=== PATIENT | male | born 1940 | race Caucasian/White ===

== ENCOUNTER 2016-06-20 12:03 | Inpatient (IN) | payer OTHER, MEDICARE ==
[~2016-06-20] VITALS: Ht 165.1 cm; Wt 58.1 kg
[~2016-06-20 12:03] MED LIST: ALBUTEROL0.09 MG/A1 INH; ALBUTEROL0.09 MG/A2 INH; AMOXIL500 MG PO; ATORVASTATIN CA40 M1 PO; ATORVASTATIN CA40 MG PO; AUGMENTIN 875875 MG PO; CIPRO500 M1 PO; CIPROFLOXACIN500 M2 PO; COUMADIN4 M1 PO; COUMADIN5 M2 PO; CYCLOBENZAPRINE10 M1 PO; DUONEB 3 MG/3 ML3 ML INH/SOL; FUROSEMIDE20 MG PO; LASIX20 M1 PO; LASIX20 MG PO; LASIX40 MG PO; LOPRESSOR 25MG25 MG PO; LOPRESSOR 6.26.25 MG PO; MASON NATURAL325 MG PO; METOPROLOL TART25 M1 PO; NAPROXEN375 M2 PO; NOVAPLUS V0.09 MG/Ac INH; OMEPRAZOLE40 MG PO; OXYCODONE HCL5 M2 PO; OXYCODONE5 M1 PO; PERCOCET 325 MG1 TA2 PO; PERCOCET 325 MG1 TAB PO; PERCOCET 5-3251 EACH PO; PLAVIX 75MG TAB75 MG PO; POTASSIUM CL 225 MEQ PO; PREDNISONE 20MG20 MG PO; PREDNISONE10 M2 PO; PREDNISONE10 MG PO; Robitussin PO; SPIRIVA1 PUF INH; SYMBICORT 160/41 PUF INH; TYLENOL EXTRA500 M2 PO; TYLENOL WITH C1 EACH PO; TYLENOL XSTR500 MG PO; XARELTO15 M1 PO
[2016-06-20 13:08] LABS: ABSOLUTE BASOPHIL COUNT 0.1 /CUMM (0.0-0.2); ABSOLUTE EOSINOPHIL COUNT 0.1 /CUMM (0.0-0.7); ABSOLUTE GRANULOCYTE CT 4.6 /CUMM (1.4-6.5); ABSOLUTE LYMPH COUNT 1.1 /CUMM (1.2-3.4); ABSOLUTE MONOCYTE COUNT 0.6 /CUMM (0.10-0.60); BASOPHIL % 0.8 % (0.0-2.0); EOSINOPHIL % 1.4 % (0-5); GRANULOCYTE % 71.2 % (42.2-75.2); HEMATOCRIT 40.6 % (42-52); MEAN CORPUSCULAR HGB 28.8 PG (27.0-31.0); MEAN CORPUSCULAR VOLUME 89.9 FL (80.0-94.0); MEAN PLATELET VOLUME 8.3 FL (7.4-10.4); PLATELET COUNT 154 /CUMM (130-400); RBC DISTRIBUTION WIDTH 15.1 % (11.5-14.5); RED BLOOD CELL CT 4.52 /CUMM (4.70-6.10); WHITE BLOOD CELL COUNT 6.5 /CUMM (4.8-10.8)
--- NOTE | 2016-06-20 13:23 | ED GENERAL ADULT ---
History of Present Illness General Chief Complaint: General Adult Stated Complaint: DIZZINESS, COLD SWEATS, INCREASED WEAKNESS Source: patient Exam Limitations: no limitations Vital Signs & Intake/Output Vital Signs & Intake/Output Vital Signs Date Time Temp Pulse Resp B/P Pulse O2 O2 Flow FiO2 Ox Delivery Rate 06/20 1951 97.5 94 20 130/80 97 Room Air 06/20 1931 97.6 70 20 126/72 97 Room Air 06/20 1843 97 06/20 1711 97.6 72 20 137/92 95 Room Air 06/20 1433 98.9 90 20 131/88 92 Room Air 06/20 1306 98.0 85 26 131/78 92 Room Air 06/20 1236 Room Air 06/20 1210 96.8 94 24 147/92 90 Room Air Reconcile Medications Atorvastatin Calcium 40 MG TABLET 40 MG PO 1700 HEART Furosemide (Lasix) 20 MG TABLET 1 TAB PO BID swollen legs Metoprolol Tartrate 25 MG TABLET 0.5 TAB PO BID HYPERTENSION Oxycodone HCl/Acetaminophen (Percocet 5-325 MG Tablet) 5 MG-325 MG TABLET 1 TAB PO BID PRN PAIN TEN...[id number] Pot Chloride/Pot Bicarb/Cit AC (Potassium Cl 25 Meq Tab Eff) 25 MEQ TABLET.EFF 1 TAB PO QDAY WHILE TAKING FUROSEMIDE Warfarin Sodium (Coumadin) 4 MG TABLET 1 TAB PO DAILY BLOOD CLOTS Triage Note: PT TO ED C/O HOT AND COLD SWEATS. C/O "LEGS GIVING OUT" X 1 WEEK. C/O INCREASED WEAKNESS. Triage Nurses Notes Reviewed? yes Onset: Abrupt Duration: week(s): (1), constant, continues in ED Timing: recent history Injury Environment: home Severity: moderate, severe No Modifying Factors: none HPI: 76-year-old male comes into emergency room for further evaluation of multiple complaints. Patient reports that he's been very fatigued and tired. Patient complains of bilateral lower leg pain and swelling in his legs. Patient reports that he ambulates 5-10 feet and has pain and has to stop. Patient denies any chest pain or shortness of breath. Patient has been coughing frequently with some upper respiratory symptoms. Some nasal congestion. Denies any vomiting. Denies any other associated symptoms. (MAURIZIO MARIANO,CHRISTINE) Allergies Coded Allergies: oxycodone (Intermediate, RASH 06/20/16) aspirin (ANAPHYLAXIS 04/30/16) (NEDRA WYATT DO) Past History Travel History Traveled to [place] past 21 day No Medical History Any Pertinent Medical History? 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 MOTHER (DM). Hx Contributory? No (CHRISTINE MCNEAL) Review of Systems Review of Systems Constitutional: Reports: see HPI. EENTM: Reports: see HPI. Respiratory: Reports: see HPI. Cardiovascular: Reports: no symptoms. GI: Reports: no symptoms. Genitourinary: Reports: no symptoms. Musculoskeletal: Reports: see HPI. Skin: Reports: see HPI. Neurological/Psychological: Reports: no symptoms. Hematologic/Endocrine: Reports: no symptoms. Immunologic/Allergic: Reports: no symptoms. All Other Systems: Reviewed and Negative (CHRISTINE MCNEAL) Physical Exam Physical Exam General Appearance: well developed/nourished, alert, awake, mild distress Head: atraumatic Eyes: Bilateral: normal appearance, PERRL, EOMI. Ears, Nose, Throat: normal pharynx, normal ENT inspection Neck: normal inspection, supple Respiratory: no respiratory distress, decreased breath sounds Cardiovascular: regular rate/rhythm Gastrointestinal: soft Extremities: pedal edema (2+) Neurologic/Psych: awake, alert, oriented x 3, normal gait, normal mood/affect Skin: intact, normal color Core Measures ACS in differential dx? No CVA/TIA Diagnosis: No Severe Sepsis Present: No Septic Shock Present: No (CHRISTINE MCNEAL) Progress Differential Diagnoses I considered the following diagnoses in my evaluation of the patient: DVT, peripheral vascular disease, congestive heart failure, COPD, pneumonia, sepsis, UTI, Plan of Care: Orders Procedure Date/time Status Consistent Carbohydrate 3 06/21 B Active TROPONIN LEVEL 06/21 0100 Active EKG 06/21 0100 Active Vital Signs 06/20 194 Active Teach/Educate 06/20 1944 Active Nutritional Intake, Monitor 06/20 1944 Active Isolation 06/20 194 Active Intake & Output 06/20 194 Active Patient Care Conference 06/20 194 Active Activity/Ambulation 06/20 194 Active TROPONIN LEVEL 06/20 1900 Complete EKG 06/20 190 Active Straight Cath 06/20 1855 Active RAPID VIRAL INFLUENZA A 06/20 1706 Complete BLOOD CULTURE 06/20 1706 Active TRC EVALUATION (GEN) 06/20 1620 Active OXYGEN SETUP (GEN) 06/20 1620 Active Pathway - chart 06/20 1620 Active House Staff 06/20 1620 Active Admit to inpatient 06/20 1620 Active Patient Data 06/20 1620 Active Code Status 06/20 1620 Complete Code Status 06/20 1620 Active Patient Data 06/20 1603 Active Add-on Test (ER Only) 06/20 1356 Active PROTHROMBIN TIME 06/20 1259 Complete B-TYPE NATRIURETIC PEP (BNP) 06/20 1259 Complete URINALYSIS 06/20 1229 Complete TROPONIN LEVEL 06/20 1229 Complete COMPREHENSIVE METABOLIC PANEL 06/20 1229 Complete CBC WITHOUT DIFFERENTIAL 06/20 1229 Complete EKG 06/20 1229 Active VTE Mechanical Prophylaxis 06/20 UNK Active Vital Signs 06/20 UNK Active MISTAKE 06/20 UNK Active Telemetry/Drag Sawyer 06/20 UNK Active Intake & Output 06/20 UNK Active Hemoccult 06/20 UNK Active ECHOCARDIOGRAM 06/20 UNK Active Current Medications Sig/Nelly Start time Last Medication Dose Stop Time Status Admin Atorvastatin Calcium 40 MG 1700 06/21 1700 AC (Lipitor) Methylprednisolone 20 MG Q8 06/21 0600 AC (Solumedrol) Enoxaparin Sodium 60 MG BID 06/20 2200 AC (Lovenox) Furosemide 20 MG BID 06/20 2200 AC (Lasix) Metoprolol Tartrate 12.5 MG BID 06/20 2200 AC (Lopressor) Metoclopramide HCl 5 MG AC & AT BEDTIME PRN 06/20 1999 CAN (Reglan) Guaifenesin 10 ML Q6P PRN 06/20 1944 AC (Robitussin) Sodium Chloride 2 SPRAY Q4P PRN 06/20 1944 AC (Nasal) Laboratory Tests 06/20/16 1850: Troponin I 0.02 06/20/16 1403: Urine Color YEL, Urine Clarity HAZY H, Urine pH 6.0, Ur Specific [place] >= 1.030, Urine Protein 100 H, Urine Ketones NEG, Urine Nitrite NEG, Urine Bilirubin NEG, Urine Urobilinogen 0.2, Ur Leukocyte Esterase NEG, Ur Microscopic SEDIMENT EXAMINED, Urine RBC 1-3, Urine WBC 15-25 H, Ur Epithelial Cells FEW, Hyaline Casts 1-3 H, Urine Mucus FEW, Urine Hemoglobin NEG, Urine Glucose NEG 06/20/16 1259: Anion Gap 9, Estimated GFR 59 L, BUN/Creatinine Ratio 22.5, Glucose 201 H, Calcium 9.0, Total Bilirubin 0.7, AST 21, ALT 24, Alkaline Phosphatase 93, Troponin I 0.02, Fem-Y-Wzdaizdzlqm Pept 48075 H, Total Protein 6.5, Albumin 3.7 , Globulin 2.8, Albumin/Globulin Ratio 1.3, PT 14.1 H, INR 1.35 H, CBC w Diff NO MAN DIFF REQ, RBC 4.52 L, MCV 89.9, MCH 28.8, RDW 15.1 H, MPV 8.3, Gran % 71.2, Lymphocytes % 17.4 L, Monocytes % 9.2, Eosinophils % 1.4, Basophils % 0.8 , Absolute Granulocytes 4.6, Absolute Lymphocytes 1.1 L, Absolute Monocytes 0.6 , Absolute Eosinophils 0.1, Absolute Basophils 0.1, PUBS MCHC 32.0 L 06/20/16 1235: Ssu-F-Twxefwozbsl Pept Cancelled Microbiology 06/20 190 BLOOD: Blood Culture - RECD 06/20 1849 BLOOD: Blood Culture - RECD Diagnostic Imaging: Viewed by Me: Radiology Read, Ultrasound. Discussed w/RAD: Radiology Read, Ultrasound. Radiology Impression: SERVICE DATE: 06/20/16 EXAM TYPE: RAD - XRY-CHEST XRAY, PA AND LATERAL EXAMINATION: XR CHEST CLINICAL INFORMATION: Hypoxia. COMPARISON: CXR from 05/08/2016. Chest CT from 04/30/[address] from . TECHNIQUE: PA and lateral views of the chest were obtained. FINDINGS: Cardiomegaly without acute pulmonary edema. Small pleural effusions, similar in size compared to 05/18/2016, with minimal bibasilar atelectasis. There is no acute pulmonary consolidation. Again noted is the large cardiac silhouette, atherosclerotic aorta, and saccular aneurysms of the aortic arch and proximal descending aorta. No acute skeletal findings; there is mild dextrocurvature of the degenerated lower thoracic spine and levocurvature of the degenerated lumbar spine. IMPRESSION: 1. Cardiomegaly without pulmonary edema. 2. No acute findings in the lung bases compared to the abdomen CT of 05/18/2016. Persistent small pleural effusions with bibasilar atelectasis. 3. Saccular aneurysms of the thoracic aorta. DICTATED BY: BILLY COLBERT MD , SERVICE DATE: 06/20/16 EXAM TYPE: US - US-EXT BILAT VENOUS DOPPLER EXAMINATION: US TRIPLEX LOWER EXTREMITY, BILATERAL CLINICAL INFORMATION: Bilateral lower extremity pain and swelling. COMPARISON: Triplex ultrasound of the bilateral lower extremity veins 05/01/2016. TECHNIQUE: Color-flow triplex imaging with spectral analysis and compression Doppler were performed on the bilateral lower extremities. FINDINGS: Respiratory variation, normal compression and augmented flow are noted throughout the bilateral lower extremities. The visualized common femoral veins, femoral veins, profunda femoral veins, popliteal veins and mid calf peroneal and posterior tibial venous segments demonstrate no evidence of deep venous thrombosis. There are no Arvizu's cysts. IMPRESSION: Normal triplex scan without evidence of deep venous thrombosis involving the bilateral lower extremities. DICTATED BY: JOHANA MERCADO MDENNA Initial ED EKG: normal intervals, normal p-waves, normal QRS complex, normal sinus rhythm, rate (75) Prior EKG: unchanged (CHRISTINE MCNEAL) Departure Departure Condition: Stable Clinical Impression Primary Impression: Acute CHF (congestive heart failure) Secondary Impressions: COPD exacerbation, Hypoxia Referrals: IRENE PAGAN MD (PCP/Family) Referred to [facility] as new patient No Departure Forms: Customer Survey General Discharge Information (CHRISTINE MCNEAL) Departure Disposition: STILL A PATIENT Admission Note Spoke With: ERVIN BOSTON MD Documentation of Exam: Documentation of any treatments & extenuating circumstances including Concerns Regarding Discharge (functional status, medication knowledge or non-compliance, living conditions, etc.) that warrant an admission rather than observation: [ Patient needs admission for telemetry monitoring, serial troponins, nebulizer treatments every 4 hours, IV Lasix, consider cardiology consultation] PA/ORNAMENTAL IRONWORKER Co-Sign Statement Statement: ED Attending supervision documentation- [X] I saw and evaluated the patient. I have also reviewed all the pertinent lab results and diagnostic results. I agree with the findings and the plan of care as documented in the PA's/ORNAMENTAL IRONWORKER's documentation. [] I have reviewed the ED Record and agree with the PA's/ORNAMENTAL IRONWORKER's documentation. [] Additions or exceptions (if any) to the PAs/ORNAMENTAL IRONWORKER's note and plan are summarized below: [] (NEDRA WYATT DO) Critical Care Note Critical Care Note Critical Care Time: 30-74 min (NEDRA WYATT DO)
--- NOTE | 2016-06-20 13:28 | RADIOLOGY REPORT ---
EXAMINATION: XR CHEST CLINICAL INFORMATION: Hypoxia. COMPARISON: CXR from 05/08/2016. Chest CT from 04/30/[address] from 05/18/2016. TECHNIQUE: PA and lateral views of the chest were obtained. FINDINGS: Cardiomegaly without acute pulmonary edema. Small pleural effusions, similar in size compared to 05/18/2016, with minimal bibasilar atelectasis. There is no acute pulmonary consolidation. Again noted is the large cardiac silhouette, atherosclerotic aorta, and saccular aneurysms of the aortic arch and proximal descending aorta. No acute skeletal findings; there is mild dextrocurvature of the degenerated lower thoracic spine and levocurvature of the degenerated lumbar spine. IMPRESSION: 1. Cardiomegaly without pulmonary edema. 2. No acute findings in the lung bases compared to the abdomen CT of 05/18/2016. Persistent small pleural effusions with bibasilar atelectasis. 3. Saccular aneurysms of the thoracic aorta.
[2016-06-20 14:08] LABS: PT 14.1 SEC (9.4-12.5)
--- NOTE | 2016-06-20 15:05 | ULTRASOUND REPORT ---
EXAMINATION: US TRIPLEX LOWER EXTREMITY, BILATERAL CLINICAL INFORMATION: Bilateral lower extremity pain and swelling. COMPARISON: Triplex ultrasound of the bilateral lower extremity veins 05/01/2016. TECHNIQUE: Color-flow triplex imaging with spectral analysis and compression Doppler were performed on the bilateral lower extremities. FINDINGS: Respiratory variation, normal compression and augmented flow are noted throughout the bilateral lower extremities. The visualized common femoral veins, femoral veins, profunda femoral veins, popliteal veins and mid calf peroneal and posterior tibial venous segments demonstrate no evidence of deep venous thrombosis. There are no Arvizu's cysts. IMPRESSION: Normal triplex scan without evidence of deep venous thrombosis involving the bilateral lower extremities.
--- NOTE | 2016-06-20 16:17 | History & Physical ---
SERA GUERRERO 06/20/16 1617: General Information and HPI MD Statement: I have seen and personally examined JESÚS FERNANDES and documented this H&P. The patient is a 76 year old M who presented with a patient stated chief complaint of []. Source of Information: patient, old records Exam Limitations: no limitations History of Present Illness: Chief complaint: Exertional shortness of breath and nasal congestion for the past 3 days. This is a 76-year-old active smoker gentleman with past medical history significant for HfRef (echocardiogram 11/03/2015:EF 25% with stage III diastolic dysfunction [id number] MR, trace AR, jiic-jr-onirvouc TR, mild PA ), PVD, COPD not on home oxygen, CAD status post stenting, descending thoracic aortic aneurysm-stable, pulmonary embolism which failed treatment with Xarelto(the patient was maintained on warfarin since his last admission on 04/30/2016) who presents to the hospital with worsening shortness of breath and nasal congestion for the past 3 days. According to the patient, he has been experiencing URI like symptoms and weakness for the past 3 days, has mild sore throat along cough (with clear sputum). He is also experiencing exertional shortness of breath and mentions that he can only walk for approximately 10 feet before getting short of breath. He denies orthopnea. He reports chest discomfort after each cough however denies chest pain and palpitations. Per patient, he did not notice any worsening of lower extremity edema recently and in fact he reports his lower extremity edema to be better than his baseline today. The patient has not received flu vaccine this year because per patient, he did not like how he felt last time he received the vaccine. The patient denies history of sick contact, recent travel, illicit drug use, EtOH use. The patient reports that he has reduced smoking significantly and smokes 1 pack per week. Allergies/Medications Allergies: Coded Allergies: oxycodone (Intermediate, RASH 06/20/16) aspirin (ANAPHYLAXIS 04/30/16) Home Med list Atorvastatin Calcium 40 MG TABLET 40 MG PO 1700 HEART Furosemide (Lasix) 20 MG TABLET 1 TAB PO BID swollen legs Metoprolol Tartrate 25 MG TABLET 0.5 TAB PO BID HYPERTENSION Oxycodone HCl/Acetaminophen (Percocet 5-325 MG Tablet) 5 MG-325 MG TABLET 1 TAB PO BID PRN PAIN TEN...[id number] Pot Chloride/Pot Bicarb/Cit AC (Potassium Cl 25 Meq Tab Eff) 25 MEQ TABLET.EFF 1 TAB PO QDAY WHILE TAKING FUROSEMIDE Warfarin Sodium (Coumadin) 4 MG TABLET 1 TAB PO DAILY BLOOD CLOTS Past History Travel History Traveled to [place] past 21 day No Medical History Neurological: NONE EENT: DEVIATED SEPTUM Cardiovascular: CAD (NSTEMI s/p PCI of the LCX/OM), CHF (peripheral vascular disease), HYPERLIPIDEMIA CT X 1 YEAR AGO THORACIC AORTA PSEUDO- ANEURYSM Respiratory: COPD Gastrointestinal: GI BLEED Hepatic: NONE Renal: nephrolithiasis, BPH s/p right ESWL Musculoskeletal: leg pain Psychiatric: NONE Endocrine: diabetes Blood Disorders: NONE Cancer(s): NONE 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 MOTHER (DM). Psychosocial History Services at Home: None ETOH Use: denies use Illicit Drug Use: denies illicit drug use Review of Systems Review of Systems Constitutional: Reports: weakness. Denies: chills, diaphoresis, fever, malaise, unexplained weight loss. EENTM: Reports: nasal congestion, throat pain. Denies: blurred vision, double vision, visual changes, eye pain, eye drainage, eye tearing, icterus, ear discharge, ear pain, ear redness, hearing changes, epistaxis, nasal pain, throat swelling, mouth pain, tooth pain. Cardiovascular: Denies: chest pain, edema, orthopena, palpitations, peripheral edema, syncope. Respiratory: Reports: cough, short of breath. Denies: hemoptysis, orthopnea, sputum production, stridor, wheezing. GI: Denies: abdominal pain, bloating, constipation, diarrhea, distention, bowel incontinence, melena, nausea, bloody stool, changes in stool, vomiting, steatorrhea. Genitourinary: Denies: discharge, dysuria, frequency, hematuria, hesitation, nocturia, pain, urgency. Musculoskeletal: Denies: back pain, gout, joint pain, joint swelling, muscle pain, muscle stiffness, neck pain. Skin: Denies: cysts, change in skin color, change in hair/nails, dryness, erythema, jaundice, lesions, lymphangitis, lumps, moles, rash. Neurological/Psychological: Denies: anxiety, ataxia, cognitive dysfunction, confusion, depressed, dementia, emotional problems, headache, numbness, paresthesia, pre-existing deficit, petit mal seizures, tingling, tremors, tonic-clonic seizures, unable to move lower ext , unable to move upper ext, weakness. Hematologic/Endocrine: Denies: bruising, bleeding, polyuria, polydipsia. Immunologic/Allergic: Denies: splenectomy, HIV/AIDS, lymphadenopathy. All Other Systems: Reviewed and Negative Exam & Diagnostic Data Last 24 Hrs of Vital Signs/I&O Vital Signs Date Time Temp Pulse Resp B/P Pulse O2 O2 Flow FiO2 Ox Delivery Rate 06/20 1951 97.5 94 20 130/80 97 Room Air 06/20 1932 97.6 70 20 126/72 97 Room Air 06/20 1843 97 06/20 1711 97.6 72 20 137/92 95 Room Air 06/20 1433 98.9 90 20 131/88 92 Room Air 06/20 1306 98.0 85 26 131/78 92 Room Air 06/20 1236 Room Air 06/20 1210 96.8 94 24 147/92 90 Room Air Intake & Output 06/20 1600 06/20 0800 06/20 0000 Intake Total 0 Output Total Balance 0 Intake, Oral 0 Patient 126 lb Weight Physical Exam General Appearance Alert, Oriented X3, Cooperative, No Acute Distress Skin No Rashes, No Breakdown, No Significant Lesion HEENT Atraumatic, PERRLA, EOMI, Mucous Membr. moist/pink Neck Supple, No JVD, No thryomegaly, +2 Carotid Pulse wo Bruit, No LAD Lymphatic Axillary nl, Cervical nl Cardiovascular Regular Rate, Normal S1, Normal S2, No Murmurs Lungs expiratory wheezes, no crackles or sign of congestion Abdomen Normal Bowel Sounds, Soft, No Tenderness, No Hepatospenomegaly, No Masses Neurological Normal Speech, Strength at 5/5 X4 Ext, Normal Tone, Sensation Intact, Cranial Nerves 3-12 NL, Reflexes 2+ Extremities No Clubbing, No Cyanosis, bilateral lower extremity +1 edema Vascular Pulses Symmetrical Last 24 Hrs of Labs/Tr: Laboratory Tests 06/20/16 1850: Troponin I 0.02 06/20/16 1403: Urine Color YEL, Urine Clarity HAZY H, Urine pH 6.0, Ur Specific [place] >= 1.030, Urine Protein 100 H, Urine Ketones NEG, Urine Nitrite NEG, Urine Bilirubin NEG, Urine Urobilinogen 0.2, Ur Leukocyte Esterase NEG, Ur Microscopic SEDIMENT EXAMINED, Urine RBC 1-3, Urine WBC 15-25 H, Ur Epithelial Cells FEW, Hyaline Casts 1-3 H, Urine Mucus FEW, Urine Hemoglobin NEG, Urine Glucose NEG 06/20/16 1259: Anion Gap 9, Estimated GFR 59 L, BUN/Creatinine Ratio 22.5, Glucose 201 H, Calcium 9.0, Total Bilirubin 0.7, AST 21, ALT 24, Alkaline Phosphatase 93, Troponin I 0.02, Mnj-D-Sfnuwzbkokb Pept 89536 H, Total Protein 6.5, Albumin 3.7 , Globulin 2.8, Albumin/Globulin Ratio 1.3, PT 14.1 H, INR 1.35 H, CBC w Diff NO MAN DIFF REQ, RBC 4.52 L, MCV 89.9, MCH 28.8, RDW 15.1 H, MPV 8.3, Gran % 71.2, Lymphocytes % 17.4 L, Monocytes % 9.2, Eosinophils % 1.4, Basophils % 0.8 , Absolute Granulocytes 4.6, Absolute Lymphocytes 1.1 L, Absolute Monocytes 0.6 , Absolute Eosinophils 0.1, Absolute Basophils 0.1, PUBS MCHC 32.0 L 06/20/16 1235: Rbb-V-Packmlegedq Pept Cancelled Microbiology 06/20 1900 BLOOD: Blood Culture - RECD 06/20 1850 BLOOD: Blood Culture - RECD Diagnostic Data EKG Results Sinus rhythm, rate 75, QTC 470, right axis deviation, no significant ST-T wave changes. CXR Results 1. Cardiomegaly without pulmonary edema. 2. No acute findings in the lung bases compared to the abdomen CT of 05/18/2016. Persistent small pleural effusions with bibasilar atelectasis. 3. Saccular aneurysms of the thoracic aorta. Other Results Lower extremity venous Doppler study:Normal triplex scan without evidence of deep venous thrombosis involving the bilateral lower extremities. Assessment/Plan Assessment: 76-year-old gentleman with past medical history of HfRef, COPD, pulmonary embolism on warfarin presents today with worsening of exertional shortness of breath and URI symptoms for 3 days; clinical symptoms and physical exam not compatible with acute heart failure even though proBNP is elevated. There is no sign of pulmonary edema on chest x-ray. Problem list/plan #Shortness of breath, cough, chest discomfort * Patient reports history of URI for the past 3 days, clinically not seem to be in heart failure; most likely COPD exacerbation * His symptoms improved after receiving 125 mg of IV methylprednisolone and TRC treatment in the ED. * secured entrance monitor * Vital signs per protocol * Strict I's and O's * Will rule out ACS with serial troponin and EKG * Echocardiogram * Blood cultures and sputum culture * Will check flu swab * Will start the patient on IV azithromycin 500 mg daily, IV methylprednisolone 20 q 8 * Will add PPI for GI protection while on steroids * TRC/nebs as needed * Oxygen supplementation * Saline irrigation for nasal congestion * Guaifenesin for expectorant #Pulmonary embolism on warfarin: * The patient had subtherapeutic INR of 135 on admission, he reports that he has been taking his warfarin on time every day * Will start the patient on subcutaneous Lovenox 60 mg twice a day, will administer 5 mg by mouth warfarin; will continue Lovenox onto the INR is within therapeutic range. * Will not obtain CTA at this point given results of this test will not change our management. * Will closely monitor H&H * Stool was negative for Hemoccult #HfRef: * Continue with metoprolol 12.5 by mouth twice a day * Continue with atorvastatin 40 mg by mouth daily * At this point we were not able to find any contraindication for Miguel inhibitors , will ask cardiology tomorrow if we can start him on miguel inhibitors given his reduced ejection fraction * Echocardiogram and rule out ACS as above #Lower extremity edema: * The patient has not noticed any worsening in his lower extremity edema recently; reports that it has been improving * No calf tenderness * Venous Doppler of lower extremities was negative for any DVT * The patient received 40 mg IV furosemide 1 in the ED * Will continue his home medication of by mouth furosemide 20 mg twice a day #Elevated blood glucose level: * The patient has blood glucose level of 201 on admission, he denies any polyuria, polydipsia, polyphagia however mentions that he has been diagnosed recently with prediabetes * Will check hemoglobin A1c * Diabetic/cardiac diet #History of Abdominal aortic aneurysm * Per our electronic data, the patient was found to have abdominal aortic aneurysm in October 2015, he was told that surgery is too risky for him and he was instructed to do annual follow-up and blood pressure control. #DVT prophylaxis: * SC Lovenox and warfarin #CODE STATUS: * Full code As Ranked By This Provider Problem List: 1. Borderline diabetes mellitus 2. Peripheral arterial disease 3. DVT prophylaxis 4. COPD (chronic obstructive pulmonary disease) 5. Bronchitis Core Measures/Miscellaneous Acute Coronary Syndrome ACS Diagnosis: No Cerebrovascular Accident CVA/TIA Diagnosis: No Congestive Heart Failure CHF Diagnosis: No Venous Thromboembolism VTE Risk Factors: Age > 40, Smoking VTE Prophylaxis Ordered Inpt: Pharm- Warfarin No Mech VTE prophylaxis d/t: No contraindications No VTE Pharm Prophylaxis d/t: No contraindications VTE Diagnosis: No VTE Type: NONE VTE Confirmed by (Test): NONE Severe Sepsis Severe Sepsis Present: No Septic Shock Septic Shock Present: No Miscellaneous Documentation Attending Case Discussed With: ERVIN BOSTON MD Primary Care Physician: IRENE PAGAN MD Patient sees these Specialists Cardiology Level of Patient Care: Telemetry ERVIN BOSTON MD 06/20/16 1715: Attending MD Review Statement Attending Statement Attending MD Statement: examined this patient, discuss w/resident/PA/CRYSTAL INSPECTOR, agreed w/resident/PA/CRYSTAL INSPECTOR, reviewed EMR data (avail), reviewed images Attending Assessment/Plan: 76 year old male with COPD (still smoking), PVD, PE (failed Xarelto) and on Coumadin, systolic heart failure with EF of 35 % here with acute COPD exacerbation. Pt's syx started with URI like syx and now has cough and sob. Although BNP is elevated, clinically pt does not appear to be in heart failure and his edema, he says is better than before. Will treat with IV steroids and PO abx for a COPD exacerbation. Check flu swab. Given sub therapeutic INR and large PE (05/04), will start lovenox 1mh/kg sq bid and dose PO Coumadin till inr is therapeutic . Cont statin and beta bautista and speak to Cardio about ?miguel inhibitor given systolic heart failure.
--- NOTE | 2016-06-20 17:17 | Admission Certification ---
Admission Certification Certification Statement - As attending physician, I certify that at the time of - admission, based on clinical presentation, severity of - symptoms, need for further diagnostic testing and - therapeutic interventions, and risk of adverse outcomes - without in-hospital treatment, in my clinical assessment, - this patient requires an acute hospital stay for a minimum - of two nights or longer. I have also considered psychsocial - factors such as support system, advanced age, financial - issues, cognitive issues, and failed out-patient treatments, - past re-admission history, safety of patient, and lack of - compliance as applicable. Specific rationale supporting this admission is: acute copd exacerbation, needs IV steroids
[2016-06-20 19:52] VITALS: BP 130/80
[2016-06-20 23:15] VITALS: BP 128/70
--- NOTE | 2016-06-21 07:53 | PN- Housestaff ---
SERA GUERRERO 06/21/16 0753: Subjective Follow-up For: Shortness of breath, cough, chest discomfort Tele-Events Since Last Visit: Sinus rhythm, rate 64-89, episodes of sinus bradycardia rate 48, PVCs. Subjective: Patient seen and examined this morning. He reports interscapular pain, 7/10, nonradiating. His pain improved with Tylenol 3251. Otherwise he feels much better compared to yesterday, his shortness of breath has improved. He also had trouble phonating overnight and required Bryant catheter placement. The patient denies headache, dizziness, lightheadedness, palpitations, chest pain, chest pressure, abdominal pain, urinary symptoms. Vital signs stable. No overnight events reported. Review of Systems Constitutional: Denies: see HPI. Objective Last 24 Hrs of Vital Signs/I&O Vital Signs Date Time Temp Pulse Resp B/P Pulse O2 O2 Flow FiO2 Ox Delivery Rate 06/21 1021 92 Nasal 2.0L Cannula 06/21 0944 81 130/72 06/21 0828 97.6 81 18 130/72 92 Nasal 2.0L Cannula 06/21 0800 92 Nasal 2.0L Cannula 06/20 2315 97.5 88 18 128/70 96 Nasal 2.0L Cannula 06/20 2238 88 128/70 06/20 2219 Nasal 2.0L Cannula 06/20 2200 95 Nasal 2.0L Cannula 06/20 1952 97.5 94 20 130/80 97 Room Air 06/20 1932 97.6 70 20 126/72 97 Room Air 06/20 1843 97 06/20 1711 97.6 72 20 137/92 95 Room Air Intake & Output 06/21 1600 06/21 0800 06/21 0000 Intake Total 1160 480 340 Output Total 450 1600 1500 Balance 710 -1120 -1160 Intake, IV 300 100 Intake, Oral 860 480 240 Number 0 Bowel Movements Output, Urine 450 1600 1500 Patient 127 lb Weight Physical Exam General Appearance: Alert, Oriented X3, Cooperative Skin: No Rashes, No Breakdown, No Significant Lesion HEENT: Atraumatic, PERRLA, EOMI, Mucous Membr. moist/pink Neck: No JVD, No thryomegaly, +2 Carotid Pulse wo Bruit, No LAD Lymphatic: Axillary nl, Cervical nl Cardiovascular: Regular Rate, Normal S1, Normal S2, No Murmurs Lungs: Normal Air Movement, expiratory wheezes, improved compared to exam yesterday. Abdomen: Normal Bowel Sounds, Soft, No Tenderness, No Hepatospenomegaly, No Masses Neurological: Normal Speech, Strength at 5/5 X4 Ext, Normal Tone, Sensation Intact, Cranial Nerves 3-12 NL, Reflexes 2+ Extremities: No Clubbing, No Cyanosis, No Edema, Normal Pulses, No Tenderness/ Swelling Vascular: Normal Pulses, Pulses Symmetrical Current Medications: Current Medications Sig/Nelly Start time Last Medication Dose Route Stop Time Status Admin Acetaminophen 325 MG Q8P PRN 06/20 2100 AC 06/21 PO 0949 Acetylcysteine 3 ML TID 06/20 2200 CAN PO Albuterol Sulfate 3 ML BID 06/21 1000 AC 06/21 INH 1019 Atorvastatin Calcium 40 MG 1700 06/21 1700 AC PO Azithromycin 500 MG DAILY 06/20 1707 AC 06/21 Sodium Chloride 250 ML IV 0947 Enoxaparin Sodium 60 MG BID 06/21 1000 AC 06/21 SC 0947 Enoxaparin Sodium 60 MG BID 06/20 2200 DC 06/20 SC 2239 Furosemide 20 MG BID 06/20 2200 AC 06/21 PO 0943 Furosemide 0 .STK-MED ONE 06/20 1700 DC IV Furosemide 40 MG ONCE ONE 06/20 1530 DC 06/20 IV 06/20 1531 1705 Guaifenesin 600 MG Q12 06/20 2200 CAN PO Guaifenesin 600 MG Q12 06/20 2200 AC 06/21 PO 0944 Guaifenesin 10 ML Q6P PRN 06/20 1945 DC PO Methylprednisolone 20 MG Q8 06/21 0600 AC 06/21 IV 1452 Methylprednisolone 0 .STK-MED ONE 06/20 1700 DC .ROUTE Methylprednisolone 125 MG ONCE ONE 06/20 1530 DC 06/20 IV 06/20 1531 1705 Metoclopramide HCl 5 MG AC & AT BEDTIME PRN 06/20 1999 CAN PO Metoclopramide HCl 10 MG Q6P PRN 06/20 1999 AC 06/20 IM 2006 Metoprolol Tartrate 12.5 MG BID 06/20 2200 AC 06/21 PO 0944 Pantoprazole Sodium 40 MG DAILY 06/20 2059 DC 06/20 IV 2237 Patient Medication 1 ED .STK-MED ONE 06/21 1414 DC Teaching ED 06/21 1415 Sodium Chloride 1,000 ML Q13H 06/21 1515 AC IV 06/22 0414 Sodium Chloride 2 SPRAY Q4P PRN 06/20 1945 AC CLAIRE Warfarin Sodium 7 MG ONE TIME ONE 06/21 1700 AC PO 06/21 1701 Warfarin Sodium 5 MG COUMADIN 1700 ONE 06/20 1700 DC 06/20 PO 06/20 1701 2238 Last 24 Hrs of Lab/Tr Results Last 24 Hrs of Labs/Mics: Laboratory Tests 06/21/16 0640: Anion Gap 13, Estimated GFR 59 L, BUN/Creatinine Ratio 24.2, PT 12.8 H, INR 1.22 H, CBC w Diff NO MAN DIFF REQ, RBC 4.46 L, MCV 89.8, MCH 29.6, RDW 15.5 H, MPV 9.1, Gran % 89.5 H, Lymphocytes % 9.1 L, Monocytes % 1.1 L, Eosinophils % 0.1, Basophils % 0.2, Absolute Granulocytes 4.9, Absolute Lymphocytes 0.5 L, Absolute Monocytes 0.1 L, Absolute Eosinophils 0, Absolute Basophils 0, PUBS MCHC 33.0 06/21/16 0115: Troponin I 0.02 06/20/16 1850: Troponin I 0.02 Microbiology 06/20 2044 LOWER RESP: Respiratory Culture - CAN Cancelled: SPECIMEN NOT RECEIVED IN LABORATORY 06/20 2044 LOWER RESP: Gram Stain - CAN Cancelled: SPECIMEN NOT RECEIVED IN LABORATORY 06/20 1900 BLOOD: Blood Culture - RES 06/20 1849 BLOOD: Blood Culture - RES Assessment/Plan Assessment: Assessment: 76-year-old gentleman with past medical history of HfRef, COPD, pulmonary embolism on warfarin presents today with worsening of exertional shortness of breath and URI symptoms for 3 days; clinical symptoms and physical exam not compatible with acute heart failure even though proBNP is elevated. There is no sign of pulmonary edema on chest x-ray. Problem list/plan #Shortness of breath, cough, chest discomfort; * Improved * artificial inseminator * Vital signs per protocol * Strict I's and O's * ACS was ruled out * Echocardiogram pending * Blood cultures no growth after 1 day * sputum culture pending * Will check flu swab * Will change IV azithromycin 500 mg daily to by mouth * Will change IV methylprednisolone 20 q 8 by mouth * Will add PPI for GI protection while on steroids * TRC/nebs as needed * Oxygen supplementation * Saline irrigation for nasal congestion * Guaifenesin for expectorant #Pulmonary embolism on warfarin: * The patient had subtherapeutic INR of 1.35 on admission, he reports that he has been taking his warfarin on time every day * After receiving 6 mg of warfarin last night, INR further decreased to 1.22 this morning. We'll continue with subcutaneous Lovenox low-dose warfarin 7 mg today. Recheck INR tomorrow * CTA was done today given interscapular pain, which showed no evidence of recurrent pulmonary emboli. However there was evidence of enlarging fusiform aneurysm involving mid descending thoracic aorta. * Will closely monitor H&H #HfRef: * Continue with metoprolol 12.5 by mouth twice a day * Continue with atorvastatin 40 mg by mouth daily * Cardiology consult please will appreciate recommendations * Echocardiogram pending #Lower extremity edema: * The patient has not noticed any worsening in his lower extremity edema recently; reports that it has been improving * No calf tenderness * Venous Doppler of lower extremities was negative for any DVT * The patient received 40 mg IV furosemide 1 in the ED * Will continue his home medication of by mouth furosemide 20 mg twice a day * No lower extremity edema noted today #Elevated blood glucose level: * The patient has blood glucose level of 201 on admission, he denies any polyuria, polydipsia, polyphagia however mentions that he has been diagnosed recently with prediabetes * hemoglobin A1c pending * Diabetic/cardiac diet #History of Abdominal aortic aneurysm * Per our electronic data, the patient was found to have abdominal aortic aneurysm in October 2015, he was told that surgery is too risky for him and he was instructed to do annual follow-up and blood pressure control. * Today's CTA showed evidence of enlarging fusiform aneurysm involving mid descending thoracic aorta. #DVT prophylaxis: * SC Lovenox and warfarin #CODE STATUS: * Full code Problem List: 1. Pulmonary emboli 2. Dyspnea Pain Ratin Pain Location: Interscapular Pain Goal: Remain pain free Pain Plan: PRN Tylenol Tomorrow's Labs & Rationales: BEP to monitor creatinine levels ERVIN BOSTON MD 06/21/16 1021: Attending MD Review Statement Attending Statement Attending MD Statement: examined this patient, discuss w/resident/PA/PRECIPITATION EQUIPMENT TENDER, agreed w/resident/PA/PRECIPITATION EQUIPMENT TENDER, reviewed EMR data (avail), discussed with nursing Attending Assessment/Plan: Patient is complaining of some chest discomfort. He says it's primarily between his shoulder blades. He is a 76-year-old with multiple medical problems including pulmonary embolism with subtherapeutic INR on admission having failed outpatient novel agent in the past, COPD actively smoking (although he has cut down) and a thoracic aneurysm with thrombus documented on his previous CT. Given all of these issues I think we should do a CTA to make sure that the clot burden is not larger or there is no aneurysmal issues. I started him on Lovenox with Coumadin because of the sub therapeutic INR and he's also on IV Solu-Medrol for COPD exacerbation. In addition now is having urinary retention that required a Bryant. In April he had the same issue and was supposed to see Dr. Go as an outpatient for the cystoscopy which he didn't follow-up. Will request urology consult.
[2016-06-21 08:09] LABS: ABSOLUTE BASOPHIL COUNT 0 /CUMM (0.0-0.2); ABSOLUTE EOSINOPHIL COUNT 0 /CUMM (0.0-0.7); ABSOLUTE GRANULOCYTE CT 4.9 /CUMM (1.4-6.5); ABSOLUTE LYMPH COUNT 0.5 /CUMM (1.2-3.4); ABSOLUTE MONOCYTE COUNT 0.1 /CUMM (0.10-0.60); BASOPHIL % 0.2 % (0.0-2.0); EOSINOPHIL % 0.1 % (0-5); GRANULOCYTE % 89.5 % (42.2-75.2); MEAN CORPUSCULAR HGB 29.6 PG (27.0-31.0); MEAN CORPUSCULAR VOLUME 89.8 FL (80.0-94.0); MEAN PLATELET VOLUME 9.1 FL (7.4-10.4); PLATELET COUNT 156 /CUMM (130-400); RBC DISTRIBUTION WIDTH 15.5 % (11.5-14.5); RED BLOOD CELL CT 4.46 /CUMM (4.70-6.10)
[2016-06-21 08:28] VITALS: BP 130/72
[2016-06-21 08:31] LABS: PT 12.8 SEC (9.4-12.5)
[2016-06-21 09:34] LABS: WHITE BLOOD CELL COUNT 5.5 /CUMM (4.8-10.8)
--- NOTE | 2016-06-21 13:50 | Cons- Urology ---
General Information and HPI Consulting Request Date of Consult: 06/21/16 Requested By: ERVIN BOSTON MD Reason for Consult: urinary retention Source of Information: patient Exam Limitations: poor historian History of Present Illness: This is a 76-year-old male with multiple medical problems significant for CHF, AR, PVD, COPD, CAD s/p stent, descending thoracic aortic aneurysm which is stable, pulmonary embolism who presented to the hospital with worsening shortness of breath, nasal congestion and sore throat for the past 3 days. Of note, used to be a daily heavy smoker and now one pack lasts him a week. He admits to noticing a decreased FOS, a need to strain and sensation of incomplete emptying. He was supposed to follow up with Dr. Go as an outpatient when he was discharged from the hospital last time. He did not take the prostate meds he was prescribed bc he stated they were way too expensive ($ 300+). Allergies/Medications Allergies: Coded Allergies: oxycodone (Intermediate, RASH 06/20/16) aspirin (ANAPHYLAXIS 04/30/16) Home Med List: Atorvastatin Calcium 40 MG TABLET 40 MG PO 1700 HEART Furosemide (Lasix) 20 MG TABLET 1 TAB PO BID swollen legs Metoprolol Tartrate 25 MG TABLET 0.5 TAB PO BID HYPERTENSION Oxycodone HCl/Acetaminophen (Percocet 5-325 MG Tablet) 5 MG-325 MG TABLET 1 TAB PO BID PRN PAIN TEN...[id number] Pot Chloride/Pot Bicarb/Cit AC (Potassium Cl 25 Meq Tab Eff) 25 MEQ TABLET.EFF 1 TAB PO QDAY WHILE TAKING FUROSEMIDE Warfarin Sodium (Coumadin) 4 MG TABLET 1 TAB PO DAILY BLOOD CLOTS Current Medications: Current Medications Sig/Nelly Start time Last Medication Dose Route Stop Time Status Admin Acetaminophen 325 MG Q8P PRN 06/20 2100 AC 06/21 PO 0949 Acetylcysteine 3 ML TID 06/20 2200 CAN PO Albuterol Sulfate 3 ML BID 06/21 1000 AC 06/21 INH 1019 Atorvastatin Calcium 40 MG 1700 06/21 1700 AC PO Azithromycin 500 MG DAILY 06/20 1707 AC 06/21 Sodium Chloride 250 ML IV 0947 Enoxaparin Sodium 60 MG BID 06/21 1000 AC 06/21 SC 0947 Enoxaparin Sodium 60 MG BID 06/20 2200 DC 06/20 SC 2239 Furosemide 20 MG BID 06/20 2200 AC 06/21 PO 0943 Furosemide 0 .STK-MED ONE 06/20 1700 DC IV Furosemide 40 MG ONCE ONE 06/20 1530 DC 06/20 IV 06/20 1531 1705 Guaifenesin 600 MG Q12 06/20 2200 CAN PO Guaifenesin 600 MG Q12 06/20 2200 AC 06/21 PO 0944 Guaifenesin 10 ML Q6P PRN 06/20 1945 DC PO Methylprednisolone 20 MG Q8 06/21 0600 AC 06/21 IV 0549 Methylprednisolone 0 .STK-MED ONE 06/20 1700 DC .ROUTE Methylprednisolone 125 MG ONCE ONE 06/20 1530 DC 06/20 IV 06/20 1531 1705 Metoclopramide HCl 5 MG AC & AT BEDTIME PRN 06/20 2000 CAN PO Metoclopramide HCl 10 MG Q6P PRN 06/20 1999 AC 06/20 IM 2006 Metoprolol Tartrate 12.5 MG BID 06/20 2200 AC 06/21 PO 0944 Pantoprazole Sodium 40 MG DAILY 06/20 2059 DC 06/20 IV 2237 Sodium Chloride 2 SPRAY Q4P PRN 06/20 1945 AC CLAIRE Warfarin Sodium 5 MG COUMADIN 1700 ONE 06/20 1700 DC 06/20 PO 06/20 1701 2238 Past History Medical History Blood Transfusion Hx: Yes Neurological: NONE EENT: DEVIATED SEPTUM Cardiovascular: CAD (NSTEMI s/p PCI of the LCX/OM), CHF (peripheral vascular disease), HYPERLIPIDEMIA [place] X 1 YEAR AGO THORACIC AORTA PSEUDO- ANEURYSM Respiratory: COPD Gastrointestinal: GI BLEED Hepatic: NONE Renal: nephrolithiasis, BPH , s/p ESWL Musculoskeletal: leg pain Psychiatric: NONE Endocrine: diabetes Blood Disorders: NONE Cancer(s): NONE 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 MOTHER (DM). Psychosocial History Where Do You Live? 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 Ambulation: independent Employment History Retired? unknown Review of Systems Review of Systems Constitutional: Reports: see HPI. EENTM: Denies: no symptoms. Cardiovascular: Reports: see HPI. Respiratory: Reports: see HPI. GI: Denies: no symptoms. Genitourinary: Reports: frequency, hesitation (need to strain,incomplete empt). Musculoskeletal: Denies: no symptoms. Skin: Denies: no symptoms. Neurological/Psychological: Denies: no symptoms. Hematologic/Endocrine: Denies: no symptoms. Immunologic/Allergic: Denies: no symptoms. Exam & Diagnostic Data Vital Signs and I&O Vital Signs Date Time Temp Pulse Resp B/P Pulse O2 O2 Flow FiO2 Ox Delivery Rate 06/21 1021 92 Nasal 2.0L Cannula 06/21 0944 81 130/72 06/21 0828 97.6 81 18 130/72 92 Nasal 2.0L Cannula 06/21 0800 92 Nasal 2.0L Cannula 06/20 2315 97.5 88 18 128/70 96 Nasal 2.0L Cannula 06/20 2238 88 128/70 06/20 2219 Nasal 2.0L Cannula 06/20 2200 95 Nasal 2.0L Cannula 06/20 1952 97.5 94 20 130/80 97 Room Air 06/20 1932 97.6 70 20 126/72 97 Room Air 06/20 1843 97 / 1711 97.6 72 20 137/92 95 Room Air 06/20 1433 98.9 90 20 131/88 92 Room Air Intake & Output 06/21 1600 06/21 0800 06/21 0000 / 1600 06/20 0800 06/20 0000 Intake Total 480 340 0 Output Total 1600 1500 Balance -1120 -1160 0 Intake, IV 100 Intake, Oral 480 240 0 Number 0 Bowel Movements Output, Urine 1600 1500 Patient 57.606 kg 57.153 kg Weight Physical Exam: pt sitting up in bed, awake and alert, NAD watching TV Physical Exam General Appearance: well developed/nourished, no apparent distress, alert, awake , comfortable Head: atraumatic, normal appearance Eyes: Bilateral: normal appearance. Ears, Nose, Throat: normal ENT inspection Neck: normal inspection Respiratory: normal breath sounds, no respiratory distress Gastrointestinal: soft, non-tender Rectal: deferred Back: normal inspection Extremities: normal inspection, no edema Neurologic/Psych: awake, alert, oriented x 3 Cranial Nerves: normal hearing, normal speech Skin: intact, normal color, warm/dry Reproductive: Normal male genitalia Other Physical Findings: martin in place draining clear yellow urine Last 24 Hours of Labs: Laboratory Tests 06/22 06/22 06/22 0635 0630 0600 Chemistry Sodium (137 - 145 mmol/L) 136 L Potassium (3.5 - 5.1 mmol/L) 4.2 Chloride (98 - 107 mmol/L) 93 L Carbon Dioxide (22 - 30 mmol/L) 30 Anion Gap (5 - 16) 14 BUN (9 - 20 mg/dL) 33 H Creatinine (0.7 - 1.2 mg/dL) 1.0 Estimated GFR (>60 ml/min) > 60 BUN/Creatinine Ratio (7 - 25 %) 33.0 H Hemoglobin A1c Pending Coagulation PT (9.4 - 12.5 SEC) 18.1 H INR (0.90 - 1.17) 1.73 H Hematology CBC w Diff NO MAN DIFF REQ WBC (4.8 - 10.8 /CUMM) 14.1 H RBC (4.70 - 6.10 /CUMM) 4.24 L Hgb (14.0 - 18.0 G/DL) 12.5 L Hct (42 - 52 %) 38.4 L MCV (80.0 - 94.0 FL) 90.5 MCH (27.0 - 31.0 PG) 29.6 RDW (11.5 - 14.5 %) 14.8 H Plt Count (130 - 400 /CUMM) 182 MPV (7.4 - 10.4 FL) 8.7 Gran % (42.2 - 75.2 %) 83.8 H Lymphocytes % (20.5 - 51.1 %) 8.6 L Monocytes % (1.7 - 9.3 %) 7.5 Eosinophils % (0 - 5 %) 0.1 Basophils % (0.0 - 2.0 %) 0 L Absolute Granulocytes (1.4 - 6.5 /CUMM) 11.8 H Absolute Lymphocytes (1.2 - 3.4 /CUMM) 1.2 Absolute Monocytes (0.10 - 0.60 /CUMM) 1.1 H Absolute Eosinophils (0.0 - 0.7 /CUMM) 0 Absolute Basophils (0.0 - 0.2 /CUMM) 0 PUBS MCHC (33.0 - 37.0 G/DL) 32.7 L Imaging Results: renal US with right kidney stone 5mm in size. Bladder mass likely prostate, not commented on CT scan in 05/04. Assessment/Plan Assessment/Plan 76 yo male with a hx of BPH and now with urinary retention. He did not see an Urologist as instructed after his last hospitalization. WNL CR. Renal and bladder US WNL with a likely median prostate lobe. Will likely need cystoscopy and urodynamics as an outpatient. PLease send him out with a martin to leg bag. He will need to follow up for a trial of void. Consult Acknowledgment - Thank you for your consult request.
--- NOTE | 2016-06-21 14:33 | CT SCAN REPORT ---
EXAMINATION: CT ANGIOGRAM OF THE CHEST WITH AND WITHOUT CONTRAST (CT PULMONARY ANGIOGRAM FOR PE) CLINICAL INFORMATION: History of pulmonary embolic disease. Check for status of thrombus lobe. Also evaluate size of the patient's aortic aneurysm. COMPARISON: Multiple prior CTs the chest most recent being performed on 04/30/2016. TECHNIQUE: Prior to contrast administration, noncontrast localization images were obtained. Subsequently, multidetector volumetric imaging was performed from the thoracic inlet to below the diaphragms following the administration of 95 mL Optiray 320 intravenous contrast. No contrast reaction reported Sagittal, coronal, and MIP oblique sagittal reformatted images were obtained on the CT workstation, uploaded to PACS, and reviewed. Total exam dose-length product 266.3 mGy-cm FINDINGS: QUALITY OF STUDY/CONTRAST BOLUS: Satisfactory. PULMONARY ARTERIES: No central or segmental pulmonary emboli. There are some residual webs within the lumen of the left main pulmonary artery. There are some residual subsegmental filling defects in the right pulmonary artery. THORACIC AORTA: The aorta is not opacified due to technique been chosen for optimizing opacification of the pulmonary arteries. The ascending aorta has a maximum diameter of 4.0 cm which is within the normal range for age (top normal for this patient of this age is 4.3 cm). Again noted is the presence of a 2.5 x 2.0 x 2.7 cm saccular aneurysm arising from the left lateral aspect of the proximal descending thoracic aorta. There is a 7.6 x 5.5 x 8.3 cm fusiform aneurysm involving the mid descending thoracic aorta below the level charleen which appears to have increased in size previously measuring 7.0 x 5.0 x 7.7 cm. LUNG: There is centrilobular emphysema. No focal consolidation is identified. There is a stable 4 to 5 mm subpleural nodule in the lateral segment of the right middle lobe. PLEURA: There are bilateral moderate-sized pleural effusions. MEDIASTINUM: There is no evidence of mediastinal or hilar adenopathy. Heart is diffusely enlarged. No evidence of septal bowing or right heart strain. CHEST WALL/AXILLA: No axillary or internal mammary lymphadenopathy. No chest wall masses appreciated. OSSEOUS STRUCTURES: Multilevel degenerative spondylitic changes are present in the spine. No focal osteolytic or osteoblastic changes are appreciated. UPPER ABDOMEN: Unremarkable. There is reflux of contrast into the hepatic veins suggesting elevated right heart pressures. IMPRESSION: 1. No evidence of recurrent pulmonary emboli. 2. No aneurysm of the ascending thoracic aorta. 3. Stable saccular aneurysm involving the left lateral aspect of the proximal descending thoracic aorta. 4. Enlarging fusiform aneurysm involving the mid descending thoracic aorta currently measuring 7.6 AP x 5.5 cm transverse x 8.3 cm craniocaudad.
--- NOTE | 2016-06-21 15:44 | ULTRASOUND REPORT ---
EXAMINATION: US RETROPERITONEAL COMPLETE (RENAL) CLINICAL INFORMATION: Urinary retention. COMPARISON: Multiple priors, most recent CT 05/18/2016 TECHNIQUE: Real-time imaging of the kidneys and bladder. FINDINGS: RIGHT KIDNEY: 10.6 x 4.2 x 4.8 cm (SAG x AP x TRV). The kidney is normal in size, contour, and echogenicity. Renal cortical thickness is normal. There is an approximately 0.6 cm echogenic focus in the mid kidney, suspicious for nephrolithiasis. No hydronephrosis. LEFT KIDNEY: 10.7 x 4.7 x 4.4 cm (SAG x AP x TRV). The kidney is normal in size, contour, and echogenicity. Renal cortical thickness is normal. No calculi or focal parenchymal lesions are seen. No hydronephrosis. BLADDER: There is a heterogeneous, masslike density within the bladder measuring approximately 4.1 x 4.0 x 3.7 cm; no significant internal flow is seen with color Doppler evaluation. Appearance is similar to prior CT of 05/02/2016. A Bryant catheter is present. There is a small amount of urine within the bladder. Bilateral ureteral jets are not visualized. Incidental note is made of ascites. IMPRESSION: 1. Masslike density in the urinary bladder, approximately 4.1 x 4.0 x 3.7 cm, similar in appearance to findings on prior CT 05/02/2016. If not already performed, this may be further assessed with cystoscopy. 2. Bryant catheter in place. Small volume of urine in the bladder. 3. Probable 0.6 cm right renal calculus, without hydronephrosis.
--- NOTE | 2016-06-21 15:51 | Cons- Cardiology ---
General Information and HPI Consulting Request Date of Consult: 06/21/16 Requested By: DARVIN ARECHIGA,ERVIN Barraza History of Present Illness: Bear is a 76 year old male with history of peripheral vascular disease and non -ST elevation DE. He is now status post angioplasty to his left circumflex and obtuse marginal artery. He also carries a history of emphesematous COPD. This patient was discovered to have a thrombosed saccular aneurysm of the descending aorta that is pressing on the left mainstem bronchus. There is also a left subclavian stenosis that reconstitutes. An attempt was made to treat this percutaneously with a stent graft but due to his anatomy it could not be done. This patient presented to the ER for evaluation of fever and chills along with a cough productive of clear sputum. He also has noted leg swelling and some weakness in his legs. He denies shortness of breath, orthopnea, chest discomfort , lightheadedness or palpitations. A purulent urine was noted with bacteria and white blood cells. At his baseline he does have at least moderate bilateral calf discomfort exacerbated by walking. He has previously had hematuria, which subsequently improved. He is followed by Dr. Ahmet Conner. He has also seen Dr. Manzano for his peripheral vascular disease. He is known to have severe aortoiliac disease, with almost complete occlusion of the right common iliac artery, and he is status post right common and external iliac stenting and endarterectomy on the left. To review the patient's past history, this patient presented about a year ago to [facility] with complaints of shortness of breath, decreased urination, and nonexertional, severe throbbing epigastric discomfort radiating to his right arm. He also had intermittent left chest discomfort with eructation. A CT angiogram was done, which ruled him out for PE but did show coronary calcifications, and he did rule in for a non-ST elevation DE by cardiac enzymes on that admission. A cardiac catheterization was therefore performed, which showed a short but patent left vein, luminal irregularities in the LAD up to 30% at the takeoff of the diagonal branch. The left circumflex harbored an 80% mid stenosis at the takeoff of an obtuse marginal, which itself had a 90% mid lesion. The right coronary artery was dominant with a 100% proximal occlusion. The obtuse marginal was stented with a 2.75 x 12 mm VeriFLEX stent, and the AV groove left circumflex received a 3.5 x 8 mm VeriFLEX stent. Cardiac workup also included an echocardiogram showing a moderately decreased EF of 30% with hypokinetic apex in the posterior wall septum. There was moderate left ventricular hypertrophy and restrictive filling pattern. In terms of cardiac valves, the patient had mild to moderate mitral regurgitation and tricuspid regurgitation and trace pulmonic insufficiency. Moderate pulmonary hypertension was also noted. Allergies/Medications Allergies: Coded Allergies: oxycodone (Intermediate, RASH 06/20/16) aspirin (ANAPHYLAXIS 04/30/16) Home Med List: Atorvastatin Calcium 40 MG TABLET 40 MG PO 1700 HEART Furosemide (Lasix) 20 MG TABLET 1 TAB PO BID swollen legs Metoprolol Tartrate 25 MG TABLET 0.5 TAB PO BID HYPERTENSION Oxycodone HCl/Acetaminophen (Percocet 5-325 MG Tablet) 5 MG-325 MG TABLET 1 TAB PO BID PRN PAIN TEN...[id number] Pot Chloride/Pot Bicarb/Cit AC (Potassium Cl 25 Meq Tab Eff) 25 MEQ TABLET.EFF 1 TAB PO QDAY WHILE TAKING FUROSEMIDE Warfarin Sodium (Coumadin) 4 MG TABLET 1 TAB PO DAILY BLOOD CLOTS Review of Systems Review of Systems: A twelve point review of systems is unremarkable. 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 MOTHER (DM). Psychosocial History Where Do You Live? 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 unknown Exam & Diagnostic Data Vital Signs and I&O Vital Signs Date Time Temp Pulse Resp B/P Pulse O2 O2 Flow FiO2 Ox Delivery Rate 06/21 1021 92 Nasal 2.0L Cannula 06/21 0944 81 130/72 06/21 0828 97.6 81 18 130/72 92 Nasal 2.0L Cannula 06/21 0800 92 Nasal 2.0L Cannula 06/20 2315 97.5 88 18 128/70 96 Nasal 2.0L Cannula 06/20 2238 88 128/70 06/20 2219 Nasal 2.0L Cannula 06/20 2200 95 Nasal 2.0L Cannula 06/20 1952 97.5 94 20 130/80 97 Room Air 06/20 1932 97.6 70 20 126/72 97 Room Air 06/20 1843 97 06/20 1711 97.6 72 20 137/92 95 Room Air Intake & Output 06/21 1600 06/21 0800 06/21 0000 06/20 1600 06/20 0800 06/20 0000 Intake Total 1160 480 340 0 Output Total 450 1600 1500 Balance 710 -1120 -1160 0 Intake, IV 300 100 Intake, Oral 860 480 240 0 Number 0 Bowel Movements Output, Urine 450 1600 1500 Patient 127 lb 126 lb Weight Physical Exam: General: WD/ WN male in NAD; alert and oriented x 3 HEENT: NC/ AT, PERRL, EOMI, clear oropharynx Neck: +ve JVD, no carotid bruit Heart: RRR w/o murmur Lungs: clear bilaterally Abdomen: soft, NT, +ve bowel sounds Extremities: no edema Diagnostic Data EKG Results sinus rhythm with LAE Assessment/Plan Assessment/Plan * Although this patient now denies any shortness of breath, this patient did offer a history of this symptom to others and was noted to have leg swelling consistent with right heart failure. I agree with diuresis which has served him well since he is without swelling today. Despite his low EF, this patient was not put on an ACEI due to an increased creatinine and absence of office follow up. It is reasonable and appropriate to add Lisinopril 10mg daily to his afterload reduction which will likley help with his heart failure. His breathing feels comfortable at present although he is known to have both severe COPD and an aneurysm pressing up against his mainstem bronchus. We will obtain an echocardiogram to see if his RV and LV function has improved beyond the severely decreased EF of 25% noted on his last echo. Consult Acknowledgment - Thank you for your consult request.
--- NOTE | 2016-06-21 15:55 | Cons- Pulmonary ---
General Information and HPI Consulting Request Date of Consult: 06/21/16 Requested By: Med team History of Present Illness: This is a 76-year-old active smoker gentleman with past medical history significant for HfRef (echocardiogram 11/03/2015:EF 25% with stage III diastolic dysfunction [id number] MR, trace AR, [id number] TR, mild [place] ), PVD, COPD not on home oxygen, CAD status post stenting, descending thoracic aortic aneurysm-stable, pulmonary embolism which failed treatment with Xarelto(the patient was maintained on warfarin since his last admission on 04/30/2016) who presents to the hospital with worsening shortness of breath and nasal congestion for the past 3 days. According to the patient, he has been experiencing URI like symptoms and weakness for the past 3 days, has mild sore throat along cough (with clear sputum). He is also experiencing exertional shortness of breath and mentions that he can only walk for approximately 10 feet before getting short of breath. He denies orthopnea. He reports chest discomfort after each cough however denies chest pain and palpitations. Per patient, he did not notice any worsening of lower extremity edema recently and in fact he reports his lower extremity edema to be better than his baseline today. The patient has not received flu vaccine this year because per patient, he did not like how he felt last time he received the vaccine. The patient denies history of sick contact, recent travel, illicit drug use, EtOH use. The patient reports that he has reduced smoking significantly and smokes 1 pack per week. Constitutional: Reports: weakness. Denies: chills, diaphoresis, fever, malaise, unexplained weight loss. EENTM: Reports: nasal congestion, throat pain. Denies: blurred vision, double vision, visual changes, eye pain, eye drainage, eye tearing, icterus, ear discharge, ear pain, ear redness, hearing changes, epistaxis, nasal pain, throat swelling, mouth pain, tooth pain. Cardiovascular: Denies: chest pain, edema, orthopena, palpitations, peripheral edema, syncope. Respiratory: Reports: cough, short of breath. Denies: hemoptysis, orthopnea, sputum production, stridor, wheezing. GI: Denies: abdominal pain, bloating, constipation, diarrhea, distention, bowel incontinence, melena, nausea, bloody stool, changes in stool, vomiting, steatorrhea. Genitourinary: Denies: discharge, dysuria, frequency, hematuria, hesitation, nocturia, pain, urgency. Musculoskeletal: Denies: back pain, gout, joint pain, joint swelling, muscle pain, muscle stiffness, neck pain. Skin: Denies: cysts, change in skin color, change in hair/nails, dryness, erythema, jaundice, lesions, lymphangitis, lumps, moles, rash. Neurological/Psychological: Denies: anxiety, ataxia, cognitive dysfunction, confusion, depressed, dementia, emotional problems, headache, numbness, paresthesia, pre-existing deficit, petit mal seizures, tingling, tremors, tonic-clonic seizures, unable to move lower ext , unable to move upper ext, weakness. Hematologic/Endocrine: Denies: bruising, bleeding, polyuria, polydipsia. Immunologic/Allergic: Denies: splenectomy, HIV/AIDS, lymphadenopathy. All Other Systems: Reviewed and Negative Allergies/Medications Allergies: Coded Allergies: oxycodone (Intermediate, RASH 06/20/16) aspirin (ANAPHYLAXIS 04/30/16) Home Med List: Atorvastatin Calcium 40 MG TABLET 40 MG PO 1700 HEART Furosemide (Lasix) 20 MG TABLET 1 TAB PO BID swollen legs Metoprolol Tartrate 25 MG TABLET 0.5 TAB PO BID HYPERTENSION Oxycodone HCl/Acetaminophen (Percocet 5-325 MG Tablet) 5 MG-325 MG TABLET 1 TAB PO BID PRN PAIN TEN...[id number] Pot Chloride/Pot Bicarb/Cit AC (Potassium Cl 25 Meq Tab Eff) 25 MEQ TABLET.EFF 1 TAB PO QDAY WHILE TAKING FUROSEMIDE Warfarin Sodium (Coumadin) 4 MG TABLET 1 TAB PO DAILY BLOOD CLOTS Review of Systems Review of Systems Constitutional: Reports: see HPI. Past History Travel History Traveled to [place] past 21 day No Medical History Blood Transfusion Hx: Yes Neurological: NONE EENT: DEVIATED SEPTUM Cardiovascular: CAD (NSTEMI s/p PCI of the LCX/OM), CHF (peripheral vascular disease), HYPERLIPIDEMIA NC X 1 YEAR AGO THORACIC AORTA PSEUDO- ANEURYSM Respiratory: COPD Gastrointestinal: GI BLEED Hepatic: NONE Renal: nephrolithiasis, BPH s/p ESWL Musculoskeletal: leg pain Psychiatric: NONE Endocrine: diabetes Blood Disorders: NONE Cancer(s): NONE LEAD CASTER/Reproductive: NONE Surgical History Surgical History: hemorrhoid surgery rhinoplasty laser TURP ESWL Family History Relations & Conditions If Any: FATHER (GI CA). MOTHER (DM). Psychosocial History Where Do You Live? Home Services at Home: None Smoking Status: Current Some Day Smoker ETOH Use: denies use Illicit Drug Use: denies illicit drug use Power of Label Drier/HCP? unknown Exam & Diagnostic Data Last 24 Hrs of Vital Signs/I&O Vital Signs Date Time Temp Pulse Resp B/P Pulse O2 O2 Flow FiO2 Ox Delivery Rate 06/21 1021 92 Nasal 2.0L Cannula 06/21 0944 81 130/72 06/21 0828 97.6 81 18 130/72 92 Nasal 2.0L Cannula 06/21 0800 92 Nasal 2.0L Cannula 06/20 2315 97.5 88 18 128/70 96 Nasal 2.0L Cannula 06/20 2238 88 128/70 06/20 2219 Nasal 2.0L Cannula 06/20 2200 95 Nasal 2.0L Cannula 06/20 1952 97.5 94 20 130/80 97 Room Air 06/20 1932 97.6 70 20 126/72 97 Room Air 06/20 1843 97 06/20 1711 97.6 72 20 137/92 95 Room Air Intake & Output 06/21 1600 06/21 0800 06/21 0000 Intake Total 1160 480 340 Output Total 450 1600 1500 Balance 710 -1120 -1160 Intake, IV 300 100 Intake, Oral 860 480 240 Number 0 Bowel Movements Output, Urine 450 1600 1500 Patient 127 lb Weight Last 48 Hrs of Labs/Tr: Laboratory Tests 06/21/16 0640: Anion Gap 13, Estimated GFR 59 L, BUN/Creatinine Ratio 24.2, Glucose Pending, PT 12.8 H, INR 1.22 H, CBC w Diff NO MAN DIFF REQ, RBC 4.46 L, MCV 89.8, MCH 29.6, RDW 15.5 H, MPV 9.1, Gran % 89.5 H, Lymphocytes % 9.1 L, Monocytes % 1.1 L, Eosinophils % 0.1, Basophils % 0.2, Absolute Granulocytes 4.9, Absolute Lymphocytes 0.5 L, Absolute Monocytes 0.1 L, Absolute Eosinophils 0, Absolute Basophils 0, PUBS MCHC 33.0 06/21/16 0115: Troponin I 0.02 06/20/16 1850: Troponin I 0.02 06/20/16 1403: Urine Color YEL, Urine Clarity HAZY H, Urine pH 6.0, Ur Specific Early Branch >= 1.030, Urine Protein 100 H, Urine Ketones NEG, Urine Nitrite NEG, Urine Bilirubin NEG, Urine Urobilinogen 0.2, Ur Leukocyte Esterase NEG, Ur Microscopic SEDIMENT EXAMINED, Urine RBC 1-3, Urine WBC 15-25 H, Ur Epithelial Cells FEW, Hyaline Casts 1-3 H, Urine Mucus FEW, Urine Hemoglobin NEG, Urine Glucose NEG 06/20/16 1259: Hemoglobin A1c Pending 06/20/16 1259: Anion Gap 9, Estimated GFR 59 L, BUN/Creatinine Ratio 22.5, Glucose 201 H, Calcium 9.0, Total Bilirubin 0.7, AST 21, ALT 24, Alkaline Phosphatase 93, Troponin I 0.02, Jxs-I-Pfsfovuwhsz Pept 96427 H, Total Protein 6.5, Albumin 3.7 , Globulin 2.8, Albumin/Globulin Ratio 1.3, Triglycerides 102, Cholesterol 128, LDL Cholesterol, Calc 56 L, HDL Cholesterol 52, Cholesterol/HDL Ratio 2, PT 14.1 H, INR 1.35 H, CBC w Diff NO MAN DIFF REQ, RBC 4.52 L, MCV 89.9, MCH 28.8, RDW 15.1 H, MPV 8.3, Gran % 71.2, Lymphocytes % 17.4 L, Monocytes % 9.2, Eosinophils % 1.4, Basophils % 0.8, Absolute Granulocytes 4.6, Absolute Lymphocytes 1.1 L, Absolute Monocytes 0.6, Absolute Eosinophils 0.1, Absolute Basophils 0.1, PUBS MCHC 32.0 L 06/20/16 1235: Vzc-F-Umuaeyjiotq Pept Cancelled Assessment/Plan Impression/Plan: Physical Exam General Appearance Alert, Oriented X3, Cooperative, No Acute Distress Skin No Rashes, No Breakdown, No Significant Lesion HEENT Atraumatic, PERRLA, EOMI, Mucous Membr. moist/pink Neck Supple, No JVD, No thryomegaly, +2 Carotid Pulse wo Bruit, No LAD Lymphatic Axillary nl, Cervical nl Cardiovascular Regular Rate, Normal S1, Normal S2, No Murmurs Lungs expiratory wheezes, no crackles or sign of congestion Abdomen Normal Bowel Sounds, Soft, No Tenderness, No Hepatospenomegaly, No Masses Neurological Normal Speech, Strength at 5/5 X4 Ext, Normal Tone, Sensation Intact, Cranial Nerves 3-12 NL, Reflexes 2+ Extremities No Clubbing, No Cyanosis, bilateral lower extremity +1 edema Vascular Pulses Symmetrical Sig data CT reviewed 06/21/16 IMPRESSION: 1. No evidence of recurrent pulmonary emboli. 2. No aneurysm of the ascending thoracic aorta. 3. Stable saccular aneurysm involving the left lateral aspect of the proximal descending thoracic aorta. 4. Enlarging fusiform aneurysm involving the mid descending thoracic aorta currently measuring 7.6 AP x 5.5 cm transverse x 8.3 cm craniocaudad. IMPRESSION This is a 76-year-old gentleman with severe COPD, ongoing smoking, systolic heart dysfunction with ejection fraction of 25% with previous PCI and NC in the past, very severe peripheral vascular disease with significant thoracic aneurysm with a large saccular component which has been present for more than few years, medical noncompliance, extremely large prostate rule out prostate cancer in the future, previous history of kidney stone with * Recent PE which is improved radiologically. May have a hidden malignancy ( enlarged prostate, previous hematuria etc) * Severe COPD, Patient is not a regular with his inhaler therapy. No sig copd exacerbation at this time * Previous congestive heart failure with an ejection fraction of 25% witl pulm edema Chronic systolic heart failure * Very large thoracic aneurysm at the saccular component pressing on his esophagus in his left mainstem bronchus which has been stable since early 2013, not a surgical candidate as the prosthesis for his aneurysm repair could not be passed due to severe peripheral vascular disease and his lower extremity, not a candidate for open surgery. Now his aneurysm seems to have increased in size * Ischemic heart disease * Small lung nodules * Enlarged prostate now with sig pvr urology is following and has high wbc and prob uti RECOMMENDATION Cont lovenox and warfarin Pt educated about warfarin clinic Needs atc nebs Po prednisone 40 qd for five days and stop PO azithro for five days NEeds appt with warfarin clinic Vascular surg eval as out pt Urology following Consult Acknowledgment - Thank you for your consult request.
[2016-06-21 16:25] VITALS: BP 120/66
[2016-06-21 22:52] VITALS: BP 122/56
[2016-06-22 08:07] VITALS: BP 118/63
[2016-06-22 08:18] LABS: ABSOLUTE BASOPHIL COUNT 0 /CUMM (0.0-0.2); ABSOLUTE EOSINOPHIL COUNT 0 /CUMM (0.0-0.7); ABSOLUTE GRANULOCYTE CT 11.8 /CUMM (1.4-6.5); ABSOLUTE LYMPH COUNT 1.2 /CUMM (1.2-3.4); ABSOLUTE MONOCYTE COUNT 1.1 /CUMM (0.10-0.60); BASOPHIL % 0 % (0.0-2.0); EOSINOPHIL % 0.1 % (0-5); HEMATOCRIT 38.4 % (42-52); MEAN CORPUSCULAR HGB 29.6 PG (27.0-31.0); MEAN CORPUSCULAR HGB CONC 32.7 G/DL (33.0-37.0); MEAN CORPUSCULAR VOLUME 90.5 FL (80.0-94.0); MEAN PLATELET VOLUME 8.7 FL (7.4-10.4); RBC DISTRIBUTION WIDTH 14.8 % (11.5-14.5); RED BLOOD CELL CT 4.24 /CUMM (4.70-6.10)
[2016-06-22 08:20] LABS: PT 18.1 SEC (9.4-12.5)
--- NOTE | 2016-06-22 08:29 | PN- Housestaff ---
SERA GUERRERO 06/22/16 0829: Subjective Follow-up For: Shortness of breath, cough Chronic PE now with subtherapeutic INR Subjective: Patient seen and examined this morning. He feels better compared to yesterday. Still reports mild sore throat, scratchy throat. Had hematuria overnight, denies any urinary symptoms. Interscapular pain has resolved. Denies headache, nausea, vomiting, chest pain, chest pressure, abdominal pain. Vital signs stable. Review of Systems Constitutional: Denies: see HPI. Objective Last 24 Hrs of Vital Signs/I&O Vital Signs Date Time Temp Pulse Resp B/P Pulse O2 O2 Flow FiO2 Ox Delivery Rate 06/22 1018 93 Nasal 2.0L Cannula 06/22 0913 76 118/63 06/22 0912 76 118/63 06/22 0807 97.6 76 18 118/63 95 Nasal 2.5L Cannula 06/22 0800 95 Nasal 2.0L Cannula 06/22 0000 96 Nasal 2.0L Cannula 06/21 2252 97.7 81 22 122/56 96 Nasal 2.0L Cannula 06/21 2223 Nasal 2.0L Cannula 06/21 2045 81 122/56 06/21 1709 76 120/66 06/21 1708 96 Nasal 2.0L Cannula 06/21 1625 97.6 76 20 120/66 91 Nasal Cannula Intake & Output 06/22 1600 06/22 0800 06/22 0000 Intake Total 950 204 6545 Output Total 560 750 550 Balance 200 30 530 Intake, IV 300 600 Intake, Oral 760 480 480 Number 1 1 Bowel Movements Output, Urine 560 750 550 Physical Exam General Appearance: Alert, Oriented X3, Cooperative, No Acute Distress Skin: No Rashes, No Breakdown, No Significant Lesion HEENT: Atraumatic, PERRLA, EOMI, Mucous Membr. moist/pink, Erythema noted in pharynx. Few whitish lesions noted in Rt palatopharyngeal arch looks more like a analilia infection, no exudate. Neck: Supple, No JVD, No thryomegaly, +2 Carotid Pulse wo Bruit, No LAD Lymphatic: Axillary nl, Cervical nl Cardiovascular: Regular Rate, Normal S1, Normal S2, No Murmurs Lungs: expiratory wheezes Abdomen: Normal Bowel Sounds, Soft, No Tenderness, No Hepatospenomegaly, No Masses Neurological: Normal Gait, Normal Speech, Strength at 5/5 X4 Ext, Normal Tone, Sensation Intact, Cranial Nerves 3-12 NL, Reflexes 2+ Extremities: No Clubbing, No Cyanosis, No Edema, Normal Pulses, No Tenderness/ Swelling Vascular: Pulses Symmetrical Other Physical Findings: Bryant bag contains pink colored urine Current Medications: Current Medications Sig/Nelly Start time Last Medication Dose Route Stop Time Status Admin Acetaminophen 325 MG Q8P PRN 06/20 2100 AC 06/21 PO 0949 Albuterol Sulfate 3 ML BID 06/21 1000 AC 06/22 INH 0928 Atorvastatin Calcium 40 MG 1700 06/21 1700 AC 06/21 PO 1709 Azithromycin 500 MG DAILY 06/22 1000 AC 06/22 PO 0913 Azithromycin 500 MG DAILY 06/20 1707 DC 06/21 Sodium Chloride 250 ML IV 0947 Diphenhydramine HCl 1 KAMI Q6P PRN 06/21 2130 AC TOP Enoxaparin Sodium 60 MG BID 06/21 1000 AC 06/22 SC 0913 Furosemide 20 MG BID 06/20 2200 AC 06/22 PO 0912 Guaifenesin 600 MG Q12 06/20 2200 AC 06/22 PO 0912 Lidocaine 15 ML Q8P PRN 06/22 1345 AC PO Lisinopril 10 MG DAILY 06/21 1630 AC 06/22 PO 0913 Melatonin 5 MG AT BEDTIME 06/21 2245 AC 06/21 PO 2244 Methylprednisolone 20 MG Q8 06/21 0600 DC 06/21 IV 1452 Metoclopramide HCl 10 MG Q6P PRN 06/20 2000 AC 06/20 IM 2006 Metoprolol Tartrate 12.5 MG BID 06/20 2200 AC 06/22 PO 0912 Nystatin 5 ML 4 TIMES/DAY 06/22 1400 AC PO Omeprazole 40 MG DAILY AC 06/21 1531 AC 06/22 PO 0545 Prednisone 40 MG DAILY 06/22 1000 AC 06/22 PO 06/26 1001 0912 Prednisone 30 MG BID 06/21 2200 DC PO Ramelteon 8 MG ONCE ONE 06/22 0115 DC 06/22 PO 06/22 0116 0122 Sodium Chloride 1,000 ML Q13H 06/21 1515 DC 06/21 IV 06/22 0414 1536 Sodium Chloride 2 SPRAY Q4P PRN 06/20 1945 AC CLAIRE Warfarin Sodium 7.5 MG COUMADIN 1700 ONE 06/22 1700 AC PO 06/22 1701 Warfarin Sodium 7 MG ONE TIME ONE 06/21 1700 DC 06/21 PO 06/21 1701 1710 Last 24 Hrs of Lab/Tr Results Last 24 Hrs of Labs/Mics: Laboratory Tests 06/22/16 0635: Anion Gap 14, Estimated GFR > 60, BUN/Creatinine Ratio 33.0 H, CBC w Diff NO MAN DIFF REQ, RBC 4.24 L, MCV 90.5, MCH 29.6, RDW 14.8 H, MPV 8.7, Gran % 83.8 H, Lymphocytes % 8.6 L, Monocytes % 7.5, Eosinophils % 0.1, Basophils % 0 L, Absolute Granulocytes 11.8 H, Absolute Lymphocytes 1.2, Absolute Monocytes 1.1 H, Absolute Eosinophils 0, Absolute Basophils 0, PUBS MCHC 32.7 L 06/22/16 0630: PT 18.1 H, INR 1.73 H 06/22/16 0600: Hemoglobin A1c Pending Microbiology 06/22 1344 URINE ROUT: Urine Culture - ORD Assessment/Plan Assessment: Assessment: 76-year-old gentleman with past medical history of HfRef, COPD, pulmonary embolism on warfarin presents today with worsening of exertional shortness of breath and URI symptoms for 3 days; clinical symptoms and physical exam not compatible with acute heart failure even though proBNP is elevated. There was no sign of pulmonary edema on chest x-ray. Problem list/plan #Shortness of breath, cough, chest discomfort; * Improved * alarm security or surveillance monitor can be discontinued * Vital signs per protocol * Strict I's and O's * ACS was ruled out * Echocardiogram pending * Blood cultures no growth after 1 day * Sputum culture pending * Flu swab was negative * Continue with azithromycin 500 mg daily to by mouth for a total of 5 days * Continue by mouth prednisone for total of 5 days * Will add PPI for GI protection while on steroids * TRC/nebs scheduled * Oxygen supplementation * Saline irrigation for nasal congestion * Guaifenesin for expectorant * Pulmonary service following, will appreciate recommendations * Per pulmonary may require home oxygen #Leukocytosis * WBC 14.1 noted, steroid induced versus URI versus UTI(secondary to Bryant catheter; however UTI less likely given patient's does not have dysuria) * Will check UA and UC * Will repeat labs tomorrow morning #Possible oropharyngeal candidiasis: * Lesions look more like a analilia infection there is no exudate; sore patient is not complaining of severe sore throat which makes diagnosis of strep infection less likely, therefore there is no clinical indication for rapid strep test * Of note, patient is on as azithromycin for bronchitis which would also cover strep. * Topical treatment with nystatin * Topical Lidocaine * Flu swab was negative on admission #Hematuria: * Overnight patient had episodes of hematuria with clots, hematuria has decreased and now urine in Bryant is pink colored. * Hemoglobin dropped from 13.2 on admission to 12.5. * Monitor H&H closely * Urology was notified; patient may require CBI if persistent gross hematuria #Pulmonary embolism on warfarin: * The patient had subtherapeutic INR of 1.35 on admission, he reports that he has been taking his warfarin on time every day * INR 1.73 today; will continue with Lovenox, low-dose warfarin 7.5 mg 1, will recheck INR tomorrow morning * CTA was done today given interscapular pain, which showed no evidence of recurrent pulmonary emboli. However there was evidence of enlarging fusiform aneurysm involving mid descending thoracic aorta. * Will closely monitor H&H * Warfarin clinic to be arranged as outpatient #HfRef: * Continue with metoprolol 12.5 by mouth twice a day * Continue with atorvastatin 40 mg by mouth daily * Cardiology consult was placed will appreciate recommendations * Echocardiogram pending #Diabetes/newly diagnosed: * The patient has blood glucose level of 201 on admission, he denies any polyuria, polydipsia, polyphagia however mentions that he has been diagnosed recently with prediabetes * hemoglobin A1c 7.1 * Diabetic/cardiac diet * Accu-Cheks * Initially we will attempt to control and lifestyle changes, if unsuccessful patient will need medical therapy. * Nutrition consult * Consider endocrinology consult #Lower extremity edema: * The patient has not noticed any worsening in his lower extremity edema recently; reports that it has been improving * No calf tenderness * Venous Doppler of lower extremities was negative for any DVT * The patient received 40 mg IV furosemide 1 in the ED * Will continue his home medication of by mouth furosemide 20 mg twice a day * No lower extremity edema noted today #History of Abdominal aortic aneurysm * Descending thoracic aortic aneurysm has increased in size in the past 6-8 months, now is almost 7 cm in diameter. * Per our electronic data, the patient was found to have abdominal aortic aneurysm in October 2015, he was told that surgery is too risky for him and he was instructed to do annual follow-up and blood pressure control. * Today's CTA showed evidence of enlarging fusiform aneurysm involving mid descending thoracic aorta. * Vascular service was consulted, per their assessment, patient is not a candidate for endovascular repair for now and [facility] * To follow up outpatient with vascular #DVT prophylaxis: * SC Lovenox and warfarin #CODE STATUS: * Full code Problem List: 1. Peripheral arterial disease 2. DVT prophylaxis 3. Urinary retention 4. Bronchitis 5. Dyspnea Pain Ratin Pain Location: NA Pain Goal: Remain pain free Pain Plan: PRN Tylenol Tomorrow's Labs & Rationales: CBC, to monitor H&H. BEP to monitor creatinine and 1.1 INR patient is on warfarin ERVIN BOSTON MD 06/22/16 1047: Attending MD Review Statement Attending Statement Attending MD Statement: examined this patient, discuss w/resident/PA/EMERGENCY TECHNICIAN, agreed w/resident/PA/EMERGENCY TECHNICIAN, reviewed EMR data (avail), discussed with nursing, discussed with case mgmt Attending Assessment/Plan: Events overnight noted. Patient had some hematuria that then became pinkish and is now clear. I spoke to Dr. Soto from urology. Patient didn't follow-up for an outpatient cystoscopy and didn't take any of his BPH meds because he can't afford it. She feels that if he has ongoing bleeding then she can take him to the OR to do a cystoscopy and evaluate this lesion described on the ultrasound. If he does not have bleeding then we have to discharge him with a Bryant with outpatient urological follow-up. He has some residual filling defect of his pulmonary artery that's chronic PE and we are anticoagulating him with a Lovenox bridge for the same. Quick short course of by mouth antibiotics and by mouth steroids per pulmonary. He still smoking and not compliant with his inhalers or oxygen which needs to be the enforced on discharge.
[2016-06-22 09:14] LABS: GRANULOCYTE % 83.8 % (42.2-75.2); PLATELET COUNT 182 /CUMM (130-400); WHITE BLOOD CELL COUNT 14.1 /CUMM (4.8-10.8)
--- NOTE | 2016-06-22 09:42 | PN- Pulmonary ---
Subjective HPI/Critical Care Issues: Much improved Stable Sleeping comfortably Objective Current Medications: Current Medications Sig/Nelly Start time Last Medication Dose Route Stop Time Status Admin Acetaminophen 325 MG Q8P PRN 06/20 2100 AC 06/21 PO 0949 Albuterol Sulfate 3 ML BID 06/21 1000 AC 06/22 INH 0928 Atorvastatin Calcium 40 MG 1700 06/21 1700 AC 06/21 PO 1709 Azithromycin 500 MG DAILY 06/22 1000 AC 06/22 PO 0913 Azithromycin 500 MG DAILY 06/20 1707 DC 06/21 Sodium Chloride 250 ML IV 0947 Diphenhydramine HCl 1 KAMI Q6P PRN 06/21 2130 AC TOP Enoxaparin Sodium 60 MG BID 06/21 1000 AC 06/22 SC 0913 Furosemide 20 MG BID 06/20 2200 AC 06/22 PO 0912 Guaifenesin 600 MG Q12 06/20 2200 AC 06/22 PO 0912 Lisinopril 10 MG DAILY 06/21 1630 AC 06/22 PO 0913 Melatonin 5 MG AT BEDTIME 06/21 2245 AC 06/21 PO 2244 Methylprednisolone 20 MG Q8 06/21 0600 DC 06/21 IV 1452 Metoclopramide HCl 10 MG Q6P PRN 06/20 2000 AC 06/20 IM 2006 Metoprolol Tartrate 12.5 MG BID 06/20 2200 AC 06/22 PO 0912 Omeprazole 40 MG DAILY AC 06/21 1531 AC 06/22 PO 0545 Patient Medication 1 ED .STK-MED ONE 06/21 1414 DC Teaching ED 06/21 1415 Prednisone 40 MG DAILY 06/22 1000 AC 06/22 PO 06/26 1001 0912 Prednisone 30 MG BID 06/21 2200 DC PO Ramelteon 8 MG ONCE ONE 06/22 0115 DC 06/22 PO 06/22 0116 0122 Sodium Chloride 1,000 ML Q13H 06/21 1515 DC 06/21 IV 06/22 0414 1536 Sodium Chloride 2 SPRAY Q4P PRN 06/20 1945 AC CLAIRE Warfarin Sodium 7 MG ONE TIME ONE 06/21 1700 DC 06/21 PO 06/21 1701 1710 Vital Signs & I&O Last 24 Hrs of Vitals and I&O: Vital Signs Date Time Temp Pulse Resp B/P Pulse O2 O2 Flow FiO2 Ox Delivery Rate 06/22 912 76 118/63 01/04 0912 76 118/63 06/22 0807 97.6 76 18 118/63 95 Nasal 2.5L Cannula 06/22 0800 95 Nasal 2.0L Cannula 06/22 0000 96 Nasal 2.0L Cannula 06/21 2252 97.7 81 22 122/56 96 Nasal 2.0L Cannula 06/21 2223 Nasal 2.0L Cannula 06/21 2045 81 122/56 06/21 1709 76 120/66 06/21 1708 96 Nasal 2.0L Cannula 06/21 1625 97.6 76 20 120/66 91 Nasal Cannula 06/21 1021 92 Nasal 2.0L Cannula 06/21 0944 81 130/72 Intake & Output 06/22 1600 06/22 0800 06/22 0000 Intake Total 780 1080 Output Total 750 550 Balance 30 530 Intake, IV 300 600 Intake, Oral 480 480 Number 1 Bowel Movements Output, Urine 750 550 Impression/Plan Impression/Plan Impression/Plan: Physical Exam General Appearance Alert, Oriented X3, Cooperative, No Acute Distress Skin No Rashes, No Breakdown, No Significant Lesion HEENT Atraumatic, PERRLA, EOMI, Mucous Membr. moist/pink Neck Supple, No JVD, No thryomegaly, +2 Carotid Pulse wo Bruit, No LAD Lymphatic Axillary nl, Cervical nl Cardiovascular Regular Rate, Normal S1, Normal S2, No Murmurs Lungs expiratory wheezes, no crackles or sign of congestion Abdomen Normal Bowel Sounds, Soft, No Tenderness, No Hepatospenomegaly, No Masses Neurological Normal Speech, Strength at 5/5 X4 Ext, Normal Tone, Sensation Intact, Cranial Nerves 3-12 NL, Reflexes 2+ Extremities No Clubbing, No Cyanosis, bilateral lower extremity +1 edema Vascular Pulses Symmetrical Sig data CT reviewed 06/21/16 IMPRESSION: 1. No evidence of recurrent pulmonary emboli. 2. No aneurysm of the ascending thoracic aorta. 3. Stable saccular aneurysm involving the left lateral aspect of the proximal descending thoracic aorta. 4. Enlarging fusiform aneurysm involving the mid descending thoracic aorta currently measuring 7.6 AP x 5.5 cm transverse x 8.3 cm craniocaudad. IMPRESSION This is a 76-year-old gentleman with severe COPD, ongoing smoking, systolic heart dysfunction with ejection fraction of 25% with previous PCI and NV in the past, very severe peripheral vascular disease with significant thoracic aneurysm with a large saccular component which has been present for more than few years, medical noncompliance, extremely large prostate rule out prostate cancer in the future, previous history of kidney stone with * Recent PE which is improved radiologically. May have a hidden malignancy ( enlarged prostate, previous hematuria etc) * Severe COPD, Patient is not a regular with his inhaler therapy. No sig copd exacerbation at this time * Previous congestive heart failure with an ejection fraction of 25% witl pulm edema Chronic systolic heart failure * Very large thoracic aneurysm at the saccular component pressing on his esophagus in his left mainstem bronchus which has been stable since early 2013, not a surgical candidate as the prosthesis for his aneurysm repair could not be passed due to severe peripheral vascular disease and his lower extremity, not a candidate for open surgery. Now his aneurysm seems to have increased in size * Ischemic heart disease * Small lung nodules * Enlarged prostate now with sig pvr urology is following and has high wbc and prob uti RECOMMENDATION Cont lovenox and warfarin Pt educated about warfarin clinic Po lasix Needs atc nebs Po prednisone 40 qd for five days and stop PO azithro for five days NEeds appt with warfarin clinic Vascular surg eval as out pt Urology following Will follow as out pt stable for dc Needs to cont oxygen at home
--- NOTE | 2016-06-22 11:01 | Cons- Vascular Surgery ---
General Information and HPI Consulting Request Date of Consult: 06/22/16 Requested By: DARVIN ARECHIGA,ERVIN Barraza Reason for Consult: Thoracic aortic aneurysm Source of Information: patient, old records History of Present Illness: 76-year-old male with thoracic aortic aneurysm. Patient has known descending thoracic aortic aneurysm, was attempted endovascular repair in the past in [place]. However, endovascular repair could not be done. Patient recently admitted for COPD exacerbation. He is also considered not an open surgical candidate. He continues to smoke. Had recent CT scan, showing increasing diameter of descending thoracic aortic aneurysm at 7cm diameter. Currently without pain. Patient's prior CT scan about 6-8 months ago showed a 5-6 cm descending thoracic aortic aneurysm, occlusion of left subclavian artery. Vascular was asked to evaluate patient. Allergies/Medications Allergies: Coded Allergies: oxycodone (Intermediate, RASH 06/20/16) aspirin (ANAPHYLAXIS 04/30/16) Home Med List: Atorvastatin Calcium 40 MG TABLET 40 MG PO 1700 HEART Furosemide (Lasix) 20 MG TABLET 1 TAB PO BID swollen legs Metoprolol Tartrate 25 MG TABLET 0.5 TAB PO BID HYPERTENSION Oxycodone HCl/Acetaminophen (Percocet 5-325 MG Tablet) 5 MG-325 MG TABLET 1 TAB PO BID PRN PAIN TEN...[id number] Pot Chloride/Pot Bicarb/Cit AC (Potassium Cl 25 Meq Tab Eff) 25 MEQ TABLET.EFF 1 TAB PO QDAY WHILE TAKING FUROSEMIDE Warfarin Sodium (Coumadin) 4 MG TABLET 1 TAB PO DAILY BLOOD CLOTS Current Medications: Current Medications Sig/Nelly Start time Last Medication Dose Route Stop Time Status Admin Acetaminophen 325 MG Q8P PRN 06/20 2100 AC 06/21 PO 0949 Albuterol Sulfate 3 ML BID 06/21 1000 AC 06/22 INH 0928 Atorvastatin Calcium 40 MG 1700 06/21 1700 AC 06/21 PO 1709 Azithromycin 500 MG DAILY 06/22 1000 AC 06/22 PO 0913 Azithromycin 500 MG DAILY 06/20 1707 DC 06/21 Sodium Chloride 250 ML IV 0947 Diphenhydramine HCl 1 KAMI Q6P PRN 06/21 2130 AC TOP Enoxaparin Sodium 60 MG BID 06/21 1000 AC 06/22 SC 0913 Furosemide 20 MG BID 06/20 2200 AC 06/22 PO 0912 Guaifenesin 600 MG Q12 06/20 2200 AC 06/22 PO 0912 Lisinopril 10 MG DAILY 06/21 1630 AC 06/22 PO 0913 Melatonin 5 MG AT BEDTIME 06/21 2245 AC 06/21 PO 2244 Methylprednisolone 20 MG Q8 06/21 0600 DC 06/21 IV 1452 Metoclopramide HCl 10 MG Q6P PRN 06/20 2000 AC 06/20 IM 2006 Metoprolol Tartrate 12.5 MG BID 06/20 2200 AC 06/22 PO 0912 Omeprazole 40 MG DAILY AC 06/21 1531 AC 06/22 PO 0545 Patient Medication 1 ED .STK-MED ONE 06/21 1414 DC Teaching ED 06/21 1415 Prednisone 40 MG DAILY 06/22 1000 AC 06/22 PO 06/26 1001 0912 Prednisone 30 MG BID 06/21 2200 DC PO Ramelteon 8 MG ONCE ONE 06/22 0115 DC 06/22 PO 06/22 0116 0122 Sodium Chloride 1,000 ML Q13H 06/21 1515 DC 06/21 IV 06/22 0414 1536 Sodium Chloride 2 SPRAY Q4P PRN 06/20 1945 AC CLAIRE Warfarin Sodium 7 MG ONE TIME ONE 06/21 1700 DC 06/21 PO 06/21 1701 1710 Past History Medical History Blood Transfusion Hx: Yes Neurological: NONE EENT: DEVIATED SEPTUM Cardiovascular: CAD (NSTEMI s/p PCI of the LCX/OM), CHF (peripheral vascular disease), HYPERLIPIDEMIA MO X 1 YEAR AGO THORACIC AORTA PSEUDO- ANEURYSM Respiratory: COPD Gastrointestinal: GI BLEED Hepatic: NONE Renal: nephrolithiasis, BPH s/p ESWL Musculoskeletal: leg pain Psychiatric: NONE Endocrine: diabetes Blood Disorders: NONE Cancer(s): NONE 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 MOTHER (DM). Psychosocial History Where Do You Live? Home Services at Home: None Smoking Status: Current Some Day Smoker ETOH Use: denies use Illicit Drug Use: denies illicit drug use Power of Physician Office Clin Asst/HCP? unknown Employment History Retired? unknown Review of Systems Review of Systems Constitutional: Denies: fever. Respiratory: Reports: short of breath. GI: Denies: constipation. Genitourinary: Denies: hematuria. Exam & Diagnostic Data Vital Signs and I&O Vital Signs Date Time Temp Pulse Resp B/P Pulse O2 O2 Flow FiO2 Ox Delivery Rate 06/22 1018 93 Nasal 2.0L Cannula 06/22 0913 76 118/63 06/22 0912 76 118/63 06/22 0807 97.6 76 18 118/63 95 Nasal 2.5L Cannula 06/22 0800 95 Nasal 2.0L Cannula 06/22 0000 96 Nasal 2.0L Cannula 06/21 2252 97.7 81 22 122/56 96 Nasal 2.0L Cannula 06/21 2223 Nasal 2.0L Cannula 06/21 2045 81 122/56 06/21 1709 76 120/66 06/21 1708 96 Nasal 2.0L Cannula 06/21 1625 97.6 76 20 120/66 91 Nasal Cannula Intake & Output 06/22 1600 06/22 0800 06/22 0000 06/21 1600 06/21 0800 06/21 0000 Intake Total 780 1080 1160 480 340 Output Total 750 331 263 0877 1500 Balance 30 530 710 -1120 -1160 Intake, IV 300 600 300 100 Intake, Oral 480 480 860 480 240 Number 1 0 Bowel Movements Output, Urine 750 677 458 9021 1500 Patient 57.606 kg Weight Physical Exam General Appearance: well developed/nourished, no apparent distress, alert Head: normal appearance Eyes: Bilateral: normal appearance. Respiratory: lungs clear Peripheral Pulses: 2+ radial (R), 0 radial (L), 2+ femoral (R), 2+ femoral (L) Gastrointestinal: soft, non-tender Extremities: normal inspection (right groin longitudinal scar.) Skin: normal color Assessment/Plan Assessment/Plan Descending thoracic aortic aneurysm, almost 7 cm diameter. This has increased in the past 6-8 months. Attempt at endovascular repair years ago in [place] without success. Not an open surgical candidate per pulmonary. CT scan evaluated. Diffuse calcium, no obvious proximal seal zone for endovascular stent graft. Not likely suitable for endovascular repair. Conservative management may be optimal. High risk for surgery and/or endovascular intervention. If patient still chooses attempting repair again, would [facility] Problem List: 1. Aortic aneurysm Consult Acknowledgment - Thank you for your consult request.
--- NOTE | 2016-06-22 11:38 | PN- Urology ---
Subjective Subjective: no complaints. Review of Systems Constitutional: Reports: no symptoms. EENTM: Reports: no symptoms. Cardiovascular: Denies: see HPI. Respiratory: Denies: see HPI. Gastrointestinal: Denies: see HPI. Genitourinary: Denies: see HPI. Musculoskeletal: Denies: no symptoms. Skin: Denies: no symptoms. Neurological/Psychological: Denies: no symptoms. Immunologic/Allergic: Denies: no symptoms. Objective Vital Signs and I&Os Vital Signs Date Time Temp Pulse Resp B/P Pulse O2 O2 Flow FiO2 Ox Delivery Rate 06/22 1018 93 Nasal 2.0L Cannula 06/22 0913 76 118/63 06/22 0912 76 118/63 06/22 0807 97.6 76 18 118/63 95 Nasal 2.5L Cannula 06/22 0800 95 Nasal 2.0L Cannula 06/22 0000 96 Nasal 2.0L Cannula 06/21 2252 97.7 81 22 122/56 96 Nasal 2.0L Cannula 06/21 2223 Nasal 2.0L Cannula 06/21 2045 81 122/56 06/21 1709 76 120/66 06/21 1708 96 Nasal 2.0L Cannula 06/21 1625 97.6 76 20 120/66 91 Nasal Cannula Intake & Output 06/22 1600 06/22 0800 06/22 0000 06/21 1600 06/21 0800 06/21 0000 Intake Total 780 1080 1160 480 340 Output Total 750 371 660 3385 1500 Balance 30 530 710 -1120 -1160 Intake, IV 300 600 300 100 Intake, Oral 480 480 860 480 240 Number 1 0 Bowel Movements Output, Urine 750 010 075 5381 1500 Patient 57.606 kg Weight Physical Exam: Abd soft, ND/NT martin in place with gross hematuria. Physical Exam General Appearance: well developed/nourished, no apparent distress Head: normal appearance Ears, Nose, Throat: normal ENT inspection Respiratory: no respiratory distress Abdomen: soft, non-tender Neurologic/Psychiatric: awake, alert Skin: intact, normal color, warm/dry Reproductive: Normal male genitalia Current Medications: Current Medications Sig/Nelly Start time Last Medication Dose Route Stop Time Status Admin Acetaminophen 325 MG Q8P PRN 06/20 2100 AC 06/21 PO 0949 Albuterol Sulfate 3 ML BID 06/21 1000 AC 06/22 INH 0928 Atorvastatin Calcium 40 MG 1700 06/21 1700 AC 06/21 PO 1709 Azithromycin 500 MG DAILY 06/22 1000 AC 06/22 PO 0913 Azithromycin 500 MG DAILY 06/20 1707 DC 06/21 Sodium Chloride 250 ML IV 0947 Diphenhydramine HCl 1 KAMI Q6P PRN 06/21 2130 AC TOP Enoxaparin Sodium 60 MG BID 06/21 1000 AC 06/22 SC 0913 Furosemide 20 MG BID 06/20 2200 AC 06/22 PO 0912 Guaifenesin 600 MG Q12 06/20 2200 AC 06/22 PO 0912 Lisinopril 10 MG DAILY 06/21 1630 AC 06/22 PO 0913 Melatonin 5 MG AT BEDTIME 06/21 2245 AC 06/21 PO 2244 Methylprednisolone 20 MG Q8 06/21 0600 DC 06/21 IV 1452 Metoclopramide HCl 10 MG Q6P PRN 06/20 2000 AC 06/20 IM 2006 Metoprolol Tartrate 12.5 MG BID 06/20 2200 AC 06/22 PO 0912 Omeprazole 40 MG DAILY AC 06/21 1531 AC 06/22 PO 0545 Patient Medication 1 ED .STK-MED ONE 06/21 1414 DC Teaching ED 06/21 1415 Prednisone 40 MG DAILY 06/22 1000 AC 06/22 PO 06/26 1001 0912 Prednisone 30 MG BID 06/21 2200 DC PO Ramelteon 8 MG ONCE ONE 06/22 0115 DC 06/22 PO 06/22 0116 0122 Sodium Chloride 1,000 ML Q13H 06/21 1515 DC 06/21 IV 06/22 0414 1536 Sodium Chloride 2 SPRAY Q4P PRN 06/20 1945 AC CLAIRE Warfarin Sodium 7 MG ONE TIME ONE 06/21 1700 DC 06/21 PO 06/21 1701 1710 Results Last 48 Hours of Labs: Laboratory Tests 06/22 06/22 06/22 0635 0630 0600 Chemistry Sodium (137 - 145 mmol/L) 136 L Potassium (3.5 - 5.1 mmol/L) 4.2 Chloride (98 - 107 mmol/L) 93 L Carbon Dioxide (22 - 30 mmol/L) 30 Anion Gap (5 - 16) 14 BUN (9 - 20 mg/dL) 33 H Creatinine (0.7 - 1.2 mg/dL) 1.0 Estimated GFR (>60 ml/min) > 60 BUN/Creatinine Ratio (7 - 25 %) 33.0 H Hemoglobin A1c Pending Coagulation PT (9.4 - 12.5 SEC) 18.1 H INR (0.90 - 1.17) 1.73 H Hematology CBC w Diff NO MAN DIFF REQ WBC (4.8 - 10.8 /CUMM) 14.1 H RBC (4.70 - 6.10 /CUMM) 4.24 L Hgb (14.0 - 18.0 G/DL) 12.5 L Hct (42 - 52 %) 38.4 L MCV (80.0 - 94.0 FL) 90.5 MCH (27.0 - 31.0 PG) 29.6 RDW (11.5 - 14.5 %) 14.8 H Plt Count (130 - 400 /CUMM) 182 MPV (7.4 - 10.4 FL) 8.7 Gran % (42.2 - 75.2 %) 83.8 H Lymphocytes % (20.5 - 51.1 %) 8.6 L Monocytes % (1.7 - 9.3 %) 7.5 Eosinophils % (0 - 5 %) 0.1 Basophils % (0.0 - 2.0 %) 0 L Absolute Granulocytes (1.4 - 6.5 /CUMM) 11.8 H Absolute Lymphocytes (1.2 - 3.4 /CUMM) 1.2 Absolute Monocytes (0.10 - 0.60 /CUMM) 1.1 H Absolute Eosinophils (0.0 - 0.7 /CUMM) 0 Absolute Basophils (0.0 - 0.2 /CUMM) 0 PUBS MCHC (33.0 - 37.0 G/DL) 32.7 L 06/21 06/21 06/20 0640 0115 1850 Chemistry Sodium (137 - 145 mmol/L) 137 Potassium (3.5 - 5.1 mmol/L) 4.6 Chloride (98 - 107 mmol/L) 95 L Carbon Dioxide (22 - 30 mmol/L) 29 Anion Gap (5 - 16) 13 BUN (9 - 20 mg/dL) 29 H Creatinine (0.7 - 1.2 mg/dL) 1.2 Estimated GFR (>60 ml/min) 59 L BUN/Creatinine Ratio (7 - 25 %) 24.2 Glucose (65 - 99 mg/dL) 268 H Troponin I (<0.11 ng/ml) 0.02 0.02 Coagulation PT (9.4 - 12.5 SEC) 12.8 H INR (0.90 - 1.17) 1.22 H Hematology CBC w Diff NO MAN DIFF REQ WBC (4.8 - 10.8 /CUMM) 5.5 RBC (4.70 - 6.10 /CUMM) 4.46 L Hgb (14.0 - 18.0 G/DL) 13.2 L Hct (42 - 52 %) 40.0 L MCV (80.0 - 94.0 FL) 89.8 MCH (27.0 - 31.0 PG) 29.6 RDW (11.5 - 14.5 %) 15.5 H Plt Count (130 - 400 /CUMM) 156 MPV (7.4 - 10.4 FL) 9.1 Gran % (42.2 - 75.2 %) 89.5 H Lymphocytes % (20.5 - 51.1 %) 9.1 L Monocytes % (1.7 - 9.3 %) 1.1 L Eosinophils % (0 - 5 %) 0.1 Basophils % (0.0 - 2.0 %) 0.2 Absolute Granulocytes (1.4 - 6.5 /CUMM) 4.9 Absolute Lymphocytes (1.2 - 3.4 /CUMM) 0.5 L Absolute Monocytes (0.10 - 0.60 /CUMM) 0.1 L Absolute Eosinophils (0.0 - 0.7 /CUMM) 0 Absolute Basophils (0.0 - 0.2 /CUMM) 0 PUBS MCHC (33.0 - 37.0 G/DL) 33.0 / 01/ 1403 1259 Chemistry Hemoglobin A1c (<5.7) 7.1 H Urines Urine Color (YEL,AMB,STR) YEL Urine Clarity (CLEAR) HAZY H Urine pH (5.0 - 8.0) 6.0 Ur Specific [place] (1.001 - 1.035) >= 1.030 Urine Protein (NEG,<30 MG/DL) 100 H Urine Ketones (NEG) NEG Urine Nitrite (NEG) NEG Urine Bilirubin (NEG) NEG Urine Urobilinogen (0.1 - 1.0 EU/dl) 0.2 Ur Leukocyte Esterase (NEG) NEG Ur Microscopic SEDIMENT EXAMINED Urine RBC (0 - 5 /HPF) 1-3 Urine WBC (0 - 2 /HPF) 15-25 H Ur Epithelial Cells (NONE,FEW) FEW Hyaline Casts (0/LPF) 1-3 H Urine Mucus (FEW,NONE) FEW Urine Hemoglobin (NEG) NEG Urine Glucose (N MG/DL) NEG 06/20 06/20 1259 1235 Chemistry Sodium (137 - 145 mmol/L) 140 Potassium (3.5 - 5.1 mmol/L) 4.9 Chloride (98 - 107 mmol/L) 101 Carbon Dioxide (22 - 30 mmol/L) 30 Anion Gap (5 - 16) 9 BUN (9 - 20 mg/dL) 27 H Creatinine (0.7 - 1.2 mg/dL) 1.2 Estimated GFR (>60 ml/min) 59 L BUN/Creatinine Ratio (7 - 25 %) 22.5 Glucose (65 - 99 mg/dL) 201 H Calcium (8.4 - 10.2 mg/dL) 9.0 Total Bilirubin (0.2 - 1.3 mg/dL) 0.7 AST (17 - 59 U/L) 21 ALT (21 - 72 U/L) 24 Alkaline Phosphatase (< 127 U/L) 93 Troponin I (<0.11 ng/ml) 0.02 [id number] Pept (<125 pg/mL) 25314 H Cancelled Total Protein (6.3 - 8.2 g/dL) 6.5 Albumin (3.5 - 5.0 g/dL) 3.7 Globulin (1.9 - 4.2 gm/dL) 2.8 Albumin/Globulin Ratio (1.1 - 2.2 %) 1.3 Triglycerides (<150 mg/dL) 102 Cholesterol (< 200 MG/DL) 128 LDL Cholesterol, Calc (65 - 129 mg/dL) 56 L HDL Cholesterol (40 - 60 mg/dL) 52 Cholesterol/HDL Ratio (0.00 - 4.88 %) 2 Coagulation PT (9.4 - 12.5 SEC) 14.1 H INR (0.90 - 1.17) 1.35 H Hematology CBC w Diff NO MAN DIFF REQ WBC (4.8 - 10.8 /CUMM) 6.5 RBC (4.70 - 6.10 /CUMM) 4.52 L Hgb (14.0 - 18.0 G/DL) 13.0 L Hct (42 - 52 %) 40.6 L MCV (80.0 - 94.0 FL) 89.9 MCH (27.0 - 31.0 PG) 28.8 RDW (11.5 - 14.5 %) 15.1 H Plt Count (130 - 400 /CUMM) 154 MPV (7.4 - 10.4 FL) 8.3 Gran % (42.2 - 75.2 %) 71.2 Lymphocytes % (20.5 - 51.1 %) 17.4 L Monocytes % (1.7 - 9.3 %) 9.2 Eosinophils % (0 - 5 %) 1.4 Basophils % (0.0 - 2.0 %) 0.8 Absolute Granulocytes (1.4 - 6.5 /CUMM) 4.6 Absolute Lymphocytes (1.2 - 3.4 /CUMM) 1.1 L Absolute Monocytes (0.10 - 0.60 /CUMM) 0.6 Absolute Eosinophils (0.0 - 0.7 /CUMM) 0.1 Absolute Basophils (0.0 - 0.2 /CUMM) 0.1 PUBS MCHC (33.0 - 37.0 G/DL) 32.0 L Assessment/Plan Assessment/Plan 76 yo male with acute urinary retention now with gross hematuria while on AC. Recommend cystoscopy and possible fulguration or prostate resection given his poor compliance with meds and follow up as an outpatient if he continues to have gross hematuria. May start CBI if continues to have GH. Check H/H. Core Measures/Miscellaneous Venous Thromboembolism VTE Risk Factors: Acute medical illness, Age > 40, Obesity VTE Contraindications: No Contraindications VTE Prophylaxis Ordered Inpt: Pharm- Warfarin VTE Diagnosis: No VTE Type: NONE VTE Confirmed by (Test): NONE Beta Ilir Is Beta Ilir a Home Med? No Antibiotics Is Patient on Antibiotics? No
--- NOTE | 2016-06-22 14:05 | PN- Cardiology ---
Subjective Subjective: * Resting comfortably lying supine without complaints. * undergoing bladder irrigation. * slightly increased size of aorta compared with prior evaluation * increased WBC count on prednisone Objective Vital Signs and I&Os Vital Signs Date Time Temp Pulse Resp B/P Pulse O2 O2 Flow FiO2 Ox Delivery Rate 06/22 1018 93 Nasal 2.0L Cannula 06/22 0913 76 118/63 06/22 0912 76 118/63 06/22 0807 97.6 76 18 118/63 95 Nasal 2.5L Cannula 06/22 0800 95 Nasal 2.0L Cannula 06/22 0000 96 Nasal 2.0L Cannula 06/21 2252 97.7 81 22 122/56 96 Nasal 2.0L Cannula 06/21 2223 Nasal 2.0L Cannula 06/21 2045 81 122/56 06/21 1709 76 120/66 06/21 1708 96 Nasal 2.0L Cannula 06/21 1625 97.6 76 20 120/66 91 Nasal Cannula Intake & Output 06/22 1600 06/22 0800 06/22 0000 06/21 1600 06/21 0800 06/21 0000 Intake Total 780 1080 1160 480 340 Output Total 750 133 509 7378 1500 Balance 30 530 710 -1120 -1160 Intake, IV 300 600 300 100 Intake, Oral 480 480 860 480 240 Number 1 0 Bowel Movements Output, Urine 750 050 384 5662 1500 Patient 127 lb Weight Physical Exam: General: WD/ WN male in NAD; alert and oriented x 3 Neck: +ve JVD, no carotid bruit Heart: RRR w/o murmur Lungs: clear bilaterally Extremities: no edema Assessment/Plan Assessment/Plan * Patient is improved with no shortness of breath or leg swelling. He received lasix for an acute decompensation of right heart failure. Continue current medications without change. Continue telemetry? No
[2016-06-22 17:03] VITALS: BP 110/68
[2016-06-22 22:13] VITALS: BP 130/80
[2016-06-23 06:40] VITALS: BP 114/68
--- NOTE | 2016-06-23 08:02 | Patient Discharge Instructions ---
Discharge Instructions General Discharge Information Special Instructions: 1. Follow up with Dr. Cordova (primary care), Dr. Velásquez (pulmonology), Dr. Ramirez (vascular surgeon), Dr. Soto (urology), Coumadin Clinic, CHF Clinic within a week of discharge. 2. Please have your blood drawn to check INR in 2 days. 3. Please call Dr. Soto' office immediately if you see a lot of blood in your urine or if the martin is not working properly. Diet Continue normal diet: Yes Recommended Diet: Diabetic, Heart Healthy Activity Additional ACTIVITY Info: As tolerated Acute Coronary Syndrome Inclusion Criteria At DC or during hospital stay patient has or had the following: ACS DIAGNOSIS No Discharge Core Measures Meds if any: Prescribed or Continued at Discharge Meds if any: NOT Prescribed or Continued at Discharge Congestive Heart Failure Inclusion Criteria At DC or during hospital stay patient has or had the following: CHF DIAGNOSIS Yes Discharge Core Measures Meds if any: Prescribed or Continued at Discharge EDWARD/ARB for EF <40% Yes Meds if any: NOT Prescribed or Continued at Discharge Cerebrovascular accident Inclusion Criteria At DC or during hospital stay patient has or had the following: CVA/TIA Diagnosis No Discharge Core Measures Meds if any: Prescribed or Continued at Discharge Meds if any: NOT Prescribed or Continued at Discharge Venous thromboembolism Inclusion Criteria VTE Diagnosis No VTE Type NONE VTE Confirmed by (Test) NONE Discharge Core Measures - Per Current guidelines, there needs to be overlap - treatment for the first 5 days of Warfarin therapy. - If discharged on Warfarin prior to 5 days of - overlap therapy, the patient will need to be - assessed for post discharge needs including - *Post discharge parental anticoagulation - *Warfarin and/or parental anticoagulation education - *Follow up date to check INR post discharge At least 5 days overlap therapy as Inpatient No Meds if any: Prescribed or Continued at Discharge Note: Overlap Therapy is Warfarin and Anticoagulant Meds if any: NOT Prescribed or Continued at Discharge
[2016-06-23 08:11] LABS: ABSOLUTE BASOPHIL COUNT 0 /CUMM (0.0-0.2); ABSOLUTE EOSINOPHIL COUNT 0 /CUMM (0.0-0.7); ABSOLUTE GRANULOCYTE CT 7.8 /CUMM (1.4-6.5); ABSOLUTE LYMPH COUNT 1.8 /CUMM (1.2-3.4); ABSOLUTE MONOCYTE COUNT 0.7 /CUMM (0.10-0.60); BASOPHIL % 0.1 % (0.0-2.0); EOSINOPHIL % 0.3 % (0-5); GRANULOCYTE % 75.8 % (42.2-75.2); HEMATOCRIT 35.6 % (42-52); MEAN CORPUSCULAR HGB 29.6 PG (27.0-31.0); MEAN CORPUSCULAR VOLUME 89.8 FL (80.0-94.0); MEAN PLATELET VOLUME 8.3 FL (7.4-10.4); PLATELET COUNT 167 /CUMM (130-400); RED BLOOD CELL CT 3.96 /CUMM (4.70-6.10); WHITE BLOOD CELL COUNT 10.4 /CUMM (4.8-10.8)
[2016-06-23 08:16] LABS: PT 25.4 SEC (9.4-12.5)
[2016-06-23] MEDS ORDERED: PREDNISONE20 M1 PO ×2 (11:07→12:51)
[2016-06-23] MEDS ORDERED: OMEPRAZOLE20 M2 PO (11:10)
[2016-06-23] MEDS ORDERED: LISINOPRIL10 M1 PO (11:10)
--- NOTE | 2016-06-23 12:04 | Discharge Summary ---
Hospital Course Allergies: Coded Allergies: oxycodone (Intermediate, RASH 06/20/16) aspirin (ANAPHYLAXIS 04/30/16) Discharge Instructions Medications at Discharge Discharge Medications: Continue taking these medications: Atorvastatin Calcium (Atorvastatin Calcium) 40 MG TABLET 40 Milligram ORAL 5 PM Qty = 30 Comments: Last Taken: 05/08/16 Time: 4:30PM Warfarin Sodium (Coumadin) 4 MG TABLET 1 Tablet ORAL DAILY Qty = 30 Comments: NOT TAKEN IN HOSPITAL Metoprolol Tartrate (Metoprolol Tartrate) 25 MG TABLET 0.5 Tablet ORAL TWICE DAILY Qty = 60 Furosemide (Lasix) 20 MG TABLET 1 Tablet ORAL TWICE DAILY Qty = 8 Pot Chloride/Pot Bicarb/Cit AC (Potassium Cl 25 Meq Tab Eff) 25 MEQ TABLET.EFF 1 Tablet ORAL QDAY Qty = 4 Oxycodone HCl/Acetaminophen (Percocet 5-325 MG Tablet) 5 MG-325 MG TABLET 1 Tablet ORAL TWICE DAILY as needed for PAIN Qty = 10 Instructions: TEN...[id number] Start taking the following new medications: Prednisone (Prednisone) 20 MG TABLET 20 Milligram ORAL DAILY Days = 5 No Refills Instructions: DATES DOSE 20MG 06/24-06/25 10MG 06/26-06/27 Lisinopril (Lisinopril) 10 MG TABLET 10 Milligram ORAL DAILY Days = 30 No Refills
--- NOTE | 2016-06-23 12:09 | PN- Pulmonary ---
Subjective HPI/Critical Care Issues: Doing better Afebrile Wishes to go home Objective Current Medications: Current Medications Sig/Nelly Start time Last Medication Dose Route Stop Time Status Admin Acetaminophen 325 MG Q8P PRN 06/20 2100 AC 06/21 PO 0949 Albuterol Sulfate 3 ML BID 06/21 1000 AC 06/22 INH 2125 Atorvastatin Calcium 40 MG 1700 06/21 1700 AC 06/22 PO 1649 Azithromycin 500 MG DAILY 06/22 1000 AC 06/23 PO 0814 Diphenhydramine HCl 1 AKMI Q6P PRN 06/21 2130 AC TOP Enoxaparin Sodium 60 MG BID 06/21 1000 AC 06/23 SC 0813 Furosemide 20 MG BID 06/20 2200 AC 06/23 PO 0813 Guaifenesin 600 MG Q12 06/20 2200 AC 06/23 PO 0814 Lidocaine 15 ML Q8P PRN 06/22 1345 AC PO Lisinopril 10 MG DAILY 06/21 1630 AC 06/23 PO 0814 Melatonin 5 MG AT BEDTIME 06/21 2245 AC 06/22 PO 2150 Metoclopramide HCl 10 MG Q6P PRN 06/20 2000 AC 06/20 IM 2006 Metoprolol Tartrate 12.5 MG BID 06/20 2200 AC 06/23 PO 0813 Nystatin 5 ML 4 TIMES/DAY 06/22 1400 AC 06/23 PO 0813 Omeprazole 40 MG DAILY AC 06/21 1531 AC 06/23 PO 0601 Prednisone 40 MG DAILY 06/22 1000 AC 06/23 PO 06/26 1001 0814 Ramelteon 8 MG .STK-MED ONE 06/23 0101 DC PO 06/23 0102 Ramelteon 8 MG ONCE ONE 06/22 2345 DC 06/23 PO 06/22 2346 0105 Sodium Chloride 2 SPRAY Q4P PRN 06/20 1945 AC CLAIRE Warfarin Sodium 5 MG COUMADIN 1700 ONE 06/23 1700 AC PO 06/23 1701 Warfarin Sodium 7.5 MG COUMADIN 1700 ONE 06/22 1700 DC 06/22 PO 06/22 1701 1648 Vital Signs & I&O Last 24 Hrs of Vitals and I&O: Vital Signs Date Time Temp Pulse Resp B/P Pulse O2 O2 Flow FiO2 Ox Delivery Rate 06/23 0814 73 114/68 06/23 0813 73 114/68 06/23 0640 97.6 73 20 114/68 96 Nasal Cannula 06/23 0000 Nasal 2.0L Cannula 06/22 2213 98.2 76 20 130/80 96 Nasal 2.0L Cannula 06/22 2149 62 116/60 06/22 2125 92 Nasal 2.0L Cannula 06/22 1950 91 Nasal 2.0L Cannula 06/22 1703 97.6 73 16 110/68 94 Nasal Cannula Intake & Output 06/23 1600 06/23 0800 06/23 0000 Intake Total 200 200 Output Total 950 500 Balance -750 -300 Intake, Oral 200 200 Number 0 Bowel Movements Output, Urine 950 500 Patient 128 lb Weight Impression/Plan Impression/Plan Impression/Plan: Physical Exam General Appearance Alert, Oriented X3, Cooperative, No Acute Distress Skin No Rashes, No Breakdown, No Significant Lesion HEENT Atraumatic, PERRLA, EOMI, Mucous Membr. moist/pink Neck Supple, No JVD, No thryomegaly, +2 Carotid Pulse wo Bruit, No LAD Lymphatic Axillary nl, Cervical nl Cardiovascular Regular Rate, Normal S1, Normal S2, No Murmurs Lungs expiratory wheezes, no crackles or sign of congestion Abdomen Normal Bowel Sounds, Soft, No Tenderness, No Hepatospenomegaly, No Masses Neurological Normal Speech, Strength at 5/5 X4 Ext, Normal Tone, Sensation Intact, Cranial Nerves 3-12 NL, Reflexes 2+ Extremities No Clubbing, No Cyanosis, bilateral lower extremity +1 edema Vascular Pulses Symmetrical Sig data CT reviewed 06/21/16 IMPRESSION: 1. No evidence of recurrent pulmonary emboli. 2. No aneurysm of the ascending thoracic aorta. 3. Stable saccular aneurysm involving the left lateral aspect of the proximal descending thoracic aorta. 4. Enlarging fusiform aneurysm involving the mid descending thoracic aorta currently measuring 7.6 AP x 5.5 cm transverse x 8.3 cm craniocaudad. IMPRESSION This is a 76-year-old gentleman with severe COPD, ongoing smoking, systolic heart dysfunction with ejection fraction of 25% with previous PCI and NE in the past, very severe peripheral vascular disease with significant thoracic aneurysm with a large saccular component which has been present for more than few years, medical noncompliance, extremely large prostate rule out prostate cancer in the future, previous history of kidney stone with * Recent PE which is improved radiologically. May have a hidden malignancy ( enlarged prostate, previous hematuria etc) * Severe COPD, Patient is not a regular with his inhaler therapy. No sig copd exacerbation at this time * Previous congestive heart failure with an ejection fraction of 25% witl pulm edema Chronic systolic heart failure * Very large thoracic aneurysm at the saccular component pressing on his esophagus in his left mainstem bronchus which has been stable since early 2013, not a surgical candidate as the prosthesis for his aneurysm repair could not be passed due to severe peripheral vascular disease and his lower extremity, not a candidate for open surgery. Now his aneurysm seems to have increased in size * Ischemic heart disease * Small lung nodules * Enlarged prostate now with sig pvr urology is following and has high wbc and prob uti RECOMMENDATION Ok to dc Pt educated about warfarin clinic Po lasix Needs atc nebs Po prednisone 40 qd for five days and stop PO azithro for five days NEeds appt with warfarin clinic Vascular surg eval as out pt Urology following Will follow as out pt stable for dc Needs to cont oxygen at home
--- NOTE | 2016-06-23 12:48 | PN- Housestaff ---
See Addendum Subjective Follow-up For: COPD exacerbation Chronic PE with subtherapeutic INR Subjective: Patient seen and examined at bedside. No events reported overnight. Patient is eating breakfast in bed. Reports feeling well with no acute complaints. Denies any shortness of breath or cough. Patient has been requiring oxygen both at rest and on exertion this admission so far. Patient desatted to 86% on RA with ambulation. Thus patient will require home oxygen to use for activities and shortness of breath upon discharge. Currently denies chest pain, palpitations, headache, nausea, vomiting, abdominal pain. Review of Systems Constitutional: Reports: see HPI. Objective Last 24 Hrs of Vital Signs/I&O Vital Signs Date Time Temp Pulse Resp B/P Pulse O2 O2 Flow FiO2 Ox Delivery Rate 06/23 0814 73 114/68 06/23 0813 73 114/68 06/23 0640 97.6 73 20 114/68 96 Nasal Cannula 06/23 0000 Nasal 2.0L Cannula 06/22 2213 98.2 76 20 130/80 96 Nasal 2.0L Cannula 06/22 2149 62 116/60 06/22 2125 92 Nasal 2.0L Cannula 06/22 1950 91 Nasal 2.0L Cannula 06/22 1703 97.6 73 16 110/68 94 Nasal Cannula 06/22 1018 93 Nasal 2.0L Cannula 06/22 0913 76 118/63 06/22 0912 76 118/63 Intake & Output 06/23 1600 06/23 0800 06/23 0000 Intake Total 200 200 Output Total 950 500 Balance -750 -300 Intake, Oral 200 200 Number 0 Bowel Movements Output, Urine 950 500 Physical Exam General Appearance: Alert, Oriented X3, Cooperative, No Acute Distress Other Physical Findings: Skin: No Rashes, No Breakdown, No Significant Lesion HEENT: Atraumatic, PERRLA, EOMI, Mucous Membr. moist/pink, Erythema noted in pharynx. Few whitish lesions noted in Rt palatopharyngeal arch looks more like a analilia infection, no exudate. Neck: Supple, No JVD, No thryomegaly, +2 Carotid Pulse wo Bruit, No LAD Lymphatic: Axillary nl, Cervical nl Cardiovascular: Regular Rate, Normal S1, Normal S2, No Murmurs Lungs: expiratory wheezes Abdomen: Normal Bowel Sounds, Soft, No Tenderness, No Hepatospenomegaly, No Masses Neurological: Normal Gait, Normal Speech, Strength at 5/5 X4 Ext, Normal Tone, Sensation Intact, Cranial Nerves 3-12 NL, Reflexes 2+ Extremities: No Clubbing, No Cyanosis, No Edema, Normal Pulses, No Tenderness/ Swelling Vascular: Pulses Symmetrical Current Medications: Current Medications Sig/Nelly Start time Last Medication Dose Route Stop Time Status Admin Acetaminophen 325 MG Q8P PRN 06/20 2100 AC 06/21 PO 0949 Albuterol Sulfate 3 ML BID 06/21 1000 AC 06/22 INH 2125 Atorvastatin Calcium 40 MG 1700 06/21 1700 AC 06/22 PO 1649 Azithromycin 500 MG DAILY 06/22 1000 AC 06/23 PO 0814 Diphenhydramine HCl 1 KAMI Q6P PRN 06/21 2130 AC TOP Enoxaparin Sodium 60 MG BID 06/21 1000 AC 06/23 SC 0813 Furosemide 20 MG BID 06/20 2200 AC 06/23 PO 0813 Guaifenesin 600 MG Q12 06/20 2200 AC 06/23 PO 0814 Lidocaine 15 ML Q8P PRN 06/22 1345 AC PO Lisinopril 10 MG DAILY 06/21 1630 AC 06/23 PO 0814 Melatonin 5 MG AT BEDTIME 06/21 2245 AC 06/22 PO 2150 Metoclopramide HCl 10 MG Q6P PRN 06/20 2000 AC 06/20 IM 2006 Metoprolol Tartrate 12.5 MG BID 06/20 2200 AC 06/23 PO 0813 Nystatin 5 ML 4 TIMES/DAY 06/22 1400 AC 06/23 PO 0813 Omeprazole 40 MG DAILY AC 06/21 1531 AC 06/23 PO 0601 Prednisone 40 MG DAILY 06/22 1000 AC 06/23 PO 06/26 1001 0814 Ramelteon 8 MG ONCE ONE 06/22 2345 DC 06/23 PO 06/22 2346 0105 Sodium Chloride 2 SPRAY Q4P PRN 06/20 1945 AC CLAIRE Warfarin Sodium 7.5 MG COUMADIN 1700 ONE 06/22 1700 DC 06/22 PO 06/22 1701 1648 Last 24 Hrs of Lab/Tr Results Last 24 Hrs of Labs/Mics: Laboratory Tests 06/23/16 0634: Anion Gap 11, Estimated GFR > 60, BUN/Creatinine Ratio 33.0 H, Magnesium 1.8, PT 25.4 H, INR 2.44 H, CBC w Diff NO MAN DIFF REQ, RBC 3.96 L, MCV 89.8, MCH 29.6, RDW 15.0 H, MPV 8.3, Gran % 75.8 H, Lymphocytes % 17.0 L, Monocytes % 6.8, Eosinophils % 0.3, Basophils % 0.1, Absolute Granulocytes 7.8 H, Absolute Lymphocytes 1.8, Absolute Monocytes 0.7 H, Absolute Eosinophils 0, Absolute Basophils 0, PUBS MCHC 33.0 06/22/16 1425: Urine Color PINK H, Urine Clarity CLDY H, Urine pH 6.0, Ur Specific [place] 1.025, Urine Protein 100 H, Urine Ketones NEG, Urine Nitrite NEG, Urine Bilirubin NEG, Urine Urobilinogen 0.2, Ur Leukocyte Esterase TRACE H, Ur Microscopic SEDIMENT EXAMINED, Urine RBC >75 H, Urine WBC 5-10 H, Ur Epithelial Cells RARE, Urine Mucus FEW, Urine Hemoglobin LARGE H, Urine Glucose NEG Microbiology 06/22 1425 URINE ROUT: Urine Culture - RECD Assessment/Plan Assessment: 76-year-old gentleman with past medical history of HfRef, COPD, pulmonary embolism on warfarin presented with worsening of exertional dyspnea and URI symptoms for 3 days, most likely 2/2 COPD exacerbation. His clinical symptoms and physical exam not compatible with acute heart failure even though proBNP is elevated. There was no sign of pulmonary edema on chest x-ray. # COPD exacerbation Patient carries a history of emphysematous COPD previously not on home oxygen [employer]. This admission patient has been requiring oxygen both at rest and on exertion. Patient desatted to 86% on RA with ambulation. Thus patient will require home oxygen to use for activities and shortness of breath upon discharge. * Vital signs per protocol * Strict I's and O's * ACS was ruled out * Echocardiogram pending * Blood cultures - NGTD * Sputum culture pending * Flu swab was negative * Cont azithromycin 500mg daily PO for a total of 5 days (day #4) * Continue prednisone 40mg for total of 5 days * Will add PPI for GI protection while on steroids * TRC/nebs scheduled * Oxygen supplementation * Saline irrigation for nasal congestion * Guaifenesin for expectorant * Pulmonary service following, will appreciate recommendations * Per pulmonary may require home oxygen #Leukocytosis - resolved * WBC 14.1 noted on 06/23, most likely steroid induced. URI or UTI unlikely given negative Ucx and no urinary symptoms. * WBC toady 10.4 #Possible oropharyngeal candidiasis: * Lesions look more like a analilia infection there is no exudate; sore patient is not complaining of severe sore throat which makes diagnosis of strep infection less likely, therefore there is no clinical indication for rapid strep test * Of note, patient is on as azithromycin for bronchitis which would also cover strep. * Topical treatment with nystatin * Topical Lidocaine * Flu swab was negative on admission #Hematuria: * Overnight patient had episodes of hematuria with clots, hematuria has decreased and now urine in [place] is pink colored. * Hemoglobin dropped from 13.2 on admission to 12.5. * Monitor H&H closely * Urology was notified; patient may require CBI if persistent gross hematuria #Pulmonary embolism on warfarin: * The patient had subtherapeutic INR of 1.35 on admission, he reports that he has been taking his warfarin on time every day * INR 2.44 today * Discontinue Lovenox * Resume home dosage of warfarin 4mg daily * CTA was done today given interscapular pain, which showed no evidence of recurrent pulmonary emboli. However there was evidence of enlarging fusiform aneurysm involving mid descending thoracic aorta. * Will closely monitor H&H * Warfarin clinic to be arranged as outpatient #HFrEF * Continue with metoprolol 12.5 by mouth twice a day * Continue with atorvastatin 40 mg by mouth daily * Cardiology consult was placed will appreciate recommendations * Echocardiogram pending # Pre-Diabetes - newly diagnosed: * The patient has blood glucose level of 201 on admission, he denies any polyuria, polydipsia, polyphagia however mentions that he has been diagnosed recently with prediabetes * hemoglobin A1c 7.1 * Diabetic/cardiac diet * Accu-Cheks * Initially we will attempt to control and lifestyle changes, if unsuccessful patient will need medical therapy. * Nutrition consult * Consider endocrinology consult #Lower extremity edema - resolved * The patient has not noticed any worsening in his lower extremity edema recently; reports that it has been improving * No calf tenderness * Venous Doppler of lower extremities was negative for any DVT * The patient received 40 mg IV furosemide 1 in the ED * Continue his home medication of by mouth furosemide 20 mg twice a day #History of Abdominal aortic aneurysm * Descending thoracic aortic aneurysm has increased in size in the past 6-8 months, now is almost 7 cm in diameter. * Per our electronic data, the patient was found to have abdominal aortic aneurysm in October 2015, he was told that surgery is too risky for him and he was instructed to do annual follow-up and blood pressure control. * Today's CTA showed evidence of enlarging fusiform aneurysm involving mid descending thoracic aorta. * Vascular service was consulted, per their assessment, patient is not a candidate for endovascular repair for now and [facility] * To follow up outpatient with vascular #DVT prophylaxis: * SC Lovenox and warfarin #CODE STATUS: * Full code Problem List: 1. COPD (chronic obstructive pulmonary disease) 2. DNI (do not intubate) 3. DNR no code (do not resuscitate) 4. HLD (hyperlipidemia) 5. HTN (hypertension) 6. DVT prophylaxis 7. Thoracic aortic aneurysm 8. COPD exacerbation 9. Subtherapeutic anticoagulation Pain Ratin Pain Location: 0 Pain Goal: Remain pain free Pain Plan: Mild pain pathway Tomorrow's Labs & Rationales: CBC to trend WBC given leukocytosis BEP to monitor for electrolyte disturbances
[2016-06-23] MEDS ORDERED: AZITHROMYCIN500 M3 PO (12:51)
[2016-06-23] MEDS ORDERED: NYSTATIN100000 UNI PO (12:54)
[2016-06-23] MEDS ORDERED: GUAIFENESIN ER600 MG PO (12:54)
[2016-06-23] MEDS ORDERED: ALBUTEROL2.5 MG/3 M INH (12:56)
[2016-06-23 15:19] VITALS: BP 110/60
--- NOTE | 2016-06-28 16:30 | Discharge Summary ---
Visit Information Visit Dates Admission Date: 06/20/16 Discharge Date: 06/23/16 Hospital Course Course Attending Physician: TANI CANADA M.D Primary Care Physician: LATASHA ARECHIGA,[facility] Course: This is a 76-year-old active smoker gentleman with past medical history significant for HfRef (echocardiogram 11/03/2015:EF 25% with stage III diastolic dysfunction ihot-gi-cwllsafw MR, trace AR, jfch-he-cnjdhavc TR, mild [place] ), PVD, COPD not on home oxygen, CAD status post stenting, descending thoracic aortic aneurysm-stable, pulmonary embolism which failed treatment with Xarelto(the patient was maintained on warfarin since his last admission on 04/30/2016) who presents to the hospital with worsening shortness of breath and nasal congestion for the past 3 days. According to the patient, he has been experiencing URI like symptoms and weakness for 3 days prior to his admission, had mild sore throat along cough ( with clear sputum). He was also experiencing exertional shortness of breath able to only walk for approximately 10 feet before getting short of breath. He denied orthopnea. He reported chest discomfort after each cough however denied chest pain and palpitations. Per patient, he did not notice any worsening of lower extremity edema recently and in fact he reports his lower extremity edema to be better than his baseline on admission. The patient did not receive flu vaccine this year. He denied history of sick contact, recent travel, illicit drug use, EtOH us Vital signs on admission: Date Time Temp Pulse Resp B/P Pulse O2 O2 Flow FiO2 Ox Delivery Rate 06/20 1951 97.5 94 20 130/80 97 Room Air 06/20 1931 97.6 70 20 126/72 97 Room Air 06/20 1843 97 06/20 1711 97.6 72 20 137/92 95 Room Air 06/20 1433 98.9 90 20 131/88 92 Room Air 06/20 1306 98.0 85 26 131/78 92 Room Air 06/20 1236 Room Air 06/20 1210 96.8 94 24 147/92 90 Room Air Pertinent physical exam at the time of admission:General Appearance Alert, Oriented X3, Cooperative, No Acute Distress Skin No Rashes, No Breakdown, No Significant Lesion HEENT Atraumatic, PERRLA, EOMI, Mucous Membr. moist/pink Neck Supple, No JVD, No thryomegaly, +2 Carotid Pulse wo Bruit, No LAD Lymphatic Axillary nl, Cervical nl Cardiovascular Regular Rate, Normal S1, Normal S2, No Murmurs Lungs expiratory wheezes, no crackles or sign of congestion Abdomen Normal Bowel Sounds, Soft, No Tenderness, No Hepatospenomegaly, No Masses Neurological Normal Speech, Strength at 5/5 X4 Ext, Normal Tone, Sensation Intact, Cranial Nerves 3-12 NL, Reflexes 2+ Extremities No Clubbing, No Cyanosis , bilateral lower extremity +1 edema Vascular Pulses Symmetrical Lab Data on admission: 06/20/16 1850: Troponin I 0.02 06/20/16 1403: Urine Color YEL, Urine Clarity HAZY H, Urine pH 6.0, Ur Specific Den[place] >= 1.030, Urine Protein 100 H, Urine Ketones NEG, Urine Nitrite NEG, Urine Bilirubin NEG, Urine Urobilinogen 0.2, Ur Leukocyte Esterase NEG, Ur Microscopic SEDIMENT EXAMINED, Urine RBC 1-3, Urine WBC 15-25 H, Ur Epithelial Cells FEW, Hyaline Casts 1-3 H, Urine Mucus FEW, Urine Hemoglobin NEG, Urine Glucose NEG 06/20/16 1259: Anion Gap 9, Estimated GFR 59 L, BUN/Creatinine Ratio 22.5, Glucose 201 H, Calcium 9.0, Total Bilirubin 0.7, AST 21, ALT 24, Alkaline Phosphatase 93, Troponin I 0.02, Kpe-K-Zkxlrewvarq Pept 34375 H, Total Protein 6.5, Albumin 3.7 , Globulin 2.8, Albumin/Globulin Ratio 1.3, PT 14.1 H, INR 1.35 H, CBC w Diff NO MAN DIFF REQ, RBC 4.52 L, MCV 89.9, MCH 28.8, RDW 15.1 H, MPV 8.3, Gran % 71.2, Lymphocytes % 17.4 L, Monocytes % 9.2, Eosinophils % 1.4, Basophils % 0.8 , Absolute Granulocytes 4.6, Absolute Lymphocytes 1.1 L, Absolute Monocytes 0.6 , Absolute Eosinophils 0.1, Absolute Basophils 0.1, PUBS MCHC 32.0 L Diagnostic Data EKG Results Sinus rhythm, rate 75, QTC 470, right axis deviation, no significant ST-T wave changes. CXR Results 1. Cardiomegaly without pulmonary edema. 2. No acute findings in the lung bases compared to the abdomen CT of 05/18/2016. Persistent small pleural effusions with bibasilar atelectasis. 3. Saccular aneurysms of the thoracic aorta. Other Results Lower extremity venous Doppler study:Normal triplex scan without evidence of deep venous thrombosis involving the bilateral lower extremities. The following problems were addressed during the coure of his hospital stay: #Shortness of breath, cough, chest discomfort: CTA was negative for any evidence of recurrent pulmonary emboli. 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 This admission, he was initially treated for COPD exacerbation with IV steroids and Azithromycin,which was later on changed to PO per pulmonary. Vital signs, strict I's and O's were monitored closely. ACS was ruled out. Flu swab was negative. Urine culture and Blood cultures remained negative. He received TRC/nebs and Oxygen supplementation. Had WBC 14.1 on 06/23, most likely steroid induced imporved the next day to 10.4. He also received treatment for (Nystatin) oropharyngeal candidiasis. Patient required oxygen both at rest and on exertion. Patient desaturated to 86% on RA with ambulation. Thus patient required home oxygen to use for activities and shortness of breath upon discharge. Smoking cessation counseling provided specially to avoid while on oxygen. Being complaint with medications including inhalers and appointment follow ups were reinforced. #Hematuria: The patient had episodes of hematuria with clots which started on 06/21/16 with mild drop in Hb(13.2 on admission to 12.5) , Martin was placed. Hematuria improved. Urology was consulted who recommended discharged with Martin catheter and outpatient follow-up. #Pulmonary embolism on warfarin: The patient had subtherapeutic INR of 1.35 on admission. He was bridged with Lovenox during his hospital stay. CTA was done today given interscapular pain, which showed no evidence of recurrent pulmonary emboli. However there was evidence of enlarging fusiform aneurysm involving mid descending thoracic aorta. H&H was monitored closely and remained stable throughout the course of his hospital stay. On the day of discharge, INR was within therapeutic range(2.44). Lovenos was discontinued and he was discharged home with home dosage of warfarin 4mg daily. Warfarin clinic was arranged as outpatient # Diabetes - newly diagnosed: The patient has blood glucose level of 201 on admission, he denied any polyuria, polydipsia, polyphagia however mentioned that he was diagnosed recently with prediabetes. hemoglobin A1c 7.1. He was maintained on Diabetic/cardiac diet. Accu-Checks remained between 98-183. Nutrition consult was placed. Initially attempt to control and lifestyle changes, if unsuccessful patient may need medical therapy. #HFrEF Cardiology consult was placed. He was maintained on metoprolol 12.5 by mouth twice a day, atorvastatin 40 mg by mouth daily, furosemide 20 mg by mouth twice a day. Is & Os, daily weights were checked. Remained stable. To follow up as outpatient with CHF clinic. #History of Abdominal aortic aneurysm Descending thoracic aortic aneurysm has increased in size in the past 6-8 months , now is almost 7 cm in diameter. Per our electronic data, the patient was found to have abdominal aortic aneurysm in October 2015, he was told that surgery is too risky for him and he was instructed to do annual follow-up and blood pressure control. This admission CTA showed evidence of enlarging fusiform aneurysm involving mid descending thoracic aorta. Vascular service was consulted, per their assessment, patient is not a candidate for endovascular repair for now and they recommended reevaluation at the [place]. To follow up outpatient with vascular outpatient. #DVT prophylaxis: He received SC Lovenox and PO warfarin. #CODE STATUS: Full code Allergies: Coded Allergies: oxycodone (Intermediate, RASH 06/20/16) aspirin (ANAPHYLAXIS 04/30/16) Significant Procedures: Chest CTA: 06/21/16 FINDINGS: QUALITY OF STUDY/CONTRAST BOLUS: Satisfactory. PULMONARY ARTERIES: No central or segmental pulmonary emboli. There are some residual webs within the lumen of the left main pulmonary artery. There are some residual subsegmental filling defects in the right pulmonary artery. THORACIC AORTA: The aorta is not opacified due to technique been chosen for optimizing opacification of the pulmonary arteries. The ascending aorta has a maximum diameter of 4.0 cm which is within the normal range for age (top normal for this patient of this age is 4.3 cm). Again noted is the presence of a 2.5 x 2.0 x 2.7 cm saccular aneurysm arising from the left lateral aspect of the proximal descending thoracic aorta. There is a 7.6 x 5.5 x 8.3 cm fusiform aneurysm involving the mid descending thoracic aorta below the level charleen which appears to have increased in size previously measuring 7.0 x 5.0 x 7.7 cm. LUNG: There is centrilobular emphysema. No focal consolidation is identified. There is a stable 4 to 5 mm subpleural nodule in the lateral segment of the right middle lobe. PLEURA: There are bilateral moderate-sized pleural effusions. MEDIASTINUM: There is no evidence of mediastinal or hilar adenopathy. Heart is diffusely enlarged. No evidence of septal bowing or right heart strain. CHEST WALL/AXILLA: No axillary or internal mammary lymphadenopathy. No chest wall masses appreciated. OSSEOUS STRUCTURES: Multilevel degenerative spondylitic changes are present in the spine. No focal osteolytic or osteoblastic changes are appreciated. UPPER ABDOMEN: Unremarkable. There is reflux of contrast into the hepatic veins suggesting elevated right heart pressures. IMPRESSION: 1. No evidence of recurrent pulmonary emboli. 2. No aneurysm of the ascending thoracic aorta. 3. Stable saccular aneurysm involving the left lateral aspect of the proximal descending thoracic aorta. 4. Enlarging fusiform aneurysm involving the mid descending thoracic aorta currently measuring 7.6 AP x 5.5 cm transverse x 8.3 cm craniocaudad. Pertinent Lab Results: 06/23/16 0634: Anion Gap 11, Estimated GFR > 60, BUN/Creatinine Ratio 33.0 H, Magnesium 1.8, PT 25.4 H, INR 2.44 H, CBC w Diff NO MAN DIFF REQ, RBC 3.96 L, MCV 89.8, MCH 29.6, RDW 15.0 H, MPV 8.3, Gran % 75.8 H, Lymphocytes % 17.0 L, Monocytes % 6.8, Eosinophils % 0.3, Basophils % 0.1, Absolute Granulocytes 7.8 H, Absolute Lymphocytes 1.8, Absolute Monocytes 0.7 H, Absolute Eosinophils 0, Absolute Basophils 0, PUBS MCHC 33.0 06/22/16 1425: Urine Color PINK H, Urine Clarity CLDY H, Urine pH 6.0, Ur Specific [place] 1.025, Urine Protein 100 H, Urine Ketones NEG, Urine Nitrite NEG, Urine Bilirubin NEG, Urine Urobilinogen 0.2, Ur Leukocyte Esterase TRACE H, Ur Microscopic SEDIMENT EXAMINED, Urine RBC >75 H, Urine WBC 5-10 H, Ur Epithelial Cells RARE, Urine Mucus FEW, Urine Hemoglobin LARGE H, Urine Glucose NEG Disposition Summary Disposition Principal Diagnosis: Dyspnea, Shortness of breath Additional Diagnosis: Pulmonary embolism on warfarin with subtherapeutic INR Discharge Disposition: home health services Discharge Instructions General Discharge Information Code Status: Full Code Patient's Diet: Diabetic/Cardiac Patient's Activity: As tolerated Follow-Up Instructions/Appts: 1. Follow up with Dr. Pagan (primary care), Dr. Velásquez (pulmonology), Dr. Ramirez (vascular surgeon), Dr. Soto (urology), Coumadin Clinic, CHF Clinic within a week of discharge. 2. Please have your blood drawn to check INR in 2 days. 3. Please call Dr. Soto' office immediately if you see a lot of blood in your urine or if the martin is not working properly. Medications at Discharge Discharge Medications: Continue taking these medications: Atorvastatin Calcium (Atorvastatin Calcium) 40 MG TABLET 40 Milligram ORAL 5 PM Qty = 30 Comments: Last Taken: 06/22/16 Time: 4:30PM Warfarin Sodium (Coumadin) 4 MG TABLET 1 Tablet ORAL DAILY Qty = 30 Comments: Last Taken: 06/22/16 Time: 5 PM Metoprolol Tartrate (Metoprolol Tartrate) 25 MG TABLET 0.5 Tablet ORAL TWICE DAILY Qty = 60 Comments: Last Taken: 06/23/16 Time: 9AM Furosemide (Lasix) 20 MG TABLET 1 Tablet ORAL TWICE DAILY Qty = 8 Comments: Last Taken: 06/23/16 Time: 9 AM Pot Chloride/Pot Bicarb/Cit AC (Potassium Cl 25 Meq Tab Eff) 25 MEQ TABLET.EFF 1 Tablet ORAL QDAY Qty = 4 Comments: NOT GIVEN IN HOSPITAL Oxycodone HCl/Acetaminophen (Percocet 5-325 MG Tablet) 5 MG-325 MG TABLET 1 Tablet ORAL TWICE DAILY as needed for PAIN Qty = 10 Instructions: TEN...[id number] Comments: NOT GIVEN IN HOSPITAL Start taking the following new medications: Prednisone (Prednisone) 20 MG TABLET 40 Milligram ORAL DAILY Qty = 1 No Refills Instructions: TO BE TAKEN ON 06/24/16. Comments: Last Taken: 06/23/16 Time: 9 AM Lisinopril (Lisinopril) 10 MG TABLET 10 Milligram ORAL DAILY Days = 30 No Refills Comments: Last Taken: 06/23/16 Time: 9 AM Azithromycin (Azithromycin) 500 MG TABLET 500 Milligram ORAL DAILY Qty = 1 No Refills Instructions: TO BE TAKEN ON 06/24/16 Comments: Last Taken: 06/23/16 Time: 9 AM Nystatin (Nystatin) 100,000 UNIT/ML ORAL.SUSP 5 Milliliters ORAL 4 TIMES A DAY Days = 5 No Refills Comments: Last Taken: 06/23/16 Time: 1 PM Guaifenesin (Guaifenesin ER) 600 MG TAB.ER.12H 600 Milligram ORAL EVERY 12 HOURS Qty = 10 No Refills Comments: Last Taken: 06/23/16 Time: 9 AM Albuterol Sulfate (Albuterol Sulfate) 2.5 MG/3 ML (0.083 %) VIAL.NEB 3 Milliliters Inhale through mouth TWICE DAILY as needed for SHORTNESS OF BREATH Days = 30 No Refills Copies To: ELIZABETH ARECHIGA,GILA; MOHINDER ARECHIGA,[facility] SJono; IQRA ARECHIGA,CARLOS EDUARDO PAGAN MD,DANE RICARDO MD PhD,ALEXA Caro Attending MD Review Statement Documenting Attending: TANI CANADA M.D Other Findings: have reviewed the discharge summary.
== END 2016-06-23 16:42 | disposition home health service (06) | DRG 190 ==
LOC: ERH 12:03 → ERHI 16:20 → 1NO 16:20 → 2NA 16:20 → 1NO 19:33 → 2NA 06-22 19:58
PROVIDERS: Internal Medicine; Physician Assistant Medical; Student in an Organized Health Care Education/Training Program; ADMIT Internal Medicine
DX: J44.1 Chronic obstructive pulmonary disease with (acute) exacerbation (principal); I26.99 Other pulmonary embolism without acute cor pulmonale; I50.22 Chronic systolic (congestive) heart failure; I11.0 Hypertensive heart disease with heart failure; I71.2 Thoracic aortic aneurysm, without rupture; B37.0 Candidal stomatitis; J06.9 Acute upper respiratory infection, unspecified; F17.210 Nicotine dependence, cigarettes, uncomplicated; N40.1 Benign prostatic hyperplasia with lower urinary tract symptoms; R33.8 Other retention of urine; Z79.01 Long term (current) use of anticoagulants; I73.9 Peripheral vascular disease, unspecified; E78.5 Hyperlipidemia, unspecified; I25.10 Atherosclerotic heart disease of native coronary artery without angina pectoris; Z95.5 Presence of coronary angioplasty implant and graft
CPT/HCPCS: 1NP; 2NAP; 36415; 76775; 81001; 82436; 87040; 87070; 87086; 87804; 87804-59; 93005; 93010; 93970; 96374; 97001-GP; 97116-GO; 97161-GP; 97530-GO; J0456; J1650; J1940; J2765; J2920; J2930; J7040; J7512

== ENCOUNTER 2017-09-23 04:23 | Inpatient (IN) | payer OTHER, MEDICARE ==
[~2017-09-23] VITALS: Ht 167.6 cm; Wt 52.6 kg
[~2017-09-23 04:23] MED LIST changes: +ALBUTEROL2.5 MG/3 M INH; +AZITHROMYCIN500 M3 PO; +GUAIFENESIN ER600 MG PO; +LISINOPRIL10 M1 PO; +NYSTATIN100000 UNI PO; +OMEPRAZOLE20 M2 PO; +PREDNISONE20 M1 PO
--- NOTE | 2017-09-23 04:27 | ED DYSPNEA/ASTHMA COMPLAINT ---
History of Present Illness General Chief Complaint: Dyspnea (COPD, CHF, Other) Stated Complaint: SOB Source: patient Exam Limitations: no limitations Vital Signs & Intake/Output Vital Signs & Intake/Output Vital Signs Date Time Temp Pulse Resp B/P B/P Pulse O2 O2 Flow FiO2 Mean Ox Delivery Rate 09/23 0504 103 28 121/78 100 BIPAP 09/23 0548 96 BIPAP 09/23 0515 119 99 09/23 0435 98 Aerosol 8L Mask 09/234 96 10L 09/233 96.2 134 30 116/73 96 Aerosol 10L Mask Allergies Coded Allergies: oxycodone (Intermediate, RASH 06/20/16) aspirin (ANAPHYLAXIS 04/30/16) Reconcile Medications Albuterol Sulfate 2.5 MG/3 ML (0.083 %) VIAL.NEB 3 ML INH BID PRN SHORTNESS OF BREATH Atorvastatin Calcium 40 MG TABLET 40 MG PO 1700 HEART Azithromycin 500 MG TABLET 500 MG PO DAILY COPD/BRONCHITIS TO BE TAKEN ON 06/24/16 Furosemide (Lasix) 20 MG TABLET 1 TAB PO BID swollen legs Guaifenesin (Guaifenesin ER) 600 MG TAB.ER.12H 600 MG PO Q12 COUGH Lisinopril 10 MG TABLET 10 MG PO DAILY HEART Metoprolol Tartrate 25 MG TABLET 0.5 TAB PO BID HYPERTENSION Nystatin 100,000 UNIT/ML ORAL.SUSP 5 ML PO 4 TIMES/DAY ORAL CANDIDIASIS Oxycodone HCl/Acetaminophen (Percocet 5-325 MG Tablet) 5 MG-325 MG TABLET 1 TAB PO BID PRN PAIN TEN...[id number] Pot Chloride/Pot Bicarb/Cit AC (Potassium Cl 25 Meq Tab Eff) 25 MEQ TABLET.EFF 1 TAB PO QDAY WHILE TAKING FUROSEMIDE Prednisone 20 MG TABLET 40 MG PO DAILY COPD TO BE TAKEN ON 06/24/16. Warfarin Sodium (Coumadin) 4 MG TABLET 1 TAB PO DAILY BLOOD CLOTS Triage Note: PER EMS DIFF BREATHING DIFF SPEAKING ONLY 1 WORD SUDDEN ONSET INITIAL SAT 77% DUO AURELIO ENROUTE AND IV 125 MG SOLUMEDROL AND 2 GM MAG IV SATS 97% ON RESP RX REMAINS SOB Triage Nurses Notes Reviewed? yes Onset: Abrupt Duration: hour(s): Timing: recent history Severity: moderate, severe Activities at Onset: sleep Prior Episodes/Possible Cause: occasional episodes Modifying Factors: Improves With: other (BETTER WITH NEB). Associated Symptoms: cough, wheezing HPI: 77 yo gentleman h/o PE and copd, on coumadin, presents with cough, dyspnea, wheeze, sudden onset this morning. 911 called. Medics found him with 02 sat 77% on room air. He was breathless, using accessory muscles of respiration. He was given a duoneb, solumedrol, and magnesium sulfate in the ED. The patient arrives breathless with difficulty speaking. Past History Travel History Traveled to [place] past 21 day No Medical History Any Pertinent Medical History? see below for history Neurological: NONE EENT: DEVIATED SEPTUM Cardiovascular: CAD (NSTEMI s/p PCI of the LCX/OM), CHF (peripheral vascular disease), HYPERLIPIDEMIA SC X 1 YEAR AGO THORACIC AORTA PSEUDO- ANEURYSM Respiratory: COPD Gastrointestinal: GI BLEED Hepatic: NONE Renal: nephrolithiasis, BPH s/p ESWL Musculoskeletal: leg pain Psychiatric: NONE Endocrine: diabetes Blood Disorders: NONE Cancer(s): NONE CREATIVE STRATEGIST/Reproductive: NONE History of MRSA: No History of VRE: No History of CDIFF: No Surgical History Surgical History: hemorrhoid surgery rhinoplasty laser TURP ESWL rhinoplasty Laser TURP Psychosocial History Who do you live with Spouse Services at Home None What is your primary language Uzbek Family History Family History, If Any: FATHER (GI CA). MOTHER (DM). Hx Contributory? No Review of Systems Review of Systems Constitutional: Reports: no symptoms. EENTM: Reports: no symptoms. Respiratory: Reports: no symptoms. Cardiovascular: Reports: no symptoms. GI: Reports: no symptoms. Genitourinary: Reports: no symptoms. Musculoskeletal: Reports: no symptoms. Skin: Reports: no symptoms. Neurological/Psychological: Reports: no symptoms. Hematologic/Endocrine: Reports: no symptoms. Immunologic/Allergic: Reports: no symptoms. All Other Systems: Reviewed and Negative Physical Exam Physical Exam General Appearance: well developed/nourished, moderate distress, severe distress Head: atraumatic, normal appearance Eyes: Bilateral: normal appearance. Ears, Nose, Throat: normal pharynx, normal ENT inspection Neck: normal inspection, supple, full range of motion, JVD Respiratory: wheezing bilaterally with prolonged expiratory phase. Cardiovascular: regular rate/rhythm Gastrointestinal: normal bowel sounds, soft, non-tender, no organomegaly Extremities: normal inspection Neurologic/Psych: no motor/sensory deficits, awake, alert, oriented x 3 Skin: intact, normal color, warm/dry Core Measures ACS in differential dx? No CVA/TIA Diagnosis No Sepsis Present: No Sepsis Focused Exam Completed? No Progress Differential Diagnosis: asthma, CHF, COPD, pneumonia Plan of Care: Orders Procedure Date/time Status BLOOD CULTURE 09/23 499 Active BLOOD CULTURE 09/23 456 Active ARTERIAL BLOOD GAS (GEN) 09/23 429 Active PARTIAL THROMBOPLASTIN TIME 09/23 429 Complete PROTHROMBIN TIME 09/23 429 Complete B-TYPE NATRIURETIC PEP (BNP) 09/23 429 Complete TROPONIN LEVEL 09/23 426 Complete LIPASE 09/23 426 Complete HEPATIC FUNCTION PANEL 09/23 426 Complete D-DIMER 09/23 426 Complete CBC WITHOUT DIFFERENTIAL 09/23 426 Complete BASIC METABOLIC PANEL 09/23 426 Complete AMYLASE 09/23 426 Complete EKG 09/23 426 Active Current Medications Sig/Nelly Start time Last Medication Dose Stop Time Status Admin Heparin Sodium 5,000 UNIT ONCE ONE 09/23 529 UNVr 09/23 (Porcine) 09/23 530 0549 (Heparin Bolus) Heparin Sodium 25,000 UNIT Q24H 09/23 529 UNVr 09/23 (Porcine) 0549 (Heparin) Sodium Chloride 500 ML Magnesium Sulfate 1 GM ONCE ONE 09/23 499 AC 09/23 (Mag Sulfate in D5) 09/23 858 050 Dextrose/Water 100 ML (D5W) Laboratory Tests 09/23/17439: pH 7.28 *L, pCO2 51 H, pO2 146 H, HCO3 23, ABG O2 Sat (Measured) 97.0, P-50 ( Temp Corrected) N, Carboxyhemoglobin 1.2 L, O2 Concentration % 9 LPM, Temperature 98.6, O2 Delivery Method A/M NEB, Phlebotomy Draw Site LEFT RADIAL 09/23/17429: Kkc-A-Hfkpeipvwqw Pept Cancelled, PT Cancelled, INR Cancelled, APTT Cancelled 09/23/17429: Anion Gap 13, Estimated GFR > 60, BUN/Creatinine Ratio 23.3, Glucose 223 H, Calcium 8.9, Total Bilirubin 0.6, Direct Bilirubin 0.5 H, AST 28, ALT 20 L, Alkaline Phosphatase 94, Troponin I 0.03, Fqk-R-Hrhryqvivdn Pept 7240 H, Total Protein 6.7, Albumin 3.7, Amylase 84, Lipase 101, PT 15.1 H, INR 1.38 H, APTT 30, D-Dimer High Sensitivty 1730 H, CBC w Diff NO MAN DIFF REQ, RBC 4.71, MCV 91.1, MCH 29.4, MCHC 32.3 L, RDW 13.5, MPV 7.9, Gran % 59.6, Lymphocytes % 27.1 , Monocytes % 9.2, Eosinophils % 3.7, Basophils % 0.4, Absolute Granulocytes 7.0 H, Absolute Lymphocytes 3.2, Absolute Monocytes 1.1 H, Absolute Eosinophils 0.4, Absolute Basophils 0 Microbiology 09/23 558 BLOOD: Blood Culture - RECD 09/23 529 BLOOD: Blood Culture - RECD Diagnostic Imaging: Viewed by Me: Radiology Read. Discussed w/RAD: Radiology Read. CXR Impression: PATIENT: JOYCELYN FERNANDES PRESENT AGE: 77 PATIENT ACCOUNT NO: [id number] : 41 LOCATION: [facility] ORDERING PHYSICIAN: Houston Torres MD SERVICE DATE: 09/23/17 EXAM TYPE: RAD - XRY- PORTABLE CHEST XRAY EXAMINATION: CHEST 1 VIEW CLINICAL INFORMATION: Dyspnea. COMPARISON: June 20, 2016. TECHNIQUE: An AP view of the chest is provided. FINDINGS: The cardiac silhouette is stable. The mediastinal and hilar contours are unremarkable. There are neither pleural effusions nor pneumothoraces. There is mild thickening to the right minor fissure. There are no consolidations. The osseous structures are unremarkable. IMPRESSION: No consolidations. DICTATED BY: Tim Ivan MD DATE/TIME DICTATED:09/23/17552 MILLING MACHINIST:OUMAR DATE/TIME TRANSCRIBED:09/23/17552 CONFIDENTIAL, DO NOT COPY WITHOUT APPROPRIATE AUTHORIZATION. <Electronically signed in Other Vendor System> SIGNED BY: Tim Ivan MD 09/23/17 0600 Initial ED EKG: sinus tach, no acute changes from prior. Departure Departure Disposition: STILL A PATIENT Condition: Stable Clinical Impression Primary Impression: COPD exacerbation Secondary Impressions: Respiratory acidosis Referrals: Tez Reagan MD (PCP/Family) Departure Forms: Customer Survey General Discharge Information Admission Note Spoke With: Chucky Velásquez MD Documentation of Exam: Documentation of any treatments & extenuating circumstances including Concerns Regarding Discharge (functional status, medication knowledge or non-compliance, living conditions, etc.) that warrant an admission rather than observation: pt with copd, on bipap, with respiratory acidosis, merits icu for continued care. pt presently feeling better. pt with elevated d-dimer, cr 1.7 and pt critically ill, inr <2.0... will place patient on heparin gtt, pending v/q scan... Critical Care Note Critical Care Note Critical Care Time: 30-74 min
[2017-09-23 04:42] LABS: ABSOLUTE BASOPHIL COUNT 0 /CUMM (0.0-0.2); ABSOLUTE EOSINOPHIL COUNT 0.4 /CUMM (0.0-0.7); ABSOLUTE LYMPH COUNT 3.2 /CUMM (1.2-3.4); ABSOLUTE MONOCYTE COUNT 1.1 /CUMM (0.10-0.60); BASOPHIL % 0.4 % (0.0-2.0); EOSINOPHIL % 3.7 % (0-5); GRANULOCYTE % 59.6 % (42.2-75.2); HEMATOCRIT 42.9 % (42-52); MEAN CORPUSCULAR HGB 29.4 PG (27.0-31.0); MEAN CORPUSCULAR HGB CONC 32.3 G/DL (33.0-37.0); MEAN CORPUSCULAR VOLUME 91.1 FL (80.0-94.0); MEAN PLATELET VOLUME 7.9 FL (7.4-10.4); PLATELET COUNT 211 /CUMM (130-400); RBC DISTRIBUTION WIDTH 13.5 % (11.5-14.5); RED BLOOD CELL CT 4.71 /CUMM (4.70-6.10); WHITE BLOOD CELL COUNT 11.7 /CUMM (4.8-10.8)
[2017-09-23 04:52] LABS: PT 15.1 SEC (9.4-12.5); PTT 30 SEC (25-37)
--- NOTE | 2017-09-23 06:00 | RADIOLOGY REPORT ---
EXAMINATION: CHEST 1 VIEW CLINICAL INFORMATION: Dyspnea. COMPARISON: June 20, 2016. TECHNIQUE: An AP view of the chest is provided. FINDINGS: The cardiac silhouette is stable. The mediastinal and hilar contours are unremarkable. There are neither pleural effusions nor pneumothoraces. There is mild thickening to the right minor fissure. There are no consolidations. The osseous structures are unremarkable. IMPRESSION: No consolidations.
--- NOTE | 2017-09-23 06:45 | History & Physical ---
Garrick Holtfabiánmicki 09/23/17 0629: General Information and HPI MD Statement: I have seen and personally examined JOYCELYN CORDERO and documented this H&P. The patient is a 77 year old M who presented with a patient stated chief complaint of acute onset of dyspnea. Source of Information: patient Exam Limitations: unable to give history History of Present Illness: Mr Cordero is a 77-year-old active smoker gentleman with past medical history significant for HFrEF (Echo EF 25% with stage III diastolic dysfunction), PVD, COPD not on home oxygen, CAD status post stenting, descending thoracic aortic aneurysm-stable, pulmonary embolism which failed treatment with Xarelto and currently on warfarin later was brought in with a chief concern of dyspnea, cough and wheezing that started in the am of presentation. Current smoker. He was in his usual state of health until one day ago, and had increasing productive cough in the last few days. He went to bed, and was woken up with acute onset of dyspnea in the middle of the night. He lives alone, and states compliance to his medications. No fever, no s/s of any infection. No recent medication changes, but doesnt recall any new meds. He was found to be in acute distress w/ oxygen saturation around 77% at the time of presentation. No fever, No recent changes in medications. Allergies/Medications Allergies: Coded Allergies: oxycodone (Intermediate, RASH 06/20/16) aspirin (ANAPHYLAXIS 04/30/16) Home Med list Albuterol Sulfate 2.5 MG/3 ML (0.083 %) VIAL.NEB 3 ML INH BID PRN SHORTNESS OF BREATH Atorvastatin Calcium 40 MG TABLET 40 MG PO 1700 HEART Azithromycin 500 MG TABLET 500 MG PO DAILY COPD/BRONCHITIS TO BE TAKEN ON 06/24/16 Furosemide (Lasix) 20 MG TABLET 1 TAB PO BID swollen legs Guaifenesin (Guaifenesin ER) 600 MG TAB.ER.12H 600 MG PO Q12 COUGH Lisinopril 10 MG TABLET 10 MG PO DAILY HEART Metoprolol Tartrate 25 MG TABLET 0.5 TAB PO BID HYPERTENSION Nystatin 100,000 UNIT/ML ORAL.SUSP 5 ML PO 4 TIMES/DAY ORAL CANDIDIASIS Oxycodone HCl/Acetaminophen (Percocet 5-325 MG Tablet) 5 MG-325 MG TABLET 1 TAB PO BID PRN PAIN TEN...[id number] Pot Chloride/Pot Bicarb/Cit AC (Potassium Cl 25 Meq Tab Eff) 25 MEQ TABLET.EFF 1 TAB PO QDAY WHILE TAKING FUROSEMIDE Prednisone 20 MG TABLET 40 MG PO DAILY COPD TO BE TAKEN ON 06/24/16. 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 MOTHER (DM). 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 unknown Functional Ability ADLs Independent: dressing, eating, toileting, bathing. Ambulation: independent Review of Systems Review of Systems Constitutional: Reports: see HPI. Exam & Diagnostic Data Last 24 Hrs of Vital Signs/I&O Vital Signs Date Time Temp Pulse Resp B/P B/P Pulse O2 O2 Flow FiO2 Mean Ox Delivery Rate 09/23 0604 103 28 121/78 100 BIPAP 09/23 0548 96 BIPAP 09/23 0515 119 99 09/23 0435 98 Aerosol 8L Mask 09/23 0434 96 10L 09/23 0433 96.2 134 30 116/73 96 Aerosol 10L Mask Intake & Output 09/23 0800 09/23 0000 09/22 1600 Intake Total 0 Output Total Balance 0 Intake, Oral 0 Patient 116 lb Weight Physical Exam General Appearance No Acute Distress Skin No Rashes (4), No Breakdown Skin Temp/Moisture Exam: Warm/Dry Sepsis Skin Exam (color): Normal for Ethnicity, Cyanotic, Flushed HEENT Atraumatic, PERRLA, EOMI Neck Supple, No JVD, No thryomegaly Lymphatic Cervical nl Cardiovascular Regular Rate, Normal S1, Normal S2 Lungs decreased air entry bilaterally. Abdomen Normal Bowel Sounds, Soft, No Tenderness Neurological Normal Speech, Strength at 5/5 X4 Ext, Normal Tone, Sensation Intact, Reflexes 2+ Assessment/Plan Assessment: Mr Cordero is a 77-year-old active smoker gentleman with past medical history significant for HFrEF (Echo EF 25% with stage III diastolic dysfunction), PVD, COPD not on home oxygen, CAD status post stenting, descending thoracic aortic aneurysm-stable, pulmonary embolism which failed treatment with Xarelto and currently on warfarin later was brought in with a chief concern of dyspnea, cough and wheezing that started in the am of presentation likely secondary to acute exacerbation of COPD. At the time of presentation-vitals temperature 96.2, pulse rate 134, respiration 30, blood pressure 106/76, pulse ox 96% on 10 L. He had placed on BiPAP, for increased work of breathing. Pertinent lab findings-WBC 11.7, hemoglobin 13.8, platelets 211. Sodium 139, potassium 4.4, BUN 21, creatinine 0.9, glucose 233, liver chemistries AST 28, ALT 20, alkaline phosphatase 94. Troponin I he-0.03, proBNP 7240, INR 1.38 (subtherapeutic), d-dimer high at 1730 (likely from Coumadin use) blood gas analysis revealed pH 7.28, PCO2 51, PO2 146 which improved to pH 7.38, PCO2 38, PO2 132, bicarbonate 42, after the use of BiPAP at 40% oxygen, respiratory rate is 24, IPAP of 20, EPAP 0.6. Chest x-ray did not reveal any evidence of consolidation. Etiology in this case for airflow obstruction is likely secondary to emphysema/ chronic bronchitis. Frequent exacerbations are associated w/ greater mortality, faster decline in lung function. Etiology for acute exacerbation is likely viral bronchitis, or atypical bacteria. Differential diagnosis considered at the time of admission-new PE, CHF, pneumonia, restrictive lung disease, acute coronary syndrome. Problem list: #1 acute hypercarbic hypoxic respiratory failure #2 subtherapeutic INR #3 diabetes #4 history of lung nodules #5 acute exacerbation of COPD #6 heart failure with reduced ejection fraction #7 rule out ACS #8 h/o AAA Plan: -Advised the patient to ICU given acute decompensation. -C BC to monitor for infection -Arterial blood gas, after one hour of use of BiPAP. -Check proBNP to differentiate between COPD and CHF -Lower respiratory cultures -CXR to rule out pneumonia, CHF, pneumothorax -supplemental oxygen -Maintain oxygen saturation in between 90 to 92% -monitor for CO2 narcosis, monitor for AMS, clinical tiring -Bronchodilator therapy with albuterol and ipratropium -Start iv predniosne 40 Q8 -Consider broadening the coverage w/ antibiotics, if the pt has fever or increased sputum production or worsening dyspnea -Smoking cessation counseling, vaccination status, avoid triggers. -Continue insulin sliding scale. -Consider CTA to rule out any abdominal aortic aneurysmal rupture. -Continue IV heparin, start Coumadin if no procedures are planned. Housekeeping: #1 DVT prophylaxis-pharmacological #2 CODE STATUS-DNR/DNI. Discussed extensively with the patient, but he is clear about his CODE STATUS. As Ranked By This Provider Problem List: 1. Respiratory acidosis 2. COPD exacerbation 3. Subtherapeutic anticoagulation 4. Thoracic aortic aneurysm Core Measures/Misc (03/05) Acute Coronary Syndrome ACS Diagnosis: No Congestive Heart Failure Congestive Heart Failure Diagnosis No Cerebrovascular Accident CVA/TIA Diagnosis: No VTE (View Protocol) VTE Risk Factors No risk factors No Mechanical VTE Prophylaxis d/t N/A MechProphylax Ordered No VTE Pharm Prophylaxis d/t NA PharmProphylax ordered Sepsis (View protocol) Sepsis Present: No Didier ARECHIGA,[facility] 09/23/17 1034: Attending MD Review Statement Attending Statement Attending MD Statement: examined this patient, discuss w/resident/PA/[facility], agreed w/resident/PA/[facility], discussed with family, reviewed EMR data (avail), discussed with nursing, discussed with case mgmt, reviewed images, amended to note Attending Assessment/Plan: Agree with above see separetly written addendum
[2017-09-23 09:27] VITALS: BP 102/71
--- NOTE | 2017-09-23 10:34 | PN- Att Addend ---
Attending Addendum Attending Brief Note Full ICU note as noted by the resident note Seen and examined independently in the emergency room Full history and physical as per medical liaison's note Patient well known to me with multiple issues as noted below General Appearance Alert, Oriented X3, Cooperative, significantly short of breath, wheezing, rhonchi, was on BiPAP initially when BiPAP was removed he was in obvious respiratory distress Skin No Rashes, No Breakdown, No Significant Lesion HEENT Atraumatic, PERRLA, EOMI, Mucous Membr. moist/pink Neck Supple, No JVD, No thryomegaly, +2 Carotid Pulse wo Bruit, No LAD Lymphatic Axillary nl, Cervical nl Cardiovascular Regular Rate, Normal S1, Normal S2, No Murmurs Lungs expiratory wheezes, crackles Abdomen Normal Bowel Sounds, Soft, No Tenderness, No Hepatospenomegaly, No Masses Neurological Normal Speech, Strength at 5/5 X4 Ext, Normal Tone, Sensation Intact, Cranial Nerves 3-12 NL, Reflexes 2+ Extremities No Clubbing, No Cyanosis, bilateral lower extremity +1 edema Vascular Pulses Symmetrical Sig data CT reviewed 06/21/16 IMPRESSION: 1. No evidence of recurrent pulmonary emboli. 2. No aneurysm of the ascending thoracic aorta. 3. Stable saccular aneurysm involving the left lateral aspect of the proximal descending thoracic aorta. 4. Enlarging fusiform aneurysm involving the mid descending thoracic aorta currently measuring 7.6 AP x 5.5 cm transverse x 8.3 cm craniocaudad. Chest x-ray unremarkable Initial EKG showed sinus tachycardia subsequently patient's heart rate did come down to 90, after his BiPAP was removed he became more tachycardic as well. SIGNIFICANT DATA ABG reviewed initially patient was hypercarbic at 7.28/51/146 subsequently 7.38/ 38/132 on BiPAP Other blood work reviewed as noted above troponin unremarkable creatinine normal ProBNP 7240 White count was slightly elevated 11.7 with no significant left shift INR was low at 1.38. Previously he has had multiple organisms in his urine Remote echocardiogram did show severe ischemic cardiomyopathy. IMPRESSION This is a 76-year-old gentleman with severe COPD, ongoing smoking, systolic heart dysfunction with ejection fraction of 25% with previous PCI and [place] in the past, very severe peripheral vascular disease with significant thoracic aneurysm with a large saccular component which has been present for more than few years, medical noncompliance, extremely large prostate, recurrent UTI, recurrent COPD exacerbation, previous history of kidney stone with * Acute hypoxemic and hypercarbic respiratory failure related to severe COPD exacerbation. Patient at times is medically noncompliant due to financial issues and has been using his inhaler sparingly * Previous congestive heart failure with an ejection fraction of 25% with no pulm edema, patient does have Chronic systolic heart failure * Very large thoracic aneurysm at the saccular component pressing on his esophagus in his left mainstem bronchus which has been stable since early 2013, not a surgical candidate as the prosthesis for his aneurysm repair could not be passed due to severe peripheral vascular disease and his lower extremity, not a candidate for open surgery. Now his aneurysm seems to have increased in size * Ischemic heart disease, low ejection fraction * Previous pulmonary embolism which was radiologically much better, patient is on warfarin but is noncompliant with his medications. Patient may have hidden malignancy as he has had enlarged prostate, hematuria etc. per his wishes has not had any significant workup. * Small lung nodules * Enlarged prostate now with sig pvr urology is following and has high wbc and prob uti RECOMMENDATION Admitted to the ICU Noninvasive ventilation Intravenous Solu-Medrol, nebulizer treatment Sputum culture Intravenous ceftriaxone and azithromycin for now Urine culture and sputum culture and blood culture Intravenous heparin and continue warfarin Rule out for [place] If he continues to be tachycardic and if his blood pressure permits we'll start him on low-dose beta bautista as he has tolerated 12.5 twice a day before. Continue lisinopril Aspirin 81 mg Needs atc nebs Keep sat at 90 percent Prn low dose morphine for dyspnea PO ppi Melatonin at hs if needed DNR and DNI (discussed with the patient and consistant with his prior wishes) Pt cricitally ill tts 40 mins
[2017-09-23 11:00] VITALS: BP 150/82
--- NOTE | 2017-09-23 11:46 | CT SCAN REPORT ---
EXAMINATION: CTA OF THE CHEST, ABDOMEN AND PELVIS CLINICAL INFORMATION: Tachycardia, hypoxia and tachypnea. COPD exacerbation. History of PE. Apparent therapeutic INR. Rule out pulmonary embolism. COMPARISON: Previous chest CTAs most recent June [address] scans most recent April 2016 TECHNIQUE: Axial images through the chest, abdomen and pelvis following oral and 95 mL Optiray 320 intravenous contrast. Sagittal and coronal reconstructions on the technologist workstation were performed. 3-D reconstructions of the chest were also performed. FINDINGS: Chest: There is no evidence of a pulmonary embolism. The exam is not performed for optimal opacification of the thoracic aorta. The ascending thoracic aorta measures 4 cm and is upper normal in size. There are several saccular aneurysms arising from the distal aortic arch/proximal descending thoracic aorta. There is a superior aneurysm measuring 2 cm axial image 134 series 2. There is a larger 2.3 x 2.6 cm saccular aneurysm arising from the lateral aorta axial image 136 series 2. This measured 2.5 x 2.7 cm on previous exam. There is a 2.2 x 2.3 cm saccular aneurysm arising from the medial thoracic aorta axial image 145 series 2. This measured 1.5 x 2 cm on previous exam and may be interval increase in size. There is decreased opacification of the left subclavian artery compared to the adjacent left common carotid artery questionable for evidence of a stenosis or obstruction. There is a large saccular aneurysm of the mid distal descending thoracic aorta. This measures 5.9 x 8.2 cm in AP and transverse dimension axial image 32 series 7 this is slightly increased in size from 5.5 x 7.6 cm June 2016 exam. There is a small focus of enhancement seen either in or adjacent to the aneurysm just posterior to the right mainstem bronchus axial image 242 series 2 of uncertain etiology. There is a area of the ectasia of the distal descending thoracic aorta measures 4 cm axial image 51 series 7. This does not appear appreciably changed in There is evidence of severe emphysema. There is a 4 mm right middle lobe nodule axial image 46 series 7 that is stable. There is minimal scarring or chronic subsegmental atelectasis in the inferior segment of the lingula, for example axial image 47 series 7. These findings are stable. There is evidence of mild airways disease in the right upper lobe. The lungs are otherwise clear. There is no pleural effusion or pleural thickening. Chest wall mass or enlarged axillary lymph nodes are seen. Abdomen and pelvis: There is a 1.7 cm cyst in the lateral segment of the left lobe axial image 16 a. Liver is otherwise unremarkable. The gallbladder is unremarkable. The spleen, pancreas, and adrenal glands are unremarkable. 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 Does not appear appreciably changed. There is calcification in the upper pole of the right kidney. It is uncertain whether this represents vascular calcification or stone. The prostate gland is enlarged and protrudes into the base of the bladder. There is abnormal soft tissue seen in the bladder that is similar to previous exam, presumably related to the prostate gland. This is similar to April 2016 exam. Small and large bowel is unremarkable. No ascites is seen. No adenopathy is seen. The abdominal aorta is normal in caliber. There is a right common iliac stent. No abdominal aortic aneurysm is seen. There are degenerative changes of the spine. No fracture or bone lesion is seen. IMPRESSION: Chest: No evidence of pulmonary embolism. Multiple saccular aneurysms of the descending thoracic aorta. Smaller saccular medial aneurysm of the distal aortic arch or proximal descending thoracic aorta appears slightly increased. Other small saccular aneurysms do not appear appreciably changed. There is decreased enhancement of the left subclavian artery questionable for stenosis or occlusion. The largest saccular aneurysm of the proximal descending thoracic aorta appears increased in size now measuring 5.9 x 8.2 cm. There is also an area of increased enhancement in or adjacent to the periphery/wall of the aneurysm just posterior to the right mainstem bronchus of uncertain etiology. Intraluminal hemorrhage or dissection cannot be excluded. Follow-up dedicated CTA of the chest to better evaluate the thoracic aortic aneurysms should be considered if clinically indicated. Abdomen and pelvis: Liver cyst. 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 There is abnormal soft tissue in the base of the bladder, presumably related to the prostate gland. This is not appear appreciably changed from previous exams. This could be better evaluated with gallbladder ultrasound if clinically indicated.
[2017-09-23 12:10] LABS: PTT 96 SEC (25-37)
[2017-09-23 16:00] VITALS: BP 92/0
[2017-09-23 19:14] LABS: PTT 84 SEC (25-37)
--- NOTE | 2017-09-23 20:35 | Cons- Cardiology ---
General Information and HPI Consulting Request Date of Consult: 09/23/17 Requested By: Didier ARECHIGA,Chucky Elizondo Reason for Consult: Shortness of breath History of Present Illness: The patient is a 77-year-old male with history of chronic systolic heart failure , EF 25%, peripheral sears disease, CAD status post stent, large descending thoracic aortic aneurysm, pulmonary embolism. He presents with complaint of shortness of breath. He has had increased productive cough for the past few days. He awoke during the night with sudden onset of dyspnea. He was found to have decreased oxygen saturation of 77% on presentation. He is on BiPAP and respiratory status is somewhat improved. No palpitations. No syncope. No orthopnea. No diaphoresis. No nausea or vomiting Allergies/Medications Allergies: Coded Allergies: oxycodone (Intermediate, RASH 06/20/16) aspirin (ANAPHYLAXIS 04/30/16) Home Med List: Albuterol Sulfate 2.5 MG/3 ML (0.083 %) VIAL.NEB 3 ML INH BID PRN SHORTNESS OF BREATH Atorvastatin Calcium 40 MG TABLET 40 MG PO 1700 HEART Azithromycin 500 MG TABLET 500 MG PO DAILY COPD/BRONCHITIS TO BE TAKEN ON 06/24/16 Furosemide (Lasix) 20 MG TABLET 1 TAB PO BID swollen legs Guaifenesin (Guaifenesin ER) 600 MG TAB.ER.12H 600 MG PO Q12 COUGH Lisinopril 10 MG TABLET 10 MG PO DAILY HEART Metoprolol Tartrate 25 MG TABLET 0.5 TAB PO BID HYPERTENSION Nystatin 100,000 UNIT/ML ORAL.SUSP 5 ML PO 4 TIMES/DAY ORAL CANDIDIASIS Oxycodone HCl/Acetaminophen (Percocet 5-325 MG Tablet) 5 MG-325 MG TABLET 1 TAB PO BID PRN PAIN TEN...[id number] Pot Chloride/Pot Bicarb/Cit AC (Potassium Cl 25 Meq Tab Eff) 25 MEQ TABLET.EFF 1 TAB PO QDAY WHILE TAKING FUROSEMIDE Prednisone 20 MG TABLET 40 MG PO DAILY COPD TO BE TAKEN ON 06/24/16. Warfarin Sodium (Coumadin) 4 MG TABLET 1 TAB PO DAILY BLOOD CLOTS Current Medications: Current Medications Sig/Nelly Start time Last Medication Dose Route Stop Time Status Admin Albuterol Sulfate 3 ML EVERY 4 HRS/AWAKE 09/23 1200 AC 09/23 INH 2021 Albuterol Sulfate 3 ML ONCE ONE 09/23 0445 DC 09/23 INH 04/07 0446 0435 Albuterol Sulfate 3 ML ONCE ONE 09/23 0445 DC 09/23 INH 09/23 0446 0435 Albuterol Sulfate 3 ML ONCE ONE 09/23 0445 DC 09/23 INH 09/23 0446 0435 Albuterol Sulfate 3 ML ONCE ONE 09/23 0445 DC 09/23 INH 09/23 0446 0435 Albuterol Sulfate 3 ML ONCE ONE 09/23 0445 DC 09/23 INH 09/23 0446 0435 Albuterol Sulfate 3 ML ONCE ONE 09/23 0445 DC 09/23 INH 09/23 0446 0435 Azithromycin 500 MG DAILY 09/23 1000 AC Dextrose/Water 250 ML IV Azithromycin 500 MG ONCE ONE 09/23 0500 DC 09/23 Dextrose/Water 250 ML IV 09/23 0559 0603 Ceftriaxone Sodium 1,000 MG DAILY@0600 09/24 0600 AC IV Ceftriaxone Sodium 0 .STK-MED ONE 09/23 0512 DC .ROUTE Ceftriaxone Sodium 1,000 MG ONCE ONE 09/23 0500 DC 09/23 IV 09/23 0501 0603 Heparin Sodium 0 .STK-MED ONE 09/23 0543 DC (Porcine) .ROUTE Heparin Sodium 5,000 UNIT ONCE ONE 09/23 0530 DC 09/23 (Porcine) IV 09/23 0531 0549 Heparin Sodium 25,000 UNIT Q24H 09/23 0530 AC 09/23 (Porcine) IV 0549 Sodium Chloride 500 ML Insulin Aspart 0 TIDAC 09/23 1700 AC SC Insulin Human Regular 0 Q6 09/23 1200 DC 09/23 SC 1206 Ipratropium [place] 2.5 ML EVERY 4 HRS/AWAKE 09/23 1200 AC 09/23 INH 2022 Ipratropium [place] 2.5 ML ONCE ONE 09/23 0445 DC 09/23 INH 09/23 0446 0435 Magnesium Sulfate 1 GM ONCE ONE 09/23 0500 DC 09/23 Dextrose/Water 100 ML IV 09/23 0859 0504 Melatonin 5 MG AT BEDTIME 09/23 2200 AC PO Methylprednisolone 40 MG Q8 09/23 1400 AC 09/23 IV 1405 Methylprednisolone 125 MG ONCE ONE 09/23 1030 DC 09/23 IV 09/23 1031 1033 Morphine Sulfate 2 MG Q6P PRN 09/23 2359 AC IV Morphine Sulfate 2 MG Q6P PRN 09/23 1815 CAN IV Morphine Sulfate 2 MG Q6P PRN 09/23 1800 DC 09/23 IV 1756 Morphine Sulfate 2 MG ONCE ONE 09/23 1115 DC 09/23 IV 09/23 1116 1109 Morphine Sulfate 0 .STK-MED ONE 09/23 0956 DC .ROUTE Morphine Sulfate 2 MG ONCE ONE 09/23 0945 DC 09/23 IV 09/23 0946 0951 Omeprazole 40 MG DAILY AC 09/24 0700 AC PO Pantoprazole Sodium 40 MG DAILY 09/23 1000 DC 09/23 IV 0955 Pantoprazole Sodium 0 .STK-MED ONE 09/23 0959 DC IV Sodium Chloride 1,000 ML BOLUS ONE 09/23 0930 DC 09/23 IV 09/23 1029 0944 Warfarin Sodium 7.5 MG COUMADIN 1700 ONE 09/23 1700 DC 09/23 PO 09/23 1702014 Past History Travel History Traveled to [place] past 21 day No Medical History Blood Transfusion Hx: No Neurological: NONE EENT: DEVIATED SEPTUM Cardiovascular: CAD (NSTEMI s/p PCI of the LCX/OM), CHF (peripheral vascular disease), HYPERLIPIDEMIA OR X 1 YEAR AGO THORACIC AORTA PSEUDO- ANEURYSM Respiratory: COPD, pulmonary embolism Gastrointestinal: GI BLEED Hepatic: NONE Renal: nephrolithiasis, BPH s/p ESWL Musculoskeletal: leg pain Psychiatric: NONE Endocrine: diabetes Blood Disorders: NONE Cancer(s): NONE INVESTIGATIVE AGENT/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 MOTHER (DM). Psychosocial History Where Do You Live? Home Services at Home: None Smoking Status: Current Everyday Smoker Power of Float Phlebotomist/HCP? unknown Functional Ability ADLs Independent: dressing, eating, toileting, bathing. Ambulation: independent Exam & Diagnostic Data Vital Signs and I&O Vital Signs Date Time Temp Pulse Resp B/P B/P Pulse O2 O2 Flow FiO2 Mean Ox Delivery Rate 09/23 2022 113 94 09/23 2000 90 BIPAP 40% 09/23 1706 95 BIPAP 40% 09/23 1610 100 95 09/23 1600 98 BIPAP 40% 09/23 1600 97.6 74 21 92/0 98 BIPAP 40% 09/23 1350 97 96 09/23 1218 100 BIPAP 40% 09/23 1100 98.4 116 30 150/82 100 BIPAP 40% 09/23 1052 95 09/23 0944 96 Aerosol 8L Mask 09/23 0930 BIPAP 40% 09/23 0927 127 36 102/71 09/23 0926 127 36 102/71 97 BIPAP 40% 09/23 0810 96 97 09/23 0743 100 BIPAP 40% 09/23 0710 96.8 100 24 106/52 100 BIPAP 40% 09/23 0643 28 100 BIPAP 09/23 0604 103 28 121/78 100 BIPAP 09/23 0548 96 BIPAP 09/23 0515 119 99 09/23 0435 98 Aerosol 8L Mask 09/23 0434 96 10L 09/23 0433 96.2 134 30 116/73 96 Aerosol 10L Mask Intake & Output 09/23 1600 09/23 0800 09/23 0000 09/22 1600 09/22 0800 09/22 0000 Intake Total 1709 0 Output Total 250 Balance 1459 0 Intake, IV 1169 Intake, Oral 540 0 Output, Urine 250 Patient 117 lb 116 lb Weight Weight Bed scale Measurement Method Labs/Tr Results: Laboratory Tests 09/23 09/23 09/23 09/23 09/23 1830 1254 1125 0815 0440 Blood Gas pH (7.35 - 7.45 PH) 7.38 7.28 *L pCO2 (35 - 45 TORR) 38 51 H pO2 (80 - 100 TORR) 132 H 146 H HCO3 (21 - 28 MEQ/L) 22 23 ABG O2 Sat (Measured) (>96.0 %) 97.0 97.0 P-50 (Temp Corrected) N Carboxyhemoglobin (1.5 - 5.0 %) 1.5 1.2 L O2 Concentration % 40% 9 LPM Temperature (97.0 - 100.0 FARH) 98.6 Respiration Rate (BPM) 24 O2 Delivery Method V60 A/M NEB Vent Mode ST Expiratory Pressure (CM H2O P) 6 Inspiratory Pressure (CM H2O P) 20 Chemistry Troponin I (<0.11 ng/ml) 0.04 0.03 Coagulation APTT (25 - 37 SEC) 84 H 96 H Miscellaneous Phlebotomy Draw Site LEFT RADIAL LEFT RADIAL 09/23 09/23 0430 0430 Chemistry Sodium (137 - 145 mmol/L) 139 Potassium (3.5 - 5.1 mmol/L) 4.4 Chloride (98 - 107 mmol/L) 103 Carbon Dioxide (22 - 30 mmol/L) 24 Anion Gap (5 - 16) 13 BUN (9 - 20 mg/dL) 21 H Creatinine (0.7 - 1.2 mg/dL) 0.9 Estimated GFR (>60 ml/min) > 60 BUN/Creatinine Ratio (7 - 25 %) 23.3 Glucose (65 - 99 mg/dL) 223 H Calcium (8.4 - 10.2 mg/dL) 8.9 Total Bilirubin (0.2 - 1.3 mg/dL) 0.6 Direct Bilirubin (< 0.4 mg/dL) 0.5 H AST (17 - 59 U/L) 28 ALT (21 - 72 U/L) 20 L Alkaline Phosphatase (< 127 U/L) 94 Troponin I (<0.11 ng/ml) 0.03 Akh-Z-Lyflavnclju Pept (<125 pg/mL) Cancelled 7240 H Total Protein (6.3 - 8.2 g/dL) 6.7 Albumin (3.5 - 5.0 g/dL) 3.7 Amylase (30 - 110 U/L) 84 Lipase (23 - 300 U/L) 101 Coagulation PT (9.4 - 12.5 SEC) Cancelled 15.1 H INR (0.90 - 1.17) Cancelled 1.38 H APTT (25 - 37 SEC) Cancelled 30 D-Dimer High Sensitivty (0 - 243 ng/ml) 1730 H Hematology CBC w Diff NO MAN DIFF REQ WBC (4.8 - 10.8 /CUMM) 11.7 H RBC (4.70 - 6.10 /CUMM) 4.71 Hgb (14.0 - 18.0 G/DL) 13.8 L Hct (42 - 52 %) 42.9 MCV (80.0 - 94.0 FL) 91.1 MCH (27.0 - 31.0 PG) 29.4 MCHC (33.0 - 37.0 G/DL) 32.3 L RDW (11.5 - 14.5 %) 13.5 Plt Count (130 - 400 /CUMM) 211 MPV (7.4 - 10.4 FL) 7.9 Gran % (42.2 - 75.2 %) 59.6 Lymphocytes % (20.5 - 51.1 %) 27.1 Monocytes % (1.7 - 9.3 %) 9.2 Eosinophils % (0 - 5 %) 3.7 Basophils % (0.0 - 2.0 %) 0.4 Absolute Granulocytes (1.4 - 6.5 /CUMM) 7.0 H Absolute Lymphocytes (1.2 - 3.4 /CUMM) 3.2 Absolute Monocytes (0.10 - 0.60 /CUMM) 1.1 H Absolute Eosinophils (0.0 - 0.7 /CUMM) 0.4 Absolute Basophils (0.0 - 0.2 /CUMM) 0 Diagnostic Data EKG Results EKG tracing is independently reviewed, and reveals sinus tachycardia 123, left atrial normality, borderline right axis deviation, nonspecific T-wave abnormality. CXR Results The cardiac silhouette is stable. The mediastinal and hilar contours are unremarkable. There are neither pleural effusions nor pneumothoraces. There is mild thickening to the right minor fissure. There are no consolidations. The osseous structures are unremarkable. CT scan of chest abdomen and pelvis: Chest: No evidence of pulmonary embolism. Multiple saccular aneurysms of the descending thoracic aorta. Smaller saccular medial aneurysm of the distal aortic arch or proximal descending thoracic aorta appears slightly increased. Other small saccular aneurysms do not appear appreciably changed. There is decreased enhancement of the left subclavian artery questionable for stenosis or occlusion. The largest saccular aneurysm of the proximal descending thoracic aorta appears increased in size now measuring 5.9 x 8.2 cm. There is also an area of increased enhancement in or adjacent to the periphery/wall of the aneurysm just posterior to the right mainstem bronchus of uncertain etiology. Intraluminal hemorrhage or dissection cannot be excluded. Follow-up dedicated CTA of the chest to better evaluate the thoracic aortic aneurysms should be considered if clinically indicated. Abdomen and pelvis: Liver cyst. 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 There is abnormal soft tissue in the base of the bladder, presumably related to the prostate gland. This is not appear appreciably changed from previous exams. This could be better evaluated with gallbladder ultrasound if clinically indicated. Echocardiogram 11/04/15: Normal size left ventricle. Mild concentric left ventricular hypertrophy. Moderately to severely reduced global left ventricular systolic function. Moderately to severely abnormal left ventricular ejection fraction estimated at 25%. Restrictive filling pattern of the left ventricle for age (stage 3 diastolic dysfunction). Moderate right ventricular dilatation. Moderate atrial dilatation. Mild to moderate mitral regurgitation. Trace aortic regurgitation. Mild to moderate tricuspid regurgitation. Right ventricular systolic pressure estimated to be within the normal range at 30 mmHg. Mild pulmonic regurgitation. Small pericardial effusion. Mildly dilated proximal ascending aorta (tube). Mildly dilated IVC. Possible small vegetation on the aortic valve. Correlate with clinical data. Assessment/Plan Assessment/Plan The patient is a 77-year-old male with history of severe COPD, chronic systolic dysfunction with LVEF 25%, CAD with history of OR and PCI in the past. He is noted to have a significant thoracic aortic aneurysm with large saccular component. He is noncompliant with medications. He is admitted with acute COPD exacerbation. He has chronic systolic heart failure which appears to be stable with no evidence of acute exacerbation. He is not a candidate for repair of his thoracic aortic aneurysm, which appears to have increased in size compared to the prior CT scan. Recommendations: * Treatment of COPD exacerbation as per pulmonary * Continue lisinopril * Continue aspirin * Agree with low-dose beta-bautista metoprolol 12.5 mg p.o. twice daily for treatment of aortic aneurysm * Echocardiogram Consult Acknowledgment - Thank you for your consult request.
[2017-09-24] VITALS: BP 91/71
[2017-09-24 04:49] LABS: ABSOLUTE BASOPHIL COUNT 0 /CUMM (0.0-0.2); ABSOLUTE EOSINOPHIL COUNT 0 /CUMM (0.0-0.7); ABSOLUTE GRANULOCYTE CT 10.1 /CUMM (1.4-6.5); ABSOLUTE LYMPH COUNT 0.8 /CUMM (1.2-3.4); ABSOLUTE MONOCYTE COUNT 0.4 /CUMM (0.10-0.60); BASOPHIL % 0 % (0.0-2.0); EOSINOPHIL % 0 % (0-5); MEAN CORPUSCULAR HGB 29.2 PG (27.0-31.0); MEAN CORPUSCULAR HGB CONC 32.1 G/DL (33.0-37.0); MEAN PLATELET VOLUME 8.5 FL (7.4-10.4); PLATELET COUNT 175 /CUMM (130-400); RBC DISTRIBUTION WIDTH 13.7 % (11.5-14.5); RED BLOOD CELL CT 4.01 /CUMM (4.70-6.10)
[2017-09-24 04:56] LABS: GRANULOCYTE % 89.8 % (42.2-75.2); HEMATOCRIT 36.4 % (42-52)
[2017-09-24 04:59] LABS: PT 13.8 SEC (9.4-12.5); PTT 72 SEC (25-37)
[2017-09-24 05:17] LABS: WHITE BLOOD CELL COUNT 11.3 /CUMM (4.8-10.8)
[2017-09-24 08:00] VITALS: BP 88/0
--- NOTE | 2017-09-24 08:36 | Cons- CRCU ---
General Information and HPI Consulting Request Date of Consult: 09/24/17 Requested By: Primary Team Reason for Consult: Critically Ill Source of Information: patient, family, old records Exam Limitations: no limitations History of Present Illness: Mr Cordero is a 77-year-old active smoker gentleman with past medical history significant for HFrEF (Echo EF 25% with stage III diastolic dysfunction), PVD, COPD (not on home oxygen), CAD status post stenting, descending thoracic aortic aneurysm-stable, pulmonary embolism which failed treatment with Xarelto and currently on warfarin who was brought in with a chief concern of dyspnea, cough and wheezing that started in the morning of presentation. Patient states that he was recently exposed to an ill contact, his boss who was diagnosed with pneumonia over the last few days. He has an extensive smoking history of over 55 years and states that although he still smoking he has reduced his smoking considerably to approximately 5 cigarettes per day. He states that after experiecing an increase of coughing, he subsequently work up in the middle of the night complaning of dyspnea. He denied any fever, chills, nausea or vomiting. He was admitted to the [facility] for closer management and follow up. During the time of our clinical interaction, he stated that he was feeling better. He reports that he used BiPAP overnight. He did also endorse some calf pain to the nurse this morning. Allergies/Medications Allergies: Coded Allergies: oxycodone (Intermediate, RASH 06/20/16) aspirin (ANAPHYLAXIS 04/30/16) Home Med List: Albuterol Sulfate 2.5 MG/3 ML (0.083 %) VIAL.NEB 3 ML INH BID PRN SHORTNESS OF BREATH Atorvastatin Calcium 40 MG TABLET 40 MG PO 1700 HEART Azithromycin 500 MG TABLET 500 MG PO DAILY COPD/BRONCHITIS TO BE TAKEN ON 06/24/16 Furosemide (Lasix) 20 MG TABLET 1 TAB PO BID swollen legs Guaifenesin (Guaifenesin ER) 600 MG TAB.ER.12H 600 MG PO Q12 COUGH Lisinopril 10 MG TABLET 10 MG PO DAILY HEART Metoprolol Tartrate 25 MG TABLET 0.5 TAB PO BID HYPERTENSION Nystatin 100,000 UNIT/ML ORAL.SUSP 5 ML PO 4 TIMES/DAY ORAL CANDIDIASIS Oxycodone HCl/Acetaminophen (Percocet 5-325 MG Tablet) 5 MG-325 MG TABLET 1 TAB PO BID PRN PAIN TEN...[id number] Pot Chloride/Pot Bicarb/Cit AC (Potassium Cl 25 Meq Tab Eff) 25 MEQ TABLET.EFF 1 TAB PO QDAY WHILE TAKING FUROSEMIDE Prednisone 20 MG TABLET 40 MG PO DAILY COPD TO BE TAKEN ON 06/24/16. Warfarin Sodium (Coumadin) 4 MG TABLET 1 TAB PO DAILY BLOOD CLOTS Current Medications: Current Medications Sig/Nelly Start time Last Medication Dose Route Stop Time Status Admin Albuterol Sulfate 3 ML EVERY 4 HRS/AWAKE 09/23 1200 AC 09/24 INH 0818 Azithromycin 500 MG DAILY 09/23 1000 AC Dextrose/Water 250 ML IV Ceftriaxone Sodium 1,000 MG DAILY@0600 09/24 0600 AC 09/24 IV 0643 Diphenhydramine HCl 25 MG ONCE ONE 09/24 0045 DC 09/24 PO 09/24 0046 0148 Heparin Sodium 25,000 UNIT Q24H 09/23 0530 AC 09/23 (Porcine) IV 0549 Sodium Chloride 500 ML Insulin Aspart 0 TIDAC 09/23 1700 AC SC Insulin Human Regular 0 Q6 09/23 1200 DC 09/23 SC 1206 Ipratropium [place] 2.5 ML EVERY 4 HRS/AWAKE 09/23 1200 AC 09/24 INH 0819 Melatonin 3 MG ONCE ONE 09/24 0415 DC 09/24 PO 09/24 0416 0425 Melatonin 5 MG AT BEDTIME 09/23 2200 AC 09/23 PO 2233 Methylprednisolone 40 MG Q8 09/23 1400 AC 09/24 IV 0640 Methylprednisolone 125 MG ONCE ONE 09/23 1030 DC 09/23 IV 09/23 1031 1033 Morphine Sulfate 2 MG Q6P PRN 09/23 2359 AC 09/24 IV 0857 Morphine Sulfate 2 MG Q6P PRN 09/23 1815 CAN IV Morphine Sulfate 2 MG Q6P PRN 09/23 1800 DC 09/23 IV 1756 Morphine Sulfate 2 MG ONCE ONE 09/23 1115 DC 09/23 IV 09/23 1116 1109 Morphine Sulfate 0 .STK-MED ONE 09/23 0956 DC .ROUTE Morphine Sulfate 2 MG ONCE ONE 09/23 0945 DC 09/23 IV 09/23 0946 0951 Omeprazole 40 MG DAILY AC 09/24 0700 AC 09/24 PO 0644 Pantoprazole Sodium 40 MG DAILY 09/23 1000 DC 09/23 IV 0955 Pantoprazole Sodium 0 .STK-MED ONE 09/23 0959 DC IV Sodium Chloride 1,000 ML BOLUS ONE 09/23 0930 DC 09/23 IV 09/23 1029 0944 Warfarin Sodium 7.5 MG COUMADIN 1700 ONE 09/23 1700 DC 09/23 PO 09/23 1702014 Review of Systems Review of Systems Constitutional: Reports: see HPI. Past History Travel History Traveled to [place] past 21 day No Medical History Blood Transfusion Hx: No Neurological: NONE EENT: DEVIATED SEPTUM Cardiovascular: CAD (NSTEMI s/p PCI of the LCX/OM), CHF (peripheral vascular disease), HYPERLIPIDEMIA [place] X 1 YEAR AGO THORACIC AORTA PSEUDO- ANEURYSM Respiratory: COPD, pulmonary embolism Gastrointestinal: GI BLEED Hepatic: NONE Renal: nephrolithiasis, BPH s/p ESWL Musculoskeletal: leg pain Psychiatric: NONE Endocrine: diabetes Blood Disorders: NONE Cancer(s): NONE VP STRATEGY/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 MOTHER (DM). Psychosocial History Where Do You Live? Home Services at Home: None Smoking Status: Current Everyday Smoker Power of Qa Tester/HCP? unknown Functional Ability ADLs Independent: dressing, eating, toileting, bathing. Ambulation: independent Employment History Employment: Employed Exam & Diagnostic Data Last 24 Hrs of Vital Signs/I&O Output: 780 Input:2637 Vital Signs Date Time Temp Pulse Resp B/P B/P Pulse O2 O2 Flow FiO2 Mean Ox Delivery Rate 09/24 0915 134 92 09/24 0828 95 Nasal 4.0L Cannula 09/24 0400 97 Nasal 6.0L Cannula 09/24 0102 104 98 09/24 0000 95 BIPAP 40% 09/24 0000 98.8 105 30 91/71 95 BIPAP 40% 09/23 2023 113 94 09/23 2000 90 BIPAP 40% 09/23 1706 95 BIPAP 40% 09/23 1610 100 95 09/23 1600 98 BIPAP 40% 09/23 1600 97.6 74 21 92/0 98 BIPAP 40% 09/23 1350 97 96 09/23 1218 100 BIPAP 40% 09/23 1100 98.4 116 30 150/82 100 BIPAP 40% 09/23 1052 95 09/23 0944 96 Aerosol 8L Mask Intake & Output 09/24 1600 09/24 0800 09/24 0000 Intake Total 493 435 Output Total 300 200 Balance 193 235 Intake, IV 133 135 Intake, Oral 360 300 Number 0 0 Bowel Movements Output, Urine 300 200 Physical Exam General Appearance: well developed/nourished, no apparent distress, alert Head: atraumatic, normal appearance, active bleeding Ears, Nose, Throat: normal ENT inspection Respiratory: crackles, rhonchi, wheezing Cardiovascular: regular rate/rhythm Gastrointestinal: normal bowel sounds, soft, non-tender Back: normal inspection Extremities: normal capillary refill, no edema Last 48 Hrs of Labs/Tr: Laboratory Tests 09/24/17 0415: Anion Gap 13, Estimated GFR > 60, Glucose 196 H, Calcium 8.9, Phosphorus 4.2, Magnesium 1.9, Total Bilirubin 0.5, AST 29, ALT 36, Troponin I 0.04, Albumin 3.7 , PT 13.8 H, INR 1.26 H, APTT 72 H, CBC w Diff NO MAN DIFF REQ, RBC 4.01 L, MCV 91.0, MCH 29.2, MCHC 32.1 L, RDW 13.7, MPV 8.5, Gran % 89.8 H, Lymphocytes % 7.1 L, Monocytes % 3.1, Eosinophils % 0, Basophils % 0, Absolute Granulocytes 10.1 H, Absolute Lymphocytes 0.8 L, Absolute Monocytes 0.4, Absolute Eosinophils 0, Absolute Basophils 0 09/23/17 1830: Troponin I 0.04, APTT 84 H 09/23/17 1254: Troponin I 0.03 09/23/17 1125: APTT 96 H 09/23/17 0815: pH 7.38, pCO2 38, pO2 132 H, HCO3 22, ABG O2 Sat (Measured) 97.0, Carboxyhemoglobin 1.5, O2 Concentration % 40%, Respiration Rate 24, O2 Delivery Method V60, Vent Mode ST, Expiratory Pressure 6, Inspiratory Pressure 20, Phlebotomy Draw Site LEFT RADIAL 09/23/17 0440: pH 7.28 *L, pCO2 51 H, pO2 146 H, HCO3 23, ABG O2 Sat (Measured) 97.0, P-50 ( Temp Corrected) N, Carboxyhemoglobin 1.2 L, O2 Concentration % 9 LPM, Temperature 98.6, O2 Delivery Method A/M NEB, Phlebotomy Draw Site LEFT RADIAL 09/23/17 0430: [id number]-Hhhakqhqmwb Pept Cancelled, PT Cancelled, INR Cancelled, APTT Cancelled 09/23/17 0430: Anion Gap 13, Estimated GFR > 60, BUN/Creatinine Ratio 23.3, Glucose 223 H, Calcium 8.9, Total Bilirubin 0.6, Direct Bilirubin 0.5 H, AST 28, ALT 20 L, Alkaline Phosphatase 94, Troponin I 0.03, Sxx-S-Shnquitxmqo Pept 7240 H, Total Protein 6.7, Albumin 3.7, Amylase 84, Lipase 101, PT 15.1 H, INR 1.38 H, APTT 30, D-Dimer High Sensitivty 1730 H, CBC w Diff NO MAN DIFF REQ, RBC 4.71, MCV 91.1, MCH 29.4, MCHC 32.3 L, RDW 13.5, MPV 7.9, Gran % 59.6, Lymphocytes % 27.1 , Monocytes % 9.2, Eosinophils % 3.7, Basophils % 0.4, Absolute Granulocytes 7.0 H, Absolute Lymphocytes 3.2, Absolute Monocytes 1.1 H, Absolute Eosinophils 0.4, Absolute Basophils 0 Microbiology 09/23 1145 URINE ROUT: Legionella Antigen - COMP 09/23 1145 URINE ROUT: Streptococcus pneumoniae Antigen (M - COMP 09/23 1115 GI: Surveillance Culture - COMP 09/23 1055 UPPER RESP: Surveillance Culture - COMP Assessment/Plan [facility] Impression/Plan: Gil is a 77-year-old active smoker gentleman with past medical history significant for HFrEF (Echo EF 25% with stage III diastolic dysfunction), PVD, COPD not on home oxygen, CAD status post stenting, descending thoracic aortic aneurysm-stable, pulmonary embolism which failed treatment with Xarelto and currently on warfarin later was brought in with a chief concern of dyspnea, cough and wheezing that started in the am of presentation likely secondary to acute exacerbation of COPD. At the time of presentation-vitals temperature 96.2, pulse rate 134, respiration 30, blood pressure 106/76, pulse ox 96% on 10 L. He had placed on BiPAP, for increased work of breathing. Pertinent lab findings-WBC 11.7, hemoglobin 13.8, platelets 211. Sodium 139, potassium 4.4, BUN 21, creatinine 0.9, glucose 233, liver chemistries AST 28, ALT 20, alkaline phosphatase 94. Troponin I he-0.03, proBNP 7240, INR 1.38 (subtherapeutic), d-dimer high at 1730 (likely from Coumadin use) blood gas analysis revealed pH 7.28, PCO2 51, PO2 146 which improved to pH 7.38, PCO2 38, PO2 132, bicarbonate 42, after the use of BiPAP at 40% oxygen, respiratory rate is 24, IPAP of 20, EPAP 0.6. Chest x-ray did not reveal any evidence of consolidation. Etiology in this case for airflow obstruction is likely secondary to emphysema/ chronic bronchitis. Frequent exacerbations are associated w/ greater mortality, faster decline in lung function. Etiology for acute exacerbation is likely viral bronchitis, or atypical bacteria. D Problem list: #1 acute hypercarbic hypoxic respiratory failure #2 subtherapeutic INR #3 diabetes #4 history of lung nodules #5 acute exacerbation of COPD #6 heart failure with reduced ejection fraction #7 rule out ACS #8 Plan: -Continue patient in ICU given acute decompensation. -C BC to monitor for infection -Follow Lower respiratory cultures -CXR to rule out pneumonia, CHF, pneumothorax -supplemental oxygen -Maintain oxygen saturation in between 90 to 92% -monitor for CO2 narcosis, monitor for AMS, clinical tiring -Bronchodilator therapy with albuterol and ipratropium -Start iv predniosne 40 Q8--> Transition to PO Prednisone -Consider broadening the coverage w/ antibiotics, if the pt has fever or increased sputum production or worsening dyspnea -Once BP improves, may consider Metoprolol 12.5 BID -Smoking cessation counseling, vaccination status, avoid triggers. -Continue insulin sliding scale. -Consider CTA to rule out any abdominal aortic aneurysmal rupture. -Arterial Doppler to rule out any arterial insuffieiceny. Placed a consult with Vascular Service. -Coumadin Dosed 7.5 mg. Monitor INR in am. -Continue IV heparin, start Coumadin if no procedures are planned. Housekeeping: #1 DVT prophylaxis-pharmacological #2 CODE STATUS-DNR/DNI. Discussed extensively with the patient, but he is clear about his CODE STATUS. Consult Acknowledgment - Thank you for your consult request.
--- NOTE | 2017-09-24 11:37 | PN- CRCU ---
Subjective HPI/Critical Care Issues: Doing ok On bipap COmplains of pain in the leg both sides in the calf muscles Wheezing has improved Objective Current Medications: Current Medications Sig/Nelly Start time Last Medication Dose Route Stop Time Status Admin Albuterol Sulfate 3 ML EVERY 4 HRS/AWAKE 09/23 1200 AC 09/24 INH 0818 Azithromycin 500 MG DAILY 09/23 1000 AC 09/24 Dextrose/Water 250 ML IV 1037 Ceftriaxone Sodium 1,000 MG DAILY@0600 09/24 0600 AC 09/24 IV 0643 Diphenhydramine HCl 25 MG ONCE ONE 09/24 0045 DC 09/24 PO 09/24 0046 0148 Heparin Sodium 25,000 UNIT Q24H 09/23 0530 AC 09/24 (Porcine) IV 1037 Sodium Chloride 500 ML Insulin Aspart 0 TIDAC 09/23 1700 AC SC Insulin Human Regular 0 Q6 09/23 1200 DC 09/23 SC 1206 Ipratropium [place] 2.5 ML EVERY 4 HRS/AWAKE 09/23 1200 AC 09/24 INH 0819 Melatonin 3 MG ONCE ONE 09/24 0415 DC 09/24 PO 09/24 0416 0425 Melatonin 5 MG AT BEDTIME 09/23 2200 AC 09/23 PO 2233 Methylprednisolone 40 MG Q8 09/23 1400 AC 09/24 IV 0640 Morphine Sulfate 2 MG Q6P PRN 09/23 2359 AC 09/24 IV 0857 Morphine Sulfate 2 MG Q6P PRN 09/23 1815 CAN IV Morphine Sulfate 2 MG Q6P PRN 09/23 1800 DC 09/23 IV 1756 Omeprazole 40 MG DAILY AC 09/24 0700 AC 09/24 PO 0644 Pantoprazole Sodium 40 MG DAILY 09/23 1000 DC 09/23 IV 0955 Warfarin Sodium 7.5 MG COUMADIN 1700 ONE 09/23 1700 DC 04 PO 09/23 1701 2014 Vital Signs & I&O Last 24 Hrs of Vitals and I&O: Vital Signs Date Time Temp Pulse Resp B/P B/P Pulse O2 O2 Flow FiO2 Mean Ox Delivery Rate 09/24 0815 134 92 09/24 0828 95 Nasal 4.0L Cannula 09/24 08 98.0 112 22 88/0 97 Nasal 4.0L Cannula 09/24 08 97 Nasal 4.0L Cannula 09/24 0400 97 Nasal 6.0L Cannula 09/24 0102 104 98 09/24 0000 95 BIPAP 40% 09/24 0000 98.8 105 30 91/71 95 BIPAP 40% 09/233 113 94 09/24 1999 90 BIPAP 40% 09/23 1706 95 BIPAP 40% 09/23 1610 100 95 09/23 1600 98 BIPAP 40% 09/23 1600 97.6 74 21 92/0 98 BIPAP 40% 09/23 1350 97 96 09/23 1218 100 BIPAP 40% Intake & Output 09/24 0800 09/24 0000 Intake Total 493 435 Output Total 300 200 Balance 193 235 Intake, IV 133 135 Intake, Oral 360 300 Number 0 0 Bowel Movements Output, Urine 300 200 Laboratory Tests 09/24 09/23 09/23 09/23 0415 1830 1254 1125 Chemistry Sodium (137 - 145 mmol/L) 137 Potassium (3.5 - 5.1 mmol/L) 4.6 Chloride (98 - 107 mmol/L) 102 Carbon Dioxide (22 - 30 mmol/L) 22 Anion Gap (5 - 16) 13 BUN (9 - 20 mg/dL) 29 H Creatinine (0.7 - 1.2 mg/dL) 1.0 Estimated GFR (>60 ml/min) > 60 Glucose (65 - 99 mg/dL) 196 H Calcium (8.4 - 10.2 mg/dL) 8.9 Phosphorus (2.5 - 4.5 mg/dL) 4.2 Magnesium (1.6 - 2.3 mg/dL) 1.9 Total Bilirubin (0.2 - 1.3 mg/dL) 0.5 AST (17 - 59 U/L) 29 ALT (21 - 72 U/L) 36 Troponin I (<0.11 ng/ml) 0.04 0.04 0.03 Albumin (3.5 - 5.0 g/dL) 3.7 Coagulation PT (9.4 - 12.5 SEC) 13.8 H INR (0.90 - 1.17) 1.26 H APTT (25 - 37 SEC) 72 H 84 H 96 H Hematology CBC w Diff NO MAN DIFF REQ WBC (4.8 - 10.8 /CUMM) 11.3 H RBC (4.70 - 6.10 /CUMM) 4.01 L Hgb (14.0 - 18.0 G/DL) 11.7 L Hct (42 - 52 %) 36.4 L MCV (80.0 - 94.0 FL) 91.0 MCH (27.0 - 31.0 PG) 29.2 MCHC (33.0 - 37.0 G/DL) 32.1 L RDW (11.5 - 14.5 %) 13.7 Plt Count (130 - 400 /CUMM) 175 MPV (7.4 - 10.4 FL) 8.5 Gran % (42.2 - 75.2 %) 89.8 H Lymphocytes % (20.5 - 51.1 %) 7.1 L Monocytes % (1.7 - 9.3 %) 3.1 Eosinophils % (0 - 5 %) 0 Basophils % (0.0 - 2.0 %) 0 Absolute Granulocytes (1.4 - 6.5 /CUMM) 10.1 H Absolute Lymphocytes (1.2 - 3.4 /CUMM) 0.8 L Absolute Monocytes (0.10 - 0.60 /CUMM) 0.4 Absolute Eosinophils (0.0 - 0.7 /CUMM) 0 Absolute Basophils (0.0 - 0.2 /CUMM) 0 09/23 09/23 09/23 0815 0440 0430 Blood Gas pH (7.35 - 7.45 PH) 7.38 7.28 *L pCO2 (35 - 45 TORR) 38 51 H pO2 (80 - 100 TORR) 132 H 146 H HCO3 (21 - 28 MEQ/L) 22 23 ABG O2 Sat (Measured) (>96.0 %) 97.0 97.0 P-50 (Temp Corrected) N Carboxyhemoglobin (1.5 - 5.0 %) 1.5 1.2 L O2 Concentration % 40% 9 LPM Temperature (97.0 - 100.0 FARH) 98.6 Respiration Rate (BPM) 24 O2 Delivery Method V60 A/M NEB Vent Mode ST Expiratory Pressure (CM H2O P) 6 Inspiratory Pressure (CM H2O P) 20 Chemistry Tql-[id number]-Dibydwfrsmt Pept Cancelled Coagulation PT Cancelled INR Cancelled APTT Cancelled Miscellaneous Phlebotomy Draw Site LEFT RADIAL LEFT RADIAL 09/23 0430 Chemistry Sodium (137 - 145 mmol/L) 139 Potassium (3.5 - 5.1 mmol/L) 4.4 Chloride (98 - 107 mmol/L) 103 Carbon Dioxide (22 - 30 mmol/L) 24 Anion Gap (5 - 16) 13 BUN (9 - 20 mg/dL) 21 H Creatinine (0.7 - 1.2 mg/dL) 0.9 Estimated GFR (>60 ml/min) > 60 BUN/Creatinine Ratio (7 - 25 %) 23.3 Glucose (65 - 99 mg/dL) 223 H Calcium (8.4 - 10.2 mg/dL) 8.9 Total Bilirubin (0.2 - 1.3 mg/dL) 0.6 Direct Bilirubin (< 0.4 mg/dL) 0.5 H AST (17 - 59 U/L) 28 ALT (21 - 72 U/L) 20 L Alkaline Phosphatase (< 127 U/L) 94 Troponin I (<0.11 ng/ml) 0.03 Ndj-[id number]-Lepnyrvhabf Pept (<125 pg/mL) 7240 H Total Protein (6.3 - 8.2 g/dL) 6.7 Albumin (3.5 - 5.0 g/dL) 3.7 Amylase (30 - 110 U/L) 84 Lipase (23 - 300 U/L) 101 Coagulation PT (9.4 - 12.5 SEC) 15.1 H INR (0.90 - 1.17) 1.38 H APTT (25 - 37 SEC) 30 D-Dimer High Sensitivty (0 - 243 ng/ml) 1730 H Hematology CBC w Diff NO MAN DIFF REQ WBC (4.8 - 10.8 /CUMM) 11.7 H RBC (4.70 - 6.10 /CUMM) 4.71 Hgb (14.0 - 18.0 G/DL) 13.8 L Hct (42 - 52 %) 42.9 MCV (80.0 - 94.0 FL) 91.1 MCH (27.0 - 31.0 PG) 29.4 MCHC (33.0 - 37.0 G/DL) 32.3 L RDW (11.5 - 14.5 %) 13.5 Plt Count (130 - 400 /CUMM) 211 MPV (7.4 - 10.4 FL) 7.9 Gran % (42.2 - 75.2 %) 59.6 Lymphocytes % (20.5 - 51.1 %) 27.1 Monocytes % (1.7 - 9.3 %) 9.2 Eosinophils % (0 - 5 %) 3.7 Basophils % (0.0 - 2.0 %) 0.4 Absolute Granulocytes (1.4 - 6.5 /CUMM) 7.0 H Absolute Lymphocytes (1.2 - 3.4 /CUMM) 3.2 Absolute Monocytes (0.10 - 0.60 /CUMM) 1.1 H Absolute Eosinophils (0.0 - 0.7 /CUMM) 0.4 Absolute Basophils (0.0 - 0.2 /CUMM) 0 Microbiology Date/Time Procedure - Status Source Growth 09/23 1145 Legionella Antigen - COMP URINE ROUT 09/23 1145 Streptococcus pneumoniae Antigen (M - COMP URINE ROUT 09/23 1115 Surveillance Culture - COMP GI 09/23 1055 Surveillance Culture - COMP UPPER RESP 09/23 0641 Respiratory Culture - COLB LOWER RESP 09/23 0641 Gram Stain - COLB LOWER RESP 09/23 0559 Blood Culture - RECD BLOOD 09/23 0530 Blood Culture - RECD BLOOD Impression/Plan Impression/Plan Impression/Plan: General Appearance Alert, Oriented X3, Cooperative, significantly short of breath, wheezing, rhonchi, was on BiPAP initially when BiPAP was removed he was in obvious respiratory distress Skin No Rashes, No Breakdown, No Significant Lesion HEENT Atraumatic, PERRLA, EOMI, Mucous Membr. moist/pink Neck Supple, No JVD, No thryomegaly, +2 Carotid Pulse wo Bruit, No LAD Lymphatic Axillary nl, Cervical nl Cardiovascular Regular Rate, Normal S1, Normal S2, No Murmurs Lungs expiratory wheezes, crackles Abdomen Normal Bowel Sounds, Soft, No Tenderness, No Hepatospenomegaly, No Masses Neurological Normal Speech, Strength at 5/5 X4 Ext, Normal Tone, Sensation Intact, Cranial Nerves 3-12 NL, Reflexes 2+ Extremities No Clubbing, No Cyanosis, bilateral lower extremity +1 edema Vascular Pulses Symmetrical This is a 76-year-old gentleman with severe COPD, ongoing smoking, systolic heart dysfunction with ejection fraction of 25% with previous PCI and [place] in the past, very severe peripheral vascular disease with significant thoracic aneurysm with a large saccular component which has been present for more than few years, medical noncompliance, extremely large prostate, recurrent UTI, recurrent COPD exacerbation, previous history of kidney stone with * Resolving Acute hypoxemic and hypercarbic respiratory failure related to severe COPD exacerbation. Patient is medically noncompliant due to financial issues and has been using his inhaler sparingly * Previous congestive heart failure with an ejection fraction of 25% with no pulm edema, patient does have Chronic systolic heart failure * Very large thoracic aneurysm at the saccular component pressing on his esophagus in his left mainstem bronchus which has been stable since early 2013, not a surgical candidate as the prosthesis for his aneurysm repair could not be passed due to severe peripheral vascular disease and his lower extremity, not a candidate for open surgery. Now his aneurysm seems to have increased in size. Pt does have pain in his limbs both sides * Ischemic heart disease, low ejection fraction * Previous pulmonary embolism which was radiologically much better, patient is on warfarin but is noncompliant with his medications. Patient may have hidden malignancy as he has had enlarged prostate, hematuria etc. per his wishes has not had any significant workup. * Small lung nodules * Enlarged prostate now with sig pvr urology is following and has high wbc and prob uti RECOMMENDATION Noninvasive ventilation prn Intravenous Solu-Medrol, nebulizer treatment, change to po prednisone in am 60 mg Sputum culture if any Intravenous ceftriaxone and azithromycin for now Urine culture and sputum culture and blood culture Intravenous heparin and continue warfarin Ask vascular to see him in am Arterial doppler study of both lower limbs Start metoprolol 12.5 mg bid if bp permits Aspirin 81 mg Needs atc nebs Keep sat at 90 percent Prn low dose morphine for dyspnea PO ppi Melatonin at hs if needed DNR and DNI (discussed with the patient and consistant with his prior wishes) Pt cricitally ill tts 37mins
[2017-09-24 12:00] VITALS: BP 82/0
--- NOTE | 2017-09-24 14:54 | ULTRASOUND REPORT ---
EXAMINATION: US LOWER EXTREMITY ARTERIAL DOPPLER, bilateral lower extremities CLINICAL INFORMATION: Pain. History of vasculopathy. COMPARISON: None TECHNIQUE: Grayscale, color and spectral Doppler imaging was obtained of the deep arteries of the bilateral lower extremities. To portable nature of today's study mildly limits evaluation. FINDINGS: Scattered atherosclerotic disease throughout the deep arteries of the bilateral lower extremities. The right common femoral artery is patent, however, no flow is appreciated within the proximal or midportion of the right femoral artery suggesting occlusion. There is reconstitution of a stenotic distal right femoral artery. The right popliteal artery, anterior and posterior tibial arteries and dorsal pedis artery are patent but demonstrate decreased velocities and monophasic waveforms. The right profundus femoris artery demonstrates severe stenosis. The left common femoral artery is patent and demonstrates normal triphasic waveforms. The left femoral artery is patent without focal hemodynamically significant stenosis. The left popliteal artery, anterior and posterior tibial arteries and dorsal pedis artery are patent but demonstrate dampened waveforms and decreased velocities. IMPRESSION: 1. 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 Three-vessel runoff of the right calf is present but diminutive. 2. No hemodynamically significant stenosis appreciated within the deep arterial system of the left lower extremity. Three-vessel runoff of the left calf is present but diminutive.
--- NOTE | 2017-09-24 15:00 | PN- Cardiology ---
Subjective Subjective: Shortness of breath is slightly better. No chest pain. No palpitations. No diaphoresis. No nausea or vomiting Objective Vital Signs and I&Os Vital Signs Date Time Temp Pulse Resp B/P B/P Pulse O2 O2 Flow FiO2 Mean Ox Delivery Rate 09/24 1410 104 99 09/24 1200 96 Nasal 6.0L Cannula 09/24 1200 97.6 105 19 82/0 99 Nasal 6.0L Cannula 09/24 1146 88 Nasal 5.0L Cannula 09/24 0915 134 92 09/24 0828 95 Nasal 4.0L Cannula 09/24 08 98.0 112 22 88/0 97 Nasal 4.0L Cannula 09/24 08 97 Nasal 4.0L Cannula 09/24 0400 97 Nasal 6.0L Cannula 09/24 0102 104 98 09/24 0000 95 BIPAP 40% 09/24 0000 98.8 105 30 91/71 95 BIPAP 40% 09/23 2023 113 94 09/23 2000 90 BIPAP 40% 09/23 1706 95 BIPAP 40% 09/23 1610 100 95 09/23 1600 98 BIPAP 40% 09/23 1600 97.6 74 21 92/0 98 BIPAP 40% Intake & Output 09/24 1600 09/24 0809/24 0000 09/23 1600 09/23 0809/23 0000 Intake Total 853.6 568 949 6516 0 Output Total 150 300 200 250 Balance 703.6 382 145 0130 0 Intake, IV 493.6 100 169 2595 Intake, Oral 360 360 300 540 0 Number 0 0 Bowel Movements Output, Urine 150 300 200 250 Patient 117 lb 116 lb Weight Weight Bed scale Measurement Method Physical Exam: Gen: NAD HEENT: normal Lungs: Bilateral rhonchi, increased respiratory effort, on BiPAP Heart: RRR, S1, S2, no murmurs Abdomen: Soft, nontender, no masses Extremities: 1+ edema Neuro: Alert and oriented x 3, cranial nerves intact Current Medications: Current Medications Sig/Nelly Start time Last Medication Dose Route Stop Time Status Admin Acetaminophen 1,000 MG ONCE ONE 09/24 1300 DC 09/24 IV 09/24 1301 1259 Albuterol Sulfate 3 ML EVERY 4 HRS/AWAKE 09/23 1200 AC 09/24 INH 1143 Azithromycin 500 MG DAILY 09/23 1000 AC 09/24 Dextrose/Water 250 ML IV 1037 Ceftriaxone Sodium 1,000 MG DAILY@0600 09/24 0600 AC 09/24 IV 0643 Diphenhydramine HCl 25 MG ONCE ONE 09/24 0045 DC 09/24 PO 09/24 0046 0148 Heparin Sodium 25,000 UNIT Q24H 09/23 0530 AC 09/24 (Porcine) IV 1037 Sodium Chloride 500 ML Insulin Aspart 0 TIDAC 09/23 1700 AC 09/24 SC 1220 Insulin Human Regular 0 Q6 09/23 1200 DC 09/23 SC 1206 Ipratropium [place] 2.5 ML EVERY 4 HRS/AWAKE 09/23 1200 AC 09/24 INH 1143 Melatonin 3 MG ONCE ONE 09/24 0415 DC 09/24 PO 09/24 0416 0425 Melatonin 5 MG AT BEDTIME 09/23 2200 AC 09/23 PO 2233 Methylprednisolone 125 MG .STK-MED ONE 09/24 0633 DC IM 09/24 0634 Methylprednisolone 40 MG Q8 09/23 1400 DC 09/24 IV 0640 Morphine Sulfate 2 MG Q6P PRN 09/23 2359 AC 09/24 IV 0857 Morphine Sulfate 2 MG Q6P PRN 09/23 1815 CAN IV Morphine Sulfate 2 MG Q6P PRN 09/23 1800 DC 09/23 IV 1756 Omeprazole 40 MG DAILY AC 09/24 0700 AC 09/24 PO 0644 Prednisone 60 MG DAILY 09/24 1215 AC 09/24 PO 1318 Warfarin Sodium 7.5 MG COUMADIN 1700 ONE 09/24 1700 AC PO 09/24 1701 Warfarin Sodium 7.5 MG COUMADIN 1700 ONE 09/23 1700 DC 09/23 PO 09/23 1701 2014 Results Last 48 Hrs of Labs/Mics: Laboratory Tests 09/24/17 0415: Anion Gap 13, Estimated GFR > 60, Glucose 196 H, Calcium 8.9, Phosphorus 4.2, Magnesium 1.9, Total Bilirubin 0.5, AST 29, ALT 36, Troponin I 0.04, Albumin 3.7 , PT 13.8 H, INR 1.26 H, APTT 72 H, CBC w Diff NO MAN DIFF REQ, RBC 4.01 L, MCV 91.0, MCH 29.2, MCHC 32.1 L, RDW 13.7, MPV 8.5, Gran % 89.8 H, Lymphocytes % 7.1 L, Monocytes % 3.1, Eosinophils % 0, Basophils % 0, Absolute Granulocytes 10.1 H, Absolute Lymphocytes 0.8 L, Absolute Monocytes 0.4, Absolute Eosinophils 0, Absolute Basophils 0 09/23/17 1830: Troponin I 0.04, APTT 84 H 09/23/17 1254: Troponin I 0.03 09/23/17 1125: APTT 96 H 09/23/17 0815: pH 7.38, pCO2 38, pO2 132 H, HCO3 22, ABG O2 Sat (Measured) 97.0, Carboxyhemoglobin 1.5, O2 Concentration % 40%, Respiration Rate 24, O2 Delivery Method V60, Vent Mode ST, Expiratory Pressure 6, Inspiratory Pressure 20, Phlebotomy Draw Site LEFT RADIAL 09/23/17 0440: pH 7.28 *L, pCO2 51 H, pO2 146 H, HCO3 23, ABG O2 Sat (Measured) 97.0, P-50 ( Temp Corrected) N, Carboxyhemoglobin 1.2 L, O2 Concentration % 9 LPM, Temperature 98.6, O2 Delivery Method A/M NEB, Phlebotomy Draw Site LEFT RADIAL 09/23/17 0430: Elb-A-Sduaqvduptj Pept Cancelled, PT Cancelled, INR Cancelled, APTT Cancelled 09/23/17 0430: Anion Gap 13, Estimated GFR > 60, BUN/Creatinine Ratio 23.3, Glucose 223 H, Calcium 8.9, Total Bilirubin 0.6, Direct Bilirubin 0.5 H, AST 28, ALT 20 L, Alkaline Phosphatase 94, Troponin I 0.03, Eqt-P-Samggrlorev Pept 7240 H, Total Protein 6.7, Albumin 3.7, Amylase 84, Lipase 101, PT 15.1 H, INR 1.38 H, APTT 30, D-Dimer High Sensitivty 1730 H, CBC w Diff NO MAN DIFF REQ, RBC 4.71, MCV 91.1, MCH 29.4, MCHC 32.3 L, RDW 13.5, MPV 7.9, Gran % 59.6, Lymphocytes % 27.1 , Monocytes % 9.2, Eosinophils % 3.7, Basophils % 0.4, Absolute Granulocytes 7.0 H, Absolute Lymphocytes 3.2, Absolute Monocytes 1.1 H, Absolute Eosinophils 0.4, Absolute Basophils 0 Microbiology 09/23 114 URINE ROUT: Legionella Antigen - COMP 04/07 1145 URINE ROUT: Streptococcus pneumoniae Antigen (M - COMP 09/23 1115 GI: Surveillance Culture - COMP 09/23 1055 UPPER RESP: Surveillance Culture - COMP Assessment/Plan Assessment/Plan Assessment: 1. Acute COPD exacerbate 2. Chronic systolic heart failure 3. CAD 4. Thoracic aortic aneurysm with saccular component, increasing in size Plan: * Dose warfarin for INR 2-3 * IV heparin will INR some therapy * Start metoprolol 12.5 mg p.o. twice daily if blood pressure is adequate * Treatment of COPD exacerbation as per pulmonal * Continue aspirin Continue telemetry? Yes
[2017-09-24 16:00] VITALS: BP 80/0
[2017-09-24 17:10] LABS: PTT 58 SEC (25-37)
[2017-09-25] VITALS: BP 86/0
[2017-09-25 00:20] LABS: PTT 95 SEC (25-37)
--- NOTE | 2017-09-25 06:59 | PN- Resident CRCU ---
Subjective HPI/CRCU Issues: I followed up and examined the patient today. He is sitting at the bedside with BiPAP on, able to speak in full sentences, mentions he is still not better yet. 24 Hour Events: Patient was wheezing, having shortness of breath, and received IV steroids later in the evening, despite getting IV/oral steroids yesterday. Objective Vital Signs & I&O Last 8 Hrs of Vitals and I&O: Intake & Output 09/25 1600 Intake Total 905 Output Total 225 Balance 680 Intake, IV 365 Intake, Oral 540 Output, Urine 225 Patient 55.055 kg Weight Weight Bed scale Measurement Method Exam General Appearance: well developed/nourished, no apparent distress, alert, awake , anxious, moderate distress (on BiPAP) Other Physical Findings: Head: atraumatic, normal appearance, active bleeding Respiratory: crackles, rhonchi, wheezing b/l Cardiovascular: regular rate/rhythm Gastrointestinal: normal bowel sounds, soft, non-tender Back: normal inspection Extremities: normal capillary refill, no edema Current Medications: Current Medications Sig/Nelly Start time Last Medication Dose Route Stop Time Status Admin Albuterol Sulfate 3 ML EVERY 4 HRS/AWAKE 09/23 1200 AC 09/25 INH 1605 Aspirin 81 MG DAILY 09/25 1000 CAN PO Azithromycin 500 MG DAILY 09/23 1000 DC 09/25 Dextrose/Water 250 ML IV 0838 Ceftriaxone Sodium 1,000 MG DAILY@0600 09/24 0600 AC 09/25 IV 0621 Diphenhydramine HCl 25 MG ONCE ONE 09/25 0145 DC 09/25 PO 09/25 0146 0158 Heparin Sodium 2,100 UNIT ONCE ONE 09/24 1815 DC 09/24 (Porcine) IV 09/24 1816 1745 Heparin Sodium 5,000 UNIT .STK-MED ONE 09/24 1741 DC (Porcine) IV 09/24 1742 Heparin Sodium 25,000 UNIT Q24H 09/23 0530 DC 09/24 (Porcine) IV 1037 Sodium Chloride 500 ML Insulin Aspart 0 TIDAC 09/23 1700 AC 09/25 SC 1631 Ipratropium [place] 2.5 ML EVERY 4 HRS/AWAKE 09/23 1200 AC 09/25 INH 1605 Melatonin 5 MG AT BEDTIME 09/23 2200 AC 09/24 PO 2213 Methylprednisolone 40 MG DAILY 09/25 1000 DC 09/25 IV 0838 Methylprednisolone 20 MG ONCE ONE 09/25 1000 DC 09/25 IV 09/25 1001 1024 Methylprednisolone 60 MG DAILY 09/25 1000 AC IV Methylprednisolone 40 MG ONCE ONE 09/24 1715 DC 09/24 IV 09/24 1716 1708 Morphine Sulfate 2 MG Q6P PRN 09/23 2359 AC 09/25 IV 0838 Omeprazole 40 MG DAILY AC 09/24 0700 AC 09/25 PO 0632 Prednisone 60 MG DAILY 09/24 1215 DC 09/24 PO 1318 Warfarin Sodium 7.5 MG COUMADIN 1700 ONE 09/24 1700 DC 09/24 PO 09/24 1701 1648 Impression/Plan Impression/Problem List Impression: 77-year-old active smoker gentleman with past medical history significant for HFrEF (Echo EF 25% with stage III diastolic dysfunction), PVD, COPD not on home oxygen, CAD status post stenting, descending thoracic aortic aneurysm-stable, pulmonary embolism which failed treatment with Xarelto and currently on warfarin later was brought in with a chief concern of dyspnea, cough and wheezing. He is currently in the ICU for the management of following issues: #Acute hypoxic hypercarbic respiratory failure, 2/2 COPD exacerbation The patient received IV antibiotics, IV steroids, oxygen via BiPAP, TRC/nebs, which is now tapered to IV CTX only, no Azithromycin, and hopefully the patient will be on by mouth steroid from tomorrow onwards as tapering has proven challenging on him, will continue oxygen, BiPAP as needed, TRC/nebs. Following Pulm. #Diabetes mellitus Will continue diabetic diet, insulin on a sliding scale, regular accuchecks #Subtherapeutic INR, 2/2 non-compliance, now high Patient's INR today was 3.01, an increase with the warfarin 7.5 mg given yesterday. So we will not dose Coumadin today, will wait for INR tomorrow and dose accordingly. #Peripheral vascular disease Patient has faint pulse with chronic right femoral artery blockages with collaterals, no significant ischemia. Vascular surgery consult. Will follow recommendations. #Large saccular aneurysm of his thoracic aorta pressing on his esophagus and his left mainstem bronchus, growing in size gradually. Patient and vascular surgeon aware, consulted vasc surgery. #H/o HTN Will start Metoprolol 12.5 mg BID if BP allows. Has not been the case so far. #Will continue his home meds otherwise. #Patient is allergic (anaphylaxis) to ASA, thus will not prescribe that. #Diet: Diabetic diet #DVT ppx: ALPS/ Warfarin (currently supratherapeutic INR) #Code status: DNR/DNI Problem List: 1. Acute respiratory failure with hypoxia and hypercarbia Pain Ratin Pain Location: back Tomorrow's Labs & Rationales: CBC, ICU bundle, INR Plan DVT/Prophylaxis: supratherapeutic INR
[2017-09-25 07:51] LABS: ABSOLUTE BASOPHIL COUNT 0 /CUMM (0.0-0.2); ABSOLUTE EOSINOPHIL COUNT 0 /CUMM (0.0-0.7); ABSOLUTE GRANULOCYTE CT 12.2 /CUMM (1.4-6.5); ABSOLUTE LYMPH COUNT 0.8 /CUMM (1.2-3.4); ABSOLUTE MONOCYTE COUNT 0.6 /CUMM (0.10-0.60); BASOPHIL % 0 % (0.0-2.0); EOSINOPHIL % 0.2 % (0-5); GRANULOCYTE % 89.8 % (42.2-75.2); HEMATOCRIT 35.5 % (42-52); MEAN CORPUSCULAR HGB 29.3 PG (27.0-31.0); MEAN CORPUSCULAR HGB CONC 32.3 G/DL (33.0-37.0); MEAN PLATELET VOLUME 8.4 FL (7.4-10.4); PLATELET COUNT 183 /CUMM (130-400); RBC DISTRIBUTION WIDTH 13.6 % (11.5-14.5); RED BLOOD CELL CT 3.91 /CUMM (4.70-6.10); WHITE BLOOD CELL COUNT 13.6 /CUMM (4.8-10.8)
[2017-09-25 08:00] VITALS: BP 92/0
--- NOTE | 2017-09-25 08:14 | ECHOCARDIOGRAM REPORT ---
JOYCELYN FERNANDES Age: 77 : 1940 Gender: M Exam Date: 09/24/2017 08:26 Exam Location: [facility] Ht (in): 65 Wt (lb): 116 BSA: 1.55 BP: 81 / 71 Ordering Physician: Giles Morataya MD Referring Physician: Mike Cobb MD, PhD Technologist: Julia Sosa [facility] Room Number: 107 Indications: SHORTNESS OF BREATH Rhythm: Sinus Technical Quality: good FINDINGS Left Ventricle Normal left ventricular size with mild left ventricular hypertrophy. Severely decreased systolic function with severe septal, inferior and anteroseptal hypokinesis. The ejection fraction is visually estimated at 20 %. Right Ventricle The right ventricle is normal in size and function. Right Atrium The right atrium is moderately enlarged. Left Atrium The left atrium is mildly enlarged. The interatrial septum is intact. Mitral Valve The mitral valve is normal in structure and function. There is moderate mitral regurgitation. Aortic Valve Mildly sclerotic aortic valve without significant stenosis. There is no aortic regurgitation. Tricuspid Valve The tricuspid valve is normal in structure and function. There is moderate tricuspid regurgitation. Pulmonary artery systolic pressure is moderately elevated to 53mmHg. Pulmonic Valve Structurally normal pulmonic valve. There is mild pulmonic regurgitation. Pericardium Normal pericardium without effusion. No pleural effusion. Great Vessels Normal aortic root dimension. The aortic arch and great vessels are well seen and are normal. CONCLUSIONS 1. Severely decreased EF of 20% with regional wall motion abnormalities as above. 2. Mild left ventricular hypertrophy. 3. Mild left atrial and moderate right atrial enlargement. 4. Moderate mitral regurgitation. 5. Moderate tricuspid regurgitation. 6. Mild pulmonic regurgitation. 7. Moderate pulmonary hypertension. Mike Cobb M.D. (Electronically Signed) Final Date: 25 September 2017 08:13 MEASUREMENTS (Male / Female) Normal Values 2D ECHO LV Diastolic Diameter PLAX 5.2 cm 4.2 - 5.9 / 3.9 - 5.3 cm LV Systolic Diameter PLAX 4.7 cm 2.1 - 4.0 cm LV Fractional Shortening PLAX 9.6 % 25 - 46 % LV Ejection Fraction 2D Teich 21.0 % IVS Diastolic Thickness 1.2 cm LVPW Diastolic Thickness 1.1 cm LV Relative Wall Thickness 0.4 RV Internal Dim ED PLAX 3.3 cm 1.9 - 3.8 cm LVOT Diameter 2.0 cm Aortic Root Diameter 3.3 cm LA Systolic Diameter LX 4.3 cm 3.0 - 4.0 / 2.7 - 3.8 cm LA Volume 66.0 cm 18 - 58 / 22 - 52 cm Ascending Aorta Diameter 3.5 cm DOPPLER AV Peak Velocity 112.0 cm/s AV Peak Gradient 5.0 mmHg AV Mean Velocity 72.9 cm/s AV Mean Gradient 2.0 mmHg AV Velocity Time Integral 18.7 cm LVOT Peak Velocity 77.3 cm/s LVOT Peak Gradient 2.4 mmHg LVOT Mean Velocity 53.4 cm/s LVOT Mean Gradient 1.0 mmHg LVOT Velocity Time Integral 11.2 cm LVOT Stroke Volume 35.2 cm AV Area Cont Eq vti 1.9 cm AV Area Cont Eq pk 2.2 cm MV Peak Velocity 159.0 cm/s MV Peak Gradient 10.1 mmHg MV Mean Velocity 95.0 cm/s MV Mean Gradient 5.0 mmHg Mitral E Point Velocity 147.0 cm/s MV PHT Velocity 163.0 cm/s MV Deceleration [place] 1115.0 cm/s MV Pressure Half Time 43.9 ms MV Area PHT 5.0 cm MV Deceleration Time 185.0 ms TR Peak Velocity 328.0 cm/s TR Peak Gradient 43.0 mmHg Right Atrial Pressure 10.0 mmHg Pulmonary Artery Systolic Pressu 53.0 mmHg Right Ventricular Systolic Press 53.0 mmHg PV Peak Velocity 80.6 cm/s PV Peak Gradient 2.6 mmHg PV Mean Velocity 50.3 cm/s PV Mean Gradient 1.0 mmHg PV Velocity Time Integral 12.0 cm LV E' Lateral Velocity 13.2 cm/s Mitral E to LV E' Lateral Ratio 11.1 LV E' Septal Velocity 6.4 cm/s Mitral E to LV E' Septal Ratio 22.9
[2017-09-25 08:18] LABS: PT 33.2 SEC (9.4-12.5); PTT 68 SEC (25-37)
--- NOTE | 2017-09-25 09:43 | PN- CRCU ---
Subjective HPI/Critical Care Issues: Still on bipap Wheezing ongoing Fatigue Sleepy Objective Current Medications: Current Medications Sig/Nelly Start time Last Medication Dose Route Stop Time Status Admin Acetaminophen 1,000 MG ONCE ONE 09/24 1300 DC 09/24 IV 04 1301 1259 Albuterol Sulfate 3 ML EVERY 4 HRS/AWAKE 09/23 1200 AC 04 INH 0745 Azithromycin 500 MG DAILY 09/23 1000 AC 04 Dextrose/Water 250 ML IV 0838 Ceftriaxone Sodium 1,000 MG DAILY@0600 09/24 0600 AC 09/25 IV 0621 Diphenhydramine HCl 25 MG ONCE ONE 09/25 0145 DC 04 PO 09/25 0146 0158 Heparin Sodium 2,100 UNIT ONCE ONE 09/24 1815 DC 09/24 (Porcine) IV 09/24 1816 1745 Heparin Sodium 5,000 UNIT .STK-MED ONE 09/24 1741 DC (Porcine) IV 09/24 1742 Heparin Sodium 25,000 UNIT Q24H 09/23 0530 AC 09/24 (Porcine) IV 1037 Sodium Chloride 500 ML Insulin Aspart 0 TIDAC 09/23 1700 AC 09/24 SC 1220 Ipratropium [place] 2.5 ML EVERY 4 HRS/AWAKE 09/23 1200 AC 09/25 INH 0745 Melatonin 5 MG AT BEDTIME 09/23 2200 AC 09/24 PO 2213 Methylprednisolone 40 MG DAILY 09/25 1000 AC 09/25 IV 0838 Methylprednisolone 40 MG ONCE ONE 09/24 1715 DC 09/24 IV 09/24 1716 1708 Methylprednisolone 40 MG Q8 09/23 1400 DC 09/24 IV 0640 Morphine Sulfate 2 MG Q6P PRN 09/23 2359 AC 09/25 IV 0838 Omeprazole 40 MG DAILY AC 09/24 0700 AC 09/25 PO 0632 Prednisone 60 MG DAILY 09/24 1215 DC 09/24 PO 1318 Warfarin Sodium 7.5 MG COUMADIN 1700 ONE 09/24 1700 DC 09/24 PO 09/24 1701 1648 Vital Signs & I&O Last 24 Hrs of Vitals and I&O: Vital Signs Date Time Temp Pulse Resp B/P B/P Pulse O2 O2 Flow FiO2 Mean Ox Delivery Rate 09/25 0645 97 BIPAP 50% 09/25 0745 90 95 09/25 0604 102 98 09/25 0400 95 BIPAP 35% 09/25 0303 101 97 09/25 0055 108 98 09/25 0000 95 BIPAP 35% 09/25 0000 98.3 100 30 86/0 95 BIPAP 35% 09/24 2221 107 96 09/24 2000 97 BIPAP 35% 09/24 1950 100 97 09/24 1628 99 BIPAP 40% 09/24 1625 105 98 09/24 1600 99 BIPAP 40% 09/24 1600 98.6 101 25 80/0 98 BIPAP 40% 09/24 1410 104 99 09/24 1200 96 Nasal 6.0L Cannula 09/24 1200 97.6 105 19 82/0 99 Nasal 6.0L Cannula 09/24 1146 88 Nasal 5.0L Cannula Intake & Output 09/25 1600 09/25 0800 09/25 0000 Intake Total 382 489 Output Total 400 200 Balance -18 289 Intake, IV 142 149 Intake, Oral 240 340 Number 0 0 Bowel Movements Output, Urine 400 200 Impression/Plan Impression/Plan Impression/Plan: Arterial doppler IMPRESSION: 1. 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 Three-vessel runoff of the right calf is present but diminutive. 2. No hemodynamically significant stenosis appreciated within the deep arterial system of the left lower extremity. Three-vessel runoff of the left calf is present but diminutive. Impression/Plan: General Appearance Alert, Oriented X3, Cooperative, significantly short of breath, wheezing, rhonchi, was on BiPAP initially when BiPAP was removed he was in obvious respiratory distress Skin No Rashes, No Breakdown, No Significant Lesion HEENT Atraumatic, PERRLA, EOMI, Mucous Membr. moist/pink Neck Supple, No JVD, No thryomegaly, +2 Carotid Pulse wo Bruit, No LAD Lymphatic Axillary nl, Cervical nl Cardiovascular Regular Rate, Normal S1, Normal S2, No Murmurs Lungs expiratory wheezes, crackles Abdomen Normal Bowel Sounds, Soft, No Tenderness, No Hepatospenomegaly, No Masses Neurological Normal Speech, Strength at 5/5 X4 Ext, Normal Tone, Sensation Intact, Cranial Nerves 3-12 NL, Reflexes 2+ Extremities No Clubbing, No Cyanosis, bilateral lower extremity +1 edema Vascular Pulses Symmetrical This is a 76-year-old gentleman with severe COPD, ongoing smoking, systolic heart dysfunction with ejection fraction of 25% with previous PCI and MA in the past, very severe peripheral vascular disease with significant thoracic aneurysm with a large saccular component which has been present for more than few years, medical noncompliance, extremely large prostate, recurrent UTI, recurrent COPD exacerbation, previous history of kidney stone with * Resolving Acute hypoxemic and hypercarbic respiratory failure related to severe COPD exacerbation. Patient is medically noncompliant due to financial issues and has been using his inhaler sparingly * Previous congestive heart failure with an ejection fraction of 25% with no pulm edema, patient does have Chronic systolic heart failure * Very large thoracic aneurysm at the saccular component pressing on his esophagus in his left mainstem bronchus which has been stable since early 2013, not a surgical candidate as the prosthesis for his aneurysm repair could not be passed due to severe peripheral vascular disease and his lower extremity, not a candidate for open surgery. Now his aneurysm seems to have increased in size. Pt does have pain in his limbs both sides. 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 Patient may have hidden malignancy as he has had enlarged prostate, hematuria etc. per his wishes has not had any significant workup. * Small lung nodules * Enlarged prostate now with sig pvr urology is following and has high wbc and prob uti RECOMMENDATION Noninvasive ventilation prn DC heparin, hold warfarin today and check inr in am Vascular consult Intravenous Solu-Medrol, nebulizer treatment, Keep on solumedrol at 60 daily for now Sputum culture if any Intravenous ceftriaxone and dc azithro after today Urine culture and sputum culture and blood culture pending Start metoprolol 12.5 mg bid only if bp permits Aspirin 81 mg Needs atc nebs Keep sat at 90 percent Prn low dose morphine for dyspnea PO ppi Melatonin at hs if needed DNR and DNI (discussed with the patient and consistant with his prior wishes), if worse he wishes to not go through any life support except bipap WIshes his son to be involved in the future (not his who he does not live with) Pt cricitally ill tts 38mins
[2017-09-25 12:00] VITALS: BP 90/0
[2017-09-25 16:00] VITALS: BP 90/0
--- NOTE | 2017-09-25 20:06 | PN- Cardiology ---
Subjective Subjective: * Patient continues to have upper airway congestion and shortness of breath. No chest discomfort, lightheadedness or palpitations. * severe emphysema and aneurysm pressing against mainstem bronchus Objective Vital Signs and I&Os Vital Signs Date Time Temp Pulse Resp B/P B/P Pulse O2 O2 Flow FiO2 Mean Ox Delivery Rate 09/25 1608 96 Nasal 40% Cannula 09/25 1600 95 Nasal 40% Cannula 09/25 1600 98.7 100 28 90/0 95 Nasal 40% Cannula 09/25 1404 96 Nasal 40% Cannula 09/25 1200 98 Nasal 40% Cannula 09/25 1200 97.4 108 30 90/0 98 Nasal 40% Cannula 09/25 1141 98 Nasal 40% Cannula 09/25 1030 97 Nasal 40% Cannula 09/25 0800 98.7 104 30 92/0 97 BIPAP 35% 09/25 0800 97 BIPAP 35% 09/25 0745 97 BIPAP 50% 09/25 0745 90 95 09/25 0604 102 98 09/25 0400 95 BIPAP 35% 09/25 0303 101 97 09/25 0055 108 98 09/25 0000 95 BIPAP 35% 09/25 0000 98.3 100 30 86/0 95 BIPAP 35% 09/24 2221 107 96 Intake & Output 09/25 0800 09/25 0000 09/24 1600 09/24 0809/24 0000 Intake Total 905 382 489 853.6 493 435 Output Total 225 400 200 150 300 200 Balance 680 -18 289 703.6 193 235 Intake, IV 365 142 149 493.6 133 135 Intake, Oral 540 240 340 360 360 300 Number 0 0 0 0 Bowel Movements Output, Urine 225 400 200 150 300 200 Patient 121 lb 120 lb Weight Weight Bed scale Measurement Method Physical Exam: General: WD/ WN male in NAD; alert and oriented x 3 HEENT: NC/ AT, PERRL, EOMI, clear oropharynx Neck: +ve JVD, no carotid bruit Heart: RRR w/o murmur Lungs: decreased air movement bilaterally Extremities: no edema Assessment/Plan Assessment/Plan * This patient has shortness of breath that is primarily due to his emphysematous COPD. There is little evidence of decompensated CHF at this time. * Due to the patient's severely decreased EF we will have Dr. Hinkle assess this patient for a possible AICD. * Vascular surgery should evaluate this patient for his large and expanding aortic aneurysm. Continue telemetry? Yes
--- NOTE | 2017-09-25 21:33 | Cons- Cardiology ---
General Information and HPI Consulting Request Date of Consult: 09/25/17 Requested By: Didier ARECHIGA,Chucky Cobb MD, Mike Reason for Consult: I was asked by Dr. Cobb to evaluate this patient regarding a prophylactic defibrillator in the setting of severe left ventricular dysfunction. Source of Information: patient, old records Exam Limitations: no limitations History of Present Illness: To review this patient is a very pleasant 77-year-old man with a multitude of medical problems. 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 With this background he is currently admitted with respiratory failure. He is on a BiPAP mask in the ICU on IV steroids. I would note that he hit has a history of pulmonary emboli and apparently had recurrence on Xarelto was not a Coumadin. A chest CT did not show pulmonary emboli but he shows enlargement of the descending aortic aneurysm which is very saccular and measures 5.[address] also showed severe emphysema. An echocardiogram today confirms severe reduction in LV function with EF 20% and severe hypokinesis of multiple wall segments. I was asked to see him in regards to a prophylactic defibrillator given his severe left ventricular dysfunction. Allergies/Medications Allergies: Coded Allergies: oxycodone (Intermediate, RASH 06/20/16) aspirin (ANAPHYLAXIS 04/30/16) Home Med List: Albuterol Sulfate 2.5 MG/3 ML (0.083 %) VIAL.NEB 3 ML INH BID PRN SHORTNESS OF BREATH Atorvastatin Calcium 40 MG TABLET 40 MG PO 1700 HEART Azithromycin 500 MG TABLET 500 MG PO DAILY COPD/BRONCHITIS TO BE TAKEN ON 06/24/16 Furosemide (Lasix) 20 MG TABLET 1 TAB PO BID swollen legs Guaifenesin (Guaifenesin ER) 600 MG TAB.ER.12H 600 MG PO Q12 COUGH Lisinopril 10 MG TABLET 10 MG PO DAILY HEART Metoprolol Tartrate 25 MG TABLET 0.5 TAB PO BID HYPERTENSION Nystatin 100,000 UNIT/ML ORAL.SUSP 5 ML PO 4 TIMES/DAY ORAL CANDIDIASIS Oxycodone HCl/Acetaminophen (Percocet 5-325 MG Tablet) 5 MG-325 MG TABLET 1 TAB PO BID PRN PAIN TEN...[id number] Pot Chloride/Pot Bicarb/Cit AC (Potassium Cl 25 Meq Tab Eff) 25 MEQ TABLET.EFF 1 TAB PO QDAY WHILE TAKING FUROSEMIDE Prednisone 20 MG TABLET 40 MG PO DAILY COPD TO BE TAKEN ON 06/24/16. Warfarin Sodium (Coumadin) 4 MG TABLET 1 TAB PO DAILY BLOOD CLOTS Current Medications: Current Medications Sig/Nelly Start time Last Medication Dose Route Stop Time Status Admin Albuterol Sulfate 3 ML EVERY 4 HRS/AWAKE 09/23 1200 AC 09/25 INH 2026 Aspirin 81 MG DAILY 09/25 1000 CAN PO Azithromycin 500 MG DAILY 09/23 1000 DC 09/25 Dextrose/Water 250 ML IV 0838 Ceftriaxone Sodium 1,000 MG DAILY@0600 09/24 0600 AC 09/25 IV 0621 Diphenhydramine HCl 25 MG ONCE ONE 09/25 0145 DC 09/25 PO 09/25 0146 0158 Heparin Sodium 25,000 UNIT Q24H 09/23 0530 DC 09/24 (Porcine) IV 1037 Sodium Chloride 500 ML Insulin Aspart 0 TIDAC 09/23 1700 AC 09/25 SC 1631 Ipratropium [place] 2.5 ML EVERY 4 HRS/AWAKE 09/23 1200 AC 09/25 INH 2026 Melatonin 5 MG AT BEDTIME 09/23 2200 AC 09/24 PO 2213 Methylprednisolone 40 MG DAILY 09/25 1000 DC 09/25 IV 0838 Methylprednisolone 20 MG ONCE ONE 09/25 1000 DC 09/25 IV 09/25 1001 1024 Methylprednisolone 60 MG DAILY 09/25 1000 AC IV Morphine Sulfate 2 MG Q6P PRN 09/25 1730 AC IV Morphine Sulfate 2 MG Q6P PRN 09/23 2359 DC 09/25 IV 0838 Omeprazole 40 MG DAILY AC 09/24 0700 AC 09/25 PO 0632 Prednisone 60 MG DAILY 09/24 1215 DC 09/24 PO 1318 Review of Systems Review of Systems: Constitutional: Positive for decreased appetite, weakness, malaise/fatigue, weight loss HENT: Negative for congestion, hearing loss, hoarse voice, nosebleeds, sore throat, tinnitus Eyes: Negative for blurred vision, double vision, photophobia, redness, visual disturbances Cardiovascular: Negative for chest pain, positive for shortness of breath, dyspnea on exertion, negative for irregular heartbeat/palpitations, swelling, near syncope, syncope, orthopnea, paroxysmal nocturnal dyspnea, positive for claudication, cyanosis Respiratory: Positive for cough, shortness of breath, sputum production, wheezing Endocrine: Negative for cold intolerance, heat intolerance, missed menstrual periods Hematologic/Lymphatic: Negative for adenopathy, abnormal bleeding, easy bruisability Skin: Negative for flushing, itching, rashes, skin cancer/suspicious lesions Musculoskeletal: Negative for arthritis, back pain, joint swelling, muscle cramps, muscle weakness Gastrointestinal: Negative for abdominal pain, change in bowel habits, constipation, diarrhea, dysphagia, heartburn, hemorrhoids, melena, nausea, vomiting Genitourinary: Negative for urinary incontinence, dysuria, flank pain Neurological: Negative for excessive daytime sleepiness, dizziness, focal weakness, headaches, lightheadedness, numbness, paresthesias, seizures, tremors, vertigo Psychiatric/behavioral: Negative for depression, hallucinations, memory loss, substance abuse, suicidal ideas, thoughts of violence, insomnia, nervousness/ anxiety Allergic/Immunologic: Negative for environmental allergies ALL OTHER SYSTEMS REVIEWED AND ARE NEGATIVE Past History Travel History Traveled to [place] past 21 day No Medical History Blood Transfusion Hx: No Neurological: NONE EENT: DEVIATED SEPTUM Cardiovascular: CAD (NSTEMI s/p PCI of the LCX/OM), CHF (peripheral vascular disease), HYPERLIPIDEMIA DC X 1 YEAR AGO THORACIC AORTA PSEUDO- ANEURYSM Respiratory: COPD, pulmonary embolism Gastrointestinal: GI BLEED Hepatic: NONE Renal: nephrolithiasis, BPH s/p ESWL Musculoskeletal: leg pain Psychiatric: NONE Endocrine: diabetes Blood Disorders: NONE Cancer(s): NONE 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 MOTHER (DM). Psychosocial History Where Do You Live? Home Services at Home: None Smoking Status: Current Everyday Smoker Power of Academic Director/HCP? unknown Functional Ability ADLs Independent: dressing, eating, toileting, bathing. Ambulation: independent Employment History Employment: Employed Exam & Diagnostic Data Vital Signs and I&O Vital Signs Date Time Temp Pulse Resp B/P B/P Pulse O2 O2 Flow FiO2 Mean Ox Delivery Rate 09/25 2026 122 95 09/25 1915 96 Nasal 40% Cannula 09/25 1608 96 Nasal 40% Cannula 09/25 1600 95 Nasal 40% Cannula 09/25 1600 98.7 100 28 90/0 95 Nasal 40% Cannula 09/25 1404 96 Nasal 40% Cannula 09/25 1200 98 Nasal 40% Cannula 09/25 1200 97.4 108 30 90/0 98 Nasal 40% Cannula 09/25 1141 98 Nasal 40% Cannula 09/25 1030 97 Nasal 40% Cannula 09/25 0800 98.7 104 30 92/0 97 BIPAP 35% 09/25 0800 97 BIPAP 35% 09/25 0745 97 BIPAP 50% 09/25 0745 90 95 09/25 0604 102 98 09/25 0400 95 BIPAP 35% 09/25 0303 101 97 09/25 0055 108 98 09/25 0000 95 BIPAP 35% 09/25 0000 98.3 100 30 86/0 95 BIPAP 35% 09/24 2221 107 96 Intake & Output 09/25 1600 09/25 0800 / 0000 09/24 1600 09/24 0809/24 0000 Intake Total 905 382 489 853.6 493 435 Output Total 225 400 200 150 300 200 Balance 680 -18 289 703.6 193 235 Intake, IV 365 142 149 493.6 133 135 Intake, Oral 540 240 340 360 360 300 Number 0 0 0 0 Bowel Movements Output, Urine 225 400 200 150 300 200 Patient 121 lb 120 lb Weight Weight Bed scale Measurement Method Physical Exam: General/Constitutional: Oriented to person, place, and time. On bipap mask. Thin , anxious. Vital signs: see above. Head: Normocephalic/atraumatic Eyes: No xanthelasma or scleral icterus. Conjunctivae normal. Mouth: Moist mucous membranes without pallor or cyanosis Neck: Supple. No jugular venous distention, carotid bruits, thyromegaly Thorax/lungs/pulmonary: No chest deformity. Some respiratory distress. Lungs clear with some wheezing and very prolonged expiratory phase Heart/Cardiovascular: Normal S1, S2 without murmurs, S3, or S4 Abdomen/GI: No distention, tenderness or masses Extremities: No cyanosis, clubbing, or edema Neuro: Alert and oriented to person, place, time. Grossly non-focal. Skin: Warm and dry. No diaphoresis. No major rashes. No erythema. No pallor or cyanosis. Psychiatric: Normal mood and affect, behavior appears normal. Labs/Tr Results: Laboratory Tests 09/25 09/25 09/24 0631 [id number] Chemistry Sodium (137 - 145 mmol/L) 136 L Potassium (3.5 - 5.1 mmol/L) 4.9 Chloride (98 - 107 mmol/L) 101 Carbon Dioxide (22 - 30 mmol/L) 25 Anion Gap (5 - 16) 10 BUN (9 - 20 mg/dL) 34 H Creatinine (0.7 - 1.2 mg/dL) 1.1 Estimated GFR (>60 ml/min) > 60 BUN/Creatinine Ratio (7 - 25 %) 30.9 H Coagulation PT (9.4 - 12.5 SEC) 33.2 H INR (0.90 - 1.17) 3.01 H APTT (25 - 37 SEC) Cancelled 68 H 95 H Hematology CBC w Diff MAN DIFF ORDERED WBC (4.8 - 10.8 /CUMM) 13.6 H RBC (4.70 - 6.10 /CUMM) 3.91 L Hgb (14.0 - 18.0 G/DL) 11.5 L Hct (42 - 52 %) 35.5 L MCV (80.0 - 94.0 FL) 91.0 MCH (27.0 - 31.0 PG) 29.3 MCHC (33.0 - 37.0 G/DL) 32.3 L RDW (11.5 - 14.5 %) 13.6 Plt Count (130 - 400 /CUMM) 183 MPV (7.4 - 10.4 FL) 8.4 Gran % (42.2 - 75.2 %) 89.8 H Lymphocytes % (20.5 - 51.1 %) 5.9 L Monocytes % (1.7 - 9.3 %) 4.1 Eosinophils % (0 - 5 %) 0.2 Basophils % (0.0 - 2.0 %) 0 Absolute Granulocytes (1.4 - 6.5 /CUMM) 12.2 H Absolute Lymphocytes (1.2 - 3.4 /CUMM) 0.8 L Absolute Monocytes (0.10 - 0.60 /CUMM) 0.6 Absolute Eosinophils (0.0 - 0.7 /CUMM) 0 Absolute Basophils (0.0 - 0.2 /CUMM) 0 Platelet Estimate (ADEQUATE) VERIFIED BY SMEAR Poikilocytosis 1+ Ovalocytes 1+ 09/24 09/24 1600 0415 Chemistry Sodium (137 - 145 mmol/L) 137 Potassium (3.5 - 5.1 mmol/L) 4.6 Chloride (98 - 107 mmol/L) 102 Carbon Dioxide (22 - 30 mmol/L) 22 Anion Gap (5 - 16) 13 BUN (9 - 20 mg/dL) 29 H Creatinine (0.7 - 1.2 mg/dL) 1.0 Estimated GFR (>60 ml/min) > 60 Glucose (65 - 99 mg/dL) 196 H Calcium (8.4 - 10.2 mg/dL) 8.9 Phosphorus (2.5 - 4.5 mg/dL) 4.2 Magnesium (1.6 - 2.3 mg/dL) 1.9 Total Bilirubin (0.2 - 1.3 mg/dL) 0.5 AST (17 - 59 U/L) 29 ALT (21 - 72 U/L) 36 Troponin I (<0.11 ng/ml) 0.04 Albumin (3.5 - 5.0 g/dL) 3.7 Coagulation PT (9.4 - 12.5 SEC) 13.8 H INR (0.90 - 1.17) 1.26 H APTT (25 - 37 SEC) 58 H 72 H Hematology CBC w Diff NO MAN DIFF REQ WBC (4.8 - 10.8 /CUMM) 11.3 H RBC (4.70 - 6.10 /CUMM) 4.01 L Hgb (14.0 - 18.0 G/DL) 11.7 L Hct (42 - 52 %) 36.4 L MCV (80.0 - 94.0 FL) 91.0 MCH (27.0 - 31.0 PG) 29.2 MCHC (33.0 - 37.0 G/DL) 32.1 L RDW (11.5 - 14.5 %) 13.7 Plt Count (130 - 400 /CUMM) 175 MPV (7.4 - 10.4 FL) 8.5 Gran % (42.2 - 75.2 %) 89.8 H Lymphocytes % (20.5 - 51.1 %) 7.1 L Monocytes % (1.7 - 9.3 %) 3.1 Eosinophils % (0 - 5 %) 0 Basophils % (0.0 - 2.0 %) 0 Absolute Granulocytes (1.4 - 6.5 /CUMM) 10.1 H Absolute Lymphocytes (1.2 - 3.4 /CUMM) 0.8 L Absolute Monocytes (0.10 - 0.60 /CUMM) 0.4 Absolute Eosinophils (0.0 - 0.7 /CUMM) 0 Absolute Basophils (0.0 - 0.2 /CUMM) 0 Diagnostic Data EKG Results Sinus tachycardia, left ventricular hypertrophy, poor R-wave progression, mild diffuse nonspecific ST-T wave abnormalities. His QRS duration is 100 ms. Assessment/Plan Assessment/Plan My assessment is that this patient certainly qualifies for prophylactic defibrillator based on his low ejection fraction and history of congestive heart failure. Would note that he does not have a broad QRS complex and thus would not benefit from cardiac recent resynchronization and thus we cannot improve his functional status or quality of life with a defibrillator. The perry question here is comorbidities. The patient has a huge descending thoracic aortic aneurysm. He has severe peripheral vascular disease. He has congestive heart failure which will limit his prognosis independent of a defibrillator. He has severe emphysema and COPD. He is also 77 years old. I would note that the average age and the prophylactic defibrillator studies was in the early 60s. I had a discussion with the patient. Both he and I thought that proceeding with an invasive procedure that only has 1 in 10 chance of saving his life from a malignant ventricular arrhythmia is not worth pursuing at this time. The risk of defibrillator implantation would be real given his other comorbidities. Again the perry issue here is that I do think his prognosis is severely limited by his other disease processes. Would note that the patient does have a markedly elevated BNP and I'm very suspicious that some of his breathing difficulties are due to congestive heart failure. I do think he should probably be diuresed with IV then PO daily diuretics including Lasix and Aldactone and possibly consideration of Entresto could be given instead of lisinopril. Carvedilol might be a better medication in terms of congestive heart failure and LV dysfunction than metoprolol. I do believe the goal here is to improve his quality of life and not the duration. I do think the patient concurred with this expectation and these goals, and is very content not pursuing defibrillator implantation. Consult Acknowledgment - Thank you for your consult request.
[2017-09-26 06:42] LABS: ABSOLUTE BASOPHIL COUNT 0 /CUMM (0.0-0.2); ABSOLUTE EOSINOPHIL COUNT 0 /CUMM (0.0-0.7); ABSOLUTE GRANULOCYTE CT 9.6 /CUMM (1.4-6.5); ABSOLUTE LYMPH COUNT 1.1 /CUMM (1.2-3.4); ABSOLUTE MONOCYTE COUNT 0.7 /CUMM (0.10-0.60); BASOPHIL % 0 % (0.0-2.0); EOSINOPHIL % 0.1 % (0-5); HEMATOCRIT 34.4 % (42-52); MEAN CORPUSCULAR HGB CONC 32.8 G/DL (33.0-37.0); MEAN CORPUSCULAR VOLUME 91.6 FL (80.0-94.0); MEAN PLATELET VOLUME 8.2 FL (7.4-10.4); RBC DISTRIBUTION WIDTH 13.6 % (11.5-14.5); RED BLOOD CELL CT 3.75 /CUMM (4.70-6.10); WHITE BLOOD CELL COUNT 11.4 /CUMM (4.8-10.8)
[2017-09-26 06:52] LABS: GRANULOCYTE % 84.3 % (42.2-75.2); PLATELET COUNT 176 /CUMM (130-400)
[2017-09-26 06:54] LABS: PT 54.5 SEC (9.4-12.5)
--- NOTE | 2017-09-26 07:09 | PN- Resident CRCU ---
Subjective HPI/CRCU Issues: Patient in ICU for respiratory distress, still requiring BiPAP. I followed up and examined the patient today. He is at the bedside, on high flow nasal cannula, seems to be in moderate respiratory distress, no audible wheeze, but using his accessory muscles to breathe, and is about to go on BiPAP machine this morning. Objective Vital Signs & I&O Last 8 Hrs of Vitals and I&O: Intake & Output 09/26 0800 Intake Total 150 Output Total 700 Balance -550 Intake, Oral 150 Output, Urine 700 Exam General Appearance: well developed/nourished, alert, awake, moderate distress ( respiratory) Other Physical Findings: Head: atraumatic, normal appearance, active bleeding Respiratory: rhonchi, wheezing b/l (slightly better than yesterday) Cardiovascular: regular rate/rhythm Gastrointestinal: normal bowel sounds, soft, non-tender Back: normal inspection Extremities: normal capillary refill, no edema Current Medications: Current Medications Sig/Nelly Start time Last Medication Dose Route Stop Time Status Admin Albuterol Sulfate 3 ML EVERY 4 HRS/AWAKE 09/23 1200 AC 09/25 INH 202 Aspirin 81 MG DAILY 09/25 1000 CAN PO Azithromycin 500 MG DAILY 09/23 1000 DC 09/25 Dextrose/Water 250 ML IV 0838 Ceftriaxone Sodium 1,000 MG DAILY@0600 09/24 0600 AC 09/26 IV 0622 Diphenhydramine HCl 25 MG ONCE ONE 09/26 0130 DC 09/26 PO 09/26 0131 0131 Heparin Sodium 25,000 UNIT Q24H 09/23 0530 DC 09/24 (Porcine) IV 1037 Sodium Chloride 500 ML Insulin Aspart 0 TIDAC 09/23 1700 AC 09/25 SC 1631 Ipratropium [place] 2.5 ML EVERY 4 HRS/AWAKE 09/23 1200 AC 09/25 INH 2026 Melatonin 5 MG AT BEDTIME 09/23 2200 AC 09/25 PO 2206 Methylprednisolone 40 MG DAILY 09/25 1000 DC 09/25 IV 0838 Methylprednisolone 20 MG ONCE ONE 09/25 1000 DC 09/25 IV 09/25 1001 1024 Methylprednisolone 60 MG DAILY 09/25 1000 AC IV Morphine Sulfate 2 MG Q6P PRN 09/25 1730 AC 09/25 IV 2207 Morphine Sulfate 2 MG Q6P PRN 09/23 2359 DC 09/25 IV 0838 Omeprazole 40 MG DAILY AC 09/24 0700 AC 09/26 PO 0627 Prednisone 60 MG DAILY 09/24 1215 DC 09/24 PO 1318 Impression/Plan Impression/Problem List Impression: 77-year-old active smoker gentleman with past medical history significant for HFrEF (Echo EF 25% with stage III diastolic dysfunction), PVD, COPD not on home oxygen, CAD status post stenting, descending thoracic aortic aneurysm-stable, pulmonary embolism which failed treatment with Xarelto and currently on warfarin later was brought in with a chief concern of dyspnea, cough and wheezing. He is currently in the ICU for the management of following issues: #Acute hypoxic hypercarbic respiratory failure, 2/2 COPD exacerbation The patient received IV antibiotics, IV steroids, oxygen via BiPAP, TRC/nebs, which is now tapered to PO Ceftin today and PO steroid 50 mg from tomorrow onwards. Tapering steroids has proven challenging on him so he might require slower taper later. We will continue oxygen, BiPAP as needed, TRC/nebs. Abx changed to Ceftin from CTX today, Azithromycin was stopped 2 days ago. #Diabetes mellitus Will continue diabetic diet, insulin on a sliding scale, regular accuchecks #Subtherapeutic INR, 2/2 non-compliance, now high Patient's INR today was 4.92, an increase from 3.01 without coumadin yesterday. Patient is hemodynamically stable, not going for any special use or surgeries, thus would not be prudent to lower his INR with the help of FFP or vitamin K at this point. We will NOT dose Coumadin today, will wait for INR tomorrow and dose accordingly. #Peripheral vascular disease Patient has faint pulse with chronic right femoral artery blockages with collaterals, no significant ischemia. Vascular surgery consult. Will follow recommendations. #Large saccular aneurysm of his thoracic aorta pressing on his esophagus and his left mainstem bronchus, growing in size gradually. Patient and vascular surgeon aware, consulted vasc surgery for PVD, but might as well get opinion on the aneurysm. Needs close follow up on out pt basis. #H/o HTN Will start Coreg 6.25 mg BID if BP allows per Dr Velásquez. Has not been the case so far. BP this AM 90/76 mm Hg. #Will continue his home meds otherwise. #Patient is allergic (anaphylaxis) to ASA, thus will not prescribe that. #Diet: Diabetic diet #DVT ppx: ALPS/ Warfarin (currently supratherapeutic INR) #Code status: DNR/DNI Problem List: 1. Acute respiratory failure with hypoxia and hypercarbia 2. Aortic aneurysm 3. Diabetes mellitus 4. Supratherapeutic INR 5. Peripheral vascular disease 6. HTN (hypertension) 7. CHF (congestive heart failure) Pain Ratin Pain Location: - Pain Goal: Pain 4 or less Pain Plan: prn Tomorrow's Labs & Rationales: CBC, INR, ICU bundle Plan DVT/Prophylaxis: supratherapeutic INR
[2017-09-26 08:00] VITALS: BP 90/00
--- NOTE | 2017-09-26 09:41 | PN- Pulmonary ---
Subjective HPI/Critical Care Issues: on high flow nasal cannula, seems to be in mild respiratory distress, no audible wheeze, Objective Current Medications: Current Medications Sig/Nelly Start time Last Medication Dose Route Stop Time Status Admin Albuterol Sulfate 3 ML EVERY 4 HRS/AWAKE 09/23 1200 AC 04 INH 0820 Aspirin 81 MG DAILY 09/25 1000 CAN PO Azithromycin 500 MG DAILY 09/23 1000 DC 09/25 Dextrose/Water 250 ML IV 0838 Ceftriaxone Sodium 1,000 MG DAILY@0600 09/24 0600 AC 09/26 IV 0622 Diphenhydramine HCl 25 MG ONCE ONE 09/26 0130 DC 09/26 PO 09/26 0131 0131 Heparin Sodium 25,000 UNIT Q24H 09/23 0530 DC 09/24 (Porcine) IV 1037 Sodium Chloride 500 ML Insulin Aspart 0 TIDAC 09/23 1700 AC 09/25 SC 1631 Ipratropium [place] 2.5 ML EVERY 4 HRS/AWAKE 09/23 1200 AC 09/26 INH 0820 Melatonin 5 MG AT BEDTIME 09/23 2200 AC 09/25 PO 2206 Methylprednisolone 40 MG DAILY 09/25 1000 DC 09/25 IV 0838 Methylprednisolone 20 MG ONCE ONE 09/25 1000 DC 09/25 IV 09/25 1001 1024 Methylprednisolone 60 MG DAILY 09/25 1000 AC 09/26 IV 0818 Morphine Sulfate 2 MG Q6P PRN 09/25 1730 AC 09/25 IV 2207 Morphine Sulfate 2 MG Q6P PRN 09/23 2359 DC 09/25 IV 0838 Omeprazole 40 MG DAILY AC 09/24 0700 AC 09/26 PO 0627 Vital Signs & I&O Last 24 Hrs of Vitals and I&O: Vital Signs Date Time Temp Pulse Resp B/P B/P Pulse O2 O2 Flow FiO2 Mean Ox Delivery Rate 09/26 0825 97 BIPAP 35% 09/26 0823 103 94 09/26 0800 96 Nasal 40% Cannula 09/26 08 97.2 99 26 90/00 96 Nasal 40% Cannula 09/26 0635 94 98 09/26 0400 97 BIPAP 35% 09/26 0324 91 100 09/26 0049 61 98 09/26 0000 96 BIPAP 35% 09/25 2223 98 97 09/25 2027 122 95 09/25 2000 98 Nasal 40% Cannula 09/25 1915 96 Nasal 40% Cannula 09/25 1608 96 Nasal 40% Cannula 09/25 1600 95 Nasal 40% Cannula 09/25 1600 98.7 100 28 90/0 95 Nasal 40% Cannula 09/25 1404 96 Nasal 40% Cannula 09/25 1200 98 Nasal 40% Cannula 09/25 1200 97.4 108 30 90/0 98 Nasal 40% Cannula 09/25 1141 98 Nasal 40% Cannula 09/25 1030 97 Nasal 40% Cannula Intake & Output 09/26 1600 09/26 0800 09/26 0000 Intake Total 150 500 Output Total 700 500 Balance -550 0 Intake, Oral 150 500 Output, Urine 700 500 Impression/Plan Impression/Plan Impression/Plan: Arterial doppler IMPRESSION: 1. 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 Three-vessel runoff of the right calf is present but diminutive. 2. No hemodynamically significant stenosis appreciated within the deep arterial system of the left lower extremity. Three-vessel runoff of the left calf is present but diminutive. Impression/Plan: General Appearance Alert, Oriented X3, Cooperative, significantly short of breath, wheezing, rhonchi, was on BiPAP initially when BiPAP was removed he was in obvious respiratory distress Skin No Rashes, No Breakdown, No Significant Lesion HEENT Atraumatic, PERRLA, EOMI, Mucous Membr. moist/pink Neck Supple, No JVD, No thryomegaly, +2 Carotid Pulse wo Bruit, No LAD Lymphatic Axillary nl, Cervical nl Cardiovascular Regular Rate, Normal S1, Normal S2, No Murmurs Lungs expiratory wheezes, crackles Abdomen Normal Bowel Sounds, Soft, No Tenderness, No Hepatospenomegaly, No Masses Neurological Normal Speech, Strength at 5/5 X4 Ext, Normal Tone, Sensation Intact, Cranial Nerves 3-12 NL, Reflexes 2+ Extremities No Clubbing, No Cyanosis, bilateral lower extremity +1 edema Vascular Pulses Symmetrical This is a 76-year-old gentleman with severe COPD, ongoing smoking, systolic heart dysfunction with ejection fraction of 25% with previous PCI and TN in the past, very severe peripheral vascular disease with significant thoracic aneurysm with a large saccular component which has been present for more than few years, medical noncompliance, extremely large prostate, recurrent UTI, recurrent COPD exacerbation, previous history of kidney stone with * Resolving Acute hypoxemic and hypercarbic respiratory failure related to severe COPD exacerbation. Patient is medically noncompliant due to financial issues and has been using his inhaler sparingly * Previous congestive heart failure with an ejection fraction of 25% with no pulm edema, patient does have Chronic systolic heart failure and some of his dyspnea is related to fluid overload aswell * Very large thoracic aneurysm at the saccular component pressing on his esophagus in his left mainstem bronchus which has been stable since early 2013, not a surgical candidate as the prosthesis for his aneurysm repair could not be passed due to severe peripheral vascular disease and his lower extremity, not a candidate for open surgery. Now his aneurysm seems to have increased in size. Pt does have pain in his limbs both sides. * Mild leg pain with patent veins and faint pulse with arterial doppler as noted , with chronic rt femoral artery block with collaterals with no sig ischemia * Ischemic heart disease, low ejection fraction / not a candidate for AICD/see EP note * Previous pulmonary embolism which was radiologically much better, patient is on warfarin but is noncompliant with his medications. Patient may have hidden malignancy as he has had enlarged prostate, hematuria etc. per his wishes has not had any significant workup. * Small lung nodules * Enlarged prostate now with sig pvr urology is following and has high wbc and prob uti RECOMMENDATION Noninvasive ventilation at hs and high flow or nasal cannula during the day PO prednisone 50 mg daily Sputum culture if any Change to po ceftin Urine culture and sputum culture and blood culture pending Start low dose coreg 6.25 bid PO lasix 40 mg po one dose Needs atc nebs Due to sig low BP not yet a candidate for Entresto/or aldactone for now Keep sat at 90 percent Prn low dose morphine for dyspnea PO ppi Melatonin at hs if needed DNR and DNI (discussed with the patient and consistant with his prior wishes), if worse he wishes to not go through any life support except bipap WIshes his son to be involved in the future (not his who he does not live with) Pt cricitally ill tts 38mins
[2017-09-26 12:00] VITALS: BP 88/00
[2017-09-26 15:38] VITALS: BP 90/00
--- NOTE | 2017-09-26 16:30 | PN- Vascular Surgery ---
Surgical Brief Attending Note Brief Attending Note: Patient with a known thoracic aneurysm who has refused treatment in the past presented to the hospital with COPD exacerbation. He continues to smoke. He was treated with BiPAP and currently is on high flow oxygen. Vascular surgery was consulted regarding chronic peripheral arterial disease. Ultrasound showed evidence of SFA and tibial disease. The patient denies rest pain or claudication. Bilateral feet are warm. There are audible pedal signals. There are no ulcers. He again wishes not to treat his thoracic aortic aneurysm. From the peripheral arterial disease standpoint, he'll be followed as an outpatient. Full consult to follow. Thank you
--- NOTE | 2017-09-26 18:29 | PN- Cardiology ---
Subjective Subjective: * No chest discomfort and breathing is improved. Objective Vital Signs and I&Os Vital Signs Date Time Temp Pulse Resp B/P B/P Pulse O2 O2 Flow FiO2 Mean Ox Delivery Rate 09/26 1717 98 Nasal 40% Cannula 09/26 1600 94 Nasal 40% Cannula 09/26 1538 98.0 98 24 90/00 95 Nasal 40% Cannula 09/26 1200 96 Nasal 40% Cannula 09/26 1200 97.8 104 28 88/00 96 Nasal 40% Cannula 09/26 0905 108 97 09/26 0825 97 BIPAP 35% 09/26 0823 103 94 09/26 0800 96 Nasal 40% Cannula 09/26 0800 97.2 99 26 90/00 96 Nasal 40% Cannula 09/26 0635 94 98 09/26 0400 97 BIPAP 35% 09/26 0324 91 100 09/26 0049 61 98 09/26 0000 96 BIPAP 35% 09/25 2223 98 97 09/25 2027 122 95 09/25 2000 98 Nasal 40% Cannula 09/25 1915 96 Nasal 40% Cannula Intake & Output 09/26 1600 09/26 0800 09/26 0000 09/25 1600 09/25 0800 09/25 0000 Intake Total 730 150 500 905 382 489 Output Total 1950 700 500 225 400 200 Balance -1220 -550 0 680 -18 289 Intake, IV 10 365 142 149 Intake, Oral 720 150 500 540 240 340 Number 0 0 0 Bowel Movements Output, Urine 1950 700 500 225 400 200 Patient 121 lb 120 lb Weight Weight Bed scale Measurement Method Physical Exam: General: WD/ WN male in NAD; alert and oriented x 3 HEENT: NC/ AT, PERRL, EOMI, clear oropharynx Neck: mildly +ve JVD, no carotid bruit Heart: RRR w/o murmur Lungs: decreased air movement bilaterally with wheezing Extremities: no edema Assessment/Plan Assessment/Plan Assessment/Plan Assessment/Plan * This patient has shortness of breath that is primarily due to his emphysematous COPD. I do believe he has increased RV pressures related to lung disease which manifests as JVD. This patient has a borderline blood pressure that is in the 80-90 systolic range. I do not think he will tolerate a beta bautista with alpha blocking effect such as Coreg due to its powerful antihypertensive effects. At this point I do not think he will tolerate diuretics including Lasix or aldactone although these are certainly medications that have been showed to be beneficial in the setting of a low EF. We will see how he does and if he can tolerate additional medication then we will add back a small dose of diuretic. Beginning Entresto is also reasonable but, this drug has Valartan in it so we will also need to wait for his BP to improve. * Due to the patient's severely decreased EF we did have Dr. Hinkle assess this patient for a possible AICD. Due to comorbidities he was not thought to be an ideal candidate for this device. * Vascular surgery should evaluate this patient for his large and expanding aortic aneurysm. Continue telemetry? Yes
[2017-09-27 00:23] VITALS: BP 118/56
[2017-09-27 05:30] LABS: ABSOLUTE BASOPHIL COUNT 0 /CUMM (0.0-0.2); ABSOLUTE EOSINOPHIL COUNT 0 /CUMM (0.0-0.7); ABSOLUTE GRANULOCYTE CT 8.4 /CUMM (1.4-6.5); ABSOLUTE LYMPH COUNT 0.9 /CUMM (1.2-3.4); ABSOLUTE MONOCYTE COUNT 0.7 /CUMM (0.10-0.60); BASOPHIL % 0 % (0.0-2.0); EOSINOPHIL % 0 % (0-5); GRANULOCYTE % 84.4 % (42.2-75.2); HEMATOCRIT 37.1 % (42-52); MEAN CORPUSCULAR HGB 29.8 PG (27.0-31.0); MEAN CORPUSCULAR HGB CONC 32.8 G/DL (33.0-37.0); MEAN CORPUSCULAR VOLUME 90.6 FL (80.0-94.0); MEAN PLATELET VOLUME 8.4 FL (7.4-10.4); PLATELET COUNT 184 /CUMM (130-400); RBC DISTRIBUTION WIDTH 13.9 % (11.5-14.5); RED BLOOD CELL CT 4.09 /CUMM (4.70-6.10); WHITE BLOOD CELL COUNT 9.9 /CUMM (4.8-10.8)
[2017-09-27 08:00] VITALS: BP 100/70
--- NOTE | 2017-09-27 08:33 | PN- Resident CRCU ---
Subjective HPI/CRCU Issues: Mr Cordero continues to do well. Currently on BiPAP as needed. Vitals remained stable overnight. 24 Hour Events: MAXIMUM TEMPERATURE 97.8, heart rate 92-104, normal sinus rhythm, respiratory rate 24-28 Blood pressure 93-100/66-82. She was on high flow 40% FiO2 with oxygen saturation 96-99%. Total intake 730 mL, output 1300 mL output. Objective Vital Signs & I&O Last 8 Hrs of Vitals and I&O: Intake & Output 09/27 1600 Intake Total 960 Output Total 500 Balance 460 Intake, Oral 960 Output, Urine 500 Exam General Appearance: alert Other Physical Findings: General Exam: AAOx3, No acute distress, Skin: No rashes, no breakdown;HEENT: PERRLA, EOMI;Neck: Supple, No JVD; No cervical lymphadenopathy;CVS: Reg Rate, Normal S1,S2, No MGR;Resp: decreased air entry, b/l rales;Abdomen: Soft, No tenderness, Normal Bowel Sounds;Neuro: Normal Speech, Strength 5/5 b/l x 4 extremities, Sensation intact, CN III-XII NL, Reflexes 2+;Extremities: No cyanosis, no pedal edema Current Medications: Current Medications Sig/Nelly Start time Last Medication Dose Route Stop Time Status Admin Acetaminophen 1,000 MG Q6P PRN 09/26 161 AC N/A 1 UNIT IV Acetaminophen/ 1 TAB Q6 PRN 09/26 1615 AC 09/27 Codeine Phosphate PO 1250 Albuterol Sulfate 3 ML Q4 09/27 1800 AC 09/27 INH 1853 Albuterol Sulfate 3 ML EVERY 4 HRS/AWAKE 09/23 1200 DC 09/27 INH 1303 Carvedilol 6.25 MG BID 09/27 2200 AC PO Cefuroxime Sodium 250 MG Q12 09/26 2200 AC 09/27 PO 10/01 0000 0959 Furosemide 40 MG ONE ONE 09/27 1515 DC 09/27 PO 09/27 1516 1636 Insulin Aspart 0 TIDAC 09/23 1700 AC 09/27 SC 1636 Ipratropium Girard 2.5 ML Q4 09/27 1800 AC 09/27 INH 1851 Ipratropium Girard 2.5 ML EVERY 4 HRS/AWAKE 09/23 1200 DC 09/27 INH 1303 Melatonin 5 MG AT BEDTIME 04/07 2200 AC 09/26 PO 2148 Omeprazole 40 MG DAILY AC 09/24 0700 AC 09/27 PO 0617 Prednisone 40 MG DAILY 09/28 1000 AC PO Prednisone 50 MG DAILY 09/27 1000 DC 09/27 PO 0959 Impression/Plan Impression/Problem List Impression: Mr Cordero is a 77-year-old gentleman who is an active smoker, with PMHx of HFrEF (Echo EF 25% with stage III diastolic dysfunction), PVD, COPD not on home oxygen , CAD status post stenting, descending thoracic aortic aneurysm, pulmonary embolism which failed treatment with Xarelto and currently on warfarin was brought in with a chief concern of an acute onset of dyspnea, cough and wheezing. Pertinent lab findings- WBC 11.7(09/23)-->11.3-->13.6-->11.4-->9.9(09/27) Hemoglobin 13.8(09/23)-->11.7-->11.3-->12.2(09/27) Sodium 136-->136 Potassium 4.4(09/23)-->5.3-->5.1(09/27) HCO3 24(09/23)-->28-->32(09/27) AST 28-->29--> 60-->56 INR 1.36(09/23)-->1.26-->3.01-->4.92-->3.17(09/27) Problem list: #1 acute hypoxic hypercarbic respiratory failure. #2 acute exacerbation of COPD #3 heart failure with reduced ejection fraction #4 large thoracic aneurysm #5 peripheral arterial disease #6 Ischemic heart disease #7 history of pulmonary embolism #8 multiple lung nodules #9 prostate hypertrophy #Acute hypoxic hypercarbic respiratory failure, 2/2 COPD exacerbation He was initially started on ceftriaxone and azithromycin, and currently on Ceftin to complete a course of 7-10 days. Etiology could likely be due to exacerbation of COPD and there could be a competent of decompensation of his CHF. By mouth prednisone 40 mg daily, with a long taper. BiPAP as needed. #Diabetes mellitus Will continue diabetic diet, insulin on a sliding scale, regular accuchecks #Supratherapeutic INR He was initially treated with Coumadin, which is currently held. INR 3.17. Recheck INR in the a.m. and dose Coumadin accordingly. #Peripheral vascular disease Patient has faint pulse with chronic right femoral artery blockages with collaterals, no significant ischemia. Patient not interested in treatment. As per the vascular surgery, he is thought to be high risk for surgery and/or endovascular intervention #Large saccular aneurysm of his thoracic aorta pressing on his esophagus and his left mainstem bronchus, growing in size gradually. Patient and vascular surgeon aware, consulted vasc surgery for PVD, but might as well get opinion on the aneurysm. Needs close follow up on out pt basis. #H/o HTN Start the patient on carvedilol 6.25 mg by mouth twice a day, with holding parameters. He will E6 1 dose today. Monitor blood pressure closely. #Will continue his home meds otherwise. #Patient is allergic (anaphylaxis) to ASA, thus will not prescribe that. Housekeeping: #Diet: Diabetic diet #DVT ppx: ALPS/ Warfarin (currently supratherapeutic INR) #Code status: DNR/DNI #1 Central line-none #2 Arterial line-none #3 Bryant catheter-none #4 Rectal tube-none #5 NG tube-none #6 IV/peripheral line- present #7 IV drips--none #8 Vent settings- On BiPAP #9 pressors none. Problem List: 1. Peripheral vascular disease 2. Supratherapeutic INR 3. Diabetes mellitus 4. Acute respiratory failure with hypoxia and hypercarbia Pain Ratin Tomorrow's Labs & Rationales: cbc icu bundle inr Plan DVT/Prophylaxis: supratherapeutic INR
--- NOTE | 2017-09-27 10:02 | PN- Pulmonary ---
Subjective HPI/Critical Care Issues: Sleeping comfortably On nasal cannula No pain Objective Current Medications: Current Medications Sig/Nelly Start time Last Medication Dose Route Stop Time Status Admin Acetaminophen 1,000 MG Q6P PRN 09/26 1615 AC N/A 1 UNIT IV Acetaminophen 320 MG ONCE ONE 09/26 1530 DC 09/26 PO 09/26 1531 1530 Acetaminophen/ 1 TAB Q6 PRN 09/26 1615 AC 09/26 Codeine Phosphate PO 1619 Albuterol Sulfate 3 ML EVERY 4 HRS/AWAKE 09/23 1200 AC 09/27 INH 0835 Ceftriaxone Sodium 1,000 MG DAILY@0600 09/24 0600 DC 09/26 IV 0622 Cefuroxime Sodium 250 MG Q12 09/26 2200 AC 09/26 PO 2148 Furosemide 40 MG ONE ONE 09/26 1030 DC 09/26 PO 09/26 1031 1136 Insulin Aspart 0 TIDAC 09/23 1700 AC 09/26 SC 1647 Ipratropium [place] 2.5 ML EVERY 4 HRS/AWAKE 09/23 1200 AC 09/27 INH 0835 Melatonin 5 MG AT BEDTIME 09/23 2200 AC 09/26 PO 2148 Methylprednisolone 60 MG DAILY 09/25 1000 DC 09/26 IV 0818 Morphine Sulfate 2 MG Q6P PRN 09/25 1730 DC 09/25 IV 2207 Omeprazole 40 MG DAILY AC 09/24 0700 AC 09/27 PO 0617 Prednisone 50 MG DAILY 09/27 1000 AC PO Vital Signs & I&O Last 24 Hrs of Vitals and I&O: Vital Signs Date Time Temp Pulse Resp B/P B/P Pulse O2 O2 Flow FiO2 Mean Ox Delivery Rate 09/27 0838 96 Nasal 3.0L Cannula 09/27 0837 87 95 09/27 0558 44 98 09/27 0342 86 98 09/27 0046 61 99 09/27 0023 97.9 90 18 118/56 96 09/26 2312 96 BIPAP 35% 09/26 2210 89 94 09/26 1717 98 Nasal 40% Cannula 09/26 1600 94 Nasal 40% Cannula 09/26 1538 98.0 98 24 90/00 95 Nasal 40% Cannula 09/26 1200 96 Nasal 40% Cannula 09/26 1200 97.8 104 28 88/00 96 Nasal 40% Cannula Intake & Output 09/27 1600 09/27 0800 04/11 0000 Intake Total 240 540 Output Total 850 1075 Balance -610 -535 Intake, Oral 240 540 Output, Urine 850 1075 Laboratory Tests 09/27 09/26 0415 0641 Chemistry Sodium (137 - 145 mmol/L) 136 L 138 Potassium (3.5 - 5.1 mmol/L) 5.1 5.3 H Chloride (98 - 107 mmol/L) 95 L 100 Carbon Dioxide (22 - 30 mmol/L) 32 H 28 Anion Gap (5 - 16) 10 10 BUN (9 - 20 mg/dL) 37 H 39 H Creatinine (0.7 - 1.2 mg/dL) 1.0 1.2 Estimated GFR (>60 ml/min) > 60 59 L Glucose (65 - 99 mg/dL) 104 H 104 H Calcium (8.4 - 10.2 mg/dL) 8.9 8.5 Phosphorus (2.5 - 4.5 mg/dL) 3.3 3.8 Magnesium (1.6 - 2.3 mg/dL) 2.0 2.1 Total Bilirubin (0.2 - 1.3 mg/dL) 0.6 0.5 AST (17 - 59 U/L) 56 60 H ALT (21 - 72 U/L) 61 52 Albumin (3.5 - 5.0 g/dL) 3.7 3.5 Coagulation PT (9.4 - 12.5 SEC) 35.0 H 54.5 *H INR (0.90 - 1.17) 3.17 H 4.92 *H Hematology CBC w Diff MAN DIFF ORDERED NO MAN DIFF REQ WBC (4.8 - 10.8 /CUMM) 9.9 11.4 H RBC (4.70 - 6.10 /CUMM) 4.09 L 3.75 L Hgb (14.0 - 18.0 G/DL) 12.2 L 11.3 L Hct (42 - 52 %) 37.1 L 34.4 L MCV (80.0 - 94.0 FL) 90.6 91.6 MCH (27.0 - 31.0 PG) 29.8 30.0 MCHC (33.0 - 37.0 G/DL) 32.8 L 32.8 L RDW (11.5 - 14.5 %) 13.9 13.6 Plt Count (130 - 400 /CUMM) 184 176 MPV (7.4 - 10.4 FL) 8.4 8.2 Gran % (42.2 - 75.2 %) 84.4 H 84.3 H Lymphocytes % (20.5 - 51.1 %) 8.7 L 9.8 L Monocytes % (1.7 - 9.3 %) 6.9 5.8 Eosinophils % (0 - 5 %) 0 0.1 Basophils % (0.0 - 2.0 %) 0 0 Absolute Granulocytes (1.4 - 6.5 /CUMM) 8.4 H 9.6 H Segmented Neutrophils (42.2 - 75.2 %) 83 H Absolute Lymphocytes (1.2 - 3.4 /CUMM) 0.9 L 1.1 L Lymphocytes (20.5 - 51.1 %) 8 L Monocytes (1.7 - 9.3 %) 9 Absolute Monocytes (0.10 - 0.60 /CUMM) 0.7 H 0.7 H Absolute Eosinophils (0.0 - 0.7 /CUMM) 0 0 Absolute Basophils (0.0 - 0.2 /CUMM) 0 0 Platelet Estimate (ADEQUATE) ADEQUATE Hypochromic-Microcytic 1+ Poikilocytosis 1+ Ovalocytes 1+ Stomatocytes FEW Other Body Source Fld Total RBCs Counted (%) 100 Microbiology Date/Time Procedure - Status Source Growth 09/25 953 Respiratory Culture - CAN LOWER RESP Cancelled: SPECIMEN NOT RECEIVED IN LABORATORY 09/25 953 Gram Stain - CAN LOWER RESP Cancelled: SPECIMEN NOT RECEIVED IN LABORATORY SIGNIFICANT DATA Reviewed Creatinine down to 1.0 BUN stable bicarbonate up to 32 white count 9.9 hemoglobin stable platelets adequate his INR was 3.17 from his prior ABG PCO2 was stable cultures so far negative No significant radiological data Impression/Plan Impression/Plan Impression/Plan: General Appearance Alert, Oriented X3, Cooperative, significantly short of breath, wheezing, rhonchi, was on BiPAP initially when BiPAP was removed he was in obvious respiratory distress Skin No Rashes, No Breakdown, No Significant Lesion HEENT Atraumatic, PERRLA, EOMI, Mucous Membr. moist/pink Neck Supple, No JVD, No thryomegaly, +2 Carotid Pulse wo Bruit, No LAD Lymphatic Axillary nl, Cervical nl Cardiovascular Regular Rate, Normal S1, Normal S2, No Murmurs Lungs expiratory wheezes, crackles Abdomen Normal Bowel Sounds, Soft, No Tenderness, No Hepatospenomegaly, No Masses Neurological Normal Speech, Strength at 5/5 X4 Ext, Normal Tone, Sensation Intact, Cranial Nerves 3-12 NL, Reflexes 2+ Extremities No Clubbing, No Cyanosis, bilateral lower extremity +1 edema Vascular Pulses Symmetrical This is a 76-year-old gentleman with severe COPD, ongoing smoking, systolic heart dysfunction with ejection fraction of 25% with previous PCI and RI in the past, very severe peripheral vascular disease with significant thoracic aneurysm with a large saccular component which has been present for more than few years, medical noncompliance, extremely large prostate, recurrent UTI, recurrent COPD exacerbation, previous history of kidney stone with * Resolving Acute hypoxemic and hypercarbic respiratory failure related to severe COPD exacerbation and mild systolic chf. Patient is medically noncompliant due to financial issues and has been using his inhaler sparingly * Previous congestive heart failure with an ejection fraction of 25% with no pulm edema, patient does have Chronic systolic heart failure and some of his dyspnea is related to fluid overload aswell, recent echo shows worsening ef * Very large thoracic aneurysm at the saccular component pressing on his esophagus in his left mainstem bronchus which has been stable since early 2013, not a surgical candidate as the prosthesis for his aneurysm repair could not be passed due to severe peripheral vascular disease and his lower extremity, not a candidate for open surgery. Now his aneurysm seems to have increased in size. Pt does have pain in his limbs both sides. 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 vascular note reviewed * Ischemic heart disease, low ejection fraction / not a candidate for AICD/see EP note * Previous pulmonary embolism which was radiologically much better, patient is on warfarin but is noncompliant with his medications. Patient may have hidden malignancy as he has had enlarged prostate, hematuria etc. per his wishes has not had any significant workup. * Small lung nodules * Enlarged prostate now with sig pvr urology is following and has high wbc and prob uti RECOMMENDATION Noninvasive ventilation at hs and nasal cannula during the day PO prednisone 40 mg daily and wean Po ceftin for 4 more days Start low dose coreg 6.25 bid if bp permits PO lasix 40 mg po one dose again Needs atc nebs Due to sig low BP not yet a candidate for Entresto/or aldactone for now Keep sat at 90 percent Prn low dose morphine for dyspnea PO ppi Melatonin at hs if needed DNR and DNI (discussed with the patient and consistant with his prior wishes), if worse he wishes to not go through any life support except bipap, wishes not surg, dialysis or vasopressors or invasive cardiac monitoring WIshes his son to be involved in the future (not his who he does not live with) Ok to tele
--- NOTE | 2017-09-27 11:33 | Cons- Vascular Surgery ---
General Information and HPI Consulting Request Date of Consult: 09/27/17 Requested By: Didier ARECHIGA,Chucky Elizondo Reason for Consult: PAD, thoracic aortic aneurysm History of Present Illness: This is a 76-year-old male known to the vascular service with a known descending thoracic aortic aneurysm. An endovascular repair was attempted without success in [place] a couple years ago, according to the patient. He was admitted to the medical service for COPD exacerbation. CT of the chest was reviewed and revealed multiple saccular aneurysms of the descending thoracic aorta, with the largest saccular aneurysm of the proximal descending thoracic aorta increased in size now measuring 5.9 x 8.2 cm. He currently denies pain, rest pain or claudication, open sores. He states his breathing has improved since admission. Vascular surgery was consulted for PAD evaluation. Allergies/Medications Allergies: Coded Allergies: oxycodone (Intermediate, RASH 06/20/16) aspirin (ANAPHYLAXIS 04/30/16) Home Med List: Albuterol Sulfate 2.5 MG/3 ML (0.083 %) VIAL.NEB 3 ML INH BID PRN SHORTNESS OF BREATH Atorvastatin Calcium 40 MG TABLET 40 MG PO 1700 HEART Azithromycin 500 MG TABLET 500 MG PO DAILY COPD/BRONCHITIS TO BE TAKEN ON 06/24/16 Furosemide (Lasix) 20 MG TABLET 1 TAB PO BID swollen legs Guaifenesin (Guaifenesin ER) 600 MG TAB.ER.12H 600 MG PO Q12 COUGH Lisinopril 10 MG TABLET 10 MG PO DAILY HEART Metoprolol Tartrate 25 MG TABLET 0.5 TAB PO BID HYPERTENSION Nystatin 100,000 UNIT/ML ORAL.SUSP 5 ML PO 4 TIMES/DAY ORAL CANDIDIASIS Oxycodone HCl/Acetaminophen (Percocet 5-325 MG Tablet) 5 MG-325 MG TABLET 1 TAB PO BID PRN PAIN TEN...[id number] Pot Chloride/Pot Bicarb/Cit AC (Potassium Cl 25 Meq Tab Eff) 25 MEQ TABLET.EFF 1 TAB PO QDAY WHILE TAKING FUROSEMIDE Prednisone 20 MG TABLET 40 MG PO DAILY COPD TO BE TAKEN ON 06/24/16. Warfarin Sodium (Coumadin) 4 MG TABLET 1 TAB PO DAILY BLOOD CLOTS Current Medications: Current Medications Sig/Nelly Start time Last Medication Dose Route Stop Time Status Admin Acetaminophen 1,000 MG Q6P PRN 09/26 1615 AC N/A 1 UNIT IV Acetaminophen 320 MG ONCE ONE 09/26 1530 DC 09/26 PO 09/26 1531 1530 Acetaminophen/ 1 TAB Q6 PRN 09/26 1615 AC 09/26 Codeine Phosphate PO 1619 Albuterol Sulfate 3 ML EVERY 4 HRS/AWAKE 09/23 1200 AC 09/27 INH 0835 Ceftriaxone Sodium 1,000 MG DAILY@0600 09/24 0600 DC 09/26 IV 0622 Cefuroxime Sodium 250 MG Q12 09/26 2200 AC 09/27 PO 0959 Insulin Aspart 0 TIDAC 09/23 1700 AC 09/26 SC 1647 Ipratropium [place]ron 2.5 ML EVERY 4 HRS/AWAKE 09/23 1200 AC 09/27 INH 0835 Melatonin 5 MG AT BEDTIME 09/23 2200 AC 09/26 PO 2148 Morphine Sulfate 2 MG Q6P PRN 09/25 1730 DC 09/25 IV 2207 Omeprazole 40 MG DAILY AC 09/24 0700 AC 09/27 PO 0617 Prednisone 50 MG DAILY 09/27 1000 AC 09/27 PO 0959 Past History Medical History Blood Transfusion Hx: No Neurological: NONE EENT: DEVIATED SEPTUM Cardiovascular: CAD (NSTEMI s/p PCI of the LCX/OM), CHF (peripheral vascular disease), HYPERLIPIDEMIA [place] X 1 YEAR AGO THORACIC AORTA PSEUDO- ANEURYSM Respiratory: COPD, pulmonary embolism Gastrointestinal: GI BLEED Hepatic: NONE Renal: nephrolithiasis, BPH s/p ESWL Musculoskeletal: leg pain Psychiatric: NONE Endocrine: diabetes Blood Disorders: NONE Cancer(s): NONE CAMP NURSE/Reproductive: 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 MOTHER (DM). Psychosocial History Where Do You Live? Home Services at Home: None Smoking Status: Current Everyday Smoker Power of Advance Scout/HCP? unknown Functional Ability ADLs Independent: dressing, eating, toileting, bathing. Ambulation: independent Employment History Employment: Employed Retired? unknown Exam & Diagnostic Data Vital Signs and I&O Vital Signs Date Time Temp Pulse Resp B/P B/P Pulse O2 O2 Flow FiO2 Mean Ox Delivery Rate 09/27 1005 91 94 09/28 0738 96 Nasal 3.0L Cannula 09/27 836 87 95 09/28 799 98 Nasal 35% Cannula 04/11 0800 98.0 80 20 100/70 100 Nasal 35% Cannula 09/27 0558 44 98 09/27 0342 86 98 09/27 0046 61 99 09/27 0023 97.9 90 18 118/56 96 09/26 2312 96 BIPAP 35% 09/26 2210 89 94 09/26 1717 98 Nasal 40% Cannula 09/26 1600 94 Nasal 40% Cannula 09/26 1538 98.0 98 24 90/00 95 Nasal 40% Cannula 09/26 1200 96 Nasal 40% Cannula 09/26 1200 97.8 104 28 88/00 96 Nasal 40% Cannula Intake & Output 09/27 0809/27 0000 09/26 1600 09/26 0000 Intake Total 360 240 540 730 150 500 Output Total 571 616 1581 1950 700 500 Balance -15 -610 -535 -1220 -550 0 Intake, IV 10 Intake, Oral 360 240 540 720 150 500 Number 0 Bowel Movements Output, Urine 318 865 3176 1950 700 500 Physical Exam: Gen: resting comfortably in icu with bipap in place in nad Cardiac: S1S2 noted Lungs: bipap in place with wheezing and coarse breath sounds throughout Extremities: right vertical groin incision noted, pulses present, warm and well- perfused, no edema or calf tenderness B/L Last 24 Hours of Labs: Laboratory Tests 09/27 414 Chemistry Sodium (137 - 145 mmol/L) 136 L Potassium (3.5 - 5.1 mmol/L) 5.1 Chloride (98 - 107 mmol/L) 95 L Carbon Dioxide (22 - 30 mmol/L) 32 H Anion Gap (5 - 16) 10 BUN (9 - 20 mg/dL) 37 H Creatinine (0.7 - 1.2 mg/dL) 1.0 Estimated GFR (>60 ml/min) > 60 Glucose (65 - 99 mg/dL) 104 H Calcium (8.4 - 10.2 mg/dL) 8.9 Phosphorus (2.5 - 4.5 mg/dL) 3.3 Magnesium (1.6 - 2.3 mg/dL) 2.0 Total Bilirubin (0.2 - 1.3 mg/dL) 0.6 AST (17 - 59 U/L) 56 ALT (21 - 72 U/L) 61 Albumin (3.5 - 5.0 g/dL) 3.7 Coagulation PT (9.4 - 12.5 SEC) 35.0 H INR (0.90 - 1.17) 3.17 H Hematology CBC w Diff MAN DIFF ORDERED WBC (4.8 - 10.8 /CUMM) 9.9 RBC (4.70 - 6.10 /CUMM) 4.09 L Hgb (14.0 - 18.0 G/DL) 12.2 L Hct (42 - 52 %) 37.1 L MCV (80.0 - 94.0 FL) 90.6 MCH (27.0 - 31.0 PG) 29.8 MCHC (33.0 - 37.0 G/DL) 32.8 L RDW (11.5 - 14.5 %) 13.9 Plt Count (130 - 400 /CUMM) 184 MPV (7.4 - 10.4 FL) 8.4 Gran % (42.2 - 75.2 %) 84.4 H Lymphocytes % (20.5 - 51.1 %) 8.7 L Monocytes % (1.7 - 9.3 %) 6.9 Eosinophils % (0 - 5 %) 0 Basophils % (0.0 - 2.0 %) 0 Absolute Granulocytes (1.4 - 6.5 /CUMM) 8.4 H Segmented Neutrophils (42.2 - 75.2 %) 83 H Absolute Lymphocytes (1.2 - 3.4 /CUMM) 0.9 L Lymphocytes (20.5 - 51.1 %) 8 L Monocytes (1.7 - 9.3 %) 9 Absolute Monocytes (0.10 - 0.60 /CUMM) 0.7 H Absolute Eosinophils (0.0 - 0.7 /CUMM) 0 Absolute Basophils (0.0 - 0.2 /CUMM) 0 Platelet Estimate (ADEQUATE) ADEQUATE Hypochromic-Microcytic 1+ Poikilocytosis 1+ Ovalocytes 1+ Stomatocytes FEW Other Body Source Fld Total RBCs Counted (%) 100 Imaging Results: SERVICE DATE: 09/23/17 EXAM TYPE: CAT - CT ABD & PELVIS ANGIOGRAM; CTA CHEST-PULMONARY EMBOLISM EXAMINATION: CTA OF THE CHEST, ABDOMEN AND PELVIS CLINICAL INFORMATION: Tachycardia, hypoxia and tachypnea. COPD exacerbation. History of PE. Apparent therapeutic INR. Rule out pulmonary embolism. COMPARISON: Previous chest CTAs most recent June [address] scans most recent April 2016 TECHNIQUE: Axial images through the chest, abdomen and pelvis following oral and 95 mL Optiray 320 intravenous contrast. Sagittal and coronal reconstructions on the technologist workstation were performed. 3-D reconstructions of the chest were also performed. FINDINGS: Chest: There is no evidence of a pulmonary embolism. The exam is not performed for optimal opacification of the thoracic aorta. The ascending thoracic aorta measures 4 cm and is upper normal in size. There are several saccular aneurysms arising from the distal aortic arch/proximal descending thoracic aorta. There is a superior aneurysm measuring 2 cm axial image 134 series 2. There is a larger 2.3 x 2.6 cm saccular aneurysm arising from the lateral aorta axial image 136 series 2. This measured 2.5 x 2.7 cm on previous exam. There is a 2.2 x 2.3 cm saccular aneurysm arising from the medial thoracic aorta axial image 145 series 2. This measured 1.5 x 2 cm on previous exam and may be interval increase in size. There is decreased opacification of the left subclavian artery compared to the adjacent left common carotid artery questionable for evidence of a stenosis or obstruction. There is a large saccular aneurysm of the mid distal descending thoracic aorta. This measures 5.9 x 8.2 cm in AP and transverse dimension axial image 32 series 7 this is slightly increased in size from 5.5 x 7.6 cm June 2016 exam. There is a small focus of enhancement seen either in or adjacent to the aneurysm just posterior to the right mainstem bronchus axial image 242 series 2 of uncertain etiology. There is a area of the ectasia of the distal descending thoracic aorta measures 4 cm axial image 51 series 7. This does not appear appreciably changed in There is evidence of severe emphysema. There is a 4 mm right middle lobe nodule axial image 46 series 7 that is stable. There is minimal scarring or chronic subsegmental atelectasis in the inferior segment of the lingula, for example axial image 47 series 7. These findings are stable. There is evidence of mild airways disease in the right upper lobe. The lungs are otherwise clear. There is no pleural effusion or pleural thickening. Chest wall mass or enlarged axillary lymph nodes are seen. Abdomen and pelvis: There is a 1.7 cm cyst in the lateral segment of the left lobe axial image 16 a. Liver is otherwise unremarkable. The gallbladder is unremarkable. The spleen, pancreas, and adrenal glands are unremarkable. 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 Does not appear appreciably changed. There is calcification in the upper pole of the right kidney. It is uncertain whether this represents vascular calcification or stone. The prostate gland is enlarged and protrudes into the base of the bladder. There is abnormal soft tissue seen in the bladder that is similar to previous exam, presumably related to the prostate gland. This is similar to April 2016 exam. Small and large bowel is unremarkable. No ascites is seen. No adenopathy is seen. The abdominal aorta is normal in caliber. There is a right common iliac stent. No abdominal aortic aneurysm is seen. There are degenerative changes of the spine. No fracture or bone lesion is seen. IMPRESSION: Chest: No evidence of pulmonary embolism. Multiple saccular aneurysms of the descending thoracic aorta. Smaller saccular medial aneurysm of the distal aortic arch or proximal descending thoracic aorta appears slightly increased. Other small saccular aneurysms do not appear appreciably changed. There is decreased enhancement of the left subclavian artery questionable for stenosis or occlusion. The largest saccular aneurysm of the proximal descending thoracic aorta appears increased in size now measuring 5.9 x 8.2 cm. There is also an area of increased enhancement in or adjacent to the periphery/wall of the aneurysm just posterior to the right mainstem bronchus of uncertain etiology. Intraluminal hemorrhage or dissection cannot be excluded. Follow-up dedicated CTA of the chest to better evaluate the thoracic aortic aneurysms should be considered if clinically indicated. Abdomen and pelvis: Liver cyst. 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 There is abnormal soft tissue in the base of the bladder, presumably related to the prostate gland. This is not appear appreciably changed from previous exams. This could be better evaluated with gallbladder ultrasound if clinically indicated. DICTATED BY: Riley ARECHIGA,Juju Jaramillo DATE/TIME DICTATED:09/23/171100 ZONING ASSISTANT:OUMAR DATE/TIME TRANSCRIBED:09/23/171100 SERVICE DATE: 09/24/17- EXAM TYPE: US - US-BILAT LOW EXTR ARTERIAL DOP EXAMINATION: US LOWER EXTREMITY ARTERIAL DOPPLER, bilateral lower extremities CLINICAL INFORMATION: Pain. History of vasculopathy. COMPARISON: None TECHNIQUE: Grayscale, color and spectral Doppler imaging was obtained of the deep arteries of the bilateral lower extremities. To portable nature of today's study mildly limits evaluation. FINDINGS: Scattered atherosclerotic disease throughout the deep arteries of the bilateral lower extremities. The right common femoral artery is patent, however, no flow is appreciated within the proximal or midportion of the right femoral artery suggesting occlusion. There is reconstitution of a stenotic distal right femoral artery. The right popliteal artery, anterior and posterior tibial arteries and dorsal pedis artery are patent but demonstrate decreased velocities and monophasic waveforms. The right profundus femoris artery demonstrates severe stenosis. The left common femoral artery is patent and demonstrates normal triphasic waveforms. The left femoral artery is patent without focal hemodynamically significant stenosis. The left popliteal artery, anterior and posterior tibial arteries and dorsal pedis artery are patent but demonstrate dampened waveforms and decreased velocities. IMPRESSION: 1. 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 Three-vessel runoff of the right calf is present but diminutive. 2. No hemodynamically significant stenosis appreciated within the deep arterial system of the left lower extremity. Three-vessel runoff of the left calf is present but diminutive. DICTATED BY: Alan Reddy MD DATE/TIME DICTATED:09/24/171443 ZONING ASSISTANT:OUMAR DATE/TIME TRANSCRIBED:09/24/171443 Assessment/Plan Assessment/Plan This is a 77 year-old male with PAD and a known descending thoracic aortic aneurysm, now 5.9 x 8.2 cm who presented to the hospital with COPD exacerbation. Additional imaging revealed evidence of SFA and tibial disease on ultrasound. Patient is asymptomatic with audible pedal signals and no evidence of ulcers on examination. He is a high risk for surgery and/or endovascular intervention and is not intrested in treating his thoracic aortic aneurysm. Recommend conservative management and follow up as an outpatient with Dr. Heard. Consult Acknowledgment - Thank you for your consult request.
[2017-09-27 16:00] VITALS: BP 94/68
--- NOTE | 2017-09-27 20:16 | PN- Cardiology ---
Subjective Subjective: * Patient continues to have some shortness of breath, congestion and orthopnea. Objective Vital Signs and I&Os Vital Signs Date Time Temp Pulse Resp B/P B/P Pulse O2 O2 Flow FiO2 Mean Ox Delivery Rate 09/27 1854 97 Nasal 3.0L Cannula 09/27 1600 95 Nasal 3.0L Cannula 09/27 1600 97.9 99 22 94/68 95 Nasal 3.0L Cannula 09/27 1400 95 09/27 1323 95 09/27 1147 94 09/27 1005 91 94 09/27 0838 96 Nasal 3.0L Cannula 09/27 0837 87 95 09/27 0800 98 Nasal 35% Cannula 09/27 08 98.0 80 20 100/70 100 Nasal 35% Cannula 09/27 0558 44 98 09/27 0342 86 98 09/27 0046 61 99 09/27 0023 97.9 90 18 118/56 96 09/26 2312 96 BIPAP 35% 09/26 2210 89 94 Intake & Output 09/27 1600 09/27 0800 09/27 0000 09/26 1600 09/26 0800 09/26 0000 Intake Total 960 240 540 730 150 500 Output Total 477 404 8222 1950 700 500 Balance 460 -610 -535 -1220 -550 0 Intake, IV 10 Intake, Oral 960 240 540 720 150 500 Number 0 Bowel Movements Output, Urine 422 684 1575 1950 700 500 Physical Exam: General: WD/ WN male in NAD; alert and oriented x 3 HEENT: NC/ AT, PERRL, EOMI, clear oropharynx Neck: mildly +ve JVD, no carotid bruit Heart: RRR w/o murmur Lungs: decreased air movement bilaterally with wheezing Extremities: no edema Assessment/Plan Assessment/Plan * This patient has shortness of breath that is primarily due to his emphysematous COPD. I do believe he has increased RV pressures related to lung disease which manifests as JVD. This patient has a borderline blood pressure that is in the 80-90 systolic range. I do not think he will tolerate a beta bautista with alpha blocking effect such as Coreg due to its powerful antihypertensive effects. He is currently on a very small dose of Coreg which is not controlling his heart rate. I think we can get more negative chronotropic affect from Metoprolol which does not have alpha blocking effects. At this point I do not think he will tolerate diuretics including Lasix or aldactone although these are certainly medications that have been showed to be beneficial in the setting of a low EF. We will see how he does and if he can tolerate additional medication then we will add back a small dose of diuretic. Beginning Entresto is also reasonable but, this drug has Valartan in it so we will also need to wait for his BP to improve. * Due to the patient's severely decreased EF we did have Dr. Hinkle assess this patient for a possible AICD. Due to comorbidities he was not thought to be an ideal candidate for this device. Continue telemetry? Yes
[2017-09-28] VITALS: BP 96/50
[2017-09-28 05:09] LABS: ABSOLUTE BASOPHIL COUNT 0 /CUMM (0.0-0.2); ABSOLUTE EOSINOPHIL COUNT 0.1 /CUMM (0.0-0.7); ABSOLUTE GRANULOCYTE CT 6.7 /CUMM (1.4-6.5); ABSOLUTE LYMPH COUNT 1.3 /CUMM (1.2-3.4); ABSOLUTE MONOCYTE COUNT 0.9 /CUMM (0.10-0.60); BASOPHIL % 0 % (0.0-2.0); EOSINOPHIL % 0.7 % (0-5); GRANULOCYTE % 75.1 % (42.2-75.2); HEMATOCRIT 38.8 % (42-52); MEAN CORPUSCULAR HGB 29.2 PG (27.0-31.0); MEAN CORPUSCULAR HGB CONC 32.2 G/DL (33.0-37.0); MEAN CORPUSCULAR VOLUME 90.5 FL (80.0-94.0); MEAN PLATELET VOLUME 8.6 FL (7.4-10.4); PLATELET COUNT 196 /CUMM (130-400); RBC DISTRIBUTION WIDTH 13.7 % (11.5-14.5); RED BLOOD CELL CT 4.29 /CUMM (4.70-6.10); WHITE BLOOD CELL COUNT 8.9 /CUMM (4.8-10.8)
[2017-09-28 05:24] LABS: PT 21.1 SEC (9.4-12.5)
--- NOTE | 2017-09-28 07:47 | PN- Resident CRCU ---
Ben Holt 09/28/17 0738: Subjective HPI/CRCU Issues: He is comfortable. No new complaints. No CP, dyspnea. 24 Hour Events: MAXIMUM TEMPERATURE 97.8, heart rate 90-103, normal sinus rhythm, respiration 24 -28, blood pressure systolic 84-105, diastolic 55-82. On high flow nasal cannula overnight, 40% FiO2 with oxygen saturation in between 95-97%. He was on BiPAP in between 9 AM to 10 AM, and around midnight. Currently [facility] floor. Input 730 ml, output 1300 ml. Negative fluid balance. Received one dose of by mouth furosemide 40 mg yesterday. Objective Vital Signs & I&O Last 8 Hrs of Vitals and I&O: Intake & Output 09/28 0800 Intake Total 100 Output Total 500 Balance -400 Intake, Oral 100 Output, Urine 500 Exam General Appearance: alert Other Physical Findings: General Exam: AAOx3, No acute distress, Skin: No rashes, no breakdown;HEENT: PERRLA, EOMI;Neck: Supple, No JVD; No cervical lymphadenopathy;CVS: Reg Rate, Normal S1,S2, No MGR;Resp: Normal air entry, no ronchi/rales;Abdomen: Soft, No tenderness, Normal Bowel Sounds;Neuro: Normal Speech, Strength 5/5 b/l x 4 extremities, Sensation intact, CN III-XII NL, Reflexes 2+;Extremities: No cyanosis, no pedal edema. Current Medications: Current Medications Sig/Nelly Start time Last Medication Dose Route Stop Time Status Admin Acetaminophen 1,000 MG Q6P PRN 09/26 1615 AC N/A 1 UNIT IV Acetaminophen/ 1 TAB Q6 PRN 09/26 1615 AC 09/27 Codeine Phosphate PO 2110 Albuterol Sulfate 3 ML Q4 09/27 1800 AC 09/28 INH 1715 Carvedilol 6.25 MG BID 09/27 2200 AC 09/28 PO 1131 Cefuroxime Sodium 250 MG Q12 09/26 2200 AC 09/28 PO 10/01 0000 1131 Furosemide 40 MG ONE ONE 09/28 1500 CAN PO 09/28 1501 Insulin Aspart 0 TIDAC 09/23 1700 AC 09/28 SC 1803 Ipratropium [place] 2.5 ML Q4 09/27 1800 AC 09/28 INH 1715 Melatonin 5 MG AT BEDTIME 09/23 2200 AC 09/27 PO 2109 Omeprazole 40 MG DAILY AC 09/24 0700 AC 09/28 PO 0754 Prednisone 30 MG DAILY 09/29 0900 AC PO Prednisone 40 MG DAILY 09/28 1000 DC 09/28 PO 1133 Warfarin Sodium 4 MG COUMADIN 1700 ONE 09/28 1700 DC 09/28 PO 09/28 1701 1803 Impression/Plan Impression/Problem List Impression: Mr Cordero is a 77-year-old gentleman who is an active smoker, with PMHx of HFrEF (Echo EF 25% with stage III diastolic dysfunction), PVD, COPD not on home oxygen , CAD status post stenting, descending thoracic aortic aneurysm, pulmonary embolism which failed treatment with Xarelto and currently on warfarin was brought in with a chief concern of an acute onset of dyspnea, cough and wheezing. Pertinent lab findings- WBC 11.7(09/23)-->11.3-->13.6-->11.4-->9.9(09/27)--> 8.9(09/28) Hemoglobin 13.8(09/23)-->11.7-->11.3-->12.2(09/27)--> 12.5(09/28) Sodium 136-->136--> 137(09/28) Potassium 4.4(09/23)-->5.3-->5.1(09/27)--> 4.9(09/28) HCO3 24(09/23)-->28-->32(09/27)--> 37(09/28) AST 28-->29--> 60-->56--> 53(09/28) INR 1.36(09/23)-->1.26-->3.01-->4.92-->3.17(09/27)--> 1.92(09/28) Problem list: #1 acute hypoxic hypercarbic respiratory failure. #2 acute exacerbation of COPD #3 heart failure with reduced ejection fraction #4 large thoracic aneurysm #5 peripheral arterial disease #6 Ischemic heart disease #7 history of pulmonary embolism #8 multiple lung nodules #9 prostate hypertrophy #Acute hypoxic hypercarbic respiratory failure, 2/2 COPD exacerbation He was initially started on ceftriaxone and azithromycin, and currently on Ceftin to complete a course of 7-10 days. Etiology could likely be due to exacerbation of COPD and there could be a competent of decompensation of his CHF. By mouth prednisone 40 mg daily, with a long taper. BiPAP as needed. #Diabetes mellitus Will continue diabetic diet, insulin on a sliding scale, regular accuchecks #Supratherapeutic INR He was initially treated with Coumadin, which is currently held. INR 1.92. Dose coumadin today. #Peripheral vascular disease Patient has faint pulse with chronic right femoral artery blockages with collaterals, no significant ischemia. Patient not interested in treatment. As per the vascular surgery, he is thought to be high risk for surgery and/or endovascular intervention #Large saccular aneurysm of his thoracic aorta pressing on his esophagus and his left mainstem bronchus, growing in size gradually. Patient and vascular surgeon aware, consulted vasc surgery for PVD, but might as well get opinion on the aneurysm. Needs close follow up on out pt basis. #H/o HTN Start the patient on carvedilol 6.25 mg by mouth twice a day, with holding parameters. As per Dr. Cobb, he should be started on metoprolol instead. Would discuss with the attending physician. Not a candidate for Valsaratn/ Saccubetril given h/o of low BP. #Will continue his home meds otherwise. #Patient is allergic (anaphylaxis) to ASA, thus will not prescribe that. Housekeeping: #Diet: Diabetic diet #DVT ppx: ALPS/ Warfarin. #Code status: DNR/DNI #1 Central line-none #2 Arterial line-none #3 Bryant catheter-none #4 Rectal tube-none #5 NG tube-none #6 IV/peripheral line- present #7 IV drips--none #8 Vent settings- On BiPAP #9 pressors none. Problem List: 1. Peripheral vascular disease 2. Supratherapeutic INR 3. Diabetes mellitus 4. Acute respiratory failure with hypoxia and hypercarbia 5. COPD exacerbation Pain Ratin Tomorrow's Labs & Rationales: cbc icu bundle inr. Plan DVT/Prophylaxis: supratherapeutic INR Didier ARECHIGA,[facility] 09/28/17 1342: Attending MD Review Statement Attending Sign Off Attending Cosign Statement: I have: examined this patient, reviewed avalbl EMR data, personally reviewd images, discussd w/resident/PA/SOFT WORK WRAPPER LAYER AND EXAMINER, discussed mgmt plan w/merced, discussed mgmt plan w/CM, discussed mgmt plan w/pt, agreed w/resident/PA/SOFT WORK WRAPPER LAYER AND EXAMINER, amended to note. Other Findings: General Appearance Alert, Oriented X3, Cooperative, significantly short of breath, wheezing, rhonchi, was on BiPAP initially when BiPAP was removed he was in obvious respiratory distress Skin No Rashes, No Breakdown, No Significant Lesion HEENT Atraumatic, PERRLA, EOMI, Mucous Membr. moist/pink Neck Supple, No JVD, No thryomegaly, +2 Carotid Pulse wo Bruit, No LAD Lymphatic Axillary nl, Cervical nl Cardiovascular Regular Rate, Normal S1, Normal S2, No Murmurs Lungs expiratory wheezes, crackles Abdomen Normal Bowel Sounds, Soft, No Tenderness, No Hepatospenomegaly, No Masses Neurological Normal Speech, Strength at 5/5 X4 Ext, Normal Tone, Sensation Intact, Cranial Nerves 3-12 NL, Reflexes 2+ Extremities No Clubbing, No Cyanosis, bilateral lower extremity +1 edema Vascular Pulses Symmetrical This is a 76-year-old gentleman with severe COPD, ongoing smoking, systolic heart dysfunction with ejection fraction of 25% with previous PCI and [place] in the past, very severe peripheral vascular disease with significant thoracic aneurysm with a large saccular component which has been present for more than few years, medical noncompliance, extremely large prostate, recurrent UTI, recurrent COPD exacerbation, previous history of kidney stone with * Resolving Acute hypoxemic and hypercarbic respiratory failure related to severe COPD exacerbation and mild systolic chf. Patient is medically noncompliant due to financial issues and has been using his inhaler sparingly * Previous congestive heart failure with an ejection fraction of 25% with no pulm edema, patient does have Chronic systolic heart failure and some of his dyspnea is related to fluid overload aswell, recent echo shows worsening ef * Very large thoracic aneurysm at the saccular component pressing on his esophagus in his left mainstem bronchus which has been stable since early 2013, not a surgical candidate as the prosthesis for his aneurysm repair could not be passed due to severe peripheral vascular disease and his lower extremity, not a candidate for open surgery. Now his aneurysm seems to have increased in size. Pt does have pain in his limbs both sides. 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 vascular note reviewed * Ischemic heart disease, low ejection fraction / not a candidate for AICD/see EP note * Previous pulmonary embolism which was radiologically much better, patient is on warfarin but is noncompliant with his medications. Patient may have hidden malignancy as he has had enlarged prostate, hematuria etc. per his wishes has not had any significant workup. * Small lung nodules * Enlarged prostate now with sig pvr urology is following and has high wbc and prob uti RECOMMENDATION Noninvasive ventilation at hs and nasal cannula during the day PO prednisone 30 mg daily and wean in 6 days Po ceftin for 3 more days Start low dose coreg 6.25 bid if bp permits PO lasix 40 mg po one dose again Needs atc nebs Due to sig low BP not yet a candidate for Entresto/or aldactone for now Keep sat at 90 percent Prn low dose morphine for dyspnea PO ppi Melatonin at hs if needed DNR and DNI (discussed with the patient and consistant with his prior wishes), if worse he wishes to not go through any life support except bipap, wishes not surg, dialysis or vasopressors or invasive cardiac monitoring WIshes his son to be involved in the future (not his who he does not live with) Ok to tele
[2017-09-28 08:00] VITALS: BP 100/70
[2017-09-28 16:00] VITALS: BP 86/70
--- NOTE | 2017-09-28 20:19 | Transfer of Care Summary ---
Hospital Course Course Hospital Course: Mr Cordero is a 77-year-old active smoker gentleman with past medical history significant for HFrEF (Echo EF 25% with stage III diastolic dysfunction), PVD, COPD not on home oxygen, CAD status post stenting, descending thoracic aortic aneurysm-stable, pulmonary embolism which failed treatment with Xarelto and currently on warfarin later was brought in with a chief concern of dyspnea, cough and wheezing that started in the am of presentation likely secondary to acute exacerbation of COPD. At the time of presentation-vitals temperature 96.2, pulse rate 134, respiration 30, blood pressure 106/76, pulse ox 96% on 10 L. He had placed on BiPAP, for increased work of breathing. Pertinent lab findings -WBC 11.7, hemoglobin 13.8, platelets 211. Sodium 139, potassium 4.4, BUN 21, creatinine 0.9, glucose 233, liver chemistries AST 28, ALT 20, alkaline phosphatase 94. Troponin I he-0.03, proBNP 7240, INR 1.38 (subtherapeutic), d- dimer high at 1730 (likely from Coumadin use) blood gas analysis revealed pH 7.28, PCO2 51, PO2 146 which improved to pH 7.38, PCO2 38, PO2 132, bicarbonate 42, after the use of BiPAP at 40% oxygen, respiratory rate is 24, IPAP of 20, EPAP 0.6. Chest x-ray did not reveal any evidence of consolidation. --------- Problem list: #1 acute hypercarbic hypoxic respiratory failure #2 subtherapeutic INR/supratherapeutic INR #3 diabetes #4 history of lung nodules #5 acute exacerbation of COPD #6 heart failure with reduced ejection fraction #7 rule out ACS #8 h/o AAA Acute hypoxic, hypercarbic respiratory failure secondary to severe COPD exacerbation Patient has history of severe COPD, not on home oxygen, ongoing smoking. Patient presented with worsening shortness of breath. He has multiple admissions in the past for COPD exacerbations. He was admitted to ICU for acute hypoxic and hypercarbic respiratory failure requiring BiPAP. He was initially on IV antibiotics ceftriaxone and azithromycin, later IV antibiotics were discontinued, started on oral cefITIN , day 5 of 7 on oral Ceftin. He was started on IV methylprednisolone, later switched to oral prednisone, on slow taper. * Please complete antibiotic course till 10/03 * Please taper prednisone- 20 mg now - wean slowly * Needs BiPAP at nighttime if needed * Continue oxygen supplementation through nasal cannula based on oxygen saturations * May require home oxygen at the time of discharge History of chronic systolic heart failure with ejection fraction 25% He has history of chronic systolic heart failure with ejection fraction 25%, within no pulmonary edema at the time of admission. Patient presented with shortness of breath, acute hypoxia and hypercapnia most possibly from severe COPD exacerbation. Some of his dyspnea is related to fluid overload. Also recent echocardiogram shows worsening ejection fraction 20%. He has history of previous PCI and [place] in the past with a severe peripheral vascular disease. He was given as needed IV Lasix based on his symptoms in the ICU. Continue IV Lasix 40 mg every other day as needed for shortness of breath. He is not a candidate for AICD based on luncheonette operator evaluation. Started on metoprolol 12.5 po twice a day, with holding parameters. Not a candidate for Valsaratn/Saccubetril given h/o of low BP. as per luncheonette operator ,proceeding with an invasive procedure only has 1 in 10 chance of saving his life from a malignant ventricular arrhythmia is not worth pursuing at this time. The risk of defibrillator implantation would be real given his other comorbidities. Large thoracic aneurysm Very large thoracic aneurysm at the saccular component pressing on his esophagus in his left mainstem bronchus which has been stable since early 2013, not a surgical candidate as the prosthesis for his aneurysm repair could not be passed due to severe peripheral vascular disease and his lower extremity, not a candidate for open surgery. Now his aneurysm seems to have increased in size. Pt does have pain in his limbs both sides. Not a surg candidate and pt wishes no surgery. Peripheral vascular disease Patient has faint pulse with chronic right femoral artery blockages with collaterals, no significant ischemia. Patient not interested in treatment. As per the vascular surgery, he is thought to be high risk for surgery and/or endovascular intervention History of pulmonary embolism supratherapeutic INR-resolved Previous pulmonary embolism which was radiologically much better, patient is on warfarin but is noncompliant with his medications. Patient may have hidden malignancy as he has had enlarged prostate, hematuria etc. per his wishes has not had any significant workup. Pt has completed rx and wishes to stop warfarin. * Warfarin was stopped based on patient wishes * Allergic to aspirin * Plavix 75 mg oral daily started in the hosp * Continue Plavix * INR 1.92 from 4.9. Diabetes mellitus continue diabetic diet insulin on a sliding scale regular accuchecks GERD continue omeprazole Lung nodules Needs outpatient follow up Housekeeping: #1 DVT prophylaxis- jayson godwin # code status -DNR and DNI (discussed with the patient and consistant with his prior wishes), if worse he wishes to not go through any life support except bipap, wishes not surg, dialysis or vasopressors or invasive cardiac monitoring WIshes his son to be involved in the future (not his who he does not live with) Follow-up pulmonology and cardiology recommendations Assessment/Plan: .
--- NOTE | 2017-09-28 22:09 | PN- Cardiology ---
Subjective Subjective: * Patient is resting comfortably lying supine. No shortness of breath. * blood pressure dropping into the mid 80's Objective Vital Signs and I&Os Vital Signs Date Time Temp Pulse Resp B/P B/P Pulse O2 O2 Flow FiO2 Mean Ox Delivery Rate 09/28 2159 95 Nasal 3.0L Cannula 09/28 2146 82 39 84/40 09/28 1715 96 Nasal 3.0L Cannula 09/28 1600 96 Nasal 3.0L Cannula 09/28 1600 98.5 78 20 86/70 96 Nasal 3.0L Cannula 09/28 1131 92 102/50 09/28 1018 96 Nasal 3.0L Cannula 09/28 0800 96 Nasal 3.0L Cannula 09/28 0800 98.0 86 24 100/70 98 Nasal 3.0L Cannula 09/28 0645 96 Nasal 3.0L Cannula 09/28 0555 87 99 09/28 0026 87 98 09/28 0000 97 BIPAP 09/28 0000 96.6 80 20 96/50 97 BIPAP 35% Intake & Output 09/28 1600 09/28 0800 09/28 0000 09/27 1600 09/27 0800 09/27 0000 Intake Total 400 100 600 960 240 540 Output Total 218 122 8483 422 723 0790 Balance -200 -400 -975 460 -610 -535 Intake, Oral 400 100 600 960 240 540 Number 2 Bowel Movements Output, Urine 573 531 4834 492 222 1600 Physical Exam: General: WD/ WN male in NAD; alert and oriented x 3 HEENT: NC/ AT, PERRL, EOMI, clear oropharynx Neck: mildly +ve JVD, no carotid bruit Heart: RRR w/o murmur Lungs: decreased air movement bilaterally with wheezing Extremities: no edema Assessment/Plan Assessment/Plan * This patient has shortness of breath that is primarily due to his emphysematous COPD. I do believe he has increased RV pressures related to lung disease which manifests as JVD. This patient has a borderline blood pressure that is in the 80-90 systolic range. He is not tolerating Coreg which is a beta bautista with alpha blocking effect. An effective dose and one that will control his heart rate cannot be achieved with this drug. Change to Metoprolol 25mg BID. At this point I do not think he will tolerate diuretics including Lasix or aldactone although these are certainly medications that have been showed to be beneficial in the setting of a low EF. We will see how he does and if he can tolerate additional medication then we will add back a small dose of diuretic. Beginning Entresto is also reasonable but, this drug has Valartan in it so we will also need to wait for his BP to improve. * Due to the patient's severely decreased EF we did have Dr. Hinkle assess this patient for a possible AICD. Due to comorbidities he was not thought to be an ideal candidate for this device. Continue telemetry? Yes
[2017-09-29] VITALS: BP 84/40
[2017-09-29 05:54] LABS: ABSOLUTE BASOPHIL COUNT 0 /CUMM (0.0-0.2); ABSOLUTE EOSINOPHIL COUNT 0 /CUMM (0.0-0.7); ABSOLUTE GRANULOCYTE CT 7.2 /CUMM (1.4-6.5); ABSOLUTE LYMPH COUNT 1.8 /CUMM (1.2-3.4); ABSOLUTE MONOCYTE COUNT 0.4 /CUMM (0.10-0.60); BASOPHIL % 0 % (0.0-2.0); EOSINOPHIL % 0.1 % (0-5); HEMATOCRIT 41.4 % (42-52); MEAN CORPUSCULAR HGB 29.5 PG (27.0-31.0); MEAN CORPUSCULAR HGB CONC 32.5 G/DL (33.0-37.0); MEAN CORPUSCULAR VOLUME 90.9 FL (80.0-94.0); MEAN PLATELET VOLUME 8.9 FL (7.4-10.4); PLATELET COUNT 196 /CUMM (130-400); RBC DISTRIBUTION WIDTH 13.6 % (11.5-14.5); RED BLOOD CELL CT 4.55 /CUMM (4.70-6.10); WHITE BLOOD CELL COUNT 9.5 /CUMM (4.8-10.8)
[2017-09-29 05:57] LABS: PT 15.1 SEC (9.4-12.5)
--- NOTE | 2017-09-29 07:54 | PN- Resident CRCU ---
Subjective HPI/CRCU Issues: He was comfortable this morning. Blood pressure stable, no chest pain, shortness of breath. 24 Hour Events: T-max 98.3, respiratory rate 39, pulse rate 82, blood pressure 84/50, 95% on 3 L. Occasionally on BiPAP. Objective Vital Signs & I&O Last 8 Hrs of Vitals and I&O: Intake & Output 09/29 0800 Intake Total 240 Output Total 0 Balance 240 Intake, Oral 240 Number 0 Bowel Movements Output, Urine 0 Exam General Appearance: no apparent distress Other Physical Findings: General Exam: AAOx3, No acute distress, Skin: No rashes, no breakdown;HEENT: PERRLA, EOMI;Neck: Supple, No JVD; No cervical lymphadenopathy;CVS: Reg Rate, Normal S1,S2, No MGR;Resp: Normal air entry, no ronchi/rales;Abdomen: Soft, No tenderness, Normal Bowel Sounds;Neuro: Normal Speech, Strength 5/5 b/l x 4 extremities, Sensation intact, CN III-XII NL, Reflexes 2+;Extremities: No cyanosis, no pedal edema. Current Medications: Current Medications Sig/Nelly Start time Last Medication Dose Route Stop Time Status Admin Acetaminophen 1,000 MG Q6P PRN 09/26 161 AC N/A 1 UNIT IV Acetaminophen/ 1 TAB Q6 PRN 09/26 1615 DC 09/29 Codeine Phosphate PO 2110 Albuterol Sulfate 3 ML EVERY 4 HRS/AWAKE 10/03 08 AC 10/04 INH 0811 Clopidogrel Bisulfate 75 MG DAILY 09/29 1115 AC 10/03 PO 0848 Docusate Sodium 100 MG DAILY NEEDED PRN 10/02 1715 AC 10/02 PO 1730 Enoxaparin Sodium 40 MG DAILY 10/01 09 AC 10/03 SC 0847 Guaifenesin/ 10 ML Q6P PRN 10/01 0830 AC 10/02 Dextromethorphan PO 2045 Insulin Aspart 0 TIDAC 09/23 1700 AC 10/03 SC 1649 Ipratropium [place] 2.5 ML EVERY 4 HRS/AWAKE 10/03 08 AC 10/04 INH 0811 Melatonin 5 MG AT BEDTIME 09/23 2200 AC 10/03 PO 204 Metoprolol Tartrate 12.5 MG BID 09/30 0900 AC 10/01 PO 2121 Morphine Sulfate 1 MG Q4P PRN 09/30 1745 AC IV Omeprazole 40 MG DAILY AC 09/24 0700 AC 10/04 PO 0512 Polyethylene Glycol 17 GM DAILY NEEDED PRN 10/02 1715 AC PO Prednisone 5 MG DAILY 10/06 0900 AC PO 10/08 0901 Prednisone 10 MG DAILY 10/03 0900 AC 10/03 PO 10/05 0901 0847 Ramelteon 8 MG .STK-MED ONE 10/04 0004 DC PO 10/04 0005 Ramelteon 8 MG ONCE ONE 10/03 2345 DC 10/04 PO 10/03 2346 0036 Senna 187 MG AT BEDTIME NEED.. 10/02 1715 AC PO Impression/Plan Impression/Problem List Impression: Mr Cordero is a 77-year-old gentleman who is an active smoker, with PMHx of HFrEF (Echo EF 25% with stage III diastolic dysfunction), PVD, COPD not on home oxygen , CAD status post stenting, descending thoracic aortic aneurysm, pulmonary embolism which failed treatment with Xarelto and currently on warfarin was brought in with a chief concern of an acute onset of dyspnea, cough and wheezing. Pertinent lab findings- WBC 11.7(09/23)-->11.3-->13.6-->11.4-->9.9(09/27)--> 8.9(09/28)--> 9.5(09/29) Hemoglobin 13.8(09/23)-->11.7-->11.3-->12.2(09/27)--> 12.5(09/28)--> 13.4(09/29) Sodium 136-->136--> 137(09/28)--> 137(09/29) Potassium 4.4(09/23)-->5.3-->5.1(09/27)--> 4.9(09/28)--> 4.6(09/29) HCO3 24(09/23)-->28-->32(09/27)--> 37(09/28)--> 35(09/29) AST 28-->29--> 60-->56--> 53(09/28)--> 39(09/29) INR 1.36(09/23)-->1.26-->3.01-->4.92-->3.17(09/27)--> 1.92(09/28)--> 1.38(09/29) Problem list: #1 acute hypoxic hypercarbic respiratory failure. #2 acute exacerbation of COPD #3 heart failure with reduced ejection fraction #4 large thoracic aneurysm #5 peripheral arterial disease #6 Ischemic heart disease #7 history of pulmonary embolism #8 multiple lung nodules #9 prostate hypertrophy #Acute hypoxic hypercarbic respiratory failure, 2/2 COPD exacerbation He was initially started on ceftriaxone and azithromycin, and currently on Ceftin to complete a course of 7-10 days. Etiology could likely be due to exacerbation of COPD and there could be a competent of decompensation of his CHF. By mouth prednisone 30 mg daily, with a long taper. BiPAP as needed. #Diabetes mellitus Will continue diabetic diet, insulin on a sliding scale, regular accuchecks #Supratherapeutic INR He was initially treated with Coumadin, which is currently held. INR 1.92. No more coumadin as per the pt, and Dr. Velásquez. Plavix dailyl. #Peripheral vascular disease Patient has faint pulse with chronic right femoral artery blockages with collaterals, no significant ischemia. Patient not interested in treatment. As per the vascular surgery, he is thought to be high risk for surgery and/or endovascular intervention #Large saccular aneurysm of his thoracic aorta pressing on his esophagus and his left mainstem bronchus, growing in size gradually. Patient and vascular surgeon aware, consulted vasc surgery for PVD, but might as well get opinion on the aneurysm. Needs close follow up on out pt basis. #H/o HTN Start the patient on carvedilol 6.25 mg by mouth twice a day, with holding parameters. Furosemide w/ holding parameters. Not a candidate for Valsaratn/ Saccubetril given h/o of low BP. #Will continue his home meds otherwise. #Patient is allergic (anaphylaxis) to ASA, thus will not prescribe that. Housekeeping: #Diet: Diabetic diet #DVT ppx: ALPS #Code status: DNR/DNI #1 Central line-none #2 Arterial line-none #3 Bryant catheter-none #4 Rectal tube-none #5 NG tube-none #6 IV/peripheral line- present #7 IV drips--none #8 Vent settings- On BiPAP prn #9 pressors none. Problem List: 1. Peripheral vascular disease 2. Supratherapeutic INR Pain Ratin Tomorrow's Labs & Rationales: cbc icu bundle Plan DVT/Prophylaxis: supratherapeutic INR
[2017-09-29 08:00] VITALS: BP 92/72
--- NOTE | 2017-09-29 09:37 | PN- Pulmonary ---
See Addendum Subjective HPI/Critical Care Issues: Sleeping Still mildly hypotensive Objective Current Medications: Current Medications Sig/Nelly Start time Last Medication Dose Route Stop Time Status Admin Acetaminophen 1,000 MG Q6P PRN 09/26 1615 AC N/A 1 UNIT IV Acetaminophen/ 1 TAB Q6 PRN 09/26 1615 AC 09/27 Codeine Phosphate PO 2110 Albuterol Sulfate 3 ML Q4 09/27 1800 AC 09/29 INH 0851 Carvedilol 6.25 MG BID 09/27 2200 DC 09/28 PO 1131 Cefuroxime Sodium 250 MG Q12 09/26 2200 AC 09/29 PO 10/01 0000 0843 Diphenhydramine HCl 25 MG ONCE ONE 09/29 0045 DC 09/29 PO 09/29 0046 0042 Furosemide 40 MG ONE ONE 09/28 1500 CAN PO 09/28 1501 Insulin Aspart 0 TIDAC 09/23 1700 AC 09/28 SC 1803 Ipratropium [place] 2.5 ML Q4 09/27 1800 AC 09/29 INH 0851 Melatonin 5 MG AT BEDTIME 09/23 2200 AC 09/28 PO 2145 Omeprazole 40 MG DAILY AC 09/24 0700 AC 09/29 PO 0843 Prednisone 30 MG DAILY 09/29 0900 DC PO Prednisone 30 MG DAILY 09/29 0900 AC 09/29 PO 10/05 0859 0843 Prednisone 40 MG DAILY 09/28 1000 DC 09/28 PO 1133 Warfarin Sodium 4 MG COUMADIN 1700 ONE 09/28 1700 DC 09/28 PO 09/28 1701 1803 Vital Signs & I&O Last 24 Hrs of Vitals and I&O: Vital Signs Date Time Temp Pulse Resp B/P B/P Pulse O2 O2 Flow FiO2 Mean Ox Delivery Rate 09/29 0100 94 Nasal 3.0L Cannula 09/29 0018 85 97 09/29 0000 95 Nasal 3.0L Cannula 09/29 0000 98.3 82 39 84/40 95 Nasal 3.0L Cannula 09/28 2159 95 Nasal 3.0L Cannula 09/28 2146 82 39 84/40 09/28 1715 96 Nasal 3.0L Cannula 09/28 1600 96 Nasal 3.0L Cannula 09/28 1600 98.5 78 20 86/70 96 Nasal 3.0L Cannula 09/28 1131 92 102/50 09/28 1018 96 Nasal 3.0L Cannula Intake & Output 09/29 1600 09/29 0800 09/29 0000 Intake Total 240 240 Output Total 0 Balance 240 240 Intake, Oral 240 240 Number 0 Bowel Movements Output, Urine 0 Laboratory Tests 09/29 09/28 0457 0430 Chemistry Sodium (137 - 145 mmol/L) 137 137 Potassium (3.5 - 5.1 mmol/L) 4.6 4.9 Chloride (98 - 107 mmol/L) 93 L 91 L Carbon Dioxide (22 - 30 mmol/L) 35 H 37 H Anion Gap (5 - 16) 9 9 BUN (9 - 20 mg/dL) 34 H 37 H Creatinine (0.7 - 1.2 mg/dL) 0.9 1.1 Estimated GFR (>60 ml/min) > 60 > 60 Glucose (65 - 99 mg/dL) 105 H 90 Calcium (8.4 - 10.2 mg/dL) 8.9 9.1 Phosphorus (2.5 - 4.5 mg/dL) 3.3 3.4 Magnesium (1.6 - 2.3 mg/dL) 1.7 1.8 Total Bilirubin (0.2 - 1.3 mg/dL) 0.6 0.7 AST (17 - 59 U/L) 39 53 ALT (21 - 72 U/L) 59 65 Albumin (3.5 - 5.0 g/dL) 3.5 3.7 Coagulation PT (9.4 - 12.5 SEC) 15.1 H 21.1 H INR (0.90 - 1.17) 1.38 H 1.92 H Hematology CBC w Diff MAN DIFF ORDERED MAN DIFF ORDERED WBC (4.8 - 10.8 /CUMM) 9.5 8.9 RBC (4.70 - 6.10 /CUMM) 4.55 L 4.29 L Hgb (14.0 - 18.0 G/DL) 13.4 L 12.5 L Hct (42 - 52 %) 41.4 L 38.8 L MCV (80.0 - 94.0 FL) 90.9 90.5 MCH (27.0 - 31.0 PG) 29.5 29.2 MCHC (33.0 - 37.0 G/DL) 32.5 L 32.2 L RDW (11.5 - 14.5 %) 13.6 13.7 Plt Count (130 - 400 /CUMM) 196 196 MPV (7.4 - 10.4 FL) 8.9 8.6 Gran % (42.2 - 75.2 %) 76.0 H 75.1 Lymphocytes % (20.5 - 51.1 %) 19.4 L 14.5 L Monocytes % (1.7 - 9.3 %) 4.5 9.7 H Eosinophils % (0 - 5 %) 0.1 0.7 Basophils % (0.0 - 2.0 %) 0 0 Absolute Granulocytes (1.4 - 6.5 /CUMM) 7.2 H 6.7 H Segmented Neutrophils (42.2 - 75.2 %) 61 68 Band Neutrophils (0.0 - 5.0 %) 1 Absolute Lymphocytes (1.2 - 3.4 /CUMM) 1.8 1.3 Lymphocytes (20.5 - 51.1 %) 26 25 Monocytes (1.7 - 9.3 %) 12 H 6 Absolute Monocytes (0.10 - 0.60 /CUMM) 0.4 0.9 H Eosinophils (0 - 5.0 %) 1 Absolute Eosinophils (0.0 - 0.7 /CUMM) 0 0.1 Absolute Basophils (0.0 - 0.2 /CUMM) 0 0 Platelet Estimate (ADEQUATE) ADEQUATE ADEQUATE Normocytic RBCs VERIFIED Normochromic RBCs VERIFIED Polychromasia 1+ Hypochromic-Microcytic 1+ Poikilocytosis 1+ Ovalocytes 1+ Other Body Source Fld Total RBCs Counted (%) 100 09/27 1511 Hematology CBC w Diff Cancelled WBC Cancelled RBC Cancelled Hgb Cancelled Hct Cancelled MCV Cancelled MCH Cancelled MCHC Cancelled RDW Cancelled Plt Count Cancelled MPV Cancelled Impression/Plan Impression/Plan Impression/Plan: General Appearance Alert, Oriented X3, Cooperative, significantly short of breath, wheezing, rhonchi, was on BiPAP initially when BiPAP was removed he was in obvious respiratory distress Skin No Rashes, No Breakdown, No Significant Lesion HEENT Atraumatic, PERRLA, EOMI, Mucous Membr. moist/pink Neck Supple, No JVD, No thryomegaly, +2 Carotid Pulse wo Bruit, No LAD Lymphatic Axillary nl, Cervical nl Cardiovascular Regular Rate, Normal S1, Normal S2, No Murmurs Lungs expiratory wheezes, crackles Abdomen Normal Bowel Sounds, Soft, No Tenderness, No Hepatospenomegaly, No Masses Neurological Normal Speech, Strength at 5/5 X4 Ext, Normal Tone, Sensation Intact, Cranial Nerves 3-12 NL, Reflexes 2+ Extremities No Clubbing, No Cyanosis, bilateral lower extremity +1 edema Vascular Pulses Symmetrical This is a 76-year-old gentleman with severe COPD, ongoing smoking, systolic heart dysfunction with ejection fraction of 25% with previous PCI and CO in the past, very severe peripheral vascular disease with significant thoracic aneurysm with a large saccular component which has been present for more than few years, medical noncompliance, extremely large prostate, recurrent UTI, recurrent COPD exacerbation, previous history of kidney stone with * Resolving Acute hypoxemic and hypercarbic respiratory failure related to severe COPD exacerbation and mild systolic chf. Patient is medically noncompliant due to financial issues and has been using his inhaler sparingly * Previous congestive heart failure with an ejection fraction of 25% with no pulm edema, patient does have Chronic systolic heart failure and some of his dyspnea is related to fluid overload aswell, recent echo shows worsening ef * Very large thoracic aneurysm at the saccular component pressing on his esophagus in his left mainstem bronchus which has been stable since early 2013, not a surgical candidate as the prosthesis for his aneurysm repair could not be passed due to severe peripheral vascular disease and his lower extremity, not a candidate for open surgery. Now his aneurysm seems to have increased in size. Pt does have pain in his limbs both sides. 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 vascular note reviewed * Ischemic heart disease, low ejection fraction / not a candidate for AICD/see EP note * Previous pulmonary embolism which was radiologically much better, patient is on warfarin but is noncompliant with his medications. Patient may have hidden malignancy as he has had enlarged prostate, hematuria etc. per his wishes has not had any significant workup. * Small lung nodules * Enlarged prostate now with sig pvr urology is following and has high wbc and prob uti RECOMMENDATION Cont current rx Warfarin 5mg today, no need to bridge PO prednisone 20 mg daily and wean Po ceftin for 4 more days Restart low dose coreg 6.25 bid if bp permits PO lasix 40 mg po one dose again Needs atc nebs Due to sig low BP not yet a candidate for Entresto/or aldactone for now Keep sat at 90 percent Prn low dose morphine for dyspnea PO ppi Melatonin at hs if needed DNR and DNI (discussed with the patient and consistant with his prior wishes), if worse he wishes to not go through any life support except bipap, wishes not surg, dialysis or vasopressors or invasive cardiac monitoring WIshes his son to be involved in the future (not his who he does not live with) Ok to tele
[2017-09-29 16:00] VITALS: BP 90/68
--- NOTE | 2017-09-29 20:52 | PN- Cardiology ---
Subjective Subjective: * No complaints. * blood pressure remains borderline Objective Vital Signs and I&Os Vital Signs Date Time Temp Pulse Resp B/P B/P Pulse O2 O2 Flow FiO2 Mean Ox Delivery Rate 09/29 1722 94 Nasal 3.0L Cannula 09/29 1600 96 Nasal 3.0L Cannula 09/29 1600 99.0 82 18 90/68 96 Nasal 3.0L Cannula 09/29 0850 96 Nasal 3.0L Cannula 09/29 0800 96 Nasal 3.0L Cannula 09/29 0800 99.0 80 22 92/72 96 Nasal 3.0L Cannula 09/29 0100 94 Nasal 3.0L Cannula 09/29 0018 85 97 09/29 0000 95 Nasal 3.0L Cannula 09/29 0000 98.3 82 39 84/40 95 Nasal 3.0L Cannula 09/28 2159 95 Nasal 3.0L Cannula 09/28 2146 82 39 84/40 Intake & Output 09/29 1600 09/29 0800 09/29 0000 09/28 1600 09/28 0800 09/28 0000 Intake Total 630 240 240 400 100 600 Output Total 750 0 231 599 7436 Balance -120 240 240 -200 -400 -975 Intake, IV 130 Intake, Oral 500 240 240 400 100 600 Number 0 2 Bowel Movements Output, Urine 750 0 709 710 1979 Physical Exam: General: WD/ WN male in NAD; alert and oriented x 3 HEENT: NC/ AT, PERRL, EOMI, clear oropharynx Neck: mildly +ve JVD, no carotid bruit Heart: RRR w/o murmur Lungs: decreased air movement bilaterally with wheezing Extremities: no edema Assessment/Plan Assessment/Plan * This patient has shortness of breath that is primarily due to his emphysematous COPD. I do believe he has increased RV pressures related to lung disease which manifests as JVD. This patient has a borderline blood pressure that is in the 80-90 systolic range. He is not tolerating Coreg which should be stopped. Change to a beta bautista without alpha blocking effects such as Metoprolol 12.5mg BID. The alpha blocking effects of beta blockers such as Labetolol and Coreg act powerfully to lower blood pressure which, in this patient's situation, is not wanted. At this point I do not think he will tolerate diuretics including Lasix or aldactone although these are certainly medications that have been showed to be beneficial in the setting of a low EF. If his BP increases consistently above 90 systolic then a cautious trial of Lasix is warranted. Beginning Entresto is a reasonable thought but is unlikely to be tolerated in this patient. * Due to the patient's severely decreased EF we did have Dr. Hinkle assess this patient for a possible AICD. Due to comorbidities he was not thought to be an ideal candidate for this device. Continue telemetry? Yes
[2017-09-30 00:28] VITALS: BP 100/60
[2017-09-30 07:52] VITALS: BP 94/70
--- NOTE | 2017-09-30 08:45 | PN- Resident CRCU ---
Subjective HPI/CRCU Issues: #1 acute hypoxic hypercarbic respiratory failure. #2 acute exacerbation of COPD #3 heart failure with reduced ejection fraction #4 large thoracic aneurysm #5 peripheral arterial disease #6 Ischemic heart disease #7 history of pulmonary embolism #8 multiple lung nodules #9 prostate hypertrophy 24 Hour Events: She was seen and examined this morning. He is alert awake and oriented to time place and person. No acute events overnight. general medicine hold in ICU He was comfortable this morning. Blood pressure stable, no chest pain, shortness of breath. Afebrile, heart rate 80, respiratory rate 16, blood pressure 10/60, saturating at 93 on 3 L Objective Vital Signs & I&O Last 8 Hrs of Vitals and I&O: Vital Signs Date Time Temp Pulse Resp B/P B/P Pulse O2 O2 Flow FiO2 Mean Ox Delivery Rate 09/30 1154 97.8 62 18 102/52 97 Nasal 3.0L Cannula 09/30 0847 93 Nasal 3.0L Cannula 09/30 0830 94/70 09/30 0804 94 Nasal 3.0L Cannula 09/30 0752 98.9 66 18 94/70 94 Nasal 3.0L Cannula Exam General Appearance: well developed/nourished Other Physical Findings: General Exam: AAOx3, No acute distress, Skin: No rashes, no breakdown;HEENT: PERRLA, EOMI;Neck: Supple, No JVD; No cervical lymphadenopathy;CVS: Reg Rate, Normal S1,S2, No MGR;Resp: Normal air entry, no ronchi/rales;Abdomen: Soft, No tenderness, Normal Bowel Sounds;Neuro: Normal Speech, Strength 5/5 b/l x 4 extremities, Sensation intact, CN III-XII NL, Reflexes 2+;Extremities: No cyanosis, no pedal edema. Current Medications: Current Medications Sig/Nelly Start time Last Medication Dose Route Stop Time Status Admin Acetaminophen 1,000 MG Q6P PRN 09/26 161 AC N/A 1 UNIT IV Acetaminophen/ 1 TAB Q6 PRN 09/26 161 AC 09/29 Codeine Phosphate PO 2110 Albuterol Sulfate 3 ML Q4 09/27 1800 AC 09/30 INH 1153 Cefuroxime Sodium 250 MG Q12 09/26 2200 AC 09/30 PO 10/01 0000 0829 Clopidogrel Bisulfate 75 MG DAILY 09/29 1115 AC 09/30 PO 0829 Insulin Aspart 0 TIDAC 09/23 1700 AC 09/29 SC 1634 Ipratropium [place] 2.5 ML Q4 09/27 1800 AC 09/30 INH 1153 Magnesium Sulfate 1 GM ONCE ONE 09/29 1030 DC 09/29 Dextrose/Water 100 ML IV 09/29 1429 1159 Melatonin 5 MG AT BEDTIME 09/23 2200 AC 09/29 PO 2108 Metoprolol Tartrate 12.5 MG BID 09/30 0900 AC 09/30 PO 0830 Omeprazole 40 MG DAILY AC 09/24 0700 AC 09/30 PO 0628 Prednisone 20 MG DAILY 09/30 0900 AC 09/30 PO 10/03 0859 0830 Prednisone 30 MG DAILY 09/29 0900 DC 09/29 PO 10/05 0859 0843 Impression/Plan Impression/Problem List Impression: Mr Cordero is a 77-year-old gentleman who is an active smoker, with PMHx of HFrEF (Echo EF 25% with stage III diastolic dysfunction), PVD, COPD not on home oxygen , CAD status post stenting, descending thoracic aortic aneurysm, pulmonary embolism which failed treatment with Xarelto and currently on warfarin was brought in with a chief concern of an acute onset of dyspnea, cough and wheezing. Pertinent lab findings- WBC 11.7(09/23)-->11.3-->13.6-->11.4-->9.9(09/27)--> 8.9(09/28)--> 9.5(09/29) Hemoglobin 13.8(09/23)-->11.7-->11.3-->12.2(09/27)--> 12.5(09/28)--> 13.4(09/29) Sodium 136-->136--> 137(09/28)--> 137(09/29) Potassium 4.4(09/23)-->5.3-->5.1(09/27)--> 4.9(09/28)--> 4.6(09/29) HCO3 24(09/23)-->28-->32(09/27)--> 37(09/28)--> 35(09/29) AST 28-->29--> 60-->56--> 53(09/28)--> 39(09/29) INR 1.36(09/23)-->1.26-->3.01-->4.92-->3.17(09/27)--> 1.92(09/28)--> 1.38(09/29) Problem list: #1 acute hypoxic hypercarbic respiratory failure. #2 acute exacerbation of COPD #3 heart failure with reduced ejection fraction #4 large thoracic aneurysm #5 peripheral arterial disease #6 Ischemic heart disease #7 history of pulmonary embolism #8 multiple lung nodules #9 prostate hypertrophy --- #Acute hypoxic hypercarbic respiratory failure, 2/2 COPD exacerbation He was initially started on ceftriaxone and azithromycin, and currently on Ceftin to complete a course of 5/7 days. Etiology could likely be due to exacerbation of COPD and there could be a competent of decompensation of his CHF. By mouth prednisone 30 mg daily, with a long taper. BiPAP as needed. #Diabetes mellitus Will continue diabetic diet, insulin on a sliding scale, regular accuchecks #Supratherapeutic INR He was initially treated with Coumadin, which is currently held. INR 1.38. No more coumadin as per the pt, and Dr. Velásquez. Plavix daily. Allergic to aspirin. #Peripheral vascular disease Patient has faint pulse with chronic right femoral artery blockages with collaterals, no significant ischemia. Patient not interested in treatment. As per the vascular surgery, he is thought to be high risk for surgery and/or endovascular intervention #Large saccular aneurysm of his thoracic aorta pressing on his esophagus and his left mainstem bronchus, growing in size gradually. Patient and vascular surgeon aware, consulted vasc surgery for PVD, but might as well get opinion on the aneurysm. Needs close follow up on out pt basis. #H/o HTN Start the patient on carvedilol 6.25 mg by mouth twice a day, with holding parameters. Furosemide w/ holding parameters. Not a candidate for Valsaratn/Saccubetril given h/o of low BP. -------- #Will continue his home meds otherwise. #Patient is allergic (anaphylaxis) to ASA, thus will not prescribe that. Housekeeping: #Diet: Diabetic diet #DVT ppx: ALPS #Code status: DNR/DNI #1 Central line-none #2 Arterial line-none #3 Bryant catheter-none #4 Rectal tube-none #5 NG tube-none #6 IV/peripheral line- present #7 IV drips--none #8 Vent settings- On BiPAP prn #9 pressors none. Problem List: 1. Supratherapeutic INR 2. Diabetes mellitus 3. Acute respiratory failure with hypoxia and hypercarbia Pain Ratin Tomorrow's Labs & Rationales: CBC ICU LABS Plan DVT/Prophylaxis: supratherapeutic INR
--- NOTE | 2017-09-30 10:35 | PN- Pulmonary ---
Subjective HPI/Critical Care Issues: Doing much better On 3 L Continued to wheeze Fatigued Objective Current Medications: Current Medications Sig/Nelly Start time Last Medication Dose Route Stop Time Status Admin Acetaminophen 1,000 MG Q6P PRN 09/26 1615 AC N/A 1 UNIT IV Acetaminophen/ 1 TAB Q6 PRN 09/26 1615 AC 09/29 Codeine Phosphate PO 2110 Albuterol Sulfate 3 ML Q4 09/27 1800 AC 09/30 INH 0846 Cefuroxime Sodium 250 MG Q12 09/26 2200 AC 09/30 PO 10/01 0000 0829 Clopidogrel Bisulfate 75 MG DAILY 09/29 1115 AC 09/30 PO 0829 Furosemide 40 MG ONE ONE 09/29 1245 DC 09/29 PO 09/29 1246 1450 Insulin Aspart 0 TIDAC 09/23 1700 AC 09/29 SC 1634 Ipratropium [place] 2.5 ML Q4 09/27 1800 AC 09/30 INH 0846 Magnesium Sulfate 1 GM ONCE ONE 09/29 1030 DC 09/29 Dextrose/Water 100 ML IV 09/29 1429 1159 Melatonin 5 MG AT BEDTIME 09/23 2200 AC 09/29 PO 2108 Metoprolol Tartrate 12.5 MG BID 09/30 0900 AC 09/30 PO 0830 Omeprazole 40 MG DAILY AC 09/24 0700 AC 09/30 PO 0628 Prednisone 20 MG DAILY 09/30 0900 AC 09/30 PO 10/03 0859 0830 Prednisone 30 MG DAILY 09/29 0900 DC 09/29 PO 10/05 0859 0843 Vital Signs & I&O Last 24 Hrs of Vitals and I&O: Vital Signs Date Time Temp Pulse Resp B/P B/P Pulse O2 O2 Flow FiO2 Mean Ox Delivery Rate 09/30 0847 93 Nasal 3.0L Cannula 09/30 0830 94/70 09/30 0804 94 Nasal 3.0L Cannula 09/30 0752 98.9 66 18 94/70 94 Nasal 3.0L Cannula 09/30 0100 95 Nasal 3.0L Cannula 09/30 0028 96 Nasal 3.0L Cannula 09/30 0028 97.0 100 32 100/60 96 Nasal 3.0L Cannula 09/29 2223 95 Nasal 3.0L Cannula 09/29 1722 94 Nasal 3.0L Cannula 09/29 1600 96 Nasal 3.0L Cannula 09/29 1600 99.0 82 18 90/68 96 Nasal 3.0L Cannula Intake & Output 09/30 1600 09/30 0800 09/30 0000 Intake Total 100 240 Output Total 300 350 Balance -200 -110 Intake, IV Intake, Oral 100 240 Output, Urine 300 350 Laboratory Tests 09/29 0457 Chemistry Sodium (137 - 145 mmol/L) 137 Potassium (3.5 - 5.1 mmol/L) 4.6 Chloride (98 - 107 mmol/L) 93 L Carbon Dioxide (22 - 30 mmol/L) 35 H Anion Gap (5 - 16) 9 BUN (9 - 20 mg/dL) 34 H Creatinine (0.7 - 1.2 mg/dL) 0.9 Estimated GFR (>60 ml/min) > 60 Glucose (65 - 99 mg/dL) 105 H Calcium (8.4 - 10.2 mg/dL) 8.9 Phosphorus (2.5 - 4.5 mg/dL) 3.3 Magnesium (1.6 - 2.3 mg/dL) 1.7 Total Bilirubin (0.2 - 1.3 mg/dL) 0.6 AST (17 - 59 U/L) 39 ALT (21 - 72 U/L) 59 Albumin (3.5 - 5.0 g/dL) 3.5 Coagulation PT (9.4 - 12.5 SEC) 15.1 H INR (0.90 - 1.17) 1.38 H Hematology CBC w Diff MAN DIFF ORDERED WBC (4.8 - 10.8 /CUMM) 9.5 RBC (4.70 - 6.10 /CUMM) 4.55 L Hgb (14.0 - 18.0 G/DL) 13.4 L Hct (42 - 52 %) 41.4 L MCV (80.0 - 94.0 FL) 90.9 MCH (27.0 - 31.0 PG) 29.5 MCHC (33.0 - 37.0 G/DL) 32.5 L RDW (11.5 - 14.5 %) 13.6 Plt Count (130 - 400 /CUMM) 196 MPV (7.4 - 10.4 FL) 8.9 Gran % (42.2 - 75.2 %) 76.0 H Lymphocytes % (20.5 - 51.1 %) 19.4 L Monocytes % (1.7 - 9.3 %) 4.5 Eosinophils % (0 - 5 %) 0.1 Basophils % (0.0 - 2.0 %) 0 Absolute Granulocytes (1.4 - 6.5 /CUMM) 7.2 H Segmented Neutrophils (42.2 - 75.2 %) 61 Absolute Lymphocytes (1.2 - 3.4 /CUMM) 1.8 Lymphocytes (20.5 - 51.1 %) 26 Monocytes (1.7 - 9.3 %) 12 H Absolute Monocytes (0.10 - 0.60 /CUMM) 0.4 Eosinophils (0 - 5.0 %) 1 Absolute Eosinophils (0.0 - 0.7 /CUMM) 0 Absolute Basophils (0.0 - 0.2 /CUMM) 0 Platelet Estimate (ADEQUATE) ADEQUATE Polychromasia 1+ Hypochromic-Microcytic 1+ Poikilocytosis 1+ Ovalocytes 1+ Other Body Source Fld Total RBCs Counted (%) 100 Impression/Plan Impression/Plan Impression/Plan: General Appearance Alert, Oriented X3, Cooperative, significantly short of breath, wheezing, rhonchi, was on BiPAP initially when BiPAP was removed he was in obvious respiratory distress Skin No Rashes, No Breakdown, No Significant Lesion HEENT Atraumatic, PERRLA, EOMI, Mucous Membr. moist/pink Neck Supple, No JVD, No thryomegaly, +2 Carotid Pulse wo Bruit, No LAD Lymphatic Axillary nl, Cervical nl Cardiovascular Regular Rate, Normal S1, Normal S2, No Murmurs Lungs expiratory wheezes, crackles Abdomen Normal Bowel Sounds, Soft, No Tenderness, No Hepatospenomegaly, No Masses Neurological Normal Speech, Strength at 5/5 X4 Ext, Normal Tone, Sensation Intact, Cranial Nerves 3-12 NL, Reflexes 2+ Extremities No Clubbing, No Cyanosis, bilateral lower extremity +1 edema Vascular Pulses Symmetrical This is a 76-year-old gentleman with severe COPD, ongoing smoking, systolic heart dysfunction with ejection fraction of 25% with previous PCI and NV in the past, very severe peripheral vascular disease with significant thoracic aneurysm with a large saccular component which has been present for more than few years, medical noncompliance, extremely large prostate, recurrent UTI, recurrent COPD exacerbation, previous history of kidney stone with * Resolving Acute hypoxemic and hypercarbic respiratory failure related to severe COPD exacerbation and mild systolic chf. Patient is medically noncompliant due to financial issues and has been using his inhaler sparingly * Previous congestive heart failure with an ejection fraction of 25% with no pulm edema, patient does have Chronic systolic heart failure and some of his dyspnea is related to fluid overload aswell, recent echo shows worsening ef * Very large thoracic aneurysm at the saccular component pressing on his esophagus in his left mainstem bronchus which has been stable since early 2013, not a surgical candidate as the prosthesis for his aneurysm repair could not be passed due to severe peripheral vascular disease and his lower extremity, not a candidate for open surgery. Now his aneurysm seems to have increased in size. Pt does have pain in his limbs both sides. 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 vascular note reviewed * Ischemic heart disease, low ejection fraction / not a candidate for AICD/see EP note * Previous pulmonary embolism which was radiologically much better, patient is on warfarin but is noncompliant with his medications. Patient may have hidden malignancy as he has had enlarged prostate, hematuria etc. per his wishes has not had any significant workup. Pt has completed rx and wishes to stop warfarin and this has been stopped now on plavix (allergic to asa) * Small lung nodules * Enlarged prostate now with sig pvr urology is following and has high wbc and prob uti RECOMMENDATION Cont current rx PO prednisone 20 mg daily and wean in 8 days Po ceftin for 4 more days Low dose metoprolol bid if bp permits PO lasix 40 mg po one dose again qod if shahnaz Needs atc nebs Due to sig low BP not yet a candidate for Entresto/or aldactone for now Keep sat at 90 percent Prn low dose morphine for dyspnea PO ppi Melatonin at hs if needed DNR and DNI (discussed with the patient and consistant with his prior wishes), if worse he wishes to not go through any life support except bipap, wishes not surg, dialysis or vasopressors or invasive cardiac monitoring WIshes his son to be involved in the future (not his who he does not live with) Ok to tele
[2017-09-30 11:54] VITALS: BP 102/52
[2017-09-30 16:52] VITALS: BP 108/62
[2017-09-30 20:59] VITALS: BP 110/62
[2017-10-01 06:36] VITALS: BP 97/62
[2017-10-01 08:38] LABS: PT 12.1 SEC (9.4-12.5)
[2017-10-01 08:43] LABS: HEMATOCRIT 42.1 % (42-52); MEAN CORPUSCULAR HGB 29.6 PG (27.0-31.0); MEAN CORPUSCULAR VOLUME 89.6 FL (80.0-94.0); MEAN PLATELET VOLUME 8.1 FL (7.4-10.4); PLATELET COUNT 239 /CUMM (130-400); RBC DISTRIBUTION WIDTH 13.3 % (11.5-14.5); WHITE BLOOD CELL COUNT 10.8 /CUMM (4.8-10.8)
--- NOTE | 2017-10-01 10:33 | PN- Housestaff ---
Subjective Follow-up For: #1 acute hypoxic hypercarbic respiratory failure. #2 acute exacerbation of COPD #3 heart failure with reduced ejection fraction #4 large thoracic aneurysm #5 peripheral arterial disease #6 Ischemic heart disease #7 history of pulmonary embolism #8 multiple lung nodules #9 prostate hypertrophy Subjective: No acute events overnight. SOB better. Review of Systems Constitutional: Reports: see HPI. Objective Last 24 Hrs of Vital Signs/I&O Vital Signs Date Time Temp Pulse Resp B/P B/P Pulse O2 O2 Flow FiO2 Mean Ox Delivery Rate 10/01 0942 84 138/62 10/01 0814 95 Nasal 3.0L Cannula 10/01 0800 93 Nasal 3.0L Cannula 10/01 0636 96.7 68 20 97/62 92 10/01 0129 96 Nasal 3.0L Cannula 10/01 0109 71 97 10/01 0000 95 Nasal 3.0L Cannula 09/30 2200 68 96 09/30 2059 97.7 70 18 110/62 95 Nasal 3.0L Cannula 09/30 2002 70 110/62 09/30 1652 97.7 76 18 108/62 96 Nasal 3.0L Cannula 09/30 1628 96 Nasal 3.0L Cannula 09/30 1600 94 Nasal 3.0L Cannula Intake & Output 10/01 1600 10/01 0800 10/01 0000 Intake Total 240 480 Output Total 425 200 Balance -185 280 Intake, Oral 240 480 Number 0 Bowel Movements Output, Urine 425 200 Physical Exam General Appearance: Alert, Oriented X3, Cooperative, No Acute Distress Cardiovascular: Regular Rate, Normal S1, Normal S2 Lungs: diffuse wheezing Abdomen: Normal Bowel Sounds, Soft, No Tenderness Extremities: no L radial pulse. normal cap refill Assessment/Plan Assessment: A: Mr Cordero is a 77-year-old gentleman who is an active smoker, with PMHx of HFrEF (Echo EF 25% with stage III diastolic dysfunction), PVD, COPD not on home oxygen , CAD status post stenting, descending thoracic aortic aneurysm, pulmonary embolism which failed treatment with Xarelto and currently on warfarin was brought in with a chief concern of an acute onset of dyspnea, cough and wheezing. Problems: #Acute hypoxic hypercarbic respiratory failure, 2/2 COPD exacerbation He was initially started on ceftriaxone and azithromycin, and currently on Ceftin to complete a course of 7 da7s Etiology could likely be due to exacerbation of COPD and there could be a competent of decompensation of his CHF. -cont bipp prn -cont ceftin (05/02 doses), po prednisone -cont pulm recommendations #Diabetes mellitus -continue diabetic diet, insulin on a sliding scale, regular accuchecks #Supratherapeutic INR He was initially treated with Coumadin, which is currently held. INR 1.11. No more coumadin as per the pt, and Dr. Velásquez. Plavix daily. Allergic to aspirin. 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 -Patient does not want treatment -f/u cardiology and vascular surgery reocmmendations #Large saccular aneurysm of his thoracic aorta p -f/u outpatient vascular surgery #H/o HTN -cont carvediolol, lasix -holding valsartan/saccuetril due to hypotension -------- #Will continue his home meds otherwise. #Patient is allergic (anaphylaxis) to ASA, thus will not prescribe that. Housekeeping: #Diet: Diabetic diet #DVT ppx: ALPS #Code status: DNR/DNI #1 Central line-none #2 Arterial line-none #3 Bryant catheter-none #4 Rectal tube-none #5 NG tube-none #6 IV/peripheral line- present #7 IV drips--none #8 Vent settings- On BiPAP prn #9 pressors none. Problem List: 1. Peripheral vascular disease 2. COPD exacerbation 3. Thoracic aortic aneurysm Pain Ratin Pain Location: none Pain Goal: Pain 4 or less Pain Plan: pain pathway Tomorrow's Labs & Rationales: none
--- NOTE | 2017-10-01 12:45 | PN- Pulmonary ---
Subjective HPI/Critical Care Issues: Doing much better On 3 L Continued to wheeze Fatigued Objective Current Medications: Current Medications Sig/Nelly Start time Last Medication Dose Route Stop Time Status Admin Acetaminophen 1,000 MG Q6P PRN 09/26 1615 AC N/A 1 UNIT IV Acetaminophen/ 1 TAB Q6 PRN 09/26 1615 AC 09/29 Codeine Phosphate PO 2110 Albuterol Sulfate 3 ML Q4 09/27 1800 AC 10/01 INH 1144 Cefuroxime Sodium 250 MG Q12 09/26 2200 AC 10/01 PO 10/03 0000 0946 Clopidogrel Bisulfate 75 MG DAILY 09/29 1115 AC 10/01 PO 0939 Enoxaparin Sodium 40 MG DAILY 10/01 0900 AC 10/01 SC 0940 Guaifenesin/ 10 ML Q6P PRN 10/01 0830 AC 10/01 Dextromethorphan PO 0939 Insulin Aspart 0 TIDAC 09/23 1700 AC 10/01 SC 1228 Ipratropium [place] 2.5 ML Q4 09/27 1800 AC 10/01 INH 1147 Melatonin 5 MG AT BEDTIME 09/23 2200 AC 09/30 PO 2001 Metoprolol Tartrate 12.5 MG BID 09/30 0900 AC 10/01 PO 0942 Morphine Sulfate 1 MG Q4P PRN 09/30 1745 AC IV Omeprazole 40 MG DAILY AC 09/24 0700 AC 10/01 PO 0501 Prednisone 5 MG DAILY 10/06 0900 AC PO 10/08 0901 Prednisone 10 MG DAILY 10/03 0900 AC PO 10/05 0901 Prednisone 20 MG DAILY 10/01 0900 DC PO 10/09 0859 Prednisone 20 MG DAILY 10/01 0900 AC 10/01 PO 10/02 0901 0940 Prednisone 20 MG DAILY 09/30 0900 DC 09/30 PO 10/03 0859 0830 Vital Signs & I&O Last 24 Hrs of Vitals and I&O: Vital Signs Date Time Temp Pulse Resp B/P B/P Pulse O2 O2 Flow FiO2 Mean Ox Delivery Rate 10/01 0942 84 138/62 10/01 0814 95 Nasal 3.0L Cannula 10/01 0636 96.7 68 20 97/62 92 10/01 0129 96 Nasal 3.0L Cannula 10/01 0109 71 97 10/01 0000 95 Nasal 3.0L Cannula 04/14 2200 68 96 09/30 2058 97.7 70 18 110/62 95 Nasal 3.0L Cannula 09/30 2001 70 110/62 09/30 1652 97.7 76 18 108/62 96 Nasal 3.0L Cannula 09/30 1628 96 Nasal 3.0L Cannula 09/30 1600 94 Nasal 3.0L Cannula Intake & Output 10/01 1600 10/01 0800 10/01 0000 Intake Total 240 480 Output Total 425 200 Balance -185 280 Intake, Oral 240 480 Number 0 Bowel Movements Output, Urine 425 200 Laboratory Tests 10/01 0720 Chemistry Sodium (137 - 145 mmol/L) 135 L Potassium (3.5 - 5.1 mmol/L) 4.8 Chloride (98 - 107 mmol/L) 92 L Carbon Dioxide (22 - 30 mmol/L) 33 H Anion Gap (5 - 16) 11 BUN (9 - 20 mg/dL) 35 H Creatinine (0.7 - 1.2 mg/dL) 1.0 Estimated GFR (>60 ml/min) > 60 BUN/Creatinine Ratio (7 - 25 %) 35.0 H Coagulation PT (9.4 - 12.5 SEC) 12.1 INR (0.90 - 1.17) 1.11 Hematology CBC w Diff MAN DIFF ORDERED WBC (4.8 - 10.8 /CUMM) 10.8 RBC (4.70 - 6.10 /CUMM) 4.70 Hgb (14.0 - 18.0 G/DL) 13.9 L Hct (42 - 52 %) 42.1 MCV (80.0 - 94.0 FL) 89.6 MCH (27.0 - 31.0 PG) 29.6 MCHC (33.0 - 37.0 G/DL) 33.0 RDW (11.5 - 14.5 %) 13.3 Plt Count (130 - 400 /CUMM) 239 MPV (7.4 - 10.4 FL) 8.1 Segmented Neutrophils (42.2 - 75.2 %) 64 Lymphocytes (20.5 - 51.1 %) 24 Monocytes (1.7 - 9.3 %) 8 Eosinophils (0 - 5.0 %) 4 Nucleated RBCs (0.0 - 0.0 /100WBC) 1 H Platelet Estimate (ADEQUATE) ADEQUATE Poikilocytosis 1+ Anisocytosis 1+ Impression/Plan Impression/Plan Impression/Plan: General Appearance Alert, Oriented X3, Cooperative, significantly short of breath, wheezing, rhonchi, was on BiPAP initially when BiPAP was removed he was in obvious respiratory distress Skin No Rashes, No Breakdown, No Significant Lesion HEENT Atraumatic, PERRLA, EOMI, Mucous Membr. moist/pink Neck Supple, No JVD, No thryomegaly, +2 Carotid Pulse wo Bruit, No LAD Lymphatic Axillary nl, Cervical nl Cardiovascular Regular Rate, Normal S1, Normal S2, No Murmurs Lungs expiratory wheezes, crackles Abdomen Normal Bowel Sounds, Soft, No Tenderness, No Hepatospenomegaly, No Masses Neurological Normal Speech, Strength at 5/5 X4 Ext, Normal Tone, Sensation Intact, Cranial Nerves 3-12 NL, Reflexes 2+ Extremities No Clubbing, No Cyanosis, bilateral lower extremity +1 edema Vascular Pulses Symmetrical This is a 76-year-old gentleman with severe COPD, ongoing smoking, systolic heart dysfunction with ejection fraction of 25% with previous PCI and SD in the past, very severe peripheral vascular disease with significant thoracic aneurysm with a large saccular component which has been present for more than few years, medical noncompliance, extremely large prostate, recurrent UTI, recurrent COPD exacerbation, previous history of kidney stone with * Resolving Acute hypoxemic and hypercarbic respiratory failure related to severe COPD exacerbation and mild systolic chf. Patient is medically noncompliant due to financial issues and has been using his inhaler sparingly * Previous congestive heart failure with an ejection fraction of 25% with no pulm edema, patient does have Chronic systolic heart failure and some of his dyspnea is related to fluid overload aswell, recent echo shows worsening ef * Very large thoracic aneurysm at the saccular component pressing on his esophagus in his left mainstem bronchus which has been stable since early 2013, not a surgical candidate as the prosthesis for his aneurysm repair could not be passed due to severe peripheral vascular disease and his lower extremity, not a candidate for open surgery. Now his aneurysm seems to have increased in size. Pt does have pain in his limbs both sides. 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 vascular note reviewed * Ischemic heart disease, low ejection fraction / not a candidate for AICD/see EP note * Previous pulmonary embolism which was radiologically much better, patient is on warfarin but is noncompliant with his medications. Patient may have hidden malignancy as he has had enlarged prostate, hematuria etc. per his wishes has not had any significant workup. Pt has completed rx and wishes to stop warfarin and this has been stopped now on plavix (allergic to asa) * Small lung nodules * Enlarged prostate now with sig pvr urology is following and has high wbc and prob uti RECOMMENDATION Cont current rx DC bipap PO prednisone 20 mg daily and wean in 8 days Po ceftin for 2 more days Low dose metoprolol bid if bp permits Lasix 20 qod if shahnaz LAbs q72hrs Needs atc nebs Due to sig low BP not yet a candidate for Entresto/or aldactone for now Keep sat at 90 percent Prn low dose morphine for dyspnea PO ppi Melatonin at hs if needed Once the ceftin has been stopped then can consider azithro 250 qod for copde propylaxis DNR and DNI (discussed with the patient and consistant with his prior wishes), if worse he wishes to not go through any life support except bipap, wishes not surg, dialysis or vasopressors or invasive cardiac monitoring WIshes his son to be involved in the future (not his who he does not live with) Now on the floor and will sign out to the hospitalist and if pt gets worse consider comfort care only per pt's wishes
[2017-10-01 14:14] VITALS: BP 100/62
[2017-10-01 20:14] VITALS: BP 102/70
[2017-10-02] VITALS: BP 108/68
[2017-10-02 06:00] VITALS: BP 100/70
--- NOTE | 2017-10-02 09:56 | PN- Housestaff ---
Subjective Follow-up For: #1 acute hypoxic hypercarbic respiratory failure. #2 acute exacerbation of COPD #3 heart failure with reduced ejection fraction #4 large thoracic aneurysm #5 peripheral arterial disease #6 Ischemic heart disease #7 history of pulmonary embolism #8 multiple lung nodules #9 prostate hypertrophy Subjective: No acute events overnight. SOB is better. Review of Systems Constitutional: Reports: see HPI. Objective Last 24 Hrs of Vital Signs/I&O Vital Signs Date Time Temp Pulse Resp B/P B/P Pulse O2 O2 Flow FiO2 Mean Ox Delivery Rate 10/02 1530 84 100/64 10/02 1450 97.8 84 18 104/68 95 Nasal 3.0L Cannula 10/02 0849 94 Nasal 2.0L Cannula 10/02 0812 72 98/62 10/02 0800 94 Nasal 3.0L Cannula 10/02 0600 97.4 82 17 100/70 94 Nasal 3.0L Cannula 10/02 0046 97 Nasal 3.0L Cannula 10/02 0000 98.6 82 18 108/68 96 Nasal 3.0L Cannula 10/02 0000 95 Nasal 3.0L Cannula 10/01 2121 88 102/72 10/01 2013 97.9 88 16 102/70 95 Nasal 3.0L Cannula 10/01 1650 94 Nasal 3.0L Cannula 10/01 1600 95 Nasal 3.0L Cannula Intake & Output 10/02 1600 10/02 0800 10/02 0000 Intake Total 240 480 Output Total 500 300 Balance -260 180 Intake, Oral 240 480 Number 0 Bowel Movements Output, Urine 500 300 Patient 118 lb Weight Weight Bed scale Measurement Method Physical Exam General Appearance: Alert, Oriented X3, Cooperative Cardiovascular: Regular Rate, Normal S1, Normal S2 Lungs: diffuse wheezing, decreased breaht sounds Abdomen: decreased bowel sounds Vascular: 1+ radial pulses Current Medications: Current Medications Sig/Nelly Start time Last Medication Dose Route Stop Time Status Admin Acetaminophen 1,000 MG Q6P PRN 09/26 161 AC N/A 1 UNIT IV Acetaminophen/ 1 TAB Q6 PRN 09/26 1615 AC 09/29 Codeine Phosphate PO 2110 Albuterol Sulfate 3 ML Q4 09/27 1800 AC 10/02 INH 1217 Cefuroxime Sodium 250 MG Q12 09/26 2200 AC 10/02 PO 10/03 0000 0812 Clopidogrel Bisulfate 75 MG DAILY 09/29 1115 AC 10/02 PO 0813 Enoxaparin Sodium 40 MG DAILY 10/01 0900 AC 10/02 SC 0812 Furosemide 20 MG DAILY 10/02 1345 AC 10/02 PO 1529 Guaifenesin 10 ML .STK-MED ONE 10/01 2006 DC PO 10/02 2007 Guaifenesin/ 10 ML Q6P PRN 10/01 0830 AC 10/02 Dextromethorphan PO 0812 Insulin Aspart 0 TIDAC 09/23 1700 AC 10/02 SC 1220 Ipratropium [place] 2.5 ML Q4 09/27 1800 AC 10/02 INH 1217 Lisinopril 5 MG DAILY 10/02 1345 AC PO Melatonin 5 MG AT BEDTIME 09/23 2200 AC 10/01 PO 2121 Metoprolol Tartrate 12.5 MG BID 09/30 0900 AC 10/01 PO 2121 Morphine Sulfate 1 MG Q4P PRN 09/30 1745 AC IV Omeprazole 40 MG DAILY AC 09/24 0700 AC 10/02 PO 0513 Prednisone 5 MG DAILY 10/06 0900 AC PO 10/08 0901 Prednisone 10 MG DAILY 10/03 0900 AC PO 10/05 0901 Prednisone 20 MG DAILY 10/01 0900 DC 10/02 PO 10/02 0901 0813 Assessment/Plan Assessment: A: Mr Cordero is a 77-year-old gentleman who is an active smoker, with PMHx of HFrEF (Echo EF 25% with stage III diastolic dysfunction), PVD, COPD not on home oxygen , CAD status post stenting, descending thoracic aortic aneurysm, pulmonary embolism which failed treatment with Xarelto and currently on warfarin was brought in with a chief concern of an acute onset of dyspnea, cough and wheezing. Problems: #Acute hypoxic hypercarbic respiratory failure, 2/2 COPD exacerbation He was initially started on ceftriaxone and azithromycin, and currently on Ceftin to complete a course of 7 days. Etiology could likely be due to exacerbation of COPD and there could be a competent of decompensation of his CHF. -cont bipp prn -stopped ceftin ( doses). pt has received 9 days of abx. cont po prednisone -cont pulm recommendations #Diabetes mellitus -continue diabetic diet, insulin on a sliding scale, regular accuchecks #Supratherapeutic INR He was initially treated with Coumadin, which is currently held. INR 1.11. No more coumadin as per the pt, and Dr. Velásquez. Plavix daily. Allergic to aspirin. 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 -Patient does not want treatment -f/u cardiology and vascular surgery reocmmendations #Large saccular aneurysm of his thoracic aorta p -f/u outpatient vascular surgery #H/o HTN -cont carvediolol, lasix -holding valsartan/saccuetril due to hypotension #Will continue his home meds otherwise. #DVT ppx: ALPS #Code status: DNR/DNI Problem List: 1. Peripheral vascular disease 2. COPD exacerbation 3. Thoracic aortic aneurysm Pain Ratin Pain Location: no pain Pain Goal: Pain 4 or less Pain Plan: pathway Tomorrow's Labs & Rationales: bep
[2017-10-02] MEDS ORDERED: PREDNISONE5 M1 PO (11:30)
[2017-10-02] MEDS ORDERED: PLAVIX75 M1 PO (11:30)
[2017-10-02] MEDS ORDERED: CEFUROXIME250 M1 PO (11:30)
--- NOTE | 2017-10-02 11:37 | Patient Discharge Instructions ---
Discharge Instructions General Discharge Information You were seen/treated for: Acute hypercarbic hypoxemic respiratory failure Subtherapeutic INR Heart failure with reduced ejection fraction Watch for these problems: Worsening breathing symptoms Special Instructions: Please follow-up with primary care physician as an outpatient in 1-2 weeks. Please follow-up with lung doctor as an outpatient 1-2 weeks. Please follow-up with vascular surgeon as an outpatient. Please follow-up with bulkhead carpenter as an outpatient. Please complete antibiotic course to 10/03/2017. Diet Continue normal diet: No Recommended Diet: Diabetic Activity Full Activity/No Limits: Yes Acute Coronary Syndrome Inclusion Criteria At DC or during hospital stay patient has or had the following: ACS DIAGNOSIS No Discharge Core Measures Meds if any: Prescribed or Continued at Discharge Meds if any: NOT Prescribed or Continued at Discharge Congestive Heart Failure Inclusion Criteria At DC or during hospital stay patient has or had the following: CHF DIAGNOSIS No Discharge Core Measures Meds if any: Prescribed or Continued at Discharge Meds if any: NOT Prescribed or Continued at Discharge Cerebrovascular accident Inclusion Criteria At DC or during hospital stay patient has or had the following: CVA/TIA Diagnosis No Discharge Core Measures Meds if any: Prescribed or Continued at Discharge Meds if any: NOT Prescribed or Continued at Discharge Venous thromboembolism Inclusion Criteria VTE Diagnosis No VTE Type NONE VTE Confirmed by (Test) NONE Discharge Core Measures - Per Current guidelines, there needs to be overlap - treatment for the first 5 days of Warfarin therapy. - If discharged on Warfarin prior to 5 days of - overlap therapy, the patient will need to be - assessed for post discharge needs including - *Post discharge parental anticoagulation - *Warfarin and/or parental anticoagulation education - *Follow up date to check INR post discharge At least 5 days overlap therapy as Inpatient No Meds if any: Prescribed or Continued at Discharge Note: Overlap Therapy is Warfarin and Anticoagulant Meds if any: NOT Prescribed or Continued at Discharge
--- NOTE | 2017-10-02 12:22 | PN- Att Addend ---
Attending Addendum Attending Brief Note Patient seen and examined, denies any complaints. Remains on oxygen. Claims that breathing is okay. Patient is a transfer out of ICU. Vital Signs Date Time Temp Pulse Resp B/P B/P Pulse O2 O2 Flow FiO2 Mean Ox Delivery Rate 10/02 0849 94 Nasal 2.0L Cannula 10/02 0812 72 98/62 10/02 0800 94 Nasal 3.0L Cannula 10/02 0600 97.4 82 17 100/70 94 Nasal 3.0L Cannula 10/02 0046 97 Nasal 3.0L Cannula 10/02 0000 98.6 82 18 108/68 96 Nasal 3.0L Cannula 10/02 0000 95 Nasal 3.0L Cannula 10/01 2121 88 102/72 10/01 2014 97.9 88 16 102/70 95 Nasal 3.0L Cannula 10/01 1650 94 Nasal 3.0L Cannula 10/01 1600 95 Nasal 3.0L Cannula 10/01 1414 97.7 75 20 100/62 96 Nasal 3.0L Cannula on exam; aox3, nad. cv; s1,s2, rrr resp; clear abd; soft, nt, bs+ ext; no edema no labs. A/P; 77 y/o M with pmh sig for HFrEF (Echo EF 25% with stage III diastolic dysfunction), PVD, COPD not on home oxygen, CAD status post stenting, descending thoracic aortic aneurysm-stable, pulmonary embolism non compliant with coumadin, admitted with acute hypoxic respiratory failure, acute CBD exacerbation and on top of that he has severe systolic congestive heart failure. Also thoracic aortic aneurysm which is enlarging. Patient with severe peripheral vascular disease. At this point patient on oral prednisone taper and oral antibiotics. Blood pressure reasonable. We'll add low-dose Lasix 20 mg daily and low-dose lisinopril 5 by mouth daily. Patient could benefit from adding Enteresto but his blood pressure might not be able to tolerate that. Has been followed by cardiology and not a good candidate for AICD due to his comorbidities. Patient is a good candidate for Palliative care consult. Please consult Dr. Arauz. Continue TRC nebs. DVt px; Lovenox. Might need Rehab.
[2017-10-02 14:50] VITALS: BP 104/68
[2017-10-02 20:00] VITALS: BP 107/62
--- NOTE | 2017-10-02 21:29 | Cons- Palliative Care ---
General Information and HPI Consulting Request Date of Consult: 10/02/17 Requested By: Didier ARECHIGA,Chucky Elizondo Reason for Consult: non-pain symptom mgmt, care/transition planning Source patient, old records Associated Symptoms: dyspnea History of Present Illness: 77 year old male identified with COPD exacerbation. He suffers from multiple comorbidities including CHF with reduced EF, PVD. He is a present smoker. Patient shares that he lives alone at home - his children reside at a distance. He expresses a desire to forego any supportive services at home and is reluctant to talk about his condition with the exception of his desire to also forego aggressive interventions such as CPR or intubation. He does not report any close contacts who assist him with his medical care. A review of Dr. Hinkle's consultation indicates a discussion regarding the merits of an implantable defibrillator. The patient, along with Dr. Hinkle have agreed not to pursue this option. I have shared with the patient my suggestion that he is likely to benefit from greater level of involvement of healthcare professionals such as visiting nurse (with a likely transition to home hospice care). Allergies/Medications Allergies: Coded Allergies: oxycodone (Intermediate, RASH 06/20/16) aspirin (ANAPHYLAXIS 04/30/16) Home Med List: Albuterol Sulfate 2.5 MG/3 ML (0.083 %) VIAL.NEB 3 ML INH BID PRN SHORTNESS OF BREATH Atorvastatin Calcium 40 MG TABLET 40 MG PO 1700 HEART Azithromycin 500 MG TABLET 500 MG PO DAILY COPD/BRONCHITIS TO BE TAKEN ON 06/24/16 Clopidogrel Bisulfate (Plavix) 75 MG TABLET 75 MG PO DAILY HEART Furosemide (Lasix) 20 MG TABLET 1 TAB PO BID swollen legs Guaifenesin (Guaifenesin ER) 600 MG TAB.ER.12H 600 MG PO Q12 COUGH Lisinopril 10 MG TABLET 10 MG PO DAILY HEART Metoprolol Tartrate 25 MG TABLET 0.5 TAB PO BID HYPERTENSION Nystatin 100,000 UNIT/ML ORAL.SUSP 5 ML PO 4 TIMES/DAY ORAL CANDIDIASIS Oxycodone HCl/Acetaminophen (Percocet 5-325 MG Tablet) 5 MG-325 MG TABLET 1 TAB PO BID PRN PAIN TEN...[id number] Pot Chloride/Pot Bicarb/Cit AC (Potassium Cl 25 Meq Tab Eff) 25 MEQ TABLET.EFF 1 TAB PO QDAY WHILE TAKING FUROSEMIDE Prednisone 20 MG TABLET 40 MG PO DAILY COPD TO BE TAKEN ON 06/24/16. Prednisone 5 MG TABLET 0 PO TAPER COPD TAKE 2 TABLETS DAILY FOR 3 DAYS, STARTING 10/03/17. THEN TAKE 1 TABLET DAILY FOR NEXT 3 DAYS, STARTING 10/06/17. THEN SEE LUNG DOCTOR. Warfarin Sodium (Coumadin) 4 MG TABLET 1 TAB PO DAILY BLOOD CLOTS Current Medications: Current Medications Sig/Nelly Start time Last Medication Dose Route Stop Time Status Admin Acetaminophen 1,000 MG Q6P PRN 09/26 161 N/A 1 UNIT IV Acetaminophen/ 1 TAB Q6 PRN 09/26 1615 09/29 Codeine Phosphate PO 2110 Albuterol Sulfate 3 ML Q4 09/27 1800 10/02 INH 2012 Cefuroxime Sodium 250 MG Q12 09/26 2200 [place] 10/02 PO 10/03 0000 0812 Clopidogrel Bisulfate 75 MG DAILY 09/29 1115 AC 10/02 PO 0813 Docusate Sodium 100 MG DAILY NEEDED PRN 10/02 1715 10/02 PO 1730 Enoxaparin Sodium 40 MG DAILY 10/01 0900 10/02 SC 0812 Furosemide 20 MG DAILY 10/02 1345 AC 10/02 PO 1529 Guaifenesin/ 10 ML Q6P PRN 10/01 0830 AC 10/02 Dextromethorphan PO 204 Insulin Aspart 0 TIDAC 09/23 1700 10/02 SC 1220 Ipratropium [place] 2.5 ML Q4 09/27 1800 10/02 INH 2014 Lisinopril 5 MG DAILY 10/02 1345 PO Melatonin 5 MG AT BEDTIME 09/23 2200 10/02 PO 2045 Metoprolol Tartrate 12.5 MG BID 09/30 0900 10/01 PO 2121 Morphine Sulfate 1 MG Q4P PRN 09/30 1745 IV Omeprazole 40 MG DAILY AC 09/24 0700 AC 10/02 PO 0513 Polyethylene Glycol 17 GM DAILY NEEDED PRN 10/02 1715 PO Prednisone 5 MG DAILY 10/06 0900 AC PO 10/08 0901 Prednisone 10 MG DAILY 10/03 0900 AC PO 10/05 0901 Prednisone 20 MG DAILY 10/01 0900 DC 10/02 PO 10/02 0901 0813 Senna 187 MG AT BEDTIME NEED.. 10/02 1715 PO Review of Systems Review of Systems Respiratory: Reports: short of breath. All Other Systems: Reviewed and Negative Past History Medical History Blood Transfusion Hx No Neurological: NONE EENT: DEVIATED SEPTUM Cardiovascular: CAD (NSTEMI s/p PCI of the LCX/OM), CHF (peripheral vascular disease), HYPERLIPIDEMIA IA X 1 YEAR AGO THORACIC AORTA PSEUDO- ANEURYSM Respiratory: COPD, pulmonary embolism Gastrointestinal: GI BLEED Hepatic: NONE Renal: nephrolithiasis, BPH s/p ESWL Musculoskeletal: leg pain Psychiatric: NONE Endocrine: diabetes Blood Disorders: NONE Cancer(s): NONE RECRUIT INSTRUCTOR/Reproductive: NONE Surgical History Surgical History: hemorrhoid surgery rhinoplasty laser TURP ESWL rhinoplasty Laser TURP Family History Relations & Conditions If Any FATHER (GI CA). MOTHER (DM). Psychosocial History Where Do You Live? Home Services at Home: None Smoking Status: Current Everyday Smoker Karnofsky Performance Scale: 70 Living Will? unknown Power of Petroleum Refinery Laborer/HCP? unknown Functional Ability ADLs Independent: dressing, eating, toileting, bathing. 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 unknown Exam & Diagnostic Data Last 24 Hrs of Vitals/I&Os: Vital Signs Date Time Temp Pulse Resp B/P B/P Pulse O2 O2 Flow FiO2 Mean Ox Delivery Rate 10/02 2045 83 108/62 10/02 2000 98.1 83 17 107/62 91 Nasal 2.0L Cannula 10/02 1609 93 Nasal 2.0L Cannula 10/02 1530 84 100/64 10/02 1450 97.8 84 18 104/68 95 Nasal 3.0L Cannula 10/02 0849 94 Nasal 2.0L Cannula 10/02 0812 72 98/62 10/02 0800 94 Nasal 3.0L Cannula 10/02 0600 97.4 82 17 100/70 94 Nasal 3.0L Cannula 10/02 0046 97 Nasal 3.0L Cannula 10/02 0000 98.6 82 18 108/68 96 Nasal 3.0L Cannula 10/02 0000 95 Nasal 3.0L Cannula Intake & Output 10/02 1600 10/02 0800 10/02 0000 Intake Total 720 240 480 Output Total 500 500 300 Balance 220 -260 180 Intake, Oral 720 240 480 Number 0 Bowel Movements Output, Urine 500 500 300 Patient 118 lb Weight Weight Bed scale Measurement Method Physical Exam General Appearance: alert, awake, comfortable Head: atraumatic, normal appearance Eyes: Bilateral: normal appearance. Neck: normal inspection Respiratory: decreased breath sounds Neurologic/Psych: awake, alert, oriented x 3 Assessment/Plan Assessment 77 year-old with severe COPD, CHF, other medical problems Patient's Condition: stable Prognosis: guarded Is Patient Decisional? yes Case Discussed With: patient Goals of Care: rehabilitative, limited medical treatment Disposition: Patient is at high risk for readmission to hospital in setting of advancing serious disease. In the absence of a coordinated approach to address contingency plans for these episodes, his care will almost certainly require hospitalization. The first choice of interventions for patient would be to utilize a visiting nurse program to perform frequent monitoring of patient and to enable early interventions by his consulting physicians whether it be for deteriorating respiratory status or worsening CHF. If patient is unwillng to engage visiting nurse services, then he should be seen frequently by PCP, and/or consulting MDs. Patient should have Living Will as well as a designated surrogate decsion maker (health care agent). Consult Acknowledgment - Thank you for your consult request.
[2017-10-03 04:30] VITALS: BP 78/58
[2017-10-03 06:11] VITALS: BP 80/60
--- NOTE | 2017-10-03 09:32 | PN- Housestaff ---
Mark ARECHGIA,[facility] 10/03/17 0932: Subjective Follow-up For: #1 acute hypoxic hypercarbic respiratory failure. #2 acute exacerbation of COPD #3 heart failure with reduced ejection fraction #4 large thoracic aneurysm #5 peripheral arterial disease #6 Ischemic heart disease #7 history of pulmonary embolism #8 multiple lung nodules #9 prostate hypertrophy Subjective: No acute events overnight. States SOB better. Does not want visiting nurses. Review of Systems Constitutional: Reports: see HPI. Objective Last 24 Hrs of Vital Signs/I&O Vital Signs Date Time Temp Pulse Resp B/P B/P Pulse O2 O2 Flow FiO2 Mean Ox Delivery Rate 10/03 0848 80 80/60 10/03 0800 96 Nasal 2.0L Cannula 10/03 0611 97.5 80 18 80/60 90 Nasal 2.0L Cannula 10/03 0430 78/58 10/03 0000 Nasal 3.0L Cannula 10/02 2045 83 108/62 10/02 2000 98.1 83 17 107/62 91 Nasal 2.0L Cannula 10/02 1609 93 Nasal 2.0L Cannula 10/02 1530 84 100/64 10/02 1450 97.8 84 18 104/68 95 Nasal 3.0L Cannula Intake & Output 10/03 1600 10/03 0800 10/03 0000 Intake Total 240 240 Output Total 500 350 Balance -260 -110 Intake, Oral 240 240 Number 1 Bowel Movements Output, Urine 500 350 Patient 117 lb Weight Physical Exam General Appearance: Alert, Oriented X3, Cooperative, No Acute Distress Cardiovascular: Regular Rate, Normal S1, Normal S2 Lungs: diffuse coarse breath sounds Abdomen: Normal Bowel Sounds, Soft, No Tenderness Extremities: no LE edema Vascular: 1+ radial pulses Current Medications: Current Medications Sig/Nelly Start time Last Medication Dose Route Stop Time Status Admin Acetaminophen 1,000 MG Q6P PRN 09/26 161 N/A 1 UNIT IV Acetaminophen/ 1 TAB Q6 PRN 09/26 1615 AC 09/29 Codeine Phosphate PO 2110 Albuterol Sulfate 3 ML EVERY 4 HRS/AWAKE 10/03 0800 AC 10/03 INH 0839 Albuterol Sulfate 3 ML Q4 09/27 1800 DC 10/02 INH 2013 Cefuroxime Sodium 250 MG Q12 09/26 2200 DC 10/02 PO 10/03 0000 0812 Clopidogrel Bisulfate 75 MG DAILY 04/13 1115 AC 10/03 PO 0848 Docusate Sodium 100 MG DAILY NEEDED PRN 10/02 1715 AC 10/02 PO 1730 Enoxaparin Sodium 40 MG DAILY 10/01 0900 AC 10/03 SC 0847 Furosemide 20 MG DAILY 10/02 1345 DC 10/02 PO 1529 Guaifenesin 10 ML .STK-MED ONE 10/02 2043 DC PO 10/02 2044 Guaifenesin/ 10 ML Q6P PRN 10/01 0830 AC 10/02 Dextromethorphan PO 204 Insulin Aspart 0 TIDAC 09/23 1700 AC 10/02 SC 1220 Ipratropium Meredith 2.5 ML EVERY 4 HRS/AWAKE 10/03 0800 AC 10/03 INH 0839 Ipratropium Meredith 2.5 ML Q4 09/27 1800 DC 10/02 INH 2014 Lisinopril 5 MG DAILY 10/02 1345 DC PO Melatonin 5 MG AT BEDTIME 09/23 2200 AC 10/02 PO 2045 Metoprolol Tartrate 12.5 MG BID 09/30 0900 AC 10/01 PO 2121 Morphine Sulfate 1 MG Q4P PRN 09/30 1745 AC IV Omeprazole 40 MG DAILY AC 09/24 0700 AC 10/03 PO 0430 Polyethylene Glycol 17 GM DAILY NEEDED PRN 10/02 1715 AC PO Prednisone 5 MG DAILY 10/06 0900 AC PO 10/08 0901 Prednisone 10 MG DAILY 10/03 0900 AC 10/03 PO 10/05 0901 0847 Senna 187 MG AT BEDTIME NEED.. 10/02 1715 AC PO Sodium Chloride 250 ML BOLUS ONE 10/03 0645 DC 10/03 IV 10/03 0744 0651 Sodium Chloride 250 ML BOLUS ONE 10/03 0430 DC 10/03 IV 10/03 0529 0430 Last 24 Hrs of Lab/Tr Results Last 24 Hrs of Labs/Mics: Laboratory Tests 10/03/17 0734: Anion Gap 6, Estimated GFR > 60, BUN/Creatinine Ratio 38.8 H Assessment/Plan Assessment: A: Mr Cordero is a 77-year-old gentleman who is an active smoker, with PMHx of HFrEF (Echo EF 25% with stage III diastolic dysfunction), PVD, COPD not on home oxygen , CAD status post stenting, descending thoracic aortic aneurysm, pulmonary embolism which failed treatment with Xarelto and currently on warfarin was brought in with a chief concern of an acute onset of dyspnea, cough and wheezing. Problems: #Acute hypoxic hypercarbic respiratory failure, 2/2 COPD exacerbation He was initially started on ceftriaxone and azithromycin, and currently on Ceftin to complete a course of 7 days. Etiology could likely be due to exacerbation of COPD and there could be a competent of decompensation of his CHF. -seen by palliait care who recommended closer f.u but pt denies VNS -f/ u PT for possible STR -cont bipp prn -stopped ceftin (13 doses). pt has received 9 days of abx. cont po prednisone taper -cont pulm recommendations #H/o HTN but currently hypotensive Attempted to add lasix and lisinopril but BP dropped to 80/60s. 2 250ml bolus given overnight without improvement. Will cont to monitor as baseline SBP 80-90s systolic. Pt currently asymptomatic -cont carvediolol, lasix -holding valsartan/saccuetril due to hypotension #Diabetes mellitus -continue diabetic diet, insulin on a sliding scale, regular accuchecks #Supratherapeutic INR He was initially treated with Coumadin, which is currently held. INR 1.11. No more coumadin as per the pt, and Dr. Velásquez. Plavix daily. Allergic to aspirin. 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 -Patient does not want treatment -f/u cardiology and vascular surgery reocmmendations #Large saccular aneurysm of his thoracic aorta p -f/u outpatient vascular surgery #Will continue his home meds otherwise. #DVT ppx: Lovenox #Code status: DNR/DNI Problem List: 1. Acute respiratory failure with hypoxia and hypercarbia Pain Ratin Pain Location: none Pain Goal: Pain 4 or less Pain Plan: pathway Tomorrow's Labs & Rationales: cbc sravan Ahumada MD,Bree 10/03/17 1302: Attending MD Review Statement Attending Statement Attending MD Statement: examined this patient, discuss w/resident/PA/CRM MARKETING SPECIALIST, agreed w/resident/PA/CRM MARKETING SPECIALIST, reviewed EMR data (avail), discussed with nursing, discussed with case mgmt, reviewed images, amended to note Attending Assessment/Plan: Patient seen and examined, denies any complaints. Blood pressure was low last night and this morning and patient received IV fluids. Patient did get Lasix which obviously will not be continued secondary to drop in blood pressure. Patient is not a candidate for any diuretics or any EDWARD/are or Enteresto. Vital Signs Date Time Temp Pulse Resp B/P B/P Pulse O2 O2 Flow FiO2 Mean Ox Delivery Rate 10/03 0848 80 80/60 10/03 0835 91 Nasal 2.0L Cannula 10/03 0800 96 Nasal 2.0L Cannula 10/03 0611 97.5 80 18 80/60 90 Nasal 2.0L Cannula 10/03 0430 78/58 10/03 0000 Nasal 3.0L Cannula 10/02 2045 83 108/62 10/02 2000 98.1 83 17 107/62 91 Nasal 2.0L Cannula 10/02 1609 93 Nasal 2.0L Cannula 10/02 1530 84 100/64 10/02 1450 97.8 84 18 104/68 95 Nasal 3.0L Cannula on exam; aox3, nad. cv; s1,s2, rrr resp; clear abd; soft, nt, bs+ ext; no edema Laboratory Tests 10/03 0734 Chemistry Sodium (137 - 145 mmol/L) 136 L Potassium (3.5 - 5.1 mmol/L) 4.2 Chloride (98 - 107 mmol/L) 97 L Carbon Dioxide (22 - 30 mmol/L) 32 H Anion Gap (5 - 16) 6 BUN (9 - 20 mg/dL) 31 H Creatinine (0.7 - 1.2 mg/dL) 0.8 Estimated GFR (>60 ml/min) > 60 BUN/Creatinine Ratio (7 - 25 %) 38.8 H A/P: 77 y/o M with pmh sig for HFrEF (Echo EF 25% with stage III diastolic dysfunction), PVD, COPD not on home oxygen, CAD status post stenting, descending thoracic aortic aneurysm-stable, pulmonary embolism non compliant with coumadin, admitted with acute hypoxic respiratory failure, acute CBD exacerbation and on top of that he has severe systolic congestive heart failure. Also thoracic aortic aneurysm which is enlarging. Patient with severe peripheral vascular disease. Appreciate palliative care consult. Patient will not be able to tolerate any diuretics or any EDWARD/are or Enteresto secondary to drop in blood pressure. Patient to be seen by physical therapy. Continue oral prednisone taper. Continue TRC nebs and other medications. Patient on Lovenox for DVT prophylaxis. PT eval will be obtained and patient might need to go to rehabilitation.
[2017-10-03 13:18] VITALS: BP 98/68
[2017-10-03 22:26] VITALS: BP 102/84
[2017-10-04 06:51] VITALS: BP 100/80
--- NOTE | 2017-10-04 09:09 | PN- Housestaff ---
Subjective Follow-up For: #1 acute hypoxic hypercarbic respiratory failure. #2 acute exacerbation of COPD #3 heart failure with reduced ejection fraction #4 large thoracic aneurysm #5 peripheral arterial disease #6 Ischemic heart disease #7 history of pulmonary embolism #8 multiple lung nodules #9 prostate hypertrophy Subjective: No acute events overnight. Patient does not want any rehab or nursing services for home. Review of Systems Constitutional: Reports: see HPI. Objective Last 24 Hrs of Vital Signs/I&O Vital Signs Date Time Temp Pulse Resp B/P B/P Pulse O2 O2 Flow FiO2 Mean Ox Delivery Rate 10/04 1545 Nasal 2.0L Cannula 10/04 1433 97.6 97 20 104/70 91 Nasal 2.0L Cannula 10/04 1145 92 Nasal 2.0L Cannula 10/04 1045 20 93 Nasal 2.0L Cannula 10/04 1040 22 87 Room Air 10/04 1040 22 93 Nasal 2.0L Cannula 10/04 1039 22 90 Nasal 2.0L Cannula 10/04 1011 68 100/78 10/04 0812 93 Nasal 2.0L Cannula 10/04 0800 93 Nasal 2.0L Cannula 10/04 0651 97.9 85 20 100/80 94 Nasal 2.0L Cannula 10/04 0000 93 Nasal 2.0L Cannula Intake & Output 10/04 1600 10/04 0800 10/04 0000 Intake Total 810 480 800 Output Total 950 600 400 Balance -140 -120 400 Intake, IV 10 Intake, Oral 800 480 800 Number 1 Bowel Movements Output, Urine 950 600 400 Patient 116 lb Weight Weight Bed scale Measurement Method Physical Exam General Appearance: Alert, Oriented X3, Cooperative Cardiovascular: Regular Rate, Normal S1, Normal S2 Lungs: inspiratory rhonchi and wheezing worst on R Abdomen: Normal Bowel Sounds, Soft, No Tenderness Extremities: no LE edema Vascular: 1+ radial pulses Current Medications: Current Medications Sig/Nelly Start time Last Medication Dose Route Stop Time Status Admin Acetaminophen 1,000 MG Q6P PRN 09/26 1615 DCD N/A 1 UNIT IV Albuterol Sulfate 3 ML EVERY 4 HRS/AWAKE 10/03 0800 DCD 10/04 INH 1144 Clopidogrel Bisulfate 75 MG DAILY 09/29 1115 DCD 10/04 PO 1011 Docusate Sodium 100 MG DAILY NEEDED PRN 10/02 1715 DCD 04/16 PO 1730 Enoxaparin Sodium 40 MG DAILY 10/01 0900 DCD 10/04 SC 1011 Guaifenesin/ 10 ML Q6P PRN 10/01 0830 DCD 10/02 Dextromethorphan PO 204 Insulin Aspart 0 TIDAC 09/23 1700 DCD 10/04 SC 1635 Ipratropium [place] 2.5 ML EVERY 4 HRS/AWAKE 10/03 0800 DCD 10/04 INH 1144 Melatonin 5 MG AT BEDTIME 09/23 2200 DCD 10/03 PO 2049 Metoprolol Tartrate 12.5 MG BID 09/30 0900 DCD 10/01 PO 2121 Morphine Sulfate 1 MG Q4P PRN 09/30 174 DCD IV Omeprazole 40 MG DAILY AC 09/24 0700 DCD 10/04 PO 0512 Polyethylene Glycol 17 GM DAILY NEEDED PRN 10/02 171 DCD PO Prednisone 5 MG DAILY 10/06 0900 DCD PO 10/08 0901 Prednisone 10 MG DAILY 10/03 0900 DCD 10/04 PO 10/05 0901 1011 Ramelteon 8 MG .STK-MED ONE 10/04 0004 DC PO 10/04 0005 Ramelteon 8 MG ONCE ONE 10/03 2345 DC 10/04 PO 10/03 2346 0036 Senna 187 MG AT BEDTIME NEED.. 10/02 1715 DCD PO Last 24 Hrs of Lab/Tr Results Last 24 Hrs of Labs/Mics: Laboratory Tests 10/04/17 0620: Anion Gap 10, Estimated GFR > 60, BUN/Creatinine Ratio 37.5 H, CBC w Diff NO MAN DIFF REQ, RBC 4.48 L, MCV 90.8, MCH 29.2, MCHC 32.1 L, RDW 13.8, MPV 8.0, Gran % 63.5, Lymphocytes % 28.5, Monocytes % 6.2, Eosinophils % 1.8, Basophils % 0, Absolute Granulocytes 7.5 H, Absolute Lymphocytes 3.4, Absolute Monocytes 0.7 H, Absolute Eosinophils 0.2, Absolute Basophils 0 Microbiology 10/05 711 LOWER RESP: Respiratory Culture - COLB 10/05 711 LOWER RESP: Gram Stain - COLB Assessment/Plan Assessment: A: Mr Cordero is a 77-year-old gentleman who is an active smoker, with PMHx of HFrEF (Echo EF 25% with stage III diastolic dysfunction), PVD, COPD not on home oxygen , CAD status post stenting, descending thoracic aortic aneurysm, pulmonary embolism which failed treatment with Xarelto and currently on warfarin was brought in with a chief concern of an acute onset of dyspnea, cough and wheezing. Problems: #Acute hypoxic hypercarbic respiratory failure, 2/2 COPD exacerbation He was initially started on ceftriaxone and azithromycin, and currently on Ceftin to complete a course of 7 days. Etiology could likely be due to exacerbation of COPD and there could be a competent of decompensation of his CHF. -discharged with prednispone taper and home O2 [facility]u but pt denies VNS or STR -cont bipp prn -stopped ceftin (13/ doses). pt has received 9 days of abx. cont po prednisone taper -cont pulm recommendations #H/o HTN but currently hypotensive Attempted to add lasix and lisinopril but BP dropped to 80/60s. 2 250ml bolus given overnight without improvement. Will cont to monitor as baseline SBP 80-90s systolic. Pt currently asymptomatic -cont carvediolol, lasix -holding valsartan/saccuetril due to hypotension #Diabetes mellitus -continue diabetic diet, insulin on a sliding scale, regular accuchecks #Supratherapeutic INR He was initially treated with Coumadin, which is currently held. INR 1.11. No more coumadin as per the pt, and Dr. Velásquez. Plavix daily. Allergic to aspirin. 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 -Patient does not want treatment -f/u cardiology and vascular surgery reocmmendations #Large saccular aneurysm of his thoracic aorta p -f/u outpatient vascular surgery #Will continue his home meds otherwise. #DVT ppx: Lovenox #Code status: DNR/DNI Problem List: 1. Acute respiratory failure with hypoxia and hypercarbia Pain Ratin Pain Location: none Pain Goal: Pain 4 or less Pain Plan: pain pathway Tomorrow's Labs & Rationales: none
[2017-10-04 09:31] LABS: ABSOLUTE BASOPHIL COUNT 0 /CUMM (0.0-0.2); ABSOLUTE EOSINOPHIL COUNT 0.2 /CUMM (0.0-0.7); ABSOLUTE GRANULOCYTE CT 7.5 /CUMM (1.4-6.5); ABSOLUTE LYMPH COUNT 3.4 /CUMM (1.2-3.4); ABSOLUTE MONOCYTE COUNT 0.7 /CUMM (0.10-0.60); BASOPHIL % 0 % (0.0-2.0); EOSINOPHIL % 1.8 % (0-5); GRANULOCYTE % 63.5 % (42.2-75.2); HEMATOCRIT 40.7 % (42-52); MEAN CORPUSCULAR HGB 29.2 PG (27.0-31.0); MEAN CORPUSCULAR HGB CONC 32.1 G/DL (33.0-37.0); MEAN CORPUSCULAR VOLUME 90.8 FL (80.0-94.0); PLATELET COUNT 212 /CUMM (130-400); RBC DISTRIBUTION WIDTH 13.8 % (11.5-14.5); RED BLOOD CELL CT 4.48 /CUMM (4.70-6.10); WHITE BLOOD CELL COUNT 11.8 /CUMM (4.8-10.8)
--- NOTE | 2017-10-04 13:00 | PN- Att Addend ---
Attending Addendum Attending Brief Note Patient seen and examined, denies any complaints. Requiring 2 L of oxygen. Patient desatted to 87% at rest on room air therefore he will need to go home with oxygen. Patient refusing to get any home services arm O2 any rehabilitation. Vital Signs Date Time Temp Pulse Resp B/P B/P Pulse O2 O2 Flow FiO2 Mean Ox Delivery Rate 10/04 1145 92 Nasal 2.0L Cannula 10/04 1045 20 93 Nasal 2.0L Cannula 10/04 1040 22 87 Room Air 10/04 1040 22 93 Nasal 2.0L Cannula 10/04 1039 22 90 Nasal 2.0L Cannula 10/04 1011 68 100/78 10/04 0812 93 Nasal 2.0L Cannula 10/04 0800 93 Nasal 2.0L Cannula 10/04 0651 97.9 85 20 100/80 94 Nasal 2.0L Cannula 10/04 0000 93 Nasal 2.0L Cannula 10/03 2226 98.2 83 20 102/84 93 Nasal 2.0L Cannula 10/03 2050 83 102/84 10/03 1755 95 Nasal 2.0L Cannula 10/03 1600 Nasal 3.0L Cannula 10/03 1318 98.2 84 20 98/68 92 Nasal 2.0L Cannula on exam; aox3, nad. cv; s1,s2, rrr resp; clear abd; soft, nt, bs+ ext; no edema Laboratory Tests 10/04 0620 Chemistry Sodium (137 - 145 mmol/L) 138 Potassium (3.5 - 5.1 mmol/L) 4.3 Chloride (98 - 107 mmol/L) 96 L Carbon Dioxide (22 - 30 mmol/L) 32 H Anion Gap (5 - 16) 10 BUN (9 - 20 mg/dL) 30 H Creatinine (0.7 - 1.2 mg/dL) 0.8 Estimated GFR (>60 ml/min) > 60 BUN/Creatinine Ratio (7 - 25 %) 37.5 H Hematology CBC w Diff NO MAN DIFF REQ WBC (4.8 - 10.8 /CUMM) 11.8 H RBC (4.70 - 6.10 /CUMM) 4.48 L Hgb (14.0 - 18.0 G/DL) 13.1 L Hct (42 - 52 %) 40.7 L MCV (80.0 - 94.0 FL) 90.8 MCH (27.0 - 31.0 PG) 29.2 MCHC (33.0 - 37.0 G/DL) 32.1 L RDW (11.5 - 14.5 %) 13.8 Plt Count (130 - 400 /CUMM) 212 MPV (7.4 - 10.4 FL) 8.0 Gran % (42.2 - 75.2 %) 63.5 Lymphocytes % (20.5 - 51.1 %) 28.5 Monocytes % (1.7 - 9.3 %) 6.2 Eosinophils % (0 - 5 %) 1.8 Basophils % (0.0 - 2.0 %) 0 Absolute Granulocytes (1.4 - 6.5 /CUMM) 7.5 H Absolute Lymphocytes (1.2 - 3.4 /CUMM) 3.4 Absolute Monocytes (0.10 - 0.60 /CUMM) 0.7 H Absolute Eosinophils (0.0 - 0.7 /CUMM) 0.2 Absolute Basophils (0.0 - 0.2 /CUMM) 0 A/P; 77 y/o M with pmh sig for HFrEF (Echo EF 25% with stage III diastolic dysfunction), PVD, COPD not on home oxygen, CAD status post stenting, descending thoracic aortic aneurysm-stable, pulmonary embolism non compliant with coumadin, admitted with acute hypoxic respiratory failure, acute CBD exacerbation and on top of that he has severe systolic congestive heart failure. Also thoracic aortic aneurysm which is enlarging. Patient with severe peripheral vascular disease. As mentioned, patient be satting on room air at rest. He is refusing to get any home services or go to rehabilitation. Patient on by mouth prednisone taper. He will require home oxygen that should be arranged. Otherwise he can be discharged on prednisone taper and continue the rest of his home medications. Patient to follow-up with pulmonology Dr. Velásquez and his primary care doctor as an outpatient.
[2017-10-04 14:33] VITALS: BP 104/70
[2017-10-04] MEDS ORDERED: PREDNISONE5 M1 PO (15:48)
[2017-10-04] MEDS ORDERED: PLAVIX75 M1 PO (15:48)
== END 2017-10-04 17:31 | DRG 189 ==
LOC: ERH 04:23 → CRI 08:17 → 2NB 08:17 → ERHI 08:17 → ENRESERV 09:15 → ENTRNSPT 10:15 → EDTRNSPT 10:35 → EDTRNSPTSTS 10:35 → CMPTRNSPT 10:49 → CRI 10:54 → ENTRNSPT 09-30 10:27 → EDTRNSPT 09-30 10:55 → EDTRNSPTSTS 09-30 10:55 → 2NB 09-30 11:06 → CMPTRNSPT 09-30 11:14 → ENTRNSPT 10-04 16:52 → EDTRNSPTSTS 10-04 17:24 → EDTRNSPT 10-04 17:24 → 2NB 10-04 17:31 → CMPTRNSPT 10-04 17:50
PROVIDERS: Hospitalist; Internal Medicine Endocrinology, Diabetes & Metabolism; Internal Medicine Infectious Disease; Internal Medicine Interventional Cardiology; Internal Medicine Pulmonary Disease; Pediatrics; Student in an Organized Health Care Education/Training Program
PROC: 5A09357 Assistance with Respiratory Ventilation, Less than 24 Consecutive Hours, Continuous Positive Airway Pressure (ICD-10-PCS; principal; 2017-09-23)
DX: J96.01 Acute respiratory failure with hypoxia (principal); E87.2 Acidosis; I50.22 Chronic systolic (congestive) heart failure; I71.2 Thoracic aortic aneurysm, without rupture; J44.1 Chronic obstructive pulmonary disease with (acute) exacerbation; J96.02 Acute respiratory failure with hypercapnia; Z99.81 Dependence on supplemental oxygen; Z66 Do not resuscitate; E11.9 Type 2 diabetes mellitus without complications; F17.200 Nicotine dependence, unspecified, uncomplicated; I25.10 Atherosclerotic heart disease of native coronary artery without angina pectoris; Z95.5 Presence of coronary angioplasty implant and graft; Z86.711 Personal history of pulmonary embolism; I70.201 Unspecified atherosclerosis of native arteries of extremities, right leg; Z91.19 Patient's noncompliance with other medical treatment and regimen; I25.2 Old myocardial infarction; E78.5 Hyperlipidemia, unspecified; N40.0 Benign prostatic hyperplasia without lower urinary tract symptoms; R91.8 Other nonspecific abnormal finding of lung field; Z88.5 Allergy status to narcotic agent; Z79.01 Long term (current) use of anticoagulants; Z88.6 Allergy status to analgesic agent
CPT/HCPCS: CCU; 36415; 36592; 71045; 74174; 82436; 87040; 87070; 87449; 87450; 93005; 93010; 93306; 93925; 94644; 96374; 96375; 97116-GO; 97161-GP; 99291; J0131; J0456; J0696; J1644; J1650; J1815; J2920; J2930; J7040; J7060; J7512

== ENCOUNTER 2017-12-30 11:52 | Emergency (ER) | payer OTHER, MEDICARE ==
[~2017-12-30] VITALS: Ht 167.6 cm; Wt 68.0 kg
[~2017-12-30 11:52] MED LIST changes: +CEFUROXIME250 M1 PO; +PLAVIX75 M1 PO; +PREDNISONE5 M1 PO
--- NOTE | 2017-12-30 12:04 | ED EAR COMPLAINT ---
History of Present Illness General Chief Complaint: Ear Complaints Stated Complaint: EAR PAIN Source: patient Exam Limitations: no limitations Vital Signs & Intake/Output Vital Signs & Intake/Output Vital Signs Date Time Temp Pulse Resp B/P B/P Pulse O2 O2 Flow FiO2 Mean Ox Delivery Rate 12/30 1333 97.0 70 20 123/70 12/30 1200 98.7 72 18 132/78 98 Room Air Allergies Coded Allergies: oxycodone (Intermediate, RASH 06/20/16) aspirin (ANAPHYLAXIS 04/30/16) Reconcile Medications Acetic Acid 2 % SOLUTION 4 DROP OT 4 TIMES/DAY OTITIS EXTERNA ACETIC ACID 2% WITH HYDROCORTISON OTIC Albuterol Sulfate 2.5 MG/3 ML (0.083 %) VIAL.NEB 3 ML INH BID PRN SHORTNESS OF BREATH Atorvastatin Calcium 40 MG TABLET 40 MG PO 1700 HEART Clopidogrel Bisulfate (Plavix) 75 MG TABLET 75 MG PO DAILY HEART Levofloxacin 500 MG TABLET 1 TAB PO DAILY ABX (Reported) Metoprolol Tartrate 25 MG TABLET 0.5 TAB PO BID HYPERTENSION Neomycin/Polymyxin B Sulf/Hc (Jzwpbsss-Ohdjqdgcm-Qw Ear Soln) 3.5 MG/ML-10,000 UNIT/ML-1 % SOLUTION 4 DROP AD TID RIGHT EAR (Reported) Triage Note: 77 YO MALE TO TRIAGE FOR EVAL OF R EAR PAIN AND SORE THROAT. REPORTS HE SAW HIS DR WHO GAVE HIM ANTIBIOTCS BUT HE FEELS NO BETTER. Triage Nurses Notes Reviewed? yes Onset: Gradual Duration: constant Timing: recent history Severity: moderate Severity Numbers: 5 HPI: Patient is 77-year-old male who presents emergency room with a one MONTH history of right-sided ear pain and mild sore throat patient states that initially he was seen by his primary care doctor in which she was prescribed Augmentin however it was unrelieved in which last week he was reevaluated and was prescribed levofloxacin polymycin DROPS for symptoms by his primary care doctor in which he feels no better. Patient denies any fever chills arm pain jaw pain difficult swallowing or breathing cough shortness of breath Patient denies any headache blurred vision fever chills difficulty swallowing or breathing (Julito Hill) Past History Travel History Traveled to [place] past 21 day No Medical History Any Pertinent Medical History? 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 MOTHER (DM). Hx Contributory? No (Julito Hill) Review of Systems Review of Systems Constitutional: Reports: no symptoms. EENTM: Reports: see HPI, ear pain, throat pain. Denies: throat swelling. Respiratory: Reports: no symptoms. Cardiovascular: Reports: no symptoms. GI: Reports: no symptoms. Genitourinary: Reports: no symptoms. Musculoskeletal: Reports: no symptoms. Skin: Reports: no symptoms. Neurological/Psychological: Reports: no symptoms. Hematologic/Endocrine: Reports: no symptoms. Immunologic/Allergic: Reports: no symptoms. All Other Systems: Reviewed and Negative (Julito Hill) Physical Exam Physical Exam General Appearance: no apparent distress, alert, thin Head: atraumatic Eyes: Bilateral: normal appearance, PERRL, EOMI. Ears: Left: canal normal, Tympanic normal. Nose: normal inspection Mouth/Throat: normal mouth inspection, pharynx normal Neck: normal inspection, full range of motion Cardiovascular/Respiratory: normal breath sounds, normal peripheral pulses, regular rate/rhythm Neurologic/Psych: no motor/sensory deficits, awake Skin: intact, normal color Comments: Right ear tragus point tenderness upon palpation, external auditory canal noted swelling and erythema tympanic membrane unremarkable intact No mastoid tenderness (Julito Hill) Progress Differential Diagnoses I considered the following diagnoses in my evaluation of the patient: [Otitis media and otitis externa sinusitis pharyngitis viral syndrome peritonsillar abscess mastoiditis, cancer] Diagnostic Imaging: Viewed by Me: CT Scan. Initial ED EKG: none (Julito Hill) Plan of Care: Orders Procedure Date/time Status THROAT CULTURE W/QUICK STREP 12/30 1159 Active Patient upon initial evaluation is resting comfortably bedside full active range of motion and neck unremarkable oropharynx on exam patient strep was negative Patient has nontender mastoid region Tympanic membrane unremarkable There is concerned of otitis externa PT HAS NORMAL STEADY GAIT After multiple times of calling [facility] for CT scan results the results are still pending [id number] DISCUSSED HANDOFF WITH KATY BUATISTA (Julito Hill) 12/30/17 4:11PM Patient was signed out to me by MONTSERRAT Hernandez Patient is a 77-year-old male who presented with right ear pain. Has been treated with a course of Augmentin, levofloxacin, and eardrops for otitis media/ otitis externa, but still has persistent pain. On exam his ear exam was benign, no edema or exudate in the ear canal, TM has a good light reflex, no tenderness to palpation over the mastoid bone. CT scan IMPRESSION: There is a small right mastoid effusion. No adjacent bone erosion. No inflammatory changes are appreciated adjacent to the external auditory canals on either side. No discrete fluid collections. There is a calcification measuring 6 mm associated with accessory parotid tissue overlying the left masseter muscle. Assessment of the soft tissues adjacent to this area is limited by motion artifact. Recommend correlation for tenderness to exclude parotitis. There is mild mucosal thickening within the maxillary sinuses, sphenoid sinuses, the ethmoid air cells, and frontal sinuses bilaterally. Patient has no tenderness to palpation over either parotid gland to indicate a parotitis. Patient was cleared for discharge home with Rx acetic acid drops. Given information to follow up with ENT. And given strict return precautions. Hina Bautista PA-C (Hina Jeter) (Kinsey ARECHIGA,Juice Tillman) Departure Departure Disposition: HOME OR SELF CARE Condition: Stable Clinical Impression Primary Impression: Otitis externa Referrals: Tez ARECHIGA,Tez (PCP/Family) Anaya ARECHIGA,Nicko Atwood Additional Instructions: As discussed begin the prescription of acetic acid drops, on Monday please follow-up with ENT DR CRAFT, if symptoms worsen return to emergency room. Departure Forms: Customer Survey General Discharge Information Prescriptions: Current Visit Scripts Acetic Acid 4 DROP OT 4 TIMES/DAY #1 BOT ACETIC ACID 2% WITH HYDROCORTISON OTIC (Mary MARIANO,Julito) PA/MATERIALS ENGINEERING TECHNICIAN Co-Sign Statement Statement: ED Attending supervision documentation- [x] I saw and evaluated the patient. I have also reviewed all the pertinent lab results and diagnostic results. I agree with the findings and the plan of care as documented in the PA's/MATERIALS ENGINEERING TECHNICIAN's documentation. Patient presents for evaluation of right ear pain after treatment with 3 antibiotics from his primary care physician. Physical examination reveals a mild almost burned-out erythema of the right auditory canal with scarring of the tympanic membrane. [] I have reviewed the ED Record and agree with the PA's/MATERIALS ENGINEERING TECHNICIAN's documentation. [] Additions or exceptions (if any) to the PAs/MATERIALS ENGINEERING TECHNICIAN's note and plan are summarized below: [] (Kinsey ARECHIGA,Juice Tillman)
[2017-12-30] MEDS ORDERED: LEVOFLOXACIN500 M1 PO (12:44)
[2017-12-30] MEDS ORDERED: NEOMYCIN-POLYMY10 ML AD (12:45)
[2017-12-30] MEDS ORDERED: ACETIC ACID15 ML OT (15:29)
--- NOTE | 2017-12-30 15:54 | CT SCAN REPORT ---
EXAMINATION: CT INTERNAL AUDITORY CANALS WITHOUT CONTRAST CLINICAL INFORMATION: Right ear pain unrelieved with antibiotics. COMPARISON: None available. TECHNIQUE: Contiguous axial imaging was performed without intravenous administration of contrast. FINDINGS: There is a small right mastoid effusion without evidence of adjacent bone erosion. The right middle ear cavity and the right external auditory canal are clear. Left mastoid air cells are clear and underpneumatized. Left middle ear cavity and external auditory canal are clear. Inner ear structures including the cochlea, vestibules, and semicircular canals are normal. Internal carotid arteries are well covered with bone. The TMJs are normal. There is mild mucosal thickening within the maxillary sinuses, sphenoid sinuses, the ethmoid air cells, and frontal sinuses bilaterally. There is a calcification measuring 6 mm associated with accessory parotid tissue overlying the left masseter muscle. Assessment of the soft tissues adjacent to this area is limited by motion artifact. Recommend correlation for tenderness to exclude parotitis. IMPRESSION: There is a small right mastoid effusion. No adjacent bone erosion. No inflammatory changes are appreciated adjacent to the external auditory canals on either side. No discrete fluid collections. There is a calcification measuring 6 mm associated with accessory parotid tissue overlying the left masseter muscle. Assessment of the soft tissues adjacent to this area is limited by motion artifact. Recommend correlation for tenderness to exclude parotitis. There is mild mucosal thickening within the maxillary sinuses, sphenoid sinuses, the ethmoid air cells, and frontal sinuses bilaterally.
[2017-12-30 16:14] VITALS: BP 117/83
== END 2017-12-30 16:15 ==
LOC: ERH 11:52
DX: H60.91 Unspecified otitis externa, right ear (principal); Z87.891 Personal history of nicotine dependence

== ENCOUNTER 2018-02-04 08:37 | Emergency (ER) | payer OTHER, MEDICARE ==
[~2018-02-04] VITALS: Ht 167.6 cm; Wt 68.0 kg
[~2018-02-04 08:37] MED LIST changes: +ACETIC ACID15 ML OT; +CIPRO250 M1 PO; +FLOMAX0.4 M1 PO; +LEVOFLOXACIN500 M1 PO; +NEOMYCIN-POLYMY10 ML AD
[2018-02-04 09:38] LABS: ABSOLUTE BASOPHIL COUNT 0 /CUMM (0.0-0.2); ABSOLUTE EOSINOPHIL COUNT 0.5 /CUMM (0.0-0.7); ABSOLUTE GRANULOCYTE CT 7.2 /CUMM (1.4-6.5); ABSOLUTE LYMPH COUNT 1.1 /CUMM (1.2-3.4); ABSOLUTE MONOCYTE COUNT 0.9 /CUMM (0.10-0.60); BASOPHIL % 0.1 % (0.0-2.0); GRANULOCYTE % 74.4 % (42.2-75.2); HEMATOCRIT 37.2 % (42-52); MEAN CORPUSCULAR HGB 31.1 PG (27.0-31.0); MEAN CORPUSCULAR HGB CONC 33.7 G/DL (33.0-37.0); MEAN CORPUSCULAR VOLUME 92.1 FL (80.0-94.0); MEAN PLATELET VOLUME 7.2 FL (7.4-10.4); PLATELET COUNT 191 /CUMM (130-400); RBC DISTRIBUTION WIDTH 15.4 % (11.5-14.5); RED BLOOD CELL CT 4.03 /CUMM (4.70-6.10); WHITE BLOOD CELL COUNT 9.7 /CUMM (4.8-10.8)
--- NOTE | 2018-02-04 11:06 | ED GENERAL ADULT ---
History of Present Illness General Chief Complaint: Male Genitourinary Problems Stated Complaint: URINARY RETENTION Source: patient Exam Limitations: no limitations Allergies Coded Allergies: oxycodone (Intermediate, RASH 06/20/16) aspirin (ANAPHYLAXIS 04/30/16) Triage Note: 77M RETURNS AFTER HAVING OCONNOR PLACED MONDAY AND NOW STATES IT HAS NOT BEEN DRAINING AND IS DARK WHEN IT DOES. STATES IT "MA LIKE CRAZY". DENIES ABDOMINAL OR BACK PAIN BUT HAS PRESSURE "TO GO". AFEBRILE Triage Nurses Notes Reviewed? yes Onset: Abrupt Duration: day(s): (2), constant, continues in ED Timing: single episode today Injury Environment: home HPI: 77-year-old male history of coronary artery disease hypertension CHF BPH presents for evaluation of urinary retention and dysuria. Patient reports he was seen here 2 days ago for urinary retention and a urinary tract infection. A Oconnor catheter was placed patient was started on Cipro. Patient states that since having the catheter placed he has had a burning sensation in his penis whenever urine flows to the back. He also states he thinks the Oconnor may be clogged as he has had a very small amount of urine come out. He states he feels well otherwise he has no abdominal pain back pain fever. No dizziness or lightheadedness. No weakness. He has not noticed any blood he is eating and drinking normally no nausea vomiting or diarrhea. (Young Hayden) Vital Signs & Intake/Output Vital Signs & Intake/Output Vital Signs Date Time Temp Pulse Resp B/P B/P Pulse O2 O2 Flow FiO2 Mean Ox Delivery Rate 02/04 1143 97.9 65 18 115/77 95 Room Air Room Air ED Intake and Output 02/05 0000 02/04 1200 Intake Total Output Total 200 Balance -200 Output, Urine 200 Patient 150 lb Weight Reconcile Medications Acetic Acid 2 % SOLUTION 4 DROP OT 4 TIMES/DAY OTITIS EXTERNA ACETIC ACID 2% WITH HYDROCORTISON OTIC Albuterol Sulfate 2.5 MG/3 ML (0.083 %) VIAL.NEB 3 ML INH BID PRN SHORTNESS OF BREATH Atorvastatin Calcium 40 MG TABLET 40 MG PO 1700 HEART Ciprofloxacin HCl (Cipro) 250 MG TABLET 1 TAB PO BID uti Clopidogrel Bisulfate (Plavix) 75 MG TABLET 75 MG PO DAILY HEART Levofloxacin 500 MG TABLET 1 TAB PO DAILY ABX (Reported) Metoprolol Tartrate 25 MG TABLET 0.5 TAB PO BID HYPERTENSION Neomycin/Polymyxin B Sulf/Hc (Vpzdesxx-Rikeaxace-Dp Ear Soln) 3.5 MG/ML-10,000 UNIT/ML-1 % SOLUTION 4 DROP AD TID RIGHT EAR (Reported) Phenazopyridine HCl (Pyridium) 100 MG TABLET 1 TAB PO TID DYSURIA Tamsulosin HCl (Flomax) 0.4 MG CAP.ER.24H 1 CAP PO DAILY urinary retention (Kinsey ARECHIGA,Juice Tillman) Past History Travel History Traveled to [place] past 21 day No Medical History Any Pertinent Medical History? 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 MOTHER (DM). Hx Contributory? No (Young Hayden) Review of Systems Review of Systems Constitutional: Reports: no symptoms. EENTM: Reports: no symptoms. Respiratory: Reports: no symptoms. Cardiovascular: Reports: no symptoms. GI: Reports: no symptoms. Genitourinary: Reports: see HPI, dysuria. Musculoskeletal: Reports: no symptoms. Skin: Reports: no symptoms. Neurological/Psychological: Reports: no symptoms. Hematologic/Endocrine: Reports: no symptoms. Immunologic/Allergic: Reports: no symptoms. All Other Systems: Reviewed and Negative (Young Hayden) Physical Exam Physical Exam General Appearance: well developed/nourished, no apparent distress, alert, awake Head: atraumatic, normal appearance Eyes: Bilateral: normal appearance, EOMI. Ears, Nose, Throat: hearing grossly normal Neck: normal inspection, supple, full range of motion Respiratory: normal breath sounds, chest non-tender, no respiratory distress, lungs clear Cardiovascular: regular rate/rhythm, normal peripheral pulses Peripheral Pulses: 2+ radial (R), 2+ radial (L) Gastrointestinal: soft, non-tender Back: normal inspection, normal range of motion, no vertebral tenderness Extremities: normal inspection, normal range of motion, no edema Neurologic/Psych: no motor/sensory deficits, awake, alert, oriented x 3, normal gait, normal mood/affect Skin: intact, normal color, warm/dry Lymphatic: no anterior cervical betty Core Measures ACS in differential dx? No CVA/TIA Diagnosis: No Sepsis Present: No Sepsis Focused Exam Completed? No (Young Hayden) Progress Differential Diagnoses I considered the following diagnoses in my evaluation of the patient: [Urinary retention, BPH, prostatitis, UTI, pyelonephritis, urethritis] Initial ED EKG: none (Young Hayden) Plan of Care: Orders Procedure Date/time Status Add-on Test (ER Only) 02/04 1105 Active CULTURE,URINE 02/04 1028 Active Laboratory Tests 02/04/18 1220: Lactic Acid Cancelled 02/04/18 1028: Urine Color UZAIR, Urine Clarity CLDY H, Urine pH 6.5, Ur Specific [place] 1.025, Urine Protein 100 H, Urine Ketones NEG, Urine Nitrite POS H, Urine Bilirubin NEG, Urine Urobilinogen 0.2, Ur Leukocyte Esterase MOD H, Ur Microscopic SEDIMENT EXAMINED, Urine RBC PACKD H, Urine WBC PACKD H, Ur Epithelial Cells FEW, Urine Bacteria MOD H, Urine Hemoglobin LARGE H, Urine Glucose NEG Microbiology 02/04 1028 URINE ROUT: Urine Culture - RES GRAM NEGATIVE RODS Patient is here for evaluation of his Oconnor catheter. Is concerned he may be clots. The Oconnor catheter was flushed by the nurse and is draining appropriately. A repeat urinalysis does still show signs of infection however patient is only been on antibiotics for 2 days. The blood work is unremarkable there is no signs of sepsis. Patient was instructed to continue Cipro for the full course. He was given lidocaine gel. He is feeling better. Advised to follow-up with urology as soon as possible. Discussed return precautions case discussed with Dr. Euceda he agrees. (Young Hayden) (Kinsey ARECHIGA,Juice Tillman) Departure Departure Disposition: HOME OR SELF CARE Condition: Stable Clinical Impression Primary Impression: UTI (urinary tract infection) Qualifiers: Urinary tract infection type: acute cystitis Hematuria presence: with hematuria Qualified Code: N30.01 - Acute cystitis with hematuria Referrals: Tez Reagan MD (PCP/Family) Vj Odell MD Additional Instructions: Continue antibiotics as directed for the full course. Make a follow-up with Dr. Odell for this week. Monitor symptoms closely if you have fever clogged Oconnor catheter abdominal pain or any other concerns return immediately. Departure Forms: Customer Survey General Discharge Information (Young Hayden) Departure Prescriptions: Current Visit Scripts Phenazopyridine HCl (Pyridium) 1 TAB PO TID #6 TAB PA/TONGSMAN Co-Sign Statement Statement: ED Attending supervision documentation- [X] I saw and evaluated the patient. I have also reviewed all the pertinent lab results and diagnostic results. I agree with the findings and the plan of care as documented in the PA's/TONGSMAN's documentation. Patient presents for evaluation of hematuria and burning with urination. Patient has a Oconnor catheter and leg bag in place. Abdomen is soft and nondistended. [] I have reviewed the ED Record and agree with the PA's/TONGSMAN's documentation. [] Additions or exceptions (if any) to the PAs/TONGSMAN's note and plan are summarized below: [] (Kinsey ARECHIGA,Juice Tillman) Critical Care Note Critical Care Note Critical Care Time: non-applicable (Young Hayden)
[2018-02-04] MEDS ORDERED: PYRIDIUM100 M1 PO (11:35)
[2018-02-04 11:43] VITALS: BP 115/77
[2018-02-11] MEDS ORDERED: AUGMENTIN 875-1 EACH PO (17:55)
== END 2018-02-04 11:47 ==
LOC: ERH 08:37
PROVIDERS: Physician Assistant Medical
DX: N39.0 Urinary tract infection, site not specified (principal); I50.9 Heart failure, unspecified; J44.9 Chronic obstructive pulmonary disease, unspecified; N40.0 Benign prostatic hyperplasia without lower urinary tract symptoms; E11.9 Type 2 diabetes mellitus without complications; F17.210 Nicotine dependence, cigarettes, uncomplicated
CPT/HCPCS: 81001; 87086

== ENCOUNTER 2018-02-07 17:27 | Emergency (ER) | payer OTHER, MEDICARE ==
[~2018-02-07] VITALS: Ht 167.6 cm; Wt 54.4 kg
[~2018-02-07 17:27] MED LIST changes: +PYRIDIUM100 M1 PO
[2018-02-07 17:44] VITALS: BP 134/76
[2018-02-07] MEDS ORDERED: PYRIDIUM200 M1 PO (18:04)
--- NOTE | 2018-02-07 18:04 | ED GI/GU/ABDOMINAL COMPLAINT ---
History of Present Illness General Chief Complaint: Male Genitourinary Problems Stated Complaint: CATH LEAKING Source: patient, old records Exam Limitations: no limitations Vital Signs & Intake/Output Vital Signs & Intake/Output Vital Signs Date Time Temp Pulse Resp B/P B/P Pulse O2 O2 Flow FiO2 Mean Ox Delivery Rate 02/07 1744 97.0 80 15 134/76 94 Room Air Room Air Allergies Coded Allergies: oxycodone (Intermediate, RASH 02/07/18) aspirin (ANAPHYLAXIS 02/07/18) Reconcile Medications Acetic Acid 2 % SOLUTION 4 DROP OT 4 TIMES/DAY OTITIS EXTERNA ACETIC ACID 2% WITH HYDROCORTISON OTIC Albuterol Sulfate 2.5 MG/3 ML (0.083 %) VIAL.NEB 3 ML INH BID PRN SHORTNESS OF BREATH Atorvastatin Calcium 40 MG TABLET 40 MG PO 1700 HEART Ciprofloxacin HCl (Cipro) 250 MG TABLET 1 TAB PO BID uti Clopidogrel Bisulfate (Plavix) 75 MG TABLET 75 MG PO DAILY HEART Levofloxacin 500 MG TABLET 1 TAB PO DAILY ABX (Reported) Metoprolol Tartrate 25 MG TABLET 0.5 TAB PO BID HYPERTENSION Neomycin/Polymyxin B Sulf/Hc (Rzjsuybc-Dhfusecae-Rd Ear Soln) 3.5 MG/ML-10,000 UNIT/ML-1 % SOLUTION 4 DROP AD TID RIGHT EAR (Reported) Phenazopyridine HCl (Pyridium) 100 MG TABLET 1 TAB PO TID DYSURIA Phenazopyridine HCl (Pyridium) 200 MG TABLET 1 TAB PO TID DYSUIRA Tamsulosin HCl (Flomax) 0.4 MG CAP.ER.24H 1 CAP PO DAILY urinary retention Triage Note: PT TO ED FOR CATHETER LEAKING AND BURNING AT INSERTION SITE. PT SEEN HERE A COUPLE DAYS AGO FOR SAME. Triage Nurses Notes Reviewed? yes HPI: Patient presents with a burning sensation to his penis and a plugged sensation from his [place] catheter. Patient states that the band that was securing the leg bag to his leg has broken and now his [place] catheter is being pulled. Patient does not have appointment with Dr. Odell until tomorrow. Patient states that his penis is been burning ever since the [place] catheter was inserted. There are no fevers chills. Burning pain is constant. There is no radiation. There are no aggravating or mitigating factors. He rates the burning sensation as moderate. Past History Travel History Traveled to [place] past 21 day No Medical History Any Pertinent Medical History? 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 MOTHER (DM). Hx Contributory? No Review of Systems Review of Systems Constitutional: Reports: no symptoms. Respiratory: Reports: no symptoms. Cardiovascular: Reports: no symptoms. Genitourinary: Reports: see HPI, dysuria. Skin: Reports: no symptoms. Neurological/Psychological: Reports: no symptoms. Immunologic/Allergic: Reports: no symptoms. Physical Exam Physical Exam General Appearance: well developed/nourished, alert, awake, anxious, mild distress Eyes: Bilateral: PERRL, EOMI. Neck: normal inspection, supple, full range of motion Respiratory: normal breath sounds, chest non-tender, no respiratory distress, lungs clear Cardiovascular: regular rate/rhythm, normal peripheral pulses Gastrointestinal: normal bowel sounds, soft, non-tender, no organomegaly Male Genitals: [place] CATHETER RESECURED Neurologic/Psych: no motor/sensory deficits, awake, alert, oriented x 3, normal gait, normal mood/affect Core Measures ACS in differential dx? No Sepsis Present: No Sepsis Focused Exam Completed? No Progress Differential Diagnosis: [place] CATHETER PROBLEM Plan of Care: Orders Procedure Date/time Status URINALYSIS 02/07 174 Active Current Medications Sig/Nelly Start time Last Medication Dose Stop Time Status Admin Phenazopyridine HCl 100 MG ONCE ONE 02/07 1815 UNVr (Pyridium) 02/08 1816 Initial ED EKG: none Departure Departure Disposition: HOME OR SELF CARE Condition: Stable Clinical Impression Primary Impression: [place] catheter problem Referrals: Tez ARECHIGA,Tez (PCP/Family) Vj Odell MD Additional Instructions: FOLLOW UP WITH Departure Forms: Customer Survey General Discharge Information Prescriptions: Current Visit Scripts Phenazopyridine HCl (Pyridium) 1 TAB PO TID #9 TAB
== END 2018-02-07 18:15 ==
LOC: ERH 17:27
DX: T83.098A Other mechanical complication of other urinary catheter, initial encounter (principal)